=== PATIENT | female | born 1975 ===

== ENCOUNTER 2016-09-27 11:33 | Emergency (ER) | payer OTHER ==
--- NOTE | 2016-09-27 12:58 | ED ---
Seizure HPI - General Chief Complaint: Seizure Stated Complaint: seizure Time Seen by Provider: 09/27/16 12:43 Source: patient, family, RN notes reviewed Mode of arrival: ambulatory Limitations: no limitations - History of Present Illness Initial Comments: 40-year-old female presents emergency Department chief complaint seizure. Patient states she was in the bathroom saying had a seizure falling and striking her head on the toilet. Patient states that she has a headache, swelling to the left frontal aspect of her head. Patient has a blurred vision any focal weakness. She states she feels dizzy now. Patient denies any nausea vomiting diarrhea constipation. Denies any chest pain or shortness breath. - Related Data Home Medications Medication Instructions Recorded Confirmed Lacosamide [Vimpat] 150 mg PO BID 07/28/16 09/27/16 levETIRAcetam [Keppra] 750 mg PO Q12HR 07/30/16 09/27/16 Allergies Allergy/AdvReac Type Severity Reaction Status Date / Time codeine Allergy Unknown Verified 09/27/16 13:39 ibuprofen [From Motrin] Allergy Unknown Verified 09/27/16 13:39 Review of Systems ROS Statement: Those systems with pertinent positive or pertinent negative responses have been documented in the HPI. ROS Other: All systems not noted in ROS Statement are negative. Past Medical History Past Medical History: Asthma, Seizure Disorder Additional Past Medical History / Comment(s): . History of Any Multi-Drug Resistant Organisms: MRSA Date of last positivie culture/infection: 11/03/08 MDRO Source:: Unknown Past Surgical History: Hysterectomy, Orthopedic Surgery Additional Past Surgical History / Comment(s): foot surgery 2006 Past Anesthesia/Blood Transfusion Reactions: No Reported Reaction Past Psychological History: Anxiety, Depression Smoking Status: Current every day smoker Past Alcohol Use History: None Reported Past Drug Use History: None Reported Additional Drug Use History / Comment(s): family states patient seizes with smoking. - Past Family History Father Family Medical History: No Reported History General Exam Limitations: no limitations General appearance: alert, in no apparent distress Head exam: Present: atraumatic, normocephalic. Absent: normal inspection ( Small hematoma noted to the left frontal aspect) Eye exam: Present: normal appearance, PERRL, EOMI. Absent: scleral icterus, conjunctival injection, periorbital swelling ENT exam: Present: normal exam, normal oropharynx, mucous membranes moist, TM's normal bilaterally, normal external ear exam Neck exam: Present: normal inspection, full ROM. Absent: tenderness, meningismus, lymphadenopathy Respiratory exam: Present: normal lung sounds bilaterally. Absent: respiratory distress, wheezes, rales, rhonchi, stridor Cardiovascular Exam: Present: regular rate, normal rhythm, normal heart sounds. Absent: systolic murmur, diastolic murmur, rubs, gallop, clicks Neurological exam: Present: alert, oriented X3, CN II-XII intact, reflexes normal. Absent: motor sensory deficit Skin exam: Present: warm, dry, intact, normal color. Absent: rash Course Vital Signs 09/27/16 12:19 Temperature 99 F Pulse Rate 67 Respiratory 16 Rate Blood Pressure 109/53 O2 Sat by Pulse 98 Oximetry Medical Decision Making - Medical Decision Making 40-year-old female presents emergency from for seizure head injury. Patient's CT does not show any acute abnormality. Patient has known history of seizures currently taking Keppra and Vimpat. We discussed return parameters. Patient follow-up urologist. - Lab Data Result diagrams: 09/27/16 13:24 09/27/16 13:24 Lab Results 09/27/16 09/27/16 Range/Units 13:24 13:24 WBC 5.5 (3.8-10.6) k/uL RBC 4.42 (3.80-5.40) m/uL Hgb 13.2 (11.4-16.0) gm/dL Hct 40.2 (34.0-46.0) % MCV 90.9 (80.0-100.0) fL MCH 29.9 (25.0-35.0) pg MCHC 32.9 (31.0-37.0) g/dL RDW 12.7 (11.5-15.5) % Plt Count 230 (150-450) k/uL Neutrophils % 65 % Lymphocytes % 26 % Monocytes % 3 % Eosinophils % 4 % Basophils % 0 % Neutrophils # 3.6 (1.3-7.7) k/uL Lymphocytes # 1.4 (1.0-4.8) k/uL Monocytes # 0.2 (0-1.0) k/uL Eosinophils # 0.2 (0-0.7) k/uL Basophils # 0.0 (0-0.2) k/uL Sodium 143 (137-145) mmol/L Potassium 4.7 (3.5-5.1) mmol/L Chloride 104 (98-107) mmol/L Carbon Dioxide 30 (22-30) mmol/L Anion Gap 9 mmol/L BUN 11 (7-17) mg/dL Creatinine 0.60 (0.52-1.04) mg/dL Est GFR (MDRD) Af Amer >60 (>60 ml/min/1.73 sqM) Est GFR (MDRD) Non-Af >60 (>60 ml/min/1.73 sqM) Glucose 83 (74-99) mg/dL Calcium 9.5 (8.4-10.2) mg/dL Total Bilirubin 0.6 (0.2-1.3) mg/dL AST 20 (14-36) U/L ALT 34 (9-52) U/L Alkaline Phosphatase 52 (38-126) U/L Total Protein 6.8 (6.3-8.2) g/dL Albumin 4.0 (3.5-5.0) g/dL 09/27/16 13:57 EKG performed at 13:13 sinus bradycardia rate of 57, MS interval 180, QRS duration 98, QT/QTC 410/399 Disposition Clinical Impression: Seizure, Concussion Disposition: HOME SELF-CARE Condition: Stable Instructions: Recurrent Seizures in Adults (ED), Concussion (ED) Additional Instructions: Please return to the Emergency Department if symptoms worsen or any other concerns. Time of Disposition: 13:58
[2016-09-27 13:39] LABS: Basophils % (A) 0 %; CH 30.3; CHCM 33.4; Eosinophils # (A) 0.2 k/uL (0-0.7); Eosinophils % (A) 4 %; HCT 40.2 % (34.0-46.0); HDW 2.24; HGB 13.2 gm/dL (11.4-16.0); Luc # (Auto) 0.09; Luc % (Auto) 2; Lymphocytes # (A) 1.4 k/uL (1.0-4.8); Lymphocytes % (A) 26 %; MCH 29.9 pg (25.0-35.0); MCHC 32.9 g/dL (31.0-37.0); MCV 90.9 fL (80.0-100.0); Mean Platelet Volume 6.8; Monocytes # (A) 0.2 k/uL (0-1.0); Monocytes % (A) 3 %; Neutrophils # (A) 3.6 k/uL (1.3-7.7); Neutrophils % (A) 65 %; RBC 4.42 m/uL (3.80-5.40); RDW 12.7 % (11.5-15.5); WBC 5.5 k/uL (3.8-10.6); WBC (Perox) 5.29
[2016-09-27 13:51] LABS: ALT 34 U/L (9-52); AST 20 U/L (14-36); Alkaline Phosphatase 52 U/L (38-126); Anion Gap 9 mmol/L; Blood Urea Nitrogen 11 mg/dL (7-17); Calcium 9.5 mg/dL (8.4-10.2); Carbon Dioxide 30 mmol/L (22-30); Chloride 104 mmol/L (98-107); Glucose 83 mg/dL (74-99); Non-African American GFR(MDRD) >60 (>60 ml/min/1.73 sqM); Potassium 4.7 mmol/L (3.5-5.1); Sodium 143 mmol/L (137-145); Total Bilirubin 0.6 mg/dL (0.2-1.3); Total Protein 6.8 g/dL (6.3-8.2)
--- NOTE | 2016-09-27 13:51 | CT ---
EXAMINATION TYPE: CT brain wo con DATE OF EXAM: 09/27/2016 1:45 PM COMPARISON: 03/27/2016 HISTORY: 40-year-old female complains of seizure today. Patient has a history of prior seizures. TECHNIQUE: Examination was done in axial plane without intravenous contrast. Coronal and sagittal reconstructio ns performed. CT DLP: 893.6 mGycm Automated exposure control for dose reduction was used. FINDINGS: There is no evidence of acute intracranial hemorrhage, acute ischemic changes, mass, mass-effect, or extra-axial fluid collection. There is no effacement of cerebral sulci or basal subarachnoid cister ns. There is no hydrocephalus. There is no midline shift. José-white matter distinction is preserv ed. Incidentally empty sella redemonstrated. Paranasal sinuses and mastoid air cells are well pneumatized. Orbits and globes are intact. IMPRESSION: No acute intracranial abnormality seen.
[2016-09-27] MEDS ORDERED: HYDROcodone/APAP 5-325MG 1 EACH TAB PO STA (13:56)
[2016-09-27 14:10] VITALS: BP 105/51; PULSE 59; RESP 18; TEMP 97.9
== END 2016-09-27 14:23 | disposition home or self-care (01) ==
LOC: EC 11:33
DX: S06.0X0A Concussion without loss of consciousness, initial encounter (principal); G40.909 Epilepsy, unspecified, not intractable, without status epilepticus; W01.198A Fall on same level from slipping, tripping and stumbling with subsequent striking against other object, initial encounter; F17.200 Nicotine dependence, unspecified, uncomplicated; Z79.899 Other long term (current) drug therapy; Z88.5 Allergy status to narcotic agent; Z88.6 Allergy status to analgesic agent
CPT/HCPCS: 36415; 70450; 80053; 84484; 85025; 93005; 99285

== ENCOUNTER 2016-10-29 15:26 | Emergency (ER) | payer OTHER ==
[2016-10-29 15:32] VITALS: RESP 18
[2016-10-29] MEDS ORDERED: MORPHINE SULFATE 4 MG/ML SYRINGE IV STA (16:32)
[2016-10-29] MEDS ORDERED: SODIUM CHLORIDE 0.9% 1,000 ML IV STA (16:32)
--- NOTE | 2016-10-29 16:39 | ED ---
General Adult HPI - General Chief complaint: Altered Mental Status Stated complaint: alter mental status Time Seen by Provider: 10/29/16 16:26 Source: patient, family, RN notes reviewed, old records reviewed Mode of arrival: EMS Limitations: altered mental status - History of Present Illness Initial comments: E this is a 40-year-old female here for evaluation. Patient presents today for evaluation regarding near syncope after seizure. Patient has history of these events, has history of seizures, taking no medication as prescribed, no headache chest pain shortness of breath or abdominal pain. Not . Patient is currently symptomatically feels back to her baseline. - Related Data Home Medications Medication Instructions Recorded Confirmed Lacosamide [Vimpat] 150 mg PO BID 07/28/16 10/29/16 levETIRAcetam [Keppra] 750 mg PO Q12HR 07/30/16 10/29/16 Albuterol Inhaler [Ventolin Hfa 2 puff INHALATION RT-Q6H PRN 10/29/16 10/29/16 Inhaler] Allergies Allergy/AdvReac Type Severity Reaction Status Date / Time codeine Allergy Unknown Verified 10/29/16 15:32 ibuprofen [From Motrin] Allergy Unknown Verified 10/29/16 15:32 Review of Systems ROS Statement: Those systems with pertinent positive or pertinent negative responses have been documented in the HPI. ROS Other: All systems not noted in ROS Statement are negative. Past Medical History Past Medical History: Asthma, Seizure Disorder Additional Past Medical History / Comment(s): . History of Any Multi-Drug Resistant Organisms: MRSA Date of last positivie culture/infection: 11/03/08 MDRO Source:: Unknown Past Surgical History: Hysterectomy, Orthopedic Surgery Additional Past Surgical History / Comment(s): foot surgery 2006 Past Anesthesia/Blood Transfusion Reactions: No Reported Reaction Past Psychological History: Anxiety, Depression Smoking Status: Current every day smoker Past Alcohol Use History: None Reported Past Drug Use History: None Reported Additional Drug Use History / Comment(s): family states patient seizes with smoking. - Past Family History Father Family Medical History: No Reported History General Exam Limitations: altered mental status General appearance: alert, in no apparent distress Head exam: Present: atraumatic, normocephalic, normal inspection Eye exam: Present: normal appearance, PERRL, EOMI. Absent: scleral icterus, conjunctival injection, periorbital swelling ENT exam: Present: normal exam, mucous membranes moist Neck exam: Present: normal inspection. Absent: tenderness, meningismus, lymphadenopathy Respiratory exam: Present: normal lung sounds bilaterally. Absent: respiratory distress, wheezes, rales, rhonchi, stridor Cardiovascular Exam: Present: regular rate, normal rhythm, normal heart sounds. Absent: systolic murmur, diastolic murmur, rubs, gallop, clicks GI/Abdominal exam: Present: soft, normal bowel sounds. Absent: distended, tenderness, guarding, rebound, rigid Extremities exam: Present: normal inspection, full ROM, normal capillary refill. Absent: tenderness, pedal edema, joint swelling, calf tenderness Back exam: Present: normal inspection Neurological exam: Present: alert, oriented X3, CN II-XII intact Psychiatric exam: Present: normal affect, normal mood Skin exam: Present: warm, dry, intact, normal color. Absent: rash Course Vital Signs 10/29/16 10/29/16 10/29/16 15:28 17:25 17:38 Temperature 98.3 F Pulse Rate 54 L 45 L 57 L Respiratory 18 18 18 Rate Blood Pressure 114/76 88/45 94/52 O2 Sat by Pulse 95 99 100 Oximetry 10/29/16 18:05 Temperature Pulse Rate 58 L Respiratory 18 Rate Blood Pressure 128/60 O2 Sat by Pulse 99 Oximetry - Reevaluation(s) Reevaluation #1: 10/29/16 18:56 Patient did have an episodic bradycardia episode, no syncope Reevaluation #2: 10/29/16 18:57 Patient advised to stay in the hospital, she states she feels fine and would like to be discharged home EKG Findings - EKG Comments: EKG Findings:: EKG shows normal sinus rhythm is 65, [place] 182, QRS 100, QTC 449. Repeat. Failure the on EKG shows rate of 46, MO 178, QRS 104, QTC 407, sinus bradycardia, heart rate down 20 beat since she came into emergency room Medical Decision Making - Medical Decision Making 40 female with evaluation of recurrent seizure and bradycardia with syncope, near syncope. Patient will be discharged home and she is refusing to stay in the year for further evaluation and treatment, will give follow-up for cardiology - Lab Data Result diagrams: 10/29/16 15:55 10/29/16 15:55 Lab Results 10/29/16 10/29/16 10/29/16 Range/Units 15:55 15:55 15:55 WBC 5.7 (3.8-10.6) k/uL RBC 4.37 (3.80-5.40) m/uL Hgb 13.1 (11.4-16.0) gm/dL Hct 39.8 (34.0-46.0) % MCV 91.1 (80.0-100.0) fL MCH 30.0 (25.0-35.0) pg MCHC 33.0 (31.0-37.0) g/dL RDW 13.2 (11.5-15.5) % Plt Count 257 (150-450) k/uL Neutrophils % 70 % Lymphocytes % 23 % Monocytes % 3 % Eosinophils % 2 % Basophils % 0 % Neutrophils # 4.0 (1.3-7.7) k/uL Lymphocytes # 1.3 (1.0-4.8) k/uL Monocytes # 0.2 (0-1.0) k/uL Eosinophils # 0.1 (0-0.7) k/uL Basophils # 0.0 (0-0.2) k/uL PT (9.0-12.0) sec INR (<1.1) APTT (22.0-30.0) sec Sodium 143 (137-145) mmol/L Potassium 4.2 (3.5-5.1) mmol/L Chloride 103 (98-107) mmol/L Carbon Dioxide 31 H (22-30) mmol/L Anion Gap 9 mmol/L BUN 7 (7-17) mg/dL Creatinine 0.60 (0.52-1.04) mg/dL Est GFR (MDRD) Af Amer >60 (>60 ml/min/1.73 sqM) Est GFR (MDRD) Non-Af >60 (>60 ml/min/1.73 sqM) Glucose 86 (74-99) mg/dL POC Glucose (mg/dL) (75-99) mg/dL POC Glu Lumber Sorter ID Calcium 9.5 (8.4-10.2) mg/dL Phosphorus 3.1 (2.5-4.5) mg/dL Magnesium 2.1 (1.6-2.3) mg/dL Total Bilirubin 0.7 (0.2-1.3) mg/dL AST 19 (14-36) U/L ALT 25 (9-52) U/L Alkaline Phosphatase 53 (38-126) U/L Total Creatine Kinase 157 H (30-135) U/L CK-MB (CK-2) 2.1 (0.0-2.4) ng/mL CK-MB (CK-2) Rel Index 1.3 Troponin I <0.012 (0.000-0.034) ng/mL Total Protein 7.3 (6.3-8.2) g/dL Albumin 4.3 (3.5-5.0) g/dL Salicylates <1.0 mg/dL Acetaminophen <10.0 ug/mL Serum Alcohol <10 mg/dL 10/29/16 10/29/16 Range/Units 15:55 17:18 WBC (3.8-10.6) k/uL RBC (3.80-5.40) m/uL Hgb (11.4-16.0) gm/dL Hct (34.0-46.0) % MCV (80.0-100.0) fL MCH (25.0-35.0) pg MCHC (31.0-37.0) g/dL RDW (11.5-15.5) % Plt Count (150-450) k/uL Neutrophils % % Lymphocytes % % Monocytes % % Eosinophils % % Basophils % % Neutrophils # (1.3-7.7) k/uL Lymphocytes # (1.0-4.8) k/uL Monocytes # (0-1.0) k/uL Eosinophils # (0-0.7) k/uL Basophils # (0-0.2) k/uL PT 10.7 (9.0-12.0) sec INR 1.1 (<1.1) APTT 28.7 (22.0-30.0) sec Sodium (137-145) mmol/L Potassium (3.5-5.1) mmol/L Chloride (98-107) mmol/L Carbon Dioxide (22-30) mmol/L Anion Gap mmol/L BUN (7-17) mg/dL Creatinine (0.52-1.04) mg/dL Est GFR (MDRD) Af Amer (>60 ml/min/1.73 sqM) Est GFR (MDRD) Non-Af (>60 ml/min/1.73 sqM) Glucose (74-99) mg/dL POC Glucose (mg/dL) 88 (75-99) mg/dL POC Glu Lumber Sorter Maico Carpio Calcium (8.4-10.2) mg/dL Phosphorus (2.5-4.5) mg/dL Magnesium (1.6-2.3) mg/dL Total Bilirubin (0.2-1.3) mg/dL AST (14-36) U/L ALT (9-52) U/L Alkaline Phosphatase (38-126) U/L Total Creatine Kinase (30-135) U/L CK-MB (CK-2) (0.0-2.4) ng/mL CK-MB (CK-2) Rel Index Troponin I (0.000-0.034) ng/mL Total Protein (6.3-8.2) g/dL Albumin (3.5-5.0) g/dL Salicylates mg/dL Acetaminophen ug/mL Serum Alcohol mg/dL - Radiology Data Radiology results: report reviewed (CT brain negative for acute disease), image reviewed Disposition Clinical Impression: Seizure, Recurrent seizures, Altered mental status, Near syncope Disposition: HOME SELF-CARE Condition: Good Instructions: Syncope (ED), Near Syncope (ED), Epilepsy (ED), Bradycardia (ED) Referrals: Marcial Reyes MD [Primary Care Provider] - 1-2 days
[2016-10-29 16:48] LABS: Basophils % (A) 0 %; CH 30.3; CHCM 33.4; Eosinophils # (A) 0.1 k/uL (0-0.7); Eosinophils % (A) 2 %; HCT 39.8 % (34.0-46.0); HDW 2.26; HGB 13.1 gm/dL (11.4-16.0); Luc # (Auto) 0.08; Luc % (Auto) 1; Lymphocytes # (A) 1.3 k/uL (1.0-4.8); Lymphocytes % (A) 23 %; MCV 91.1 fL (80.0-100.0); Monocytes # (A) 0.2 k/uL (0-1.0); Monocytes % (A) 3 %; Neutrophils % (A) 70 %; RBC 4.37 m/uL (3.80-5.40); RDW 13.2 % (11.5-15.5); WBC 5.7 k/uL (3.8-10.6); WBC (Perox) 5.66
[2016-10-29 16:55] LABS: ALT 25 U/L (9-52); AST 19 U/L (14-36); Acetaminophen <10.0 ug/mL; Alcohol <10 mg/dL; Alkaline Phosphatase 53 U/L (38-126); Anion Gap 9 mmol/L; Blood Urea Nitrogen 7 mg/dL (7-17); Calcium 9.5 mg/dL (8.4-10.2); Carbon Dioxide 31 mmol/L (22-30); Chloride 103 mmol/L (98-107); Glucose 86 mg/dL (74-99); INR 1.1 (<1.1); Magnesium 2.1 mg/dL (1.6-2.3); Non-African American GFR(MDRD) >60 (>60 ml/min/1.73 sqM); Partial Thromboplastin Time 28.7 sec (22.0-30.0); Phosphorous 3.1 mg/dL (2.5-4.5); Potassium 4.2 mmol/L (3.5-5.1); Prothrombin Time 10.7 sec (9.0-12.0); Salicylate <1.0 mg/dL; Sodium 143 mmol/L (137-145); Total Bilirubin 0.7 mg/dL (0.2-1.3); Total Protein 7.3 g/dL (6.3-8.2)
[2016-10-29 17:05] LABS: Creatine Kinase 157 U/L (30-135)
[2016-10-29 17:18] LABS: Creatine Kinase MB 2.1 ng/mL (0.0-2.4); Troponin I <0.012 ng/mL (0.000-0.034)
[2016-10-29 17:20] LABS: Glucose,Whole Blood 88 mg/dL (75-99)
--- NOTE | 2016-10-29 18:14 | CT ---
EXAMINATION TYPE: CT brain wo con DATE OF EXAM: 10/29/2016 6:01 PM COMPARISON: 09/27/2016 HISTORY: Seizure today. Headache. History of seizures. CT DLP: 1109.00 mGycm Automated exposure control for dose reduction was used. FINDINGS: The ventricles and sulci appear normal. There is no mass effect nor midline shift. There is no sign o f intracranial hemorrhage. The calvarium is intact. IMPRESSION: Negative unenhanced head CT scan. No change.
[2016-10-29] MEDS ORDERED: SODIUM CHLORIDE 0.9% 1,000 ML IV ONE (18:27)
[2016-10-29 19:10] VITALS: BP 107/56
[2016-10-29 19:15] VITALS: PULSE 58; TEMP 97.2
== END 2016-10-29 19:14 | disposition home or self-care (01) ==
LOC: EC 15:26
DX: G40.909 Epilepsy, unspecified, not intractable, without status epilepticus (principal); R55 Syncope and collapse; R00.1 Bradycardia, unspecified; Z86.14 Personal history of Methicillin resistant Staphylococcus aureus infection; F17.200 Nicotine dependence, unspecified, uncomplicated; Z88.6 Allergy status to analgesic agent; Z88.5 Allergy status to narcotic agent; Z79.899 Other long term (current) drug therapy
CPT/HCPCS: 99285; 96361; 96374; 36415; 93005; 80053; 82550; 82553; 83735; 84100; 84484; 85025; 85610; 85730; 83520 ×2; 80320; 70450; J2270

== ENCOUNTER 2016-11-11 09:08 | Inpatient (IN) | payer MEDICAID, OTHER ==
[2016-11-11] MEDS ORDERED: SODIUM CHLORIDE 0.9% 1,000 ML IV STA (09:17)
--- NOTE | 2016-11-11 09:21 | ED ---
General Adult HPI - General Chief complaint: Overdose Stated complaint: overdose Time Seen by Provider: 11/11/16 09:13 Source: patient, RN notes reviewed, old records reviewed Mode of arrival: EMS Limitations: no limitations - History of Present Illness Initial comments: This is a 40-year-old female the ER for evaluation of suicide attempt, patient lethargic somnolent and sleeping. Per family patient at about 9:00 last night took around 30 Flexeril. Patient denies being homicidal or suicidal at this time. No drugs or alcohol - Related Data Home Medications Medication Instructions Recorded Confirmed Lacosamide [Vimpat] 150 mg PO BID 07/28/16 10/29/16 levETIRAcetam [Keppra] 750 mg PO Q12HR 07/30/16 10/29/16 Albuterol Inhaler [Ventolin Hfa 2 puff INHALATION RT-Q6H PRN 10/29/16 10/29/16 Inhaler] Allergies Allergy/AdvReac Type Severity Reaction Status Date / Time codeine Allergy Unknown Verified 10/29/16 15:32 ibuprofen [From Motrin] Allergy Unknown Verified 10/29/16 15:32 Review of Systems ROS Statement: Those systems with pertinent positive or pertinent negative responses have been documented in the HPI. ROS Other: All systems not noted in ROS Statement are negative. Past Medical History Past Medical History: Asthma, Seizure Disorder Additional Past Medical History / Comment(s): . History of Any Multi-Drug Resistant Organisms: MRSA Date of last positivie culture/infection: 11/03/08 MDRO Source:: Unknown Past Surgical History: Hysterectomy, Orthopedic Surgery Additional Past Surgical History / Comment(s): foot surgery 2006 Past Anesthesia/Blood Transfusion Reactions: No Reported Reaction Past Psychological History: Anxiety, Depression Smoking Status: Current every day smoker Past Alcohol Use History: None Reported Past Drug Use History: None Reported Additional Drug Use History / Comment(s): family states patient seizes with smoking. - Past Family History Father Family Medical History: No Reported History General Exam - General Exam Comments Initial Comments: Patient somnolent on exam is arousable Limitations: no limitations General appearance: alert, in no apparent distress Head exam: Present: atraumatic, normocephalic, normal inspection Eye exam: Present: normal appearance, PERRL, EOMI. Absent: scleral icterus, conjunctival injection, periorbital swelling ENT exam: Present: normal exam, mucous membranes moist Neck exam: Present: normal inspection. Absent: tenderness, meningismus, lymphadenopathy Respiratory exam: Present: normal lung sounds bilaterally. Absent: respiratory distress, wheezes, rales, rhonchi, stridor Cardiovascular Exam: Present: regular rate, normal rhythm, normal heart sounds. Absent: systolic murmur, diastolic murmur, rubs, gallop, clicks GI/Abdominal exam: Present: soft, normal bowel sounds. Absent: distended, tenderness, guarding, rebound, rigid Extremities exam: Present: normal inspection, full ROM, normal capillary refill. Absent: tenderness, pedal edema, joint swelling, calf tenderness Back exam: Present: normal inspection Neurological exam: Present: alert, oriented X3, CN II-XII intact Psychiatric exam: Present: normal affect, normal mood Skin exam: Present: warm, dry, intact, normal color. Absent: rash Course Vital Signs 11/11/16 11/11/16 11/11/16 09:10 10:28 11:00 Temperature 97.7 F Pulse Rate 82 72 74 Respiratory 14 18 14 Rate Blood Pressure 113/59 102/57 117/56 O2 Sat by Pulse 99 97 100 Oximetry - Reevaluation(s) Reevaluation #1: 11/11/16 09:18 Family states patient is unstable in need of psychiatric care 11/11/16 12:15 Patient medically clear for psychiatric evaluation EKG Findings - EKG Comments: EKG Findings:: EKG shows normal sinus rhythm rate of 85, [place] 182, QRS 04, QTC 437 Medical Decision Making - Medical Decision Making 40 female the year with suicidal thoughts and suicidal attempt, patient will be admitted for psychiatric evaluation and treatment - Lab Data Result diagrams: 11/11/16 09:16 11/11/16 10:16 Lab Results 11/11/16 11/11/16 11/11/16 Range/Units 09:16 09:16 09:33 WBC 4.8 (3.8-10.6) k/uL RBC 4.34 (3.80-5.40) m/uL Hgb 13.2 (11.4-16.0) gm/dL Hct 39.7 (34.0-46.0) % MCV 91.5 (80.0-100.0) fL MCH 30.5 (25.0-35.0) pg MCHC 33.4 (31.0-37.0) g/dL RDW 13.5 (11.5-15.5) % Plt Count 205 (150-450) k/uL Neutrophils % 69 % Lymphocytes % 21 % Monocytes % 4 % Eosinophils % 3 % Basophils % 1 % Neutrophils # 3.3 (1.3-7.7) k/uL Lymphocytes # 1.0 (1.0-4.8) k/uL Monocytes # 0.2 (0-1.0) k/uL Eosinophils # 0.2 (0-0.7) k/uL Basophils # 0.1 (0-0.2) k/uL PT 11.1 (9.0-12.0) sec INR 1.1 (<1.1) Sodium (137-145) mmol/L Potassium (3.5-5.1) mmol/L Chloride (98-107) mmol/L Carbon Dioxide (22-30) mmol/L Anion Gap mmol/L BUN (7-17) mg/dL Creatinine (0.52-1.04) mg/dL Est GFR (MDRD) Af Amer (>60 ml/min/1.73 sqM) Est GFR (MDRD) Non-Af (>60 ml/min/1.73 sqM) Glucose (74-99) mg/dL Calcium (8.4-10.2) mg/dL Phosphorus (2.5-4.5) mg/dL Magnesium (1.6-2.3) mg/dL Total Bilirubin (0.2-1.3) mg/dL AST (14-36) U/L ALT (9-52) U/L Alkaline Phosphatase (38-126) U/L Total Creatine Kinase (30-135) U/L CK-MB (CK-2) (0.0-2.4) ng/mL CK-MB (CK-2) Rel Index Total Protein (6.3-8.2) g/dL Albumin (3.5-5.0) g/dL Urine Color Colorless Urine Appearance Clear (Clear) Urine pH 7.5 (5.0-8.0) Ur Specific [place] 1.001 (1.001-1.035) Urine Protein Negative (Negative) Urine Glucose (UA) Negative (Negative) Urine Ketones Negative (Negative) Urine Blood Negative (Negative) Urine Nitrate Negative (Negative) Urine Bilirubin Negative (Negative) Urine Urobilinogen <2.0 (<2.0) mg/dL Ur Leukocyte Esterase Negative (Negative) Urine HCG, Qual (Not Detectd) Salicylates mg/dL Urine Opiates Screen Not Detected (NotDetected) Ur Oxycodone Screen Not Detected (NotDetected) Urine Methadone Screen Not Detected (NotDetected) Ur Propoxyphene Screen Not Detected (NotDetected) Acetaminophen ug/mL Ur Barbiturates Screen Not Detected (NotDetected) U Tricyclic Antidepress Detected H (NotDetected) Ur Phencyclidine Scrn Not Detected (NotDetected) Ur Amphetamines Screen Not Detected (NotDetected) U Methamphetamines Scrn Not Detected (NotDetected) U Benzodiazepines Scrn Not Detected (NotDetected) Urine Cocaine Screen Not Detected (NotDetected) U Marijuana (THC) Screen Not Detected (NotDetected) Serum Alcohol mg/dL 11/11/16 11/11/16 11/11/16 Range/Units 09:33 10:16 10:16 WBC (3.8-10.6) k/uL RBC (3.80-5.40) m/uL Hgb (11.4-16.0) gm/dL Hct (34.0-46.0) % MCV (80.0-100.0) fL MCH (25.0-35.0) pg MCHC (31.0-37.0) g/dL RDW (11.5-15.5) % Plt Count (150-450) k/uL Neutrophils % % Lymphocytes % % Monocytes % % Eosinophils % % Basophils % % Neutrophils # (1.3-7.7) k/uL Lymphocytes # (1.0-4.8) k/uL Monocytes # (0-1.0) k/uL Eosinophils # (0-0.7) k/uL Basophils # (0-0.2) k/uL PT (9.0-12.0) sec INR (<1.1) Sodium 144 (137-145) mmol/L Potassium 4.3 (3.5-5.1) mmol/L Chloride 108 H (98-107) mmol/L Carbon Dioxide 26 (22-30) mmol/L Anion Gap 10 mmol/L BUN 8 (7-17) mg/dL Creatinine 0.53 (0.52-1.04) mg/dL Est GFR (MDRD) Af Amer >60 (>60 ml/min/1.73 sqM) Est GFR (MDRD) Non-Af >60 (>60 ml/min/1.73 sqM) Glucose 82 (74-99) mg/dL Calcium 9.3 (8.4-10.2) mg/dL Phosphorus 3.5 (2.5-4.5) mg/dL Magnesium 2.1 (1.6-2.3) mg/dL Total Bilirubin 1.1 (0.2-1.3) mg/dL AST 18 (14-36) U/L ALT 26 (9-52) U/L Alkaline Phosphatase 58 (38-126) U/L Total Creatine Kinase 115 (30-135) U/L CK-MB (CK-2) 1.2 (0.0-2.4) ng/mL CK-MB (CK-2) Rel Index 1.0 Total Protein 7.2 (6.3-8.2) g/dL Albumin 4.1 (3.5-5.0) g/dL Urine Color Urine Appearance (Clear) Urine pH (5.0-8.0) Ur Specific [place] (1.001-1.035) Urine Protein (Negative) Urine Glucose (UA) (Negative) Urine Ketones (Negative) Urine Blood (Negative) Urine Nitrate (Negative) Urine Bilirubin (Negative) Urine Urobilinogen (<2.0) mg/dL Ur Leukocyte Esterase (Negative) Urine HCG, Qual Not Detected (Not Detectd) Salicylates <1.0 mg/dL Urine Opiates Screen (NotDetected) Ur Oxycodone Screen (NotDetected) Urine Methadone Screen (NotDetected) Ur Propoxyphene Screen (NotDetected) Acetaminophen <10.0 ug/mL Ur Barbiturates Screen (NotDetected) U Tricyclic Antidepress (NotDetected) Ur Phencyclidine Scrn (NotDetected) Ur Amphetamines Screen (NotDetected) U Methamphetamines Scrn (NotDetected) U Benzodiazepines Scrn (NotDetected) Urine Cocaine Screen (NotDetected) U Marijuana (THC) Screen (NotDetected) Serum Alcohol <10 mg/dL Disposition Clinical Impression: Drug overdose, Suicide attempt Disposition: TRANSFER TO PSYCH HOSP/UNIT Condition: Fair Referrals: Marcial Reyes MD [Primary Care Provider] - 1-2 days
[2016-11-11 09:33] LABS: Basophils # (A) 0.1 k/uL (0-0.2); Basophils % (A) 1 %; CH 30.4; CHCM 33.4; Eosinophils # (A) 0.2 k/uL (0-0.7); Eosinophils % (A) 3 %; HCT 39.7 % (34.0-46.0); HDW 2.73; HGB 13.2 gm/dL (11.4-16.0); Luc # (Auto) 0.12; Luc % (Auto) 2; Lymphocytes % (A) 21 %; MCH 30.5 pg (25.0-35.0); MCHC 33.4 g/dL (31.0-37.0); MCV 91.5 fL (80.0-100.0); Mean Platelet Volume 8.7; Monocytes # (A) 0.2 k/uL (0-1.0); Monocytes % (A) 4 %; Neutrophils # (A) 3.3 k/uL (1.3-7.7); Neutrophils % (A) 69 %; RBC 4.34 m/uL (3.80-5.40); RDW 13.5 % (11.5-15.5); WBC 4.8 k/uL (3.8-10.6); WBC (Perox) 4.89
[2016-11-11 09:43] LABS: Appearance,Urine Clear (Clear); Bilirubin,Urine Negative (Negative); Glucose,Urine (UA) Negative (Negative); Ketones,Urine Negative (Negative); Leukocyte Esterase,Urine Negative (Negative); Nitrite,Urine Negative (Negative); PH, Urine 7.5 (5.0-8.0); Protein,Urine Negative (Negative); Specific Gravity,Urine 1.001 (1.001-1.035); UA Billing (MACRO vs. MICRO) CHEM; Urobilinogen,Urine <2.0 mg/dL (<2.0)
[2016-11-11 09:52] LABS: INR 1.1 (<1.1); Prothrombin Time 11.1 sec (9.0-12.0)
[2016-11-11 10:50] LABS: ALT 26 U/L (9-52); AST 18 U/L (14-36); Acetaminophen <10.0 ug/mL; Alcohol <10 mg/dL; Alkaline Phosphatase 58 U/L (38-126); Anion Gap 10 mmol/L; Blood Urea Nitrogen 8 mg/dL (7-17); Calcium 9.3 mg/dL (8.4-10.2); Carbon Dioxide 26 mmol/L (22-30); Chloride 108 mmol/L (98-107); Glucose 82 mg/dL (74-99); Magnesium 2.1 mg/dL (1.6-2.3); Non-African American GFR(MDRD) >60 (>60 ml/min/1.73 sqM); Phosphorous 3.5 mg/dL (2.5-4.5); Potassium 4.3 mmol/L (3.5-5.1); Salicylate <1.0 mg/dL; Sodium 144 mmol/L (137-145); Total Bilirubin 1.1 mg/dL (0.2-1.3); Total Protein 7.2 g/dL (6.3-8.2)
[2016-11-11 11:02] LABS: Creatine Kinase MB 1.2 ng/mL (0.0-2.4)
[2016-11-11] MEDS ORDERED: ACETAMINOPHEN TAB 325 MG TAB PO PRN (15:49)
[2016-11-11] MEDS ORDERED: MAGNESIUM HYDROXIDE 2,400 MG/10 ML CUP PO PRN (15:49)
[2016-11-11] MEDS ORDERED: ZIPRASIDONE 20 MG VIAL IM PRN (15:56)
[2016-11-11] MEDS: NICOTINE 21MG/24HR PATCH TRANSDERM SCH (16:09)
--- NOTE | 2016-11-11 19:34 | P.HP ---
Psychiatric H&P - . H&P Date: 11/11/16 History & Physical: Allergies Allergy/AdvReac Type Severity Reaction Status Date / Time codeine Allergy Unknown Verified 11/11/16 12:42 ibuprofen [From Motrin] Allergy Unknown Verified 11/11/16 12:42 Vital Signs Temp 97.9 F 11/11/16 13:18 Pulse 90 11/11/16 13:18 Resp 18 11/11/16 13:18 BP 120/56 11/11/16 13:18 Pulse Ox 98 11/11/16 13:18 Laboratory Last Values WBC 4.8 k/uL (3.8-10.6) 11/11/16 09:16 RBC 4.34 m/uL (3.80-5.40) 11/11/16 09:16 Hgb 13.2 gm/dL (11.4-16.0) 11/11/16 09:16 Hct 39.7 % (34.0-46.0) 11/11/16 09:16 MCV 91.5 fL (80.0-100.0) 11/11/16 09:16 MCH 30.5 pg (25.0-35.0) 11/11/16 09:16 MCHC 33.4 g/dL (31.0-37.0) 11/11/16 09:16 RDW 13.5 % (11.5-15.5) 11/11/16 09:16 Plt Count 205 k/uL (150-450) 11/11/16 09:16 Neutrophils % 69 % 11/11/16 09:16 Lymphocytes % 21 % 11/11/16 09:16 Monocytes % 4 % 11/11/16 09:16 Eosinophils % 3 % 11/11/16 09:16 Basophils % 1 % 11/11/16 09:16 Neutrophils # 3.3 k/uL (1.3-7.7) 11/11/16 09:16 Lymphocytes # 1.0 k/uL (1.0-4.8) 11/11/16 09:16 Monocytes # 0.2 k/uL (0-1.0) 11/11/16 09:16 Eosinophils # 0.2 k/uL (0-0.7) 11/11/16 09:16 Basophils # 0.1 k/uL (0-0.2) 11/11/16 09:16 PT 11.1 sec (9.0-12.0) 11/11/16 09:16 INR 1.1 (<1.1) 11/11/16 09:16 Sodium 144 mmol/L (137-145) 11/11/16 10:16 Potassium 4.3 mmol/L (3.5-5.1) 11/11/16 10:16 Chloride 108 mmol/L (98-107) H 11/11/16 10:16 Carbon Dioxide 26 mmol/L (22-30) 11/11/16 10:16 Anion Gap 10 mmol/L 11/11/16 10:16 BUN 8 mg/dL (7-17) 11/11/16 10:16 Creatinine 0.53 mg/dL (0.52-1.04) 11/11/16 10:16 Est GFR (MDRD) Af Amer >60 (>60 ml/min/1.73 sqM) 11/11/16 10:16 Est GFR (MDRD) Non-Af >60 (>60 ml/min/1.73 sqM) 11/11/16 10:16 Glucose 82 mg/dL (74-99) 11/11/16 10:16 Calcium 9.3 mg/dL (8.4-10.2) 11/11/16 10:16 Phosphorus 3.5 mg/dL (2.5-4.5) 11/11/16 10:16 Magnesium 2.1 mg/dL (1.6-2.3) 11/11/16 10:16 Total Bilirubin 1.1 mg/dL (0.2-1.3) 11/11/16 10:16 AST 18 U/L (14-36) 11/11/16 10:16 ALT 26 U/L (9-52) 11/11/16 10:16 Alkaline Phosphatase 58 U/L (38-126) 11/11/16 10:16 Total Creatine Kinase 115 U/L (30-135) 11/11/16 10:16 CK-MB (CK-2) 1.2 ng/mL (0.0-2.4) 11/11/16 10:16 CK-MB (CK-2) Rel Index 1.0 11/11/16 10:16 Total Protein 7.2 g/dL (6.3-8.2) 11/11/16 10:16 Albumin 4.1 g/dL (3.5-5.0) 11/11/16 10:16 Urine Color Colorless 11/11/16 09:33 Urine Appearance Clear (Clear) 11/11/16 09:33 Urine pH 7.5 (5.0-8.0) 11/11/16 09:33 Ur Specific [place] 1.001 (1.001-1.035) 11/11/16 09:33 Urine Protein Negative (Negative) 11/11/16 09:33 Urine Glucose (UA) Negative (Negative) 11/11/16 09:33 Urine Ketones Negative (Negative) 11/11/16 09:33 Urine Blood Negative (Negative) 11/11/16 09:33 Urine Nitrate Negative (Negative) 11/11/16 09:33 Urine Bilirubin Negative (Negative) 11/11/16 09:33 Urine Urobilinogen <2.0 mg/dL (<2.0) 11/11/16 09:33 Ur Leukocyte Esterase Negative (Negative) 11/11/16 09:33 Urine HCG, Qual Not Detected (Not Detectd) 11/11/16 09:33 Salicylates <1.0 mg/dL 11/11/16 10:16 Urine Opiates Screen Not Detected (NotDetected) 11/11/16 09:33 Ur Oxycodone Screen Not Detected (NotDetected) 11/11/16 09:33 Urine Methadone Screen Not Detected (NotDetected) 11/11/16 09:33 Ur Propoxyphene Screen Not Detected (NotDetected) 11/11/16 09:33 Acetaminophen <10.0 ug/mL 11/11/16 10:16 Ur Barbiturates Screen Not Detected (NotDetected) 11/11/16 09:33 U Tricyclic Antidepress Detected (NotDetected) H 11/11/16 09:33 Ur Phencyclidine Scrn Not Detected (NotDetected) 11/11/16 09:33 Ur Amphetamines Screen Not Detected (NotDetected) 11/11/16 09:33 U Methamphetamines Scrn Not Detected (NotDetected) 11/11/16 09:33 U Benzodiazepines Scrn Not Detected (NotDetected) 11/11/16 09:33 Urine Cocaine Screen Not Detected (NotDetected) 11/11/16 09:33 U Marijuana (THC) Screen Not Detected (NotDetected) 11/11/16 09:33 Serum Alcohol <10 mg/dL 11/11/16 10:16 11/11/16 19:14 IDENTIFYING DATA: 40-year-old female patient HPI: Patient is admitted to the inpatient psychiatric unit [facility] on an involuntary basis. Petition was done by nursing staff verbalizing "patient overdosed 11/10/2016 at 9 PM on 30 Flexeril. States she hoped it would make her boyfriend come back and be nice to her." She reports that she did not take an overdose of the muscle relaxer. She says that she threw them in the sink and left the water spoil the medication and denies taking 30 pills. She relates that she was sitting on the couch and her boyfriend came in and seemed like he didn't care and she said "I'll tease you, we'll play a little game like I'm ." She relays that then he came back and she said "I took it. " Then she said 'no I put them in the sink.' When asked again after the session was over regarding clarification of the events the patient relays that she told her boyfriend's brother that she took the pills and then she told her boyfriend that she didn't take the pills. She states that they were going to break up before but she didn't want to. She says they are still together. Regarding her mood lately the past couple weeks she says it's been okay and she does say she has some sadness a little. She denies any confused or paranoid thoughts. She says sometimes she is in a good mood and some time she is grumpy. PAST PSYCHIATRIC HISTORY: She denies any history of psychiatric admissions. Denies any history of suicide attempts. She has been seeing a counselor in [place]. PMH: Seizure disorder ALLERGIES: Codeine, ibuprofen MEDICATIONS: Tylenol when necessary, Ventolin when necessary, Vimpat, Keppra, milk of magnesia when necessary, Haldol patch, Geodon when necessary CHEMICAL DEPENDENCY HISTORY: Denies FAMILY PSYCHIATRIC HISTORY: Denies FAMILY CHEMICAL DEPENDENCY HISTORY: Not known at this time. SOCIAL HISTORY: Currently lives with her boyfriend and his brother. Not currently working. MENTAL STATUS EXAM: She is alert and overall cooperative with the interview. Her speech is fluent not rapid or pressured. Her mood is described as "okay she denies any thoughts of harm to self or others. She denies any auditory or visual hallucinations. She denies any confused or paranoid thoughts. It appears as though there may be some thought disorganization at times. Her insight has some limitations, her judgment shows evidence of recent impairment. STRENGTHS/WEAKNESSES: Strengths-Some support system; weaknesses -coping skills INTELLECTUAL FUNCTIONING: Average IMPRESSIONS: AXIS I : Unspecified depressive disorder; rule out unspecified psychotic disorder AXIS II: Deferred AXIS III: History of seizure disorder AXIS IV: Relationship AXIS V: 30 PLAN: Patient is admitted to the inpatient psychiatric unit on an involuntary basis. She will be placed on SP 15 minute cautious. Baseline laboratory workup were done the patient and medical consultation will be ordered. Discussed with the patient regarding the use of psychotropic medication which she is not interested at this point in time. Would look at a medication that can help with mood/thought. We will look into support systems. Dr. Melchor will initiate care of this patient starting tomorrow. Estimated length of stay is 5-7 days. Prognosis is guarded.
[2016-11-11] MEDS: ALBUTEROL INHALER 60 PUFF/8 GM INHALER INHALATION PRN (20:56)
[2016-11-11] MEDS: LACOSAMIDE 150 MG TABLET PO SCH (21:25)
[2016-11-12 07:09] VITALS: RESP 16; TEMP 98
[2016-11-12] MEDS: NICOTINE 21MG/24HR PATCH TRANSDERM SCH (08:25)
[2016-11-12] MEDS: LACOSAMIDE 150 MG TABLET PO SCH ×2 (08:26→20:46)
[2016-11-12 10:11] LABS: Basophils % (A) 0 %; CH 30.4; CHCM 32.7; Eosinophils # (A) 0.2 k/uL (0-0.7); Eosinophils % (A) 3 %; HCT 43.1 % (34.0-46.0); HDW 2.28; HGB 13.7 gm/dL (11.4-16.0); Luc # (Auto) 0.07; Luc % (Auto) 1; Lymphocytes # (A) 1.6 k/uL (1.0-4.8); Lymphocytes % (A) 27 %; MCH 29.8 pg (25.0-35.0); MCHC 31.9 g/dL (31.0-37.0); MCV 93.5 fL (80.0-100.0); Mean Platelet Volume 7.4; Monocytes # (A) 0.2 k/uL (0-1.0); Monocytes % (A) 3 %; Neutrophils # (A) 3.9 k/uL (1.3-7.7); Neutrophils % (A) 66 %; RBC 4.61 m/uL (3.80-5.40); RDW 13.3 % (11.5-15.5); WBC (Perox) 6.05
[2016-11-12 10:15] LABS: ALT 25 U/L (9-52); AST 16 U/L (14-36); Alkaline Phosphatase 57 U/L (38-126); Anion Gap 12 mmol/L; Blood Urea Nitrogen 12 mg/dL (7-17); Calcium 9.6 mg/dL (8.4-10.2); Carbon Dioxide 29 mmol/L (22-30); Chloride 101 mmol/L (98-107); Glucose 105 mg/dL (74-99); Non-African American GFR(MDRD) >60 (>60 ml/min/1.73 sqM); Potassium 4.5 mmol/L (3.5-5.1); Sodium 142 mmol/L (137-145); Total Bilirubin 1.5 mg/dL (0.2-1.3); Total Protein 7.6 g/dL (6.3-8.2)
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
[2016-11-12] MEDS: ALBUTEROL INHALER 60 PUFF/8 GM INHALER INHALATION PRN ×2 (17:00→21:17)
--- NOTE | 2016-11-12 22:17 | CONS ---
DATE OF CONSULTATION: REASON FOR CONSULTATION: Medical management of overdose and seizure disorder. HISTORY OF PRESENT ILLNESS: Mr. Venegas is a 40-year-old female with known history of seizure disorder and nicotine addiction and came to the hospital after suicide attempt. Apparently, the patient was lethargic and somnolent and sleeping when she came to the hospital. As per the family the patient took about 30 Flexeril tablets but the patient is currently more awake, alert and oriented. Patient denied taking any medications and she threw out all the medications neurology actually. The patient denies suicidal ideation now. The patient was found to have partner relational problems and otherwise denied any drugs or IVDU. Denied any alcohol use. Patient does smoke about 2 packs plus per day and does take her medications regularly. REVIEW OF SYSTEMS: CONSTITUTIONAL: No fever. No chills. RESPIRATORY: No cough or sputum production. CARDIOVASCULAR: No chest pain or short of breath. ABDOMEN: No nausea, vomiting, or abdominal pain. GENITOURINARY: Negative. ENDOCRINE: Negative. PSYCHIATRIC: Negative. SKIN: Negative. All other fourteen-point review of systems negative except as above. Past medical history includes asthma. Seizure disorder. Past history of methicillin-resistant Staphylococcus aureus. PAST SURGICAL HISTORY: Hysterectomy, orthopedic surgery, foot surgery in 2005. PSYCHOSOCIAL HISTORY: Anxiety and depression. SOCIAL HISTORY: Currently an everyday smoker, smokes about 2 packs per day. Occasional alcohol use. Denied any drugs or IVDU. FAMILY HISTORY: Father had ( )history of hypertension or diabetes mellitus. Home medication include: 1. Vimpat. 2. Keppra. 3. Albuterol inhaler. ALLERGIES: CODEINE AND IBUPROFEN. PHYSICAL EXAMINATION: A 40-year-old female, lying in the bed comfortably; awake, alert and oriented times three. Appears to be in no apparent distress. VITALS: Blood pressure is 112/56, pulse is 91, respirations 18, temperature afebrile, pulse ox 100% on room air. HEENT: Atraumatic, normocephalic. Neck is supple. No JVD. CARDIOVASCULAR: S1, S2 heard. No murmurs, no gallop, no rub. LUNGS: Bilateral air entry is present. No wheezing. No crackles. Nonlabored breathing. ABDOMEN: Soft, nontender. Bowel sounds are present. CENTRAL NERVOUS SYSTEM: Awake, alert and oriented x3. No focal deficits. EXTREMITIES: No edema. Pulses palpable bilaterally. No clubbing or cyanosis. PSYCHIATRIC: Cooperative. LABORATORY DATA: WBC 6.0, hemoglobin 13.7, platelets 264. Sodium 142, potassium 4.5, chloride 101, bicarb 29, BUN 12, creatinine 0.65. Bilirubin 1.5. TSH 0.898. UDS positive for tricyclic antidepressants. UA negative. Serum alcohol less than 10. Acetaminophen level less than 10, salicylate level less than 10. EKG on admission showed normal sinus rhythm. IMPRESSION: 1. Acute suicide attempt, patient actually taking overdose medications. 2. Asthma history, we will continue on Ventolin as needed and no active exacerbation. 3. Seizure disorder, continue with the home medications. 4. Nicotine addiction, smoking cessation has been counseled extensively. 5. Partner relational problems. DISCUSSION AND PLAN/RECOMMENDATIONS: The patient will be continued on current home medications for seizure disorder and Ventolin inhaler as needed. Encourage ambulation for DVT prophylaxis. The patient is being followed by psychiatric, otherwise continue the current management. Patient was placed on nicotine patch. We will continue the current management and further recommendations based on clinical course.
[2016-11-13] MEDS: LACOSAMIDE 150 MG TABLET PO SCH (08:16)
[2016-11-13] MEDS: NICOTINE 21MG/24HR PATCH TRANSDERM SCH (09:24)
[2016-11-13] MEDS: ALBUTEROL INHALER 60 PUFF/8 GM INHALER INHALATION PRN (09:27)
[2016-11-13 13:39] VITALS: BP 122/56; PULSE 84
--- NOTE | 2016-11-13 15:37 | P.PN ---
Progress Note - Text SUBJECTIVE: Ms. Venegas remains distressed that she cannot leave the hospital. I explained that application for involuntary hospitalization and supporting documents had been submitted before our interview yesterday. I apologized that I was unaware of the process had progressed to the court submission and explained that I could not discharge her under these circumstances. She repeatedly maintained that she has no thoughts of or suicide. She continues to deny that she had overdosed on her prescription medications prior to admission. She denied the need for inpatient unit for treatment but agreed to continue outpatient services. OBJECTIVE: She presented as a casually groomed 40-year-old female who was intermittently distressed and crying. She maintained eye contact and attended the interview. She had no distinguishing features or prominent physical abnormalities. She had a distressed facial expression. She has slight psychomotor retardation but no abnormal involuntary movements. Her speech was spontaneous with variable rate, rhythm and volume consistent with her mood. Her speech was dysarthric. Her affect was depressed. She denied suicidal ideation or wishes. She denied homicidal ideation. She denied depressive cognitions such as hopelessness, helplessness or worthlessness. She ruminated on this hospitalization her perceived need to be discharged home. She did not expressed some obsessions, ideas reference or paranoid ideation. Her thinking was concrete and her associations were coherent and logical. She denied hallucinations and did not appear to responding to internal stimuli. ASSESSMENT: She appears depressed and restless. She is distressed over the involuntary hospitalization ordered need for continued inpatient stay. She continues to deny suicidal ideation, plan or intent and denied that she had attempted suicide prior to admission. PLAN: Continue inpatient psychiatric hospitalization until she defers or we have the probate hearing. Continue 15 minute checks. Continue current medications including Vimpat 150 mg twice a day, Keppra 750 mg every 12 hours, albuterol 2 puffs every 6 hours when necessary for shortness of breath. Discuss treatment with antidepressant medication. Continued participation in therapeutic groups and activities. Evaluate clinical status and response to treatment daily basis.
== END 2016-11-13 07:25 | disposition home or self-care (01) | DRG 881 ==
LOC: EC 09:08 → 3MHU 12:57
PROVIDERS: ADMIT Psychiatry & Neurology Psychiatry; ATTEND Psychiatry & Neurology Psychiatry
DX: F32.9 Major depressive disorder, single episode, unspecified (principal); G40.909 Epilepsy, unspecified, not intractable, without status epilepticus; R45.851 Suicidal ideations; F41.9 Anxiety disorder, unspecified; J45.909 Unspecified asthma, uncomplicated; F17.200 Nicotine dependence, unspecified, uncomplicated; R53.83 Other fatigue; R47.1 Dysarthria and anarthria; Z88.6 Allergy status to analgesic agent; Z88.5 Allergy status to narcotic agent; Z87.828 Personal history of other (healed) physical injury and trauma; Z86.14 Personal history of Methicillin resistant Staphylococcus aureus infection; Z16.24 Resistance to multiple antibiotics; Z83.3 Family history of diabetes mellitus; Z82.49 Family history of ischemic heart disease and other diseases of the circulatory system; Z79.899 Other long term (current) drug therapy; Z71.6 Tobacco abuse counseling; Z90.710 Acquired absence of both cervix and uterus; Z56.0 Unemployment, unspecified; Z63.0 Problems in relationship with spouse or partner
CPT/HCPCS: 36415; 80053; 80306; 80320; 81003; 81025; 82075; 82550; 82553; 83520; 83735; 84100; 84443; 85025; 85610; 93005; 94640; 96360; 99285

== ENCOUNTER → 2017-01-02 | Outpatient (CLI) | payer OTHER ==
[2017-01-02 13:38] LABS: Appearance,Urine Clear (Clear); Bacteria,Urine Rare /hpf; Bilirubin,Urine Negative (Negative); Glucose,Urine (UA) Negative (Negative); Ketones,Urine Negative (Negative); Leukocyte Esterase,Urine Trace (Negative); Mucus,Urine Few /hpf; Nitrite,Urine Negative (Negative); Particle Count 3212; Protein,Urine Negative (Negative); Specific Gravity,Urine 1.009 (1.001-1.035); Squamous Epithelial Cell,Urine 1 /hpf (0-4); UA Billing (MACRO vs. MICRO) MICRO; Urobilinogen,Urine <2.0 mg/dL (<2.0); WBC,Urine 1 /hpf (0-5)
== END | disposition home or self-care (01) ==
LOC: LABWHC1 13:04
PROVIDERS: ATTEND Physician Assistant Medical
DX: N39.0 Urinary tract infection, site not specified (principal)
CPT/HCPCS: 81001

== ENCOUNTER 2017-03-31 02:05 | Inpatient (IN) | payer OTHER ==
[2017-03-31] MEDS ORDERED: levETIRAcetam IV 1,000 MG in SALINE 1 100ML.BAG IVPB STA (02:10)
[2017-03-31] MEDS ORDERED: SODIUM CHLORIDE 0.9% 1,000 ML IV STA (02:10)
[2017-03-31] MEDS ORDERED: SODIUM CHLORIDE 0.9% 500 ML IV STA (02:10)
--- NOTE | 2017-03-31 02:15 | ED ---
General Adult HPI - General Chief complaint: Seizure Stated complaint: Seizure Time Seen by Provider: 03/31/17 02:10 Source: patient, family, EMS, RN notes reviewed, old records reviewed Mode of arrival: EMS Limitations: no limitations - History of Present Illness Initial comments: This is a 41-year-old female today for evaluation of seizure. Patient's prolonged history of seizures severe seizure disorder or mental handicap and disability. Patient has been taking his medication or her medication per her . He states patient had multiple seizures today more than she usually does and was not returning to her normal mental state. Per EMS patient is brought to emergency room and did have seizure in route. Currently patient is drowsy and unable to answer questions. History of patient from EMS and patient' s chart - Related Data Home Medications Medication Instructions Recorded Confirmed Lacosamide [Vimpat] 150 mg PO BID 07/28/16 03/31/17 levETIRAcetam [Keppra] 750 mg PO Q12HR 07/30/16 03/31/17 Albuterol Inhaler [Ventolin Hfa 2 puff INHALATION RT-Q6H PRN 10/29/16 03/31/17 Inhaler] Cyclobenzaprine [Flexeril] 10 mg PO BID PRN 11/11/16 03/31/17 Ibuprofen [Motrin] 600 mg PO Q8HR PRN 11/11/16 03/31/17 Previous Rx's Medication Instructions Recorded Nicotine 21Mg/24Hr Patch [Habitrol] 1 patch TRANSDERM DAILY 14 Days 11/13/16 Allergies Allergy/AdvReac Type Severity Reaction Status Date / Time codeine Allergy Unknown Verified 03/31/17 02:14 ibuprofen [From Motrin] Allergy Unknown Verified 03/31/17 02:14 Review of Systems ROS Statement: Those systems with pertinent positive or pertinent negative responses have been documented in the HPI. ROS Other: All systems not noted in ROS Statement are negative. Past Medical History Past Medical History: Asthma, Seizure Disorder Additional Past Medical History / Comment(s): . History of Any Multi-Drug Resistant Organisms: MRSA Date of last positivie culture/infection: 11/03/08 MDRO Source:: Unknown Past Surgical History: Hysterectomy, Orthopedic Surgery Additional Past Surgical History / Comment(s): foot surgery 2006 Past Anesthesia/Blood Transfusion Reactions: No Reported Reaction Past Psychological History: Anxiety, Depression Smoking Status: Current every day smoker - Past Family History Father Family Medical History: No Reported History General Exam Limitations: no limitations, altered mental status General appearance: alert, in no apparent distress Head exam: Present: atraumatic, normocephalic, normal inspection Eye exam: Present: normal appearance, PERRL, EOMI. Absent: scleral icterus, conjunctival injection, periorbital swelling ENT exam: Present: normal exam, mucous membranes moist Neck exam: Present: normal inspection. Absent: tenderness, meningismus, lymphadenopathy Respiratory exam: Present: normal lung sounds bilaterally. Absent: respiratory distress, wheezes, rales, rhonchi, stridor Cardiovascular Exam: Present: regular rate, normal rhythm, normal heart sounds. Absent: systolic murmur, diastolic murmur, rubs, gallop, clicks GI/Abdominal exam: Present: soft, normal bowel sounds. Absent: distended, tenderness, guarding, rebound, rigid Extremities exam: Present: normal inspection, full ROM, normal capillary refill. Absent: tenderness, pedal edema, joint swelling, calf tenderness Back exam: Present: normal inspection Neurological exam: Present: alert, oriented X3, CN II-XII intact Psychiatric exam: Present: normal affect, normal mood Skin exam: Present: warm, dry, intact, normal color. Absent: rash Course Vital Signs 03/31/17 03/31/17 02:08 03:03 Temperature 99.3 F Pulse Rate 72 95 Respiratory 16 18 Rate Blood Pressure 91/57 86/46 O2 Sat by Pulse 96 100 Oximetry EKG Findings - EKG Comments: EKG Findings:: EKG shows normal sinus rhythm rate of 73, [place] 184, QRS 96, QTC 431 Medical Decision Making - Medical Decision Making 41 female to ER with status epilepticus, recurrent seizure disorder. Patient be admitted for seizure control and neurological evaluation - Lab Data Result diagrams: 03/31/17 02:20 03/31/17 02:20 Lab Results 03/31/17 03/31/17 Range/Units 02:20 02:20 WBC 7.0 (3.8-10.6) k/uL RBC 4.33 (3.80-5.40) m/uL Hgb 13.3 (11.4-16.0) gm/dL Hct 39.3 (34.0-46.0) % MCV 90.8 (80.0-100.0) fL MCH 30.8 (25.0-35.0) pg MCHC 34.0 (31.0-37.0) g/dL RDW 13.3 (11.5-15.5) % Plt Count 220 (150-450) k/uL Neutrophils % 74 % Lymphocytes % 18 % Monocytes % 3 % Eosinophils % 5 % Basophils % 0 % Neutrophils # 5.2 (1.3-7.7) k/uL Lymphocytes # 1.3 (1.0-4.8) k/uL Monocytes # 0.2 (0-1.0) k/uL Eosinophils # 0.3 (0-0.7) k/uL Basophils # 0.0 (0-0.2) k/uL Sodium 140 (137-145) mmol/L Potassium 4.2 (3.5-5.1) mmol/L Chloride 109 H (98-107) mmol/L Carbon Dioxide 22 (22-30) mmol/L Anion Gap 9 mmol/L BUN 10 (7-17) mg/dL Creatinine 0.60 (0.52-1.04) mg/dL Est GFR (MDRD) Af Amer >60 (>60 ml/min/1.73 sqM) Est GFR (MDRD) Non-Af >60 (>60 ml/min/1.73 sqM) Glucose 78 (74-99) mg/dL Calcium 9.1 (8.4-10.2) mg/dL Total Bilirubin 0.4 (0.2-1.3) mg/dL AST 21 (14-36) U/L ALT 23 (9-52) U/L Alkaline Phosphatase 52 (38-126) U/L Total Protein 7.0 (6.3-8.2) g/dL Albumin 3.9 (3.5-5.0) g/dL Salicylates <1.0 mg/dL Acetaminophen <10.0 ug/mL Disposition Clinical Impression: Seizure disorder, Status epilepticus Disposition: ADMITTED IP TO THIS [facility] Condition: Fair Referrals: None,Stated [REFERRING] - 1-2 days
[2017-03-31] MEDS: LORazepam 2 MG/ML SYRINGE IV STA ×4 (02:20→08:55)
[2017-03-31 02:31] LABS: Basophils % (A) 0 %; CH 30.4; CHCM 33.6; Eosinophils # (A) 0.3 k/uL (0-0.7); Eosinophils % (A) 5 %; HCT 39.3 % (34.0-46.0); HDW 2.18; HGB 13.3 gm/dL (11.4-16.0); Luc # (Auto) 0.05; Luc % (Auto) 1; Lymphocytes # (A) 1.3 k/uL (1.0-4.8); Lymphocytes % (A) 18 %; MCH 30.8 pg (25.0-35.0); MCV 90.8 fL (80.0-100.0); Mean Platelet Volume 7.5; Monocytes # (A) 0.2 k/uL (0-1.0); Monocytes % (A) 3 %; Neutrophils # (A) 5.2 k/uL (1.3-7.7); Neutrophils % (A) 74 %; RBC 4.33 m/uL (3.80-5.40); RDW 13.3 % (11.5-15.5); WBC (Perox) 6.83
[2017-03-31 03:00] LABS: ALT 23 U/L (9-52); AST 21 U/L (14-36); Acetaminophen <10.0 ug/mL; Alkaline Phosphatase 52 U/L (38-126); Anion Gap 9 mmol/L; Blood Urea Nitrogen 10 mg/dL (7-17); Calcium 9.1 mg/dL (8.4-10.2); Carbon Dioxide 22 mmol/L (22-30); Chloride 109 mmol/L (98-107); Glucose 78 mg/dL (74-99); Non-African American GFR(MDRD) >60 (>60 ml/min/1.73 sqM); Potassium 4.2 mmol/L (3.5-5.1); Salicylate <1.0 mg/dL; Sodium 140 mmol/L (137-145); Total Bilirubin 0.4 mg/dL (0.2-1.3)
[2017-03-31] MEDS: SODIUM CHLORIDE 0.9% 1,000 ML IV SCH ×2 (06:58→14:03)
[2017-03-31] MEDS: ENOXAPARIN 40 MG/0.4 ML SYRINGE SQ SCH (08:14)
[2017-03-31 08:45] LABS: Appearance,Urine Clear (Clear); Bilirubin,Urine Negative (Negative); Glucose,Urine (UA) Negative (Negative); Ketones,Urine Negative (Negative); Leukocyte Esterase,Urine Small (Negative); Mucus,Urine Rare /hpf; Nitrite,Urine Negative (Negative); PH, Urine 5.5 (5.0-8.0); Particle Count 1840; Protein,Urine Negative (Negative); RBC,Urine 1 /hpf (0-5); Specific Gravity,Urine 1.007 (1.001-1.035); Squamous Epithelial Cell,Urine 1 /hpf (0-4); UA Billing (MACRO vs. MICRO) MICRO; Urobilinogen,Urine <2.0 mg/dL (<2.0); WBC,Urine 1 /hpf (0-5)
[2017-03-31] MEDS ORDERED: LORazepam 2 MG/ML SYRINGE IV STA (08:53)
[2017-03-31] MEDS: levETIRAcetam IV 750 MG in SODIUM CHLORIDE 0.9% 100 ML IVPB SCH ×2 (10:32→21:01)
[2017-03-31] MEDS ORDERED: LORazepam 2 MG/ML SYRINGE IV PRN (11:39)
[2017-03-31] MEDS: LACOSAMIDE 150 MG TABLET PO SCH ×2 (11:46→21:11)
--- NOTE | 2017-03-31 12:46 | P.CNNES ---
History of Present Illness Consult date: 03/31/17 Requesting physician: Gonzalez Borges History of Present Illness: Patient is a pleasant 41-year-old female who is being evaluated today 03/31/2017 per the request of Dr. Borges for seizure. Patient has a history of seizures for which she takes Keppra 750 mg twice a day and Vimpat 150 mg twice a day in the home setting. Patient reports having seizures every few months. Patient does follow with a neurologist but cannot remember the name of her neurologist. Patient's is at the bedside and reports that he witnessed her having a seizure in her sleep and she slept on the couch. Patient describes tonic-clonic movement with foaming at the mouth. states seizure lasted approximately 45 seconds. He states she had another seizure within 10 minutes and he called 911. Patient was brought to [facility] for further seizure control. Patient had another seizure in the ER and was given 2 mg of Ativan. Patient was transferred to the floor and nurses witnessed her having another seizure while up to the bathroom. Patient was given another 2 mg of Ativan and no further seizures since. Patient had loading dose of Keppra in the emergency room of 1000 mg IV. On admission, temperature was 99.3, pulse rate 72, respiratory rate 16, blood pressure 91/57. Labs on admission were essentially unremarkable. At the time of my evaluation, patient is awake, alert and conversant. Patient appears to be in no acute distress. Review of Systems REVIEW OF SYSTEMS: Otherwise unremarkable and noncontributory. Past Medical History Past Medical History: Asthma, Seizure Disorder Additional Past Medical History / Comment(s): . History of Any Multi-Drug Resistant Organisms: MRSA Date of last positivie culture/infection: 11/03/08 MDRO Source:: Unknown Past Surgical History: Hysterectomy, Orthopedic Surgery Additional Past Surgical History / Comment(s): foot surgery 2006 Past Anesthesia/Blood Transfusion Reactions: No Reported Reaction Past Psychological History: Anxiety, Depression Smoking Status: Current every day smoker - Past Family History Father Family Medical History: No Reported History Medications and Allergies Home Medications Medication Instructions Recorded Confirmed Type Lacosamide [Vimpat] 150 mg PO BID 07/28/16 03/31/17 History levETIRAcetam [Keppra] 750 mg PO Q12HR 07/30/16 03/31/17 History Albuterol Inhaler [Ventolin Hfa 2 puff INHALATION RT-Q6H PRN 10/29/16 03/31/17 History Inhaler] Allergies Allergy/AdvReac Type Severity Reaction Status Date / Time codeine Allergy HEADACHE Verified 03/31/17 08:35 ibuprofen [From Motrin] Allergy HEADACHE Verified 03/31/17 08:35 Physical Examination - Vital Signs Vital Signs: Vital Signs Temp Pulse Pulse Resp BP BP Pulse Ox 03/31/17 07:00 98.1 F 71 18 96/51 98 03/31/17 04:49 16 03/31/17 04:10 99.3 F 71 18 88/51 100 03/31/17 03:03 95 18 86/46 100 03/31/17 02:08 99.3 F 72 16 91/57 96 Intake and Output 03/30/17 03/31/17 03/31/17 22:59 06:59 14:59 Intake Total 200 Balance 200 Intake: Intake, IV Titration 200 Amount Sodium Chloride 0.9% 1, 200 000 ml @ 100 mls/hr IV . Q10H [facility] Rx#:[id number] Other: Voiding Method Toilet Weight 97.976 kg PHYSICAL EXAM: GENERAL APPEARANCE: Patient is a well-developed, female who appears to be in no acute distress. HEENT: Normocephalic, atraumatic, no facial asymmetry is seen. Neck is supple with no masses felt. CARDIOVASCULAR: Regular rate and rhythm. ABDOMEN: Nontender, nondistended. EXTREMITIES: Show no edema or clubbing. NEUROLOGICAL EXAM: Patient is awake, alert, and oriented 3. Patient still appears to be mildly postictal. Speech and language are normal. Strength is full in all 4 extremities. Sensory exam to light touch is normal in all 4 extremities. No facial asymmetry is seen on cranial nerve testing. No seizures or tremors noted. Results - Laboratory Findings CBC and BMP: 03/31/17 02:20 03/31/17 02:20 Abnormal Lab Findings: Abnormal Labs 03/31/17 03/31/17 02:20 08:20 Chloride 109 H Ur Leukocyte Esterase Small H Urine Mucus Rare H U Benzodiazepines Scrn Detected H Assessment and Plan (1) Seizure disorder Status: Chronic Plan: It does appear patient presented with status epilepticus. Patient did have multiple witnessed seizures. Patient denies having missed any of her antiepileptic medication dosing. Patient was loaded with Keppra 1000 milligrams IV in the emergency room. I'll continue patient on Keppra 750 mg IV twice a day. Continue Vimpat 150 mg twice a day. Ativan per seizure protocol. I will order an EEG. I will order Keppra level for the morning. Continue neurological checks. Continue seizure precautions. I recommend PT OT to evaluate and treat. I will continue to follow with you. Further recommendations to follow. Thank you for allowing me to participate in the care of your patient. Feel free to call with any questions or concerns. I performed an examination of the patient and discussed the management with the [employer]. I have reviewed the [employer]ENT notes and agree with the findings and plan of care.
--- NOTE | 2017-03-31 16:12 | P.HPIM ---
History of Present Illness H&P Date: 03/31/17 Chief Complaint: Seizure This is a 41-year-old patient who follows with Dr. Reyes and as a neurologist. She was apparently diagnosed with seizures close to a year ago and has been on Keppra and Vimpat by her neurologist. Patient was sleeping around midnight had a full-blown seizure according to the significant other with just good 3-4 minutes. Patient's other episode was about a month ago. Patient has been taking her medications. Patient does smoke cigarettes. There was no tongue biting or urinary incontinence Review of Systems GEN.: Tired EYES: None HEENT: None NECK: None RESPIRATORY: None CARDIOVASCULAR: None] GASTROINTESTINAL: [None] GENITOURINARY: [None] MUSCULOSKELETAL: [None] LYMPHATICS: [None] HEMATOLOGICAL: [None] PSYCHIATRY: [None] NEUROLOGICAL: [As above] Past Medical History Past Medical History: Asthma, Seizure Disorder Additional Past Medical History / Comment(s): . History of Any Multi-Drug Resistant Organisms: MRSA Date of last positivie culture/infection: 11/03/08 MDRO Source:: Unknown Past Surgical History: Hysterectomy, Orthopedic Surgery Additional Past Surgical History / Comment(s): foot surgery 2006 Past Anesthesia/Blood Transfusion Reactions: No Reported Reaction Past Psychological History: Anxiety, Depression Smoking Status: Current every day smoker Additional History: Patient smokes about 2 packs of cigarettes a day, is on disability, lives with her significant other/roommate Tae - Past Family History Father Family Medical History: No Reported History Medications and Allergies Home Medications Medication Instructions Recorded Confirmed Type Lacosamide [Vimpat] 150 mg PO BID 07/28/16 03/31/17 History levETIRAcetam [Keppra] 750 mg PO Q12HR 07/30/16 03/31/17 History Albuterol Inhaler [Ventolin Hfa 2 puff INHALATION RT-Q6H PRN 10/29/16 03/31/17 History Inhaler] Allergies Allergy/AdvReac Type Severity Reaction Status Date / Time codeine Allergy HEADACHE Verified 03/31/17 08:35 ibuprofen [From Motrin] Allergy HEADACHE Verified 03/31/17 08:35 Physical Exam VITAL SIGNS: Temperature 99.3, pulse 32, respirations 16, her pressure 91/57, and 6% room air GENERAL: Average built, propped up in bed, comfortable. EYES: Pupils equal. Conjunctiva normal. HEENT: External appearance of nose and ears normal, oral cavity grossly normal. NECK: JVD not raised; masses not palpable. HEART: First and second heart sounds are normal; no edema. LUNGS: Respiratory rate normal; clear to auscultation. ABDOMEN: Soft, nontender, liver spleen not palpable, no masses palpable. LYMPHATICS: No lymph nodes palpable in the axilla and neck. PSYCH: Alert and oriented x3; mood and affect normal. NEUROLOGICAL: Cranial nerves grossly intact; no facial asymmetry, power and sensation grossly intact. Results CBC & Chem 7: 03/31/17 02:20 03/31/17 02:20 Labs: Labs: White count 7 hemoglobin 13.3 potassium 4.2 renal function normal UA unremarkable Assessment and Plan Plan: Assessment: -Breakthrough epilepsy in a patient who is orally on Keppra and Vimpat being followed by from neurology -Chronic nicotine dependence patient active cigarette smoker Plan: Patient sees seizure precautions. Care was discussed with the patient and Tae her significant other at the bedside. Neurology was consulted. We'll follow the recommendations. Counseled against smoking. We'll begin a nicotine patch
[2017-03-31 22:34] VITALS: RESP 16
[2017-04-01] MEDS: SODIUM CHLORIDE 0.9% 1,000 ML IV SCH ×2 (04:55→12:13)
[2017-04-01 07:43] VITALS: BP 112/61; PULSE 76; TEMP 97.6
[2017-04-01] MEDS: levETIRAcetam IV 750 MG in SODIUM CHLORIDE 0.9% 100 ML IVPB SCH (08:35)
[2017-04-01] MEDS: ENOXAPARIN 40 MG/0.4 ML SYRINGE SQ SCH (08:36)
[2017-04-01] MEDS: LACOSAMIDE 150 MG TABLET PO SCH (09:07)
[2017-04-01 09:49] LABS: Cholesterol 168 mg/dL (<200); HDL Cholesterol 47 mg/dL (40-60); Triglycerides 86 mg/dL (<150)
--- NOTE | 2017-04-01 22:28 | P.DS ---
<Lynda Randolph - Last Filed: 04/01/17 22:20> Providers Date of admission: 03/31/17 03:35 Expected date of discharge: 04/01/17 Attending physician: Gonzalez Borges Consults: 03/31/17 03:36 Consult Physician Routine Consulting Provider: Jacqueline Breaux Consult Reason/Comments: sz Do you want consulting provider notified?: Yes Primary care physician: [facility] Hospital Course: FINAL DIAGNOSES: -Breakthrough epileptic seizure in a patient who is orally on Keppra and Vimpat followed by Dr. Culp from neurology -Chronic nicotine dependence the patient who actively smoke cigarettes HOSPTIAL COURSE: The 41-year-old patient who was diagnosed with seizures about a year ago has been on Keppra and Vimpat by her neurologist. According to her significant other she was sleeping around midnight and had a full-blown seizure lasting about 3-4 minutes. She had another episode about a month previous. Patient has been taking her medications, no tongue biting or urinary incontinence. Neurology was consulted, medications adjusted, patient responded well to treatment interventions, patient was counseled on the necessity of smoking cessation. Patient was felt stable for discharge and as such will be discharged home to the care of her significant other. PHYSICAL EXAM: CARDIOVASCULAR: First and second sounds noted, no edema RESPIRATORY: Respiratory effort normal, lung sounds diminished bilaterally GI: Abdomen soft nontender liver and spleen not palpable NEUROLOGIC: Speech and language are normal, strength is full in all 4 extremities,, and no seizure or tremors noted Patient was seen and examined by nurse practitioner Lynda Randolph in all elements of the case discussed with attending Dr. Borges DISOPSITION: Patient to be discharged home to the care of her family/significant other. Patient Condition at Discharge: Stable Plan - Discharge Summary New Discharge Prescriptions: New levETIRAcetam [Keppra] 1,000 mg PO Q12HR #60 tab Nicotine 21Mg/24Hr Patch [Habitrol] 1 each TRANSDERM DAILY #14 patch Continue Lacosamide [Vimpat] 150 mg PO BID Albuterol Inhaler [Ventolin Hfa Inhaler] 2 puff INHALATION RT-Q6H PRN PRN Reason: Shortness Of Breath Discontinued levETIRAcetam [Keppra] 750 mg PO Q12HR Discharge Medication List Lacosamide [Vimpat] 150 mg PO BID 07/28/16 [History] Albuterol Inhaler [Ventolin Hfa Inhaler] 2 puff INHALATION RT-Q6H PRN 10/29/16 [ History] Nicotine 21Mg/24Hr Patch [Habitrol] 1 each TRANSDERM DAILY #14 patch 04/01/17 [ Rx] levETIRAcetam [Keppra] 1,000 mg PO Q12HR #60 tab 04/01/17 [Rx] Follow up Appointment(s)/Referral(s): Marcial Reyes MD [Primary Care Provider] - 1 Week (client would prefer to make own appointments) Arvind Culp MD [STAFF PHYSICIAN] - 1 Week (client would prefer to make own appointments) Patient Instructions/Handouts: Epilepsy (DC) Activity/Diet/Wound Care/Special Instructions: seizure precaution no driving till further notice Discharge Disposition: HOME SELF-CARE <Gonzalez Borges - Last Filed: 04/02/17 18:02> Hospital Course: Attending note. Date of service-04/01/2017 This patient was seen and examined by me . I reviewed the note of my nurse practitioner, Ms. Randolph. Discussed with her, additional findings as below. Patient admitted with recurrent seizure. Seen by Dr. Frances. Patient does of Keppra was increased. Patient's counseled against smoking On examination: Neurological exam intact. Lungs fair entry Investigations: Unremarkable Assessment and plan: Recurrent epilepsy. Patient does of Keppra was increased. Care was discussed with the patient and her boyfriend including cessation of smoking. Told not to drive
--- NOTE | 2017-04-03 05:18 | EEG ---
DATE OF SERVICE: 04/01/2017 REASON FOR TESTING: Seizures. CURRENT ANTIEPILEPTIC MEDICATIONS: Keppra and Vimpat. DESCRIPTION OF THE PROCEDURE: This EEG was performed using a 21 channel digital electroencephalograph, following international 10-20 system. DESCRIPTION OF THE RECORDING: From the beginning of the tracing, and with the patient's eyes closed, the background rhythm was mostly consisting of 8 to 9 Hz alpha frequency in the posterior occipital leads. No obvious asymmetry is seen. Photic stimulation was performed with a minimal driving response seen. No pathological waves were elicited. Occasional movement and muscle artifacts are seen. Hyperventilation was not performed. The patient remains awake throughout the tracing. No epileptiform discharges were seen. Her EKG lead showed a regular rate and rhythm. INTERPRETATION: This awake EEG can be considered within normal limits. There was no asymmetry seen. No epileptiform discharges were noticed. The absence of epileptiform discharges does not rule out the diagnosis of epilepsy, therefore, clinical correlation is recommended. MTDD
== END 2017-04-01 16:35 | disposition home or self-care (01) | DRG 101 ==
LOC: EC 02:05 → 4MS4W 03:35
PROVIDERS: ADMIT Hospitalist; ATTEND Hospitalist
DX: G40.901 Epilepsy, unspecified, not intractable, with status epilepticus (principal); F32.9 Major depressive disorder, single episode, unspecified; F17.210 Nicotine dependence, cigarettes, uncomplicated; F41.9 Anxiety disorder, unspecified; J45.909 Unspecified asthma, uncomplicated; Z79.899 Other long term (current) drug therapy; Z86.14 Personal history of Methicillin resistant Staphylococcus aureus infection; Z88.6 Allergy status to analgesic agent; Z88.5 Allergy status to narcotic agent
CPT/HCPCS: 36415; 80053; 80061; 80177; 80306; 81001; 83520; 85025; 95816; 96361; 96365; 96375; 99285

== ENCOUNTER 2017-06-18 23:35 | Emergency (ER) | payer OTHER ==
[2017-06-18 23:41] VITALS: BP 141/100; PULSE 77; RESP 18; TEMP 98.5
[2017-06-18 23:48] LABS: Glucose,Whole Blood 100 mg/dL (75-99)
[2017-06-19] MEDS ORDERED: SODIUM CHLORIDE 0.9% 1,000 ML IV STA ×2
[2017-06-19 00:28] LABS: Basophils % (A) 0 %; CH 31.7; CHCM 34.7; Eosinophils # (A) 0.2 k/uL (0-0.7); Eosinophils % (A) 5 %; HCT 36.1 % (34.0-46.0); HDW 2.25; HGB 11.8 gm/dL (11.4-16.0); Luc # (Auto) 0.06; Luc % (Auto) 1; Lymphocytes # (A) 1.2 k/uL (1.0-4.8); Lymphocytes % (A) 26 %; MCH 30.1 pg (25.0-35.0); MCHC 32.7 g/dL (31.0-37.0); Mean Platelet Volume 7.3; Monocytes # (A) 0.2 k/uL (0-1.0); Monocytes % (A) 5 %; Neutrophils # (A) 2.9 k/uL (1.3-7.7); Neutrophils % (A) 63 %; RBC 3.92 m/uL (3.80-5.40); RDW 14.4 % (11.5-15.5); WBC 4.7 k/uL (3.8-10.6); WBC (Perox) 4.99
--- NOTE | 2017-06-19 00:35 | XR ---
EXAMINATION TYPE: XR chest 2V DATE OF EXAM: 06/19/2017 COMPARISON: 09/10/2015 HISTORY: Chest pain TECHNIQUE: Frontal and lateral views of the chest are obtained. FINDINGS: There is no heart failure nor confluent pneumonic infiltrate. Costophrenic angles are bogdan r. There are chest leads. There is no evidence of pleural effusion. Bony thorax appears intact IMPRESSION: No active cardiopulmonary disease. Normal heart. No change.
--- NOTE | 2017-06-19 00:35 | ED ---
General Adult HPI - General Chief complaint: Seizure Stated complaint: Seizure Time Seen by Provider: 06/18/17 23:47 Source: patient, family, EMS, RN notes reviewed Mode of arrival: EMS Limitations: altered mental status - History of Present Illness Initial comments: 41-year-old female with seizure disorder presents with an episode of loss consciousness. Patient was at home. She began feeling somewhat weak, laid down on the couch, and then became unresponsive according to her family. There was no seizure activity. No generalized shaking. Patient does state she had some chest pain prior to this. This was central dull chest pain, nonradiating. No nausea or vomiting. No diaphoresis. The patient's family this episode lasted less than 5 minutes. The patient was then alert. There was no postictal period. Patient has had multiple ER visits and hospital admissions for seizure activity, and she does not believe this was a seizure. Patient denies any chest pain or shortness of breath at this time. Denies abdominal pain. Denies nausea vomiting or diarrhea. Patient has no family history of premature coronary artery disease. No history hypertension diabetes. She is a nonsmoker. - Related Data Home Medications Medication Instructions Recorded Confirmed Lacosamide [Vimpat] 150 mg PO BID 07/28/16 03/31/17 Albuterol Inhaler [Ventolin Hfa 2 puff INHALATION RT-Q6H PRN 10/29/16 03/31/17 Inhaler] Previous Rx's Medication Instructions Recorded Nicotine 21Mg/24Hr Patch [Habitrol] 1 each TRANSDERM DAILY #14 patch 04/01/17 levETIRAcetam [Keppra] 1,000 mg PO Q12HR #60 tab 04/01/17 Allergies Allergy/AdvReac Type Severity Reaction Status Date / Time codeine Allergy HEADACHE Verified 06/18/17 23:36 ibuprofen [From Motrin] Allergy HEADACHE Verified 06/18/17 23:36 Review of Systems ROS Statement: Those systems with pertinent positive or pertinent negative responses have been documented in the HPI. ROS Other: All systems not noted in ROS Statement are negative. Past Medical History Past Medical History: Asthma, Seizure Disorder Additional Past Medical History / Comment(s): . History of Any Multi-Drug Resistant Organisms: MRSA Date of last positivie culture/infection: 11/03/08 MDRO Source:: Unknown Past Surgical History: Hysterectomy, Orthopedic Surgery Additional Past Surgical History / Comment(s): foot surgery 2006 Past Anesthesia/Blood Transfusion Reactions: No Reported Reaction Past Psychological History: Anxiety, Depression Smoking Status: Current every day smoker Past Alcohol Use History: None Reported Past Drug Use History: None Reported - Past Family History Father Family Medical History: No Reported History General Exam Limitations: altered mental status General appearance: alert, in no apparent distress Head exam: Present: atraumatic, normocephalic Eye exam: Present: normal appearance, PERRL ENT exam: Present: normal exam, mucous membranes dry Neck exam: Present: normal inspection. Absent: tenderness, meningismus, full ROM Respiratory exam: Present: normal lung sounds bilaterally, respiratory distress Cardiovascular Exam: Present: regular rate, normal rhythm GI/Abdominal exam: Present: soft. Absent: distended, tenderness, guarding Extremities exam: Present: normal inspection. Absent: tenderness Neurological exam: Present: alert, oriented X3, CN II-XII intact. Absent: motor sensory deficit Psychiatric exam: Present: normal affect, normal mood Skin exam: Present: warm, dry, intact. Absent: cyanosis, diaphoretic Course Vital Signs 06/18/17 23:36 Temperature 98.5 F Pulse Rate 77 Respiratory 18 Rate Blood Pressure 141/100 O2 Sat by Pulse 99 Oximetry EKG Findings - EKG Comments: EKG Findings:: EKG shows normal sinus rhythm, ventricular rate 72, DC interval 202, QRS duration 100, QTC [address] segment elevation or depression Medical Decision Making - Medical Decision Making 41-year-old female presents with episode of loss consciousness. History more consistent with syncope rather than seizure activity. Vital signs are stable neurologic examination is nonfocal. EKG shows normal sinus rhythm with signs of ischemia or infarction. Chest x-ray is negative for acute cardiopulmonary disease. CBC is unremarkable, CMP shows mild hyponatremia. Patient does receive 1 L IV normal saline bolus. Neurologic lites are within normal limits. Initial troponin is negative. On reevaluation, patient does believe this was related to anxiety. She had a difficult and stressful day today. She will follow-up with her primary care physician. She will return to the emergency department with worsening symptoms. - Lab Data Result diagrams: 06/18/17 23:40 06/18/17 23:40 Lab Results 06/18/17 06/18/17 06/18/17 Range/Units 23:40 23:40 23:40 WBC 4.7 (3.8-10.6) k/uL RBC 3.92 (3.80-5.40) m/uL Hgb 11.8 (11.4-16.0) gm/dL Hct 36.1 (34.0-46.0) % MCV 92.0 (80.0-100.0) fL MCH 30.1 (25.0-35.0) pg MCHC 32.7 (31.0-37.0) g/dL RDW 14.4 (11.5-15.5) % Plt Count 229 (150-450) k/uL Neutrophils % 63 % Lymphocytes % 26 % Monocytes % 5 % Eosinophils % 5 % Basophils % 0 % Neutrophils # 2.9 (1.3-7.7) k/uL Lymphocytes # 1.2 (1.0-4.8) k/uL Monocytes # 0.2 (0-1.0) k/uL Eosinophils # 0.2 (0-0.7) k/uL Basophils # 0.0 (0-0.2) k/uL PT (9.0-12.0) sec INR (<1.2) APTT (22.0-30.0) sec Sodium 131 L (137-145) mmol/L Potassium 4.5 (3.5-5.1) mmol/L Chloride 100 (98-107) mmol/L Carbon Dioxide 23 (22-30) mmol/L Anion Gap 8 mmol/L BUN 6 L (7-17) mg/dL Creatinine 0.50 L (0.52-1.04) mg/dL Est GFR (MDRD) Af Amer >60 (>60 ml/min/1.73 sqM) Est GFR (MDRD) Non-Af >60 (>60 ml/min/1.73 sqM) Glucose 83 (74-99) mg/dL POC Glucose (mg/dL) (75-99) mg/dL POC Glu Forest[employer] Aide ID Calcium 8.8 (8.4-10.2) mg/dL Magnesium 2.0 (1.6-2.3) mg/dL Total Bilirubin 0.3 (0.2-1.3) mg/dL AST 30 (14-36) U/L ALT 38 (9-52) U/L Alkaline Phosphatase 76 (38-126) U/L Total Creatine Kinase 427 H (30-135) U/L Total Protein 6.4 (6.3-8.2) g/dL Albumin 3.7 (3.5-5.0) g/dL 06/18/17 06/18/17 Range/Units 23:40 23:46 WBC (3.8-10.6) k/uL RBC (3.80-5.40) m/uL Hgb (11.4-16.0) gm/dL Hct (34.0-46.0) % MCV (80.0-100.0) fL MCH (25.0-35.0) pg MCHC (31.0-37.0) g/dL RDW (11.5-15.5) % Plt Count (150-450) k/uL Neutrophils % % Lymphocytes % % Monocytes % % Eosinophils % % Basophils % % Neutrophils # (1.3-7.7) k/uL Lymphocytes # (1.0-4.8) k/uL Monocytes # (0-1.0) k/uL Eosinophils # (0-0.7) k/uL Basophils # (0-0.2) k/uL PT 10.0 (9.0-12.0) sec INR 1.0 (<1.2) APTT 29.7 (22.0-30.0) sec Sodium (137-145) mmol/L Potassium (3.5-5.1) mmol/L Chloride (98-107) mmol/L Carbon Dioxide (22-30) mmol/L Anion Gap mmol/L BUN (7-17) mg/dL Creatinine (0.52-1.04) mg/dL Est GFR (MDRD) Af Amer (>60 ml/min/1.73 sqM) Est GFR (MDRD) Non-Af (>60 ml/min/1.73 sqM) Glucose (74-99) mg/dL POC Glucose (mg/dL) 100 H (75-99) mg/dL POC Glu Forestry Aide ID Marcos Rivera Calcium (8.4-10.2) mg/dL Magnesium (1.6-2.3) mg/dL Total Bilirubin (0.2-1.3) mg/dL AST (14-36) U/L ALT (9-52) U/L Alkaline Phosphatase (38-126) U/L Total Creatine Kinase (30-135) U/L Total Protein (6.3-8.2) g/dL Albumin (3.5-5.0) g/dL Disposition Clinical Impression: Syncope Disposition: HOME SELF-CARE Condition: Good Instructions: Syncope (ED) Referrals: Marcial Reyes MD [Primary Care Provider] - 1-2 days Time of Disposition: 00:57
[2017-06-19 00:38] LABS: ALT 38 U/L (9-52); AST 30 U/L (14-36); Alkaline Phosphatase 76 U/L (38-126); Anion Gap 8 mmol/L; Blood Urea Nitrogen 6 mg/dL (7-17); Calcium 8.8 mg/dL (8.4-10.2); Carbon Dioxide 23 mmol/L (22-30); Chloride 100 mmol/L (98-107); Glucose 83 mg/dL (74-99); Non-African American GFR(MDRD) >60 (>60 ml/min/1.73 sqM); Partial Thromboplastin Time 29.7 sec (22.0-30.0); Potassium 4.5 mmol/L (3.5-5.1); Sodium 131 mmol/L (137-145); Total Bilirubin 0.3 mg/dL (0.2-1.3); Total Protein 6.4 g/dL (6.3-8.2)
[2017-06-19 00:40] LABS: Creatine Kinase 427 U/L (30-135)
[2017-06-19 00:53] LABS: Troponin I <0.012 ng/mL (0.000-0.034)
[2017-06-19 00:55] LABS: Creatine Kinase MB 5.1 ng/mL (0.0-2.4)
== END 2017-06-19 01:12 | disposition home or self-care (01) ==
LOC: EC 23:35
DX: R55 Syncope and collapse (principal); R07.9 Chest pain, unspecified; G40.909 Epilepsy, unspecified, not intractable, without status epilepticus; F17.200 Nicotine dependence, unspecified, uncomplicated; Z79.899 Other long term (current) drug therapy; Z88.5 Allergy status to narcotic agent; Z88.6 Allergy status to analgesic agent
CPT/HCPCS: 36415; 71020; 80053; 82550; 82553; 83735; 84484; 85025; 85610; 85730; 93005; 96360; 99284

== ENCOUNTER → 2017-09-27 | Outpatient (CLI) | payer OTHER ==
--- NOTE | 2017-09-27 08:33 | MR ---
EXAMINATION TYPE: MR lumbar spine wo con DATE OF EXAM: 09/27/2017 COMPARISON: NONE HISTORY: Lumbago CONTRAST: 0 mL intravenous Gadavist. TECHNIQUE: Multiplanar, multisequence images of the lumbar spine were acquired. FINDINGS: L5-S1: There is a large right paracentral disc herniation which has contact with the exiting left S1 nerve root within the foramen and some mild posterior thecal sac displacement. This area measures 1.6 cm in maximum craniocaudal dimension and communicates with the disc space compatible with a large di sc herniation. Despite the large size of the disc herniation spinal canal stenosis is not present al though some canal narrowing is evident. The neural foramen are patent. . L4-L5: No significant disc bulge or disc herniation. No spinal canal stenosis. No foraminal stenosi s. Some ligamentum flavum laxity is present. L3-L4: No significant disc bulge or disc herniation. No spinal canal stenosis. No foraminal stenosi s. L2-L3: No significant disc bulge or disc herniation. No spinal canal stenosis. No foraminal stenosi s. L1-L2: No significant disc bulge or disc herniation. No spinal canal stenosis. No foraminal stenosi s. T12-L1: No significant disc bulge or disc herniation. No spinal canal stenosis. No foraminal stenos is. Cord terminates at the T12-L1 level. There is disc desiccation L5-S1. Disc heights are preserved. Rem aining discs have preserved hydration. IMPRESSION: 1. Large right paracentral disc herniation L5-S1 has contact with the right S1 nerve root at the fora sanju orifice. Spinal canal stenosis however is not evident although some canal narrowing is present.
== END | disposition home or self-care (01) ==
LOC: RADMRIMAIN 07:39
PROVIDERS: ATTEND Psychiatry & Neurology Neurology
DX: M48.061 Spinal stenosis, lumbar region without neurogenic claudication (principal); M51.27 Other intervertebral disc displacement, lumbosacral region; Z88.6 Allergy status to analgesic agent
CPT/HCPCS: 72148

== ENCOUNTER 2017-12-11 14:55 | Emergency (ER) | payer OTHER ==
[2017-12-11] MEDS ORDERED: SODIUM CHLORIDE 0.9% 500 ML IV STA (15:26)
[2017-12-11] MEDS ORDERED: CYCLOBENZAPRINE 10 MG TAB PO STA (15:28)
--- NOTE | 2017-12-11 15:43 | ED ---
Seizure HPI - General Chief Complaint: Seizure Stated Complaint: NECK PAIN Time Seen by Provider: 12/11/17 15:08 Source: patient, EMS Mode of arrival: EMS Limitations: no limitations - History of Present Illness Initial Comments: 41-year-old female patient presents to the emergency department today for chief complaint of neck pain. Patient states that she started having some neck pain after she had a seizure today around 12:00. Family member in room states the patient has had 2 seizures today 10 3 in the morning and one at noon today. He states that the first seizure lasted about 30 seconds, was generalized tonic- clonic and patient came out of it rather quickly. He states today at noon the seizure lasted 1-2 minutes. States she was postictal and sleepy afterwards. States that after she started complaining of increased neck pain. States the patient does have history of chronic back and neck pain however today the pain in her neck worsened. Patient denies taking any medications to assist with her symptoms. States that after the second seizure she did fall from the couch to the floor. States she has been behaving normally. States she has been taking her medication as directed. She currently takes Trileptal. Last seizure was 3- 4 months ago. Patient denies any numbness, tingling, or weakness in her arms. Patient states the pain to the neck is located on the right lateral side. States that she is unable to turn her head to the right due to increased pain to this location. She denies any headache, dizziness, or weakness. Patient denies any recent rash, fever, chills, shortness breath, chest pain, abdominal pain, nausea, vomiting, diarrhea, constipation, back pain, hematuria, dysuria, urinary urgency, urinary frequency, visual changes, or any other complaints. - Related Data Home Medications Medication Instructions Recorded Confirmed Albuterol Inhaler [Ventolin Hfa 2 puff INHALATION RT-Q6H PRN 10/29/16 12/11/17 Inhaler] Lacosamide [Vimpat] 200 mg PO BID 09/11/17 12/11/17 OXcarbazepine [Trileptal] 600 mg PO BID 09/11/17 12/11/17 HYDROcodone/APAP 7.5-325MG [[place] 1 tab PO BID PRN 12/11/17 12/11/17 7.5-325] Previous Rx's Medication Instructions Recorded Cyclobenzaprine [Flexeril] 5 mg PO TID #12 tablet 12/11/17 Allergies Allergy/AdvReac Type Severity Reaction Status Date / Time codeine AdvReac HEADACHE Verified 12/11/17 15:42 ibuprofen [From Motrin] AdvReac HEADACHE Verified 12/11/17 15:42 Review of Systems ROS Statement: Those systems with pertinent positive or pertinent negative responses have been documented in the HPI. ROS Other: All systems not noted in ROS Statement are negative. Past Medical History Past Medical History: Asthma, Seizure Disorder Additional Past Medical History / Comment(s): . History of Any Multi-Drug Resistant Organisms: MRSA Date of last positivie culture/infection: 11/03/08 MDRO Source:: Unknown Past Surgical History: Hysterectomy, Orthopedic Surgery Additional Past Surgical History / Comment(s): foot surgery 2006 Past Anesthesia/Blood Transfusion Reactions: No Reported Reaction Past Psychological History: Anxiety, Depression Smoking Status: Current every day smoker Past Alcohol Use History: None Reported Past Drug Use History: None Reported - Past Family History Father Family Medical History: No Reported History General Exam Limitations: no limitations General appearance: alert, in no apparent distress, other (This is a well- developed, well-nourished adult female patient in no acute distress. Vital signs upon presentation are temperature 98.2F, pulse 67, respirations 20, blood pressure 112/52, pulse ox 98% on room air.) Head exam: Present: atraumatic, normocephalic, normal inspection Eye exam: Present: normal appearance, PERRL, EOMI. Absent: scleral icterus, conjunctival injection, periorbital swelling ENT exam: Present: normal exam, normal oropharynx, mucous membranes moist Neck exam: Present: normal inspection, tenderness (Over the right lateral neck) , full ROM (Patient does have full range motion however reports increased pain with turning her head to the right.). Absent: meningismus, lymphadenopathy Respiratory exam: Present: normal lung sounds bilaterally. Absent: respiratory distress, wheezes, rales, rhonchi, stridor Cardiovascular Exam: Present: regular rate, normal rhythm, normal heart sounds. Absent: systolic murmur, diastolic murmur, rubs, gallop, clicks GI/Abdominal exam: Present: soft, normal bowel sounds. Absent: distended, tenderness, guarding, rebound, rigid Extremities exam: Present: normal inspection, full ROM, normal capillary refill , other (Strength in the upper extremities is 5/5.). Absent: tenderness, pedal edema, joint swelling, calf tenderness Neurological exam: Present: alert, oriented X3, CN II-XII intact Psychiatric exam: Present: normal affect, normal mood Skin exam: Present: warm, dry, intact, normal color. Absent: rash Course Vital Signs 12/11/17 12/11/17 14:59 17:08 Temperature 98.2 F 97.6 F Pulse Rate 67 60 Respiratory 20 16 Rate Blood Pressure 112/52 103/54 O2 Sat by Pulse 98 97 Oximetry Medical Decision Making - Medical Decision Making 41-year-old female patient presents to the emergency department today for evaluation of right-sided neck pain after experiencing 2 seizures at home today. Physical examination does reveal tenderness to the right lateral neck. Patient does have full range of motion and good strength in her upper extremities. She is neurovascularly intact. She is neurologically intact. Labs reviewed and did reveal a sodium of 127. Trileptal level has been sent. Did have mild improvement in symptoms with administration of Flexeril. We did do cervical spine x-ray which was normal. I did discuss findings with the patient and the family. She was given 1 L of normal saline. She is instructed to follow-up with her primary care physician for recheck. She is instructed to return here immediately for any new, worsening, or concerning symptoms. She verbalizes understanding and agrees with this plan. - Lab Data Result diagrams: 12/11/17 15:50 12/11/17 15:50 Lab Results 12/11/17 12/11/17 12/11/17 Range/Units 15:50 15:50 15:50 WBC 5.1 (3.8-10.6) k/uL RBC 4.26 (3.80-5.40) m/uL Hgb 12.6 (11.4-16.0) gm/dL Hct 37.0 (34.0-46.0) % MCV 86.9 (80.0-100.0) fL MCH 29.6 (25.0-35.0) pg MCHC 34.1 (31.0-37.0) g/dL RDW 13.1 (11.5-15.5) % Plt Count 281 (150-450) k/uL Neutrophils % 60 % Lymphocytes % 33 % Monocytes % 4 % Eosinophils % 2 % Basophils % 0 % Neutrophils # 3.1 (1.3-7.7) k/uL Lymphocytes # 1.7 (1.0-4.8) k/uL Monocytes # 0.2 (0-1.0) k/uL Eosinophils # 0.1 (0-0.7) k/uL Basophils # 0.0 (0-0.2) k/uL Sodium 127 L (137-145) mmol/L Potassium 4.6 (3.5-5.1) mmol/L Chloride 93 L (98-107) mmol/L Carbon Dioxide 26 (22-30) mmol/L Anion Gap 8 mmol/L BUN 11 (7-17) mg/dL Creatinine 0.51 L (0.52-1.04) mg/dL Est GFR (CKD-EPI)AfAm >90 (>60 ml/min/1.73 sqM) Est GFR (CKD-EPI)NonAf >90 (>60 ml/min/1.73 sqM) Glucose 78 (74-99) mg/dL Calcium 9.5 (8.4-10.2) mg/dL Magnesium 2.0 (1.6-2.3) mg/dL Total Bilirubin 0.5 (0.2-1.3) mg/dL AST 29 (14-36) U/L ALT 33 (9-52) U/L Alkaline Phosphatase 61 (38-126) U/L Total Protein 7.0 (6.3-8.2) g/dL Albumin 4.2 (3.5-5.0) g/dL Urine Color Light Yellow Urine Appearance Turbid H (Clear) Urine pH 8.0 (5.0-8.0) Ur Specific [place] 1.015 (1.001-1.035) Urine Protein Negative (Negative) Urine Glucose (UA) Negative (Negative) Urine Ketones Negative (Negative) Urine Blood Negative (Negative) Urine Nitrite Negative (Negative) Urine Bilirubin Negative (Negative) Urine Urobilinogen <2.0 (<2.0) mg/dL Ur Leukocyte Esterase Negative (Negative) Ur Squamous Epith Cells 3 (0-4) /hpf Amorphous Sediment Occasional H (None) /hpf - EKG Data -: EKG Interpreted by [facility] EKG Comments: EKG shows sinus bradycardia with rightward axis. Ventricular rate is 52, MS interval 208, QRS duration 96, QTc 454, QTC 422. - Radiology Data Radiology results: report reviewed, image reviewed C-spine is visualized in its entirety from C1 to the top of the T1 level, it redemonstrated straightened and alignment without evidence of acute fracture dislocation. Prevertebral soft tissue appears within normal limits. The C1 to C2 articulation is within normal limits on the open-mouth view. Vertebral body height some disc space heights are maintained. No significant spurring is seen. The oblique images are within normal limits. Overlying soft tissues unremarkable. Impression by Dr. Acuna shows no acute fracture dislocation the cervical spine. No significant change from prior x-ray. Disposition Clinical Impression: Recurrent seizures, Cervical strain Disposition: HOME SELF-CARE Condition: Good Instructions: Cervical Strain (ED) Additional Instructions: Take medications as instructed. Apply warm moist heat to the right side of the neck 20 minutes at a time release 4 times daily. Follow-up through primary care physician for recheck as soon as possible. Return here immediately for any new, worsening, or concerning symptoms. Prescriptions: Cyclobenzaprine [Flexeril] 5 mg PO TID #12 tablet Referrals: Marcial Reyes MD [Primary Care Provider] - 1-2 days Time of Disposition: 16:49
[2017-12-11 16:05] LABS: Basophils % (A) 0 %; Eosinophils # (A) 0.1 k/uL (0-0.7); Eosinophils % (A) 2 %; HGB 12.6 gm/dL (11.4-16.0); Lymphocytes # (A) 1.7 k/uL (1.0-4.8); Lymphocytes % (A) 33 %; MCH 29.6 pg (25.0-35.0); MCHC 34.1 g/dL (31.0-37.0); MCV 86.9 fL (80.0-100.0); Mean Platelet Volume 6.6; Monocytes # (A) 0.2 k/uL (0-1.0); Monocytes % (A) 4 %; Neutrophils # (A) 3.1 k/uL (1.3-7.7); Neutrophils % (A) 60 %; Platelet Count 281 k/uL (150-450); RBC 4.26 m/uL (3.80-5.40); RDW 13.1 % (11.5-15.5); WBC 5.1 k/uL (3.8-10.6)
[2017-12-11 16:17] LABS: Amorphous Sediment,Urine Occasional /hpf; Appearance,Urine Turbid (Clear); Bilirubin,Urine Negative (Negative); Blood,Urine Negative (Negative); Color,Urine Light Yellow; Glucose,Urine (UA) Negative (Negative); Ketones,Urine Negative (Negative); Leukocyte Esterase,Urine Negative (Negative); Nitrite,Urine Negative (Negative); Protein,Urine Negative (Negative); Specific Gravity,Urine 1.015 (1.001-1.035); Squamous Epithelial Cell,Urine 3 /hpf (0-4); Urobilinogen,Urine <2.0 mg/dL (<2.0)
--- NOTE | 2017-12-11 16:24 | XR ---
EXAMINATION TYPE: XR cervical spine comp DATE OF EXAM: 12/11/2017 TECHNIQUE: Frontal, lateral, oblique, swimmers, and open mouth view of the cervical spine are obtaine d. HISTORY: Pain right-sided neck pain after seizures. COMPARISON: Cervical spine x-ray December 10, 2014. CT cervical spine September 11, 2017. FINDINGS: The cervical spine is visualized in its entirety from C1 thru the top of T1 level, it rede monstrate straightened in alignment without evidence of acute fracture or dislocation. The pre-verte bral soft tissue appears within normal limits. The C1-C2 articulation is within normal limits on the open mouth view. Vertebral body heights and disc space heights are maintained. No significant spurri ng is seen. The oblique images are within normal limits. Overlying soft tissue is unremarkable. IMPRESSION: No acute fracture or dislocation is seen in the cervical spine. No significant change fr om prior x-ray.
[2017-12-11 16:29] LABS: ALT 33 U/L (9-52); AST 29 U/L (14-36); Albumin 4.2 g/dL (3.5-5.0); Alkaline Phosphatase 61 U/L (38-126); Anion Gap 8 mmol/L; Blood Urea Nitrogen 11 mg/dL (7-17); Calcium 9.5 mg/dL (8.4-10.2); Carbon Dioxide 26 mmol/L (22-30); Chloride 93 mmol/L (98-107); Glucose 78 mg/dL (74-99); Potassium 4.6 mmol/L (3.5-5.1); Sodium 127 mmol/L (137-145); Total Bilirubin 0.5 mg/dL (0.2-1.3)
[2017-12-11] MEDS ORDERED: SODIUM CHLORIDE 0.9% 500 ML IV ONE (16:43)
[2017-12-11 17:09] VITALS: BP 103/54; PULSE 60; RESP 16; TEMP 97.6
== END 2017-12-11 17:09 | disposition home or self-care (01) ==
LOC: EC 14:55
DX: S16.1XXA Strain of muscle, fascia and tendon at neck level, initial encounter (principal); R56.9 Unspecified convulsions; F17.200 Nicotine dependence, unspecified, uncomplicated; Z86.14 Personal history of Methicillin resistant Staphylococcus aureus infection; Z79.899 Other long term (current) drug therapy; Z88.5 Allergy status to narcotic agent; Z88.6 Allergy status to analgesic agent; W08.XXXA Fall from other furniture, initial encounter
CPT/HCPCS: 36415; 72050; 80053; 80183; 81001; 83735; 85025; 93005; 96360; 99284

== ENCOUNTER 2018-04-09 13:31 | Emergency (ER) | payer OTHER ==
[2018-04-09 13:42] VITALS: TEMP 97.6
[2018-04-09] MEDS ORDERED: DIAZEPAM 5 MG/ML 2 ML INJ IVP STA (14:35)
[2018-04-09] MEDS ORDERED: SODIUM CHLORIDE 0.9% 1,000 ML IV STA (14:35)
[2018-04-09] MEDS ORDERED: ONDANSETRON 4 MG/2 ML VIAL IVP STA (14:35)
[2018-04-09] MEDS ORDERED: IPRATROPIUM-ALBUTEROL 3 ML NEB INHALATION STA (14:35)
--- NOTE | 2018-04-09 14:39 | ED ---
General Adult HPI - General Chief complaint: Syncope Stated complaint: Syncope Time Seen by Provider: 04/09/18 13:42 Source: patient, RN notes reviewed, old records reviewed Mode of arrival: ambulatory Limitations: no limitations - History of Present Illness Initial comments: This is a 42-year-old female to the ER for evaluation of syncopal event. Patient had an argument with her partner today. Patient comes in by EMS today. Patient comes in for syncopal event. The argument patient became very stressed hyperventilating she became short of breath secondary to asthma vomited and had some difficulty with further more anxiety because she couldn't breathe. Patient then did pass out. She denies headache chest pain shortness breath or abdominal pain she can't 2 and felt better. Patient felt fine throughout her EMS ride. And again currently has no complaints - Related Data Home Medications Medication Instructions Recorded Confirmed Albuterol Inhaler [Ventolin Hfa 2 puff INHALATION RT-Q6H PRN 10/29/16 04/09/18 Inhaler] Lacosamide [Vimpat] 200 mg PO BID 09/11/17 04/09/18 OXcarbazepine [Trileptal] 600 mg PO BID 09/11/17 04/09/18 HYDROcodone/APAP 7.5-325MG [[place] 1 tab PO DAILY PRN 12/11/17 04/09/18 7.5-325] Methocarbamol [Robaxin] 750 mg PO TID 04/09/18 04/09/18 Previous Rx's Medication Instructions Recorded Cyclobenzaprine [Flexeril] 5 mg PO TID #12 tablet 12/11/17 Allergies Allergy/AdvReac Type Severity Reaction Status Date / Time codeine AdvReac HEADACHE Verified 04/09/18 13:42 ibuprofen [From Motrin] AdvReac HEADACHE Verified 04/09/18 13:42 Review of Systems ROS Statement: Those systems with pertinent positive or pertinent negative responses have been documented in the HPI. ROS Other: All systems not noted in ROS Statement are negative. Past Medical History Past Medical History: Asthma, Seizure Disorder Additional Past Medical History / Comment(s): . History of Any Multi-Drug Resistant Organisms: MRSA Date of last positivie culture/infection: 11/03/08 MDRO Source:: Unknown Past Surgical History: Hysterectomy, Orthopedic Surgery, Tubal Ligation Additional Past Surgical History / Comment(s): foot surgery 2006, lower back sx Past Anesthesia/Blood Transfusion Reactions: No Reported Reaction Past Psychological History: Anxiety, Depression Smoking Status: Current every day smoker Past Alcohol Use History: None Reported Past Drug Use History: None Reported - Past Family History Father Family Medical History: No Reported History General Exam Limitations: no limitations General appearance: alert, in no apparent distress Head exam: Present: atraumatic, normocephalic, normal inspection Eye exam: Present: normal appearance, PERRL, EOMI. Absent: scleral icterus, conjunctival injection, periorbital swelling ENT exam: Present: normal exam, mucous membranes moist Neck exam: Present: normal inspection. Absent: tenderness, meningismus, lymphadenopathy Respiratory exam: Present: normal lung sounds bilaterally. Absent: respiratory distress, wheezes, rales, rhonchi, stridor Cardiovascular Exam: Present: regular rate, normal rhythm, normal heart sounds. Absent: systolic murmur, diastolic murmur, rubs, gallop, clicks GI/Abdominal exam: Present: soft, normal bowel sounds. Absent: distended, tenderness, guarding, rebound, rigid Extremities exam: Present: normal inspection, full ROM, normal capillary refill. Absent: tenderness, pedal edema, joint swelling, calf tenderness Back exam: Present: normal inspection Neurological exam: Present: alert, oriented X3, CN II-XII intact Psychiatric exam: Present: normal affect, normal mood Skin exam: Present: warm, dry, intact, normal color. Absent: rash Course Vital Signs 04/09/18 04/09/18 13:32 13:59 Temperature 97.6 F Pulse Rate 61 Pulse Rate [ 55 L [employer] ] Respiratory 18 Rate Blood Pressure 130/58 O2 Sat by Pulse 99 Oximetry - Reevaluation(s) Reevaluation #1: 04/09/18 14:38 Patient states she does have safe place to go, no longer anxious and angry EKG Findings - EKG Comments: EKG Findings:: EKG shows sinus bradycardia rate of 51, PA 196, QRS 192, QTc 412 Medical Decision Making - Medical Decision Making 42-year-old female the ER status post syncopal event. Patient really relatively asymptomatic denies complaints of shortness of breath chest pain headache or abdominal pain. Patient feels much better here in the emergency room and can be discharged home Disposition Clinical Impression: Vasovagal syncope, Seizure disorder, Partner relational problem, Panic attack Disposition: HOME SELF-CARE Condition: Good Instructions: Syncope (ED) Is patient prescribed a controlled substance at d/c from ED?: No Referrals: Marcial Reyes MD [Primary Care Provider] - 1-2 days
[2018-04-09 15:03] VITALS: RESP 16
[2018-04-09 15:55] VITALS: BP 120/68; PULSE 59
== END 2018-04-09 15:55 | disposition home or self-care (01) ==
LOC: EC 13:31
DX: F41.0 Panic disorder [episodic paroxysmal anxiety] (principal); R55 Syncope and collapse; G40.909 Epilepsy, unspecified, not intractable, without status epilepticus; Z63.0 Problems in relationship with spouse or partner; J45.909 Unspecified asthma, uncomplicated; F17.200 Nicotine dependence, unspecified, uncomplicated; Z86.14 Personal history of Methicillin resistant Staphylococcus aureus infection; Z88.5 Allergy status to narcotic agent; Z88.6 Allergy status to analgesic agent; Z79.899 Other long term (current) drug therapy
CPT/HCPCS: 94640; 93005; 99284; 96374; 96375; 96361; J3360; J2405

== ENCOUNTER → 2018-05-19 | Outpatient (CLI) | payer OTHER ==
--- NOTE | 2018-05-19 14:20 | XR ---
EXAMINATION TYPE: XR lumbar spine with bend/flex DATE OF EXAM: 05/19/2018 COMPARISON: 01/26/2015 HISTORY: 42-year-old female intervertebral disc displacement, back pain, lumbar spine TECHNIQUE: 7 views FINDINGS: Slight dextro convex curvature of the lumbar spine. Cholecystectomy clips. 5 lumbar type vertebral nick dies. No pars interarticularis defect. Mild multilevel degenerative disc disease with endplate spondylosis. Trace grade 1 retrolisthesis at L3-L4 and L4-L5 shows no accentuation or correction with either flexi on or extension. Mild facet arthropathy lower lumbar spine. Vertebral body heights are preserved. IMPRESSION: 1. Slight dextroconvex curvature could be positional, due to muscle spasm, or could be secondary to a slight scoliosis. 2. Trace grade 1 retrolisthesis at L3-L4 and L4-L5 shows no dynamic instability. 3. Mild multilevel degenerative disc disease.
== END | disposition home or self-care (01) ==
LOC: RADXRMAIN 11:33
PROVIDERS: ATTEND Neurological Surgery
DX: M51.36 Other intervertebral disc degeneration, lumbar region (principal); M43.8X6 Other specified deforming dorsopathies, lumbar region
CPT/HCPCS: 72114

== ENCOUNTER → 2018-06-04 | Outpatient (CLI) | payer OTHER ==
--- NOTE | 2018-06-05 02:10 | MR ---
EXAMINATION TYPE: MR lumbar spine wo con DATE OF EXAM: 06/04/2018 COMPARISON: 09/27/2017 HISTORY: Low back pain TECHNIQUE: Multiplanar, multisequence images of the lumbar spine were acquired. Lumbar vertebra have normal alignment. The disc spaces are fairly normal. There is right-sided L5 boles inectomy defect. There is a small posterior disc herniation at L5-S1 centrally and towards the right side. There is intermediate signal at the right-sided laminectomy defect. There is no compression fra cture. There is no lumbar paraspinal mass. Visualized sacroiliac joints appear intact. IMPRESSION: There is a right-sided laminectomy defect that is new compared to old exam. There is been apparent re section of the large posterior right-sided L5-S1 disc herniation compared to old exam. There is small residual right posterior disc herniation without significant impingement on the spinal canal. There is intermediate signal posteriorly consistent with epidural scarring.
== END | disposition home or self-care (01) ==
LOC: RADMRIMAIN 18:46
PROVIDERS: ATTEND Neurological Surgery
DX: M51.27 Other intervertebral disc displacement, lumbosacral region (principal)
CPT/HCPCS: 72148

== ENCOUNTER → 2018-10-02 | Outpatient (CLI) | payer OTHER ==
--- NOTE | 2018-10-05 14:33 | MM ---
Reason for exam: screening (asymptomatic). Last mammogram was performed 9 years and 10 months ago. History: Patient is postmenopausal. Family history of breast cancer in sister at age 40. MG Screening Mammo w CAD Bilateral CC and MLO view(s) were taken. Prior study comparison: November 17, 2008, bilateral digital screening mammogram. The breast tissue is heterogeneously dense. This may lower the sensitivity of mammography. There are benign-appearing bilateral breast calcifications. No significant changes when compared with prior studies. ASSESSMENT: Benign, BI-RAD 2 RECOMMENDATION: Routine screening mammogram of both breasts in 1 year.
== END | disposition home or self-care (01) ==
LOC: RADMAMWWP 14:44
PROVIDERS: ATTEND Pediatrics
DX: Z12.31 Encounter for screening mammogram for malignant neoplasm of breast (principal)
CPT/HCPCS: 77067

== ENCOUNTER 2019-06-02 01:43 | Emergency (ER) | payer OTHER ==
[2019-06-02 01:51] VITALS: RESP 18; TEMP 97.9
[2019-06-02] MEDS ORDERED: SODIUM CHLORIDE 0.9% 1,000 ML IV STA (01:53)
[2019-06-02 02:21] LABS: Basophils % (A) 1 %; Eosinophils # (A) 0.3 k/uL (0-0.7); Eosinophils % (A) 6 %; HCT 38.6 % (34.0-46.0); Lymphocytes # (A) 1.4 k/uL (1.0-4.8); Lymphocytes % (A) 32 %; MCH 29.5 pg (25.0-35.0); MCHC 33.6 g/dL (31.0-37.0); MCV 87.7 fL (80.0-100.0); Mean Platelet Volume 6.1; Monocytes # (A) 0.2 k/uL (0-1.0); Monocytes % (A) 4 %; Neutrophils # (A) 2.4 k/uL (1.3-7.7); Neutrophils % (A) 54 %; Platelet Count 282 k/uL (150-450); RDW 13.3 % (11.5-15.5); WBC 4.4 k/uL (3.8-10.6)
[2019-06-02 02:30] LABS: ALT 25 U/L (9-52); AST 34 U/L (14-36); African American GFR (CKD) >90 (>60 ml/min/1.73 sqM); Albumin 4.3 g/dL (3.5-5.0); Alkaline Phosphatase 90 U/L (38-126); Anion Gap 8 mmol/L; Blood Urea Nitrogen 16 mg/dL (7-17); Calcium 9.1 mg/dL (8.4-10.2); Carbon Dioxide 26 mmol/L (22-30); Chloride 98 mmol/L (98-107); Glucose 96 mg/dL (74-99); Sodium 132 mmol/L (137-145); Total Bilirubin 0.5 mg/dL (0.2-1.3); Total Protein 7.5 g/dL (6.3-8.2)
[2019-06-02 03:00] LABS: Potassium 4.6 mmol/L (3.5-5.1)
[2019-06-02 03:18] VITALS: BP 122/52; PULSE 77
--- NOTE | 2019-06-02 03:44 | ED ---
Seizure HPI - General Chief Complaint: Seizure Stated Complaint: seizure Time Seen by Provider: 06/02/19 01:46 Source: patient, EMS Mode of arrival: EMS Limitations: no limitations - History of Present Illness Initial Comments: Carmelina a pleasant 43-year-old female with extensive history of seizure disorder who presents the ER today for evaluation of seizure home. Patient is currently on Trileptal and Vimpat which has been controlling her seizures quite well for the past 10 months, reports that over the past month she's been having increasing frequency of seizures, having approximately 1 per week. reports she used to have nearly daily seizures when she was on Keppra for the past 10 months is been doing quite well. Tonight the patient seems to have had a seizure in her sleep. reports that she was shaking for about 5 min utes he couldn't wake her up. He states that typically her seizures only last 2-3 minutes of this was a little more prolonged than usual which prompted him to call EMS for transport to the hospital. Upon arrival hospital patient is asymptomatic, she states she must that had a seizure but denies any complaints. Patient is scheduled to see her neurologist for follow-up on Saturday, June 03. - Related Data Home Medications Medication Instructions Recorded Confirmed Lacosamide [Vimpat] 200 mg PO BID 09/11/17 06/02/19 OXcarbazepine [Trileptal] 600 mg PO BID 09/11/17 06/02/19 Allergies Allergy/AdvReac Type Severity Reaction Status Date / Time codeine AdvReac HEADACHE Verified 06/02/19 01:51 ibuprofen [From Motrin] AdvReac HEADACHE Verified 06/02/19 01:51 Review of Systems ROS Statement: Those systems with pertinent positive or pertinent negative responses have been documented in the HPI. ROS Other: All systems not noted in ROS Statement are negative. Past Medical History Past Medical History: Asthma, Seizure Disorder Additional Past Medical History / Comment(s): . History of Any Multi-Drug Resistant Organisms: MRSA Date of last positivie culture/infection: 11/03/08 MDRO Source:: Unknown Past Surgical History: Hysterectomy, Orthopedic Surgery, Tubal Ligation Additional Past Surgical History / Comment(s): foot surgery 2006, lower back sx Past Anesthesia/Blood Transfusion Reactions: No Reported Reaction Past Psychological History: Anxiety, Depression Smoking Status: Current every day smoker Past Alcohol Use History: None Reported Past Drug Use History: None Reported - Past Family History Father Family Medical History: No Reported History General Exam - General Exam Comments Initial Comments: Physical Exam GENERAL: Patient is well-developed and well-nourished. Patient is nontoxic and well- hydrated and is in no distress. HENT: Normocephalic, Atraumatic. EYES: PERRL, EOMI PULMONARY: Unlabored respirations. No audible rales rhonchi or wheezing was noted. CARDIOVASCULAR: There is a regular rate and rhythm without any murmurs gallops or rubs. ABDOMEN: Soft and nontender with normal bowel sounds. SKIN: Skin is clear with no lesions or rashes and otherwise unremarkable. : Deferred NEUROLOGIC: Patient is alert and oriented x3. Moving all extremities spontaneously MUSCULOSKELETAL: Normal extremities with adequate strength and full range of motion. No lower e xtremity swelling or edema. No calf tenderness. PSYCHIATRIC: Normal psychiatric evaluation. Limitations: no limitations Course Vital Signs 06/02/19 06/02/19 01:46 03:17 Temperature 97.9 F Pulse Rate 71 77 Respiratory 18 18 Rate Blood Pressure 127/66 122/52 O2 Sat by Pulse 99 99 Oximetry Medical Decision Making - Medical Decision Making The patient was seen and evaluated history was obtained from the patient and at bedside exam is patient with known seizure disorder whose medications have not been adjusted for 10 months and is now experiencing seizures and increasing frequency. She is scheduled to see her neurologist tomorrow for follow-up. Patient had an approximately five-minute seizure approximately one hour prior to arrival in the emergency department. Upon arrival she is no longer postictal she has no complaints. Labs were obtained, lactic acid is not elevated she's bubbly hyponatremic she did receive some IV fluids. Patient was without seizure activity and was hemodynamically stable throughout her stay in the ER and is comfortable with plan for discharge home and outpatient follow-up. - Lab Data Result diagrams: 06/02/19 02:08 06/02/19 02:08 Lab Results 06/02/19 06/02/19 06/02/19 Range/Units 02:08 02:08 02:08 WBC 4.4 (3.8-10.6) k/uL RBC 4.40 (3.80-5.40) m/uL Hgb 13.0 (11.4-16.0) gm/dL Hct 38.6 (34.0-46.0) % MCV 87.7 (80.0-100.0) fL MCH 29.5 (25.0-35.0) pg MCHC 33.6 (31.0-37.0) g/dL RDW 13.3 (11.5-15.5) % Plt Count 282 (150-450) k/uL Neutrophils % 54 % Lymphocytes % 32 % Monocytes % 4 % Eosinophils % 6 % Basophils % 1 % Neutrophils # 2.4 (1.3-7.7) k/uL Lymphocytes # 1.4 (1.0-4.8) k/uL Monocytes # 0.2 (0-1.0) k/uL Eosinophils # 0.3 (0-0.7) k/uL Basophils # 0.0 (0-0.2) k/uL Sodium 132 L (137-145) mmol/L Potassium 4.6 (3.5-5.1) mmol/L Chloride 98 (98-107) mmol/L Carbon Dioxide 26 (22-30) mmol/L Anion Gap 8 mmol/L BUN 16 (7-17) mg/dL Creatinine 0.52 (0.52-1.04) mg/dL Est GFR (CKD-EPI)AfAm >90 (>60 ml/min/1.73 sqM) Est GFR (CKD-EPI)NonAf >90 (>60 ml/min/1.73 sqM) Glucose 96 (74-99) mg/dL Plasma Lactic Acid [place] 0.6 L (0.7-2.0) mmol/L Calcium 9.1 (8.4-10.2) mg/dL Total Bilirubin 0.5 (0.2-1.3) mg/dL AST 34 (14-36) U/L ALT 25 (9-52) U/L Alkaline Phosphatase 90 (38-126) U/L Total Protein 7.5 (6.3-8.2) g/dL Albumin 4.3 (3.5-5.0) g/dL Disposition Clinical Impression: Seizure Disposition: HOME SELF-CARE Condition: Stable Instructions (If sedation given, give patient instructions): Recurrent Seizures in Adults (ED) Additional Instructions: See your neurologist as scheduled tomorrow Is patient prescribed a controlled substance at d/c from ED?: No Referrals: Marcial Ryees MD [Primary Care Provider] - 1-2 days
== END 2019-06-02 03:58 | disposition home or self-care (01) ==
LOC: EC 01:43
DX: G40.909 Epilepsy, unspecified, not intractable, without status epilepticus (principal); E87.1 Hypo-osmolality and hyponatremia; F17.200 Nicotine dependence, unspecified, uncomplicated; Z88.5 Allergy status to narcotic agent; Z88.6 Allergy status to analgesic agent; Z79.899 Other long term (current) drug therapy; Z86.14 Personal history of Methicillin resistant Staphylococcus aureus infection
CPT/HCPCS: 36415; 80053; 83605; 85025; 93005; 96360; 99284

== ENCOUNTER 2019-09-24 18:27 | Emergency (ER) | payer OTHER ==
--- NOTE | 2019-09-24 22:57 | ED ---
General Adult HPI - General Source: patient, family Mode of arrival: ambulatory Limitations: no limitations <Charity Monet - Last Filed: 09/25/19 00:41> <Tavia Mccormick - Last Filed: 09/27/19 21:35> - General Chief complaint: ENT Stated complaint: FB stuck in throat Time Seen by Provider: 09/24/19 22:22 - History of Present Illness Initial comments: 43-year-old female patient presents to the emergency department today for evaluation of foreign body to her throat. Patient states that she was using her teeth to cut tape when she swallowed a small piece. Patient states he Stuck in her throat and she is unable to get it out. Patient states she has tried inducing vomiting, getting up with her finger, and eating which has not helped. She denies any difficulty breathing. She is able to swallow and hold down food and fluids. She denies any pain. (Charity Monet) - Related Data Home Medications Medication Instructions Recorded Confirmed Lacosamide [Vimpat] 200 mg PO BID 09/11/17 06/02/19 OXcarbazepine [Trileptal] 600 mg PO BID 09/11/17 06/02/19 Allergies Allergy/AdvReac Type Severity Reaction Status Date / Time codeine AdvReac HEADACHE Verified 09/24/19 19:26 ibuprofen [From Motrin] AdvReac HEADACHE Verified 09/24/19 19:26 Review of Systems ROS Other: All systems not noted in ROS Statement are negative. <Charity Monet - Last Filed: 09/25/19 00:41> ROS Other: All systems not noted in ROS Statement are negative. <Tavia Mccormick - Last Filed: 09/27/19 21:35> ROS Statement: Those systems with pertinent positive or pertinent negative responses have been documented in the HPI. Past Medical History Past Medical History: Asthma, Seizure Disorder Additional Past Medical History / Comment(s): . History of Any Multi-Drug Resistant Organisms: MRSA Date of last positivie culture/infection: 11/03/08 MDRO Source:: Unknown Past Surgical History: Hysterectomy, Orthopedic Surgery, Tubal Ligation Additional Past Surgical History / Comment(s): foot surgery 2006, lower back sx Past Anesthesia/Blood Transfusion Reactions: No Reported Reaction Past Psychological History: Anxiety, Depression Smoking Status: Current every day smoker Past Alcohol Use History: None Reported Past Drug Use History: None Reported - Past Family History Father Family Medical History: No Reported History <Charity Monet - Last Filed: 09/25/19 00:41> General Exam Limitations: no limitations General appearance: alert, in no apparent distress, other (This is a well- developed, well-nourished adult female patient in no acute distress. Vital signs upon presentation are temperature 98.0F, pulse 64, respirations 20, blood pressure 144/55, pulse ox 99% on room air.) Eye exam: Present: normal appearance, PERRL, EOMI. Absent: scleral icterus, conjunctival injection, periorbital swelling ENT exam: Present: normal exam, normal oropharynx, mucous membranes moist Respiratory exam: Present: normal lung sounds bilaterally. Absent: respiratory distress, wheezes, rales, rhonchi, stridor Cardiovascular Exam: Present: regular rate, normal rhythm, normal heart sounds. Absent: systolic murmur, diastolic murmur, rubs, gallop, clicks Neurological exam: Present: alert, oriented X3, CN II-XII intact Psychiatric exam: Present: normal affect, normal mood Skin exam: Present: warm, dry, intact, normal color. Absent: rash <Charity Monet - Last Filed: 09/25/19 00:41> Course Vital Signs 09/24/19 09/24/19 19:23 23:53 Temperature 98 F 98.0 F Pulse Rate 64 67 Respiratory 20 18 Rate Blood Pressure 144/55 131/81 O2 Sat by Pulse 99 99 Oximetry Medical Decision Making <Charity Monet - Last Filed: 09/25/19 00:41> <Tavia Mccormick - Last Filed: 09/27/19 21:35> - Medical Decision Making 43-year-old female patient presents to the emergency department today for evaluation of possible pharyngeal foreign body. Physical examination is unremarkable. There is no visual evidence of the piece of tape. She is breathing without difficulty. She is swallowing and tolerating oral secretions without difficulty. She has eaten a hamburger meal and multiple drinks since ingestion and has not had any difficulty. She reports that she can feel irritation deep in her throat. She has been sticking her fingers are throat and causing herself to vomit multiple times throughout the day today. The concern at this time is some esophageal irritation. She'll be given a GI cocktail for symptoms relief. To be discharged home to follow-up with her primary care physician. She has any further concerns or issues she is instructed to return immediately to the emergency department. She verbalizes understanding and agrees with this plan. (Charity Monet) I was available for consultation in the emergency department. The history and physical exam were done by the midlevel provider. I was consulted for this patients care. I reviewed the case with the midlevel provider and based on their presentation of the patient, I agree with the assessment, medical decision making and plan of care as documented. Chart was dictated using [employer] dictation software. Attempts were made to correct any dictation errors however some typographical errors may persist. (Tavia Mccormick) Disposition Is patient prescribed a controlled substance at d/c from ED?: No Time of Disposition: 23:28 <Charity Monet - Last Filed: 09/25/19 00:41> <Tavia Mccormick - Last Filed: 09/27/19 21:35> Clinical Impression: Pharyngeal foreign body, Esophageal abrasion Disposition: HOME SELF-CARE Condition: Good Instructions (If sedation given, give patient instructions): Foreign Body Ingestion (ED) Additional Instructions: Eat and drink cool soothing foods and fluids. Follow-up with your primary care physician for recheck in 1-2 days. Return to the emergency department immediately for any new, worsening, or concerning symptoms. Referrals: Marcial Reyes MD [Primary Care Provider] - 1-2 days
[2019-09-24] MEDS ORDERED: MAG HYDROX/AL HYDROX/SIMETH 30 ML, HYOSCYAMINE ELIXIR 10 ML, LIDOCAINE VISCOUS 2% 10 ML PO STA ×3 (23:24)
[2019-09-24 23:55] VITALS: BP 131/81; PULSE 67; RESP 18; TEMP 98
== END 2019-09-24 23:55 | disposition home or self-care (01) ==
LOC: EC 18:27
DX: S27.818A Other injury of esophagus (thoracic part), initial encounter (principal); T17.298A Other foreign object in pharynx causing other injury, initial encounter; G40.909 Epilepsy, unspecified, not intractable, without status epilepticus; F17.200 Nicotine dependence, unspecified, uncomplicated; Z88.5 Allergy status to narcotic agent; Z88.6 Allergy status to analgesic agent; Z79.899 Other long term (current) drug therapy; Z86.14 Personal history of Methicillin resistant Staphylococcus aureus infection; Y93.89 Activity, other specified
CPT/HCPCS: 99283

== ENCOUNTER 2020-03-19 11:51 | Emergency (ER) | payer OTHER ==
[2020-03-19 12:09] VITALS: RESP 18
--- NOTE | 2020-03-19 12:37 | ED ---
General Adult HPI - General Chief complaint: Seizure Stated complaint: seizure/hit head Time Seen by Provider: 03/19/20 12:16 Source: patient, family, RN notes reviewed Mode of arrival: ambulatory Limitations: no limitations - History of Present Illness Initial comments: Patient is a pleasant 44-year-old female presenting to the emergency department following a witnessed seizure. Episode occurred around 8:30 this morning. Patient had generalized tonic-clonic activity lasting around 40 seconds. Patient was postictal for a couple minutes following this. Patient did strike her head. Patient complains of headache that is moderate. Patient is also temperature sensitive when she drinks water. Patient does have history of long- standing seizures. No change in medications. No missed medications. Patient has seizures every couple of months. Patient is more concerned that she did strike her head and has discomfort. Patient does see a local neurologist, Dr. Samuels. No recent illness otherwise. Other than headache patient feels fine at this time. - Related Data Home Medications Medication Instructions Recorded Confirmed Lacosamide [Vimpat] 200 mg PO BID 09/11/17 06/02/19 OXcarbazepine [Trileptal] 600 mg PO BID 09/11/17 06/02/19 Allergies Allergy/AdvReac Type Severity Reaction Status Date / Time codeine AdvReac HEADACHE Verified 03/19/20 12:09 ibuprofen [From Motrin] AdvReac HEADACHE Verified 03/19/20 12:09 Review of Systems ROS Statement: Those systems with pertinent positive or pertinent negative responses have been documented in the HPI. ROS Other: All systems not noted in ROS Statement are negative. Constitutional: Denies: fever Eyes: Denies: eye pain ENT: Denies: ear pain Respiratory: Denies: cough, dyspnea Cardiovascular: Denies: chest pain Endocrine: Denies: fatigue Gastrointestinal: Denies: abdominal pain Genitourinary: Denies: dysuria Musculoskeletal: Denies: back pain Skin: Denies: rash Neurological: Reports: headache. Denies: weakness, numbness, paresthesias, confusion Past Medical History Past Medical History: Asthma, Seizure Disorder Additional Past Medical History / Comment(s): . History of Any Multi-Drug Resistant Organisms: MRSA Date of last positivie culture/infection: 11/03/08 MDRO Source:: Unknown Past Surgical History: Hysterectomy, Orthopedic Surgery, Tubal Ligation Additional Past Surgical History / Comment(s): foot surgery 2006, lower back sx Past Anesthesia/Blood Transfusion Reactions: No Reported Reaction Past Psychological History: Anxiety, Depression Smoking Status: Current every day smoker Past Alcohol Use History: None Reported Past Drug Use History: None Reported - Past Family History Father Family Medical History: No Reported History General Exam Limitations: no limitations General appearance: alert, in no apparent distress Head exam: Present: other (Minimal soft tissue swelling right parietal region with moderate tenderness) Eye exam: Present: normal appearance, PERRL, EOMI. Absent: nystagmus ENT exam: Present: normal oropharynx Neck exam: Present: normal inspection. Absent: tenderness Respiratory exam: Present: normal lung sounds bilaterally Cardiovascular Exam: Present: regular rate, normal rhythm GI/Abdominal exam: Present: soft. Absent: tenderness Extremities exam: Present: normal inspection, full ROM Neurological exam: Present: alert, oriented X3, CN II-XII intact. Absent: motor sensory deficit Expanded Neurological exam: Present: protecting the airway Speech: Present: fluid speech Cranial nerves: EOM's Intact: Normal Motor strength exam: RUE: 5, LUE: 5, RLE: 5, LLE: 5 Eye Response: (4) open spontaneously Motor Response: (6) obeys commands Verbal Response: (5) oriented Psychiatric exam: Present: normal affect, normal mood Skin exam: Present: normal color Course Vital Signs 03/19/20 03/19/20 12:05 14:44 Temperature 98.7 F Pulse Rate 66 60 Respiratory 18 18 Rate Blood Pressure 105/59 117/59 O2 Sat by Pulse 98 99 Oximetry Medical Decision Making - Medical Decision Making Lab had originally stated that Trileptal level would come back soon however when called again they stated that it was actually a send out. Patient reevaluated and resting comfortably in bed. Patient updated on results and need for follow- up as well as need to follow-up with lab results. Disposition Clinical Impression: Generalized seizure, Head injury Disposition: HOME SELF-CARE Condition: Stable Instructions (If sedation given, give patient instructions): Recurrent Seizures in Adults (ED), Head Injury (ED) Additional Instructions: Please follow-up with primary care physician in the next day or 2 for recheck. Please also follow-up with your neurologist. Please have them check levels of your seizure medication. Return for increased seizures, confusion, weakness, persistent vomiting, worsening or change in symptoms or other concerns. [id number] Tylenol as needed. Is patient prescribed a controlled substance at d/c from ED?: No Referrals: Marcial Reyes MD [Primary Care Provider] - 1-2 days Time of Disposition: 14:52
--- NOTE | 2020-03-19 13:25 | CT ---
EXAMINATION TYPE: CT brain wo con DATE OF EXAM: 03/19/2020 COMPARISON: Previous study dated 09/11/2017 HISTORY: seizure, struck top of head CT DLP: 1040.4 mGycm Automated exposure control for dose reduction was used. FINDINGS: Central structures are midline. There is no evidence of hydrocephalus. No acute focal lesion, mass ef fect or midline shift is seen. I do not see evidence of intracranial blood. There is a small cephaloh ematoma overlying the cerebral convexity in the midline. Visualized portions of the paranasal sinuses and mastoids are clear. The bony calvarium is intact. IMPRESSION: 1. NO ACUTE INTRACRANIAL ABNORMALITY. 2. CEPHALOHEMATOMA, VERTEX OF THE SKULL.
[2020-03-19] MEDS ORDERED: ACETAMINOPHEN TAB 500 MG TAB PO STA (13:57)
[2020-03-19 14:45] VITALS: BP 117/59; PULSE 60
[2020-03-19 15:05] VITALS: TEMP 97.9
== END 2020-03-19 15:05 | disposition home or self-care (01) ==
LOC: EC 11:51
DX: G40.309 Generalized idiopathic epilepsy and epileptic syndromes, not intractable, without status epilepticus (principal); S09.90XA Unspecified injury of head, initial encounter; F17.200 Nicotine dependence, unspecified, uncomplicated; Z79.899 Other long term (current) drug therapy; Z88.5 Allergy status to narcotic agent; Z88.6 Allergy status to analgesic agent; W22.8XXA Striking against or struck by other objects, initial encounter
CPT/HCPCS: 36415; 70450; 80183; 99284

== ENCOUNTER 2020-03-20 00:49 | Observation (INO) | payer OTHER ==
[2020-03-20] MEDS ORDERED: SODIUM CHLORIDE 0.9% 1,000 ML IV STA ×3 (01:15→03:53)
--- NOTE | 2020-03-20 01:26 | ED ---
Seizure HPI - General Chief Complaint: Seizure Stated Complaint: Seizures Time Seen by Provider: 03/20/20 01:04 Source: patient, RN notes reviewed, old records reviewed Mode of arrival: ambulatory - History of Present Illness Initial Comments: This is a 44-year-old female DF for evaluation patient with us today for evaluation of seizure history of seizure but no recent seizures. No trauma from the event. Seizures have increased as of late patient currently feels weak but has no complaints MD Complaint: seizure -: minutes(s) Description of Episode: loss of consciousness, tonic-clonic movement -: second(s) Witnessed: yes - by bystander Trauma: No Seizure History: known seizure disorder Place: home Possible Precipitating Event: none Associated Symptoms: denies other symptoms - Related Data Home Medications Medication Instructions Recorded Confirmed Lacosamide [Vimpat] 200 mg PO BID 09/11/17 03/20/20 Omeprazole [PriLOSEC] 40 mg PO DAILY 03/20/20 03/20/20 Previous Rx's Medication Instructions Recorded Nicotine 14Mg/24Hr Patch [Habitrol] 1 patch TRANSDERM DAILY #14 patch 03/21/20 OXcarbazepine [Trileptal] 300 mg PO BID #60 tab 03/21/20 lamoTRIgine [LaMICtal] 25 mg PO BID tab 03/21/20 Allergies Allergy/AdvReac Type Severity Reaction Status Date / Time codeine AdvReac HEADACHE Verified 03/20/20 09:03 ibuprofen [From Motrin] AdvReac HEADACHE Verified 03/20/20 09:03 Review of Systems ROS Statement: Those systems with pertinent positive or pertinent negative responses have been documented in the HPI. ROS Other: All systems not noted in ROS Statement are negative. Past Medical History Past Medical History: Asthma, Seizure Disorder Additional Past Medical History / Comment(s): . History of Any Multi-Drug Resistant Organisms: MRSA Date of last positivie culture/infection: 11/03/08 MDRO Source:: Unknown Past Surgical History: Hysterectomy, Orthopedic Surgery, Tubal Ligation Additional Past Surgical History / Comment(s): foot surgery 2006, lower back sx Past Anesthesia/Blood Transfusion Reactions: No Reported Reaction Past Psychological History: Anxiety, Depression Smoking Status: Current every day smoker Past Alcohol Use History: None Reported Past Drug Use History: None Reported - Past Family History Father Family Medical History: No Reported History General Exam General appearance: alert, in no apparent distress Head exam: Present: atraumatic, normocephalic, normal inspection Eye exam: Present: normal appearance, PERRL, EOMI. Absent: scleral icterus, conjunctival injection, periorbital swelling ENT exam: Present: normal exam, mucous membranes moist Neck exam: Present: normal inspection. Absent: tenderness, meningismus, lymphadenopathy Respiratory exam: Present: normal lung sounds bilaterally. Absent: respiratory distress, wheezes, rales, rhonchi, stridor Cardiovascular Exam: Present: regular rate, normal rhythm, normal heart sounds. Absent: systolic murmur, diastolic murmur, rubs, gallop, clicks GI/Abdominal exam: Present: soft, normal bowel sounds. Absent: distended, tenderness, guarding, rebound, rigid Extremities exam: Present: normal inspection, full ROM, normal capillary refill. Absent: tenderness, pedal edema, joint swelling, calf tenderness Back exam: Present: normal inspection Neurological exam: Present: alert, oriented X3, CN II-XII intact Psychiatric exam: Present: normal affect, normal mood Skin exam: Present: warm, dry, intact, normal color. Absent: rash Course Vital Signs 03/20/20 03/20/20 03/20/20 00:52 04:05 04:22 Temperature 98.1 F 98.1 F Pulse Rate 73 65 Respiratory 18 16 Rate Blood Pressure 109/56 107/60 O2 Sat by Pulse 94 L 94 L Oximetry 03/20/20 05:30 Temperature Pulse Rate 61 Respiratory 16 Rate Blood Pressure 105/50 O2 Sat by Pulse 98 Oximetry - Reevaluation(s) Reevaluation #1: Medical records reviewed No change in therapy. No recurrent seizure here in the ER Medical Decision Making - Medical Decision Making 44 female DF for seizure recurrent seizure and hyponatremia today. At this time patient will be admitted for evaluation of seizure but mainly treatment and correction of hyponatremia - Lab Data Result diagrams: 03/22/20 07:48 03/22/20 07:48 Lab Results 03/20/20 03/20/20 03/20/20 Range/Units 00:58 01:20 01:20 WBC 8.2 (3.8-10.6) k/uL RBC 4.40 (3.80-5.40) m/uL Hgb 13.0 (11.4-16.0) gm/dL Hct 38.7 (34.0-46.0) % MCV 87.9 (80.0-100.0) fL MCH 29.6 (25.0-35.0) pg MCHC 33.7 (31.0-37.0) g/dL RDW 12.9 (11.5-15.5) % Plt Count 278 (150-450) k/uL Neutrophils % 81 % Lymphocytes % 12 % Monocytes % 3 % Eosinophils % 3 % Basophils % 0 % Neutrophils # 6.7 (1.3-7.7) k/uL Lymphocytes # 1.0 (1.0-4.8) k/uL Monocytes # 0.2 (0-1.0) k/uL Eosinophils # 0.3 (0-0.7) k/uL Basophils # 0.0 (0-0.2) k/uL Sodium 122 L (137-145) mmol/L Potassium 4.6 (3.5-5.1) mmol/L Chloride 91 L (98-107) mmol/L Carbon Dioxide 22 (22-30) mmol/L Anion Gap 9 mmol/L BUN 9 (7-17) mg/dL Creatinine 0.43 L (0.52-1.04) mg/dL Est GFR (CKD-EPI)AfAm >90 (>60 ml/min/1.73 sqM) Est GFR (CKD-EPI)NonAf >90 (>60 ml/min/1.73 sqM) Glucose 107 H (74-99) mg/dL Calcium 8.8 (8.4-10.2) mg/dL Phosphorus 3.9 (2.5-4.5) mg/dL Magnesium 1.9 (1.6-2.3) mg/dL Total Bilirubin 0.8 (0.2-1.3) mg/dL AST 53 H (14-36) U/L ALT 48 H (4-34) U/L Alkaline Phosphatase 74 (38-126) U/L Total Protein 7.3 (6.3-8.2) g/dL Albumin 4.2 (3.5-5.0) g/dL Salicylates <1.0 mg/dL Acetaminophen <10.0 ug/mL Oxcarbazepine 20.6 (10-35) ug/mL Serum Alcohol <10 mg/dL - Radiology Data Radiology results: report reviewed (CT brain negative for acute disease), image reviewed Disposition Clinical Impression: Epileptic seizure, generalized, Generalized seizure, Recurrent seizures, Hyp onatremia Disposition: ADMITTED IP TO THIS HOSP Condition: Stable Is patient prescribed a controlled substance at d/c from ED?: No
[2020-03-20 01:30] LABS: Basophils % (A) 0 %; Eosinophils # (A) 0.3 k/uL (0-0.7); Eosinophils % (A) 3 %; HCT 38.7 % (34.0-46.0); Lymphocytes % (A) 12 %; MCH 29.6 pg (25.0-35.0); MCHC 33.7 g/dL (31.0-37.0); MCV 87.9 fL (80.0-100.0); Mean Platelet Volume 6.5; Monocytes # (A) 0.2 k/uL (0-1.0); Monocytes % (A) 3 %; Neutrophils # (A) 6.7 k/uL (1.3-7.7); Neutrophils % (A) 81 %; Platelet Count 278 k/uL (150-450); RDW 12.9 % (11.5-15.5); WBC 8.2 k/uL (3.8-10.6)
[2020-03-20 01:42] LABS: ALT 48 U/L (4-34); AST 53 U/L (14-36); Acetaminophen <10.0 ug/mL; African American GFR (CKD) >90 (>60 ml/min/1.73 sqM); Albumin 4.2 g/dL (3.5-5.0); Alcohol <10 mg/dL; Alkaline Phosphatase 74 U/L (38-126); Anion Gap 9 mmol/L; Blood Urea Nitrogen 9 mg/dL (7-17); Calcium 8.8 mg/dL (8.4-10.2); Carbon Dioxide 22 mmol/L (22-30); Chloride 91 mmol/L (98-107); Glucose 107 mg/dL (74-99); Magnesium 1.9 mg/dL (1.6-2.3); Non-African American GFR(CKD) >90 (>60 ml/min/1.73 sqM); Phosphorus 3.9 mg/dL (2.5-4.5); Salicylate <1.0 mg/dL; Sodium 122 mmol/L (137-145); Total Bilirubin 0.8 mg/dL (0.2-1.3); Total Protein 7.3 g/dL (6.3-8.2)
[2020-03-20 01:43] LABS: Potassium 4.6 mmol/L (3.5-5.1)
[2020-03-20] MEDS ORDERED: SODIUM CHLORIDE 0.9% 500 ML 500 ML IV STA (03:53)
--- NOTE | 2020-03-20 04:48 | CT ---
EXAMINATION TYPE: CT brain wo con DATE OF EXAM: 03/20/2020 COMPARISON: 03/19/2020 HISTORY: seizures CT DLP: 1099.4 mGycm Automated exposure control for dose reduction was used. Ventricles and sulci appear normal. There is no mass effect nor midline shift. There is no sign of in tracranial hemorrhage. There is right frontal scalp soft tissue swelling. Calvarium is intact. Skull base is intact. IMPRESSION: Right frontal scalp hematoma or soft tissue swelling. No acute intracranial abnormality. Brain unchan ged compared to yesterday.
[2020-03-20] MEDS: LACOSAMIDE 50 MG TABLET PO SCH ×2 (08:52→20:40)
[2020-03-20] MEDS: OXcarbazepine 300 MG TAB PO SCH ×2 (08:52→20:41)
[2020-03-20 09:33] LABS: Basophils % (A) 0 %; Eosinophils # (A) 0.2 k/uL (0-0.7); Eosinophils % (A) 4 %; HGB 12.9 gm/dL (11.4-16.0); Lymphocytes % (A) 25 %; MCH 30.4 pg (25.0-35.0); MCHC 33.9 g/dL (31.0-37.0); MCV 89.9 fL (80.0-100.0); Mean Platelet Volume 6.4; Monocytes # (A) 0.2 k/uL (0-1.0); Monocytes % (A) 4 %; Neutrophils # (A) 2.8 k/uL (1.3-7.7); Neutrophils % (A) 66 %; Platelet Count 316 k/uL (150-450); RBC 4.23 m/uL (3.80-5.40); RDW 13.1 % (11.5-15.5); WBC 4.2 k/uL (3.8-10.6)
[2020-03-20 09:40] LABS: African American GFR (CKD) >90 (>60 ml/min/1.73 sqM); Anion Gap 7 mmol/L; Blood Urea Nitrogen 5 mg/dL (7-17); Calcium 9.1 mg/dL (8.4-10.2); Carbon Dioxide 25 mmol/L (22-30); Chloride 101 mmol/L (98-107); Glucose 100 mg/dL (74-99); Non-African American GFR(CKD) >90 (>60 ml/min/1.73 sqM); Potassium 4.4 mmol/L (3.5-5.1); Sodium 133 mmol/L (137-145)
[2020-03-20] MEDS ORDERED: LORazepam 2 MG/ML INJ IV PRN (10:07)
[2020-03-20] MEDS: SODIUM CHLORIDE 0.9% 1,000 ML IV SCH ×2 (12:28→20:45)
[2020-03-20] MEDS ORDERED: ACETAMINOPHEN TAB 500 MG TAB PO PRN (16:49)
[2020-03-20] MEDS: NICOTINE 14MG/24HR PATCH TRANSDERM SCH (17:33)
[2020-03-20 19:21] LABS: Appearance,Urine Clear (Clear); Bilirubin,Urine Negative (Negative); Blood,Urine Trace (Negative); Color,Urine Light Yellow; Glucose,Urine (UA) Negative (Negative); Ketones,Urine Negative (Negative); Leukocyte Esterase,Urine Negative (Negative); Mucus,Urine Rare /hpf; Nitrite,Urine Negative (Negative); PH, Urine 6.5 (5.0-8.0); Protein,Urine Negative (Negative); RBC,Urine <1 /hpf (0-5); Specific Gravity,Urine 1.009 (1.001-1.035); Squamous Epithelial Cell,Urine 1 /hpf (0-4); Urobilinogen,Urine <2.0 mg/dL (<2.0); WBC,Urine 1 /hpf (0-5)
[2020-03-20 19:44] LABS: Amphetamine Screen,Urine Not Detected (NotDetected); Barbiturate Screen,Urine Not Detected (NotDetected); Benzodiazepines Screen,Urine Not Detected (NotDetected); Cocaine Screen,Urine Not Detected (NotDetected); Methadone Screen, Urine Not Detected (NotDetected); Opiate Screen,Urine Not Detected (NotDetected); Oxycodone Screen, Urine Not Detected (NotDetected); Phencyclidine Screen,Urine Not Detected (NotDetected); Tricyclic Antidepressant,Urine Not Detected (NotDetected); Urn Cannabinoid Scrn Not Detected (NotDetected)
[2020-03-20] MEDS: HEPARIN SODIUM,PORCINE 5,000 UNIT/ML 1 ML VIAL SQ SCH (20:41)
--- NOTE | 2020-03-21 00:31 | HP ---
HISTORY AND PHYSICAL DATE OF SERVICE: 03/20/2020 CHIEF COMPLAINT: Seizure. HISTORY OF PRESENT ILLNESS: This 44-year-old woman with a past medical history of asthma, seizure disorder, MRSA being followed by Dr. Reyes in the outpatient setting noted to have multiple seizures. The patient came to [facility] and admitted for further evaluation and treatment. The patient unable to remember the exact of the episode, but the patient was found to have . The patient was admitted for further evaluation. There is no history of fever or rigors. No history of any chest pain, palpitations, hematochezia or melena. PAST MEDICAL HISTORY: Asthma, seizure disorder, history of MRSA. MEDICATIONS: Medications prior to admission include: 1. Prilosec 40 mg p.o. daily. 2. Trileptal 600 mg p.o. b.i.d. 3. Vimpat 200 mg p.o. b.i.d. ALLERGIES: CODEINE, IBUPROFEN. FAMILY HISTORY: No history of heart disease or strokes in the family. SOCIAL HISTORY: History of smoking on a daily basis. No history of alcohol intake. REVIEW OF SYSTEMS: ENT: No diminished hearing or diminished vision. CARDIOVASCULAR SYSTEM: No angina. RESPIRATORY SYSTEM: As mentioned earlier. GI: No nausea. : No dysuria. NERVOUS SYSTEM: As mentioned earlier. ALLERGY/IMMUNOLOGY: Asthma. MUSCULOSKELETAL: As mentioned earlier. HEMATOLOGY/ONCOLOGY: No history of anemia. ENDOCRINE: As mentioned earlier. CONSTITUTIONAL: As mentioned earlier. DERMATOLOGY: Negative. RHEUMATOLOGY: Negative. PSYCHIATRY: As mentioned earlier. PHYSICAL EXAMINATION: The patient is alert and oriented x3. Pulse 64, blood pressure 105/57, respiration 18, temperature 98.4, pulse ox 99% on room air. HEENT: Conjunctivae normal. Oral mucosa moist. NECK: No jugular venous distention. No carotid bruit. No lymph node enlargement. CARDIOVASCULAR: S1, S2 muffled. RESPIRATORY: Breath sounds diminished at the bases. Scattered rhonchi and crackles. ABDOMEN: Soft, nontender. No mass palpable. LEGS: No edema, no swelling. NERVOUS SYSTEM: Higher functions as mentioned. Moves all 4 limbs. No focal deficits. LYMPHATICS: No lymphadenopathy of the neck, axillae or groin. SKIN: No ulcer, rash or bleeding. JOINTS: No active deforming arthropathy. LABS: CBC within normal limits. Sodium 133, potassium 4.4. AST is 53, ALT is 48. ASSESSMENT: 1. Recurrent seizures with breakthrough seizures. 2. Hyponatremia. 3. Increased AST, ALT. 4. Right scalp hematoma. 5. History of asthma. 6. History of seizure. 7. History of MRSA. 8. History of degenerative joint disease. 9. History of anxiety, depression. 10.Continued ongoing nicotine dependence. 11.History of foot surgery. 12.Obesity body mass of 38.9. RECOMMENDATIONS AND DISCUSSION: This 44-year-old woman presented with multiple complex medical issues, will monitor the patient closely. Continue the current medications. Continue symptomatic treatment. Resume the home medications. Otherwise neurology consultation. Drug levels. Otherwise we will continue to monitor. Seizure precautions. Repeat labs. Exact etiology of hyponatremia is unknown at this time, could be hypovolemic. Further recommendations to follow. JAYJAY / LAM: [id number] / MTDD
[2020-03-21 06:48] LABS: Basophils % (A) 0 %; Eosinophils # (A) 0.2 k/uL (0-0.7); Eosinophils % (A) 5 %; HCT 38.2 % (34.0-46.0); HGB 12.8 gm/dL (11.4-16.0); Lymphocytes # (A) 1.3 k/uL (1.0-4.8); Lymphocytes % (A) 29 %; MCH 30.7 pg (25.0-35.0); MCHC 33.5 g/dL (31.0-37.0); MCV 91.4 fL (80.0-100.0); Mean Platelet Volume 6.4; Monocytes # (A) 0.2 k/uL (0-1.0); Monocytes % (A) 4 %; Neutrophils # (A) 2.8 k/uL (1.3-7.7); Neutrophils % (A) 60 %; Platelet Count 291 k/uL (150-450); RBC 4.18 m/uL (3.80-5.40); RDW 13.1 % (11.5-15.5); WBC 4.6 k/uL (3.8-10.6)
[2020-03-21 07:04] LABS: African American GFR (CKD) >90 (>60 ml/min/1.73 sqM); Anion Gap 7 mmol/L; Blood Urea Nitrogen 6 mg/dL (7-17); Calcium 9.1 mg/dL (8.4-10.2); Carbon Dioxide 24 mmol/L (22-30); Chloride 103 mmol/L (98-107); Glucose 90 mg/dL (74-99); Non-African American GFR(CKD) >90 (>60 ml/min/1.73 sqM); Potassium 4.2 mmol/L (3.5-5.1); Sodium 134 mmol/L (137-145)
[2020-03-21] MEDS: HEPARIN SODIUM,PORCINE 5,000 UNIT/ML 1 ML VIAL SQ SCH ×2 (07:56→20:32)
[2020-03-21] MEDS: PANTOPRAZOLE 40 MG TABLET PO SCH (07:57)
[2020-03-21] MEDS: NICOTINE 14MG/24HR PATCH TRANSDERM SCH (07:57)
[2020-03-21] MEDS: OXcarbazepine 300 MG TAB PO SCH ×2 (07:57→20:32)
[2020-03-21] MEDS: LACOSAMIDE 50 MG TABLET PO SCH ×2 (08:00→20:32)
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
[2020-03-21] MEDS: lamoTRIgine 25 MG TAB PO SCH ×2 (16:19→21:44)
[2020-03-21] MEDS: SODIUM CHLORIDE 0.9% 1,000 ML IV SCH (16:21)
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
[2020-03-22] MEDS: SODIUM CHLORIDE 0.9% 1,000 ML IV SCH (01:30)
[2020-03-22 05:49] VITALS: BP 126/78; PULSE 69; RESP 14; TEMP 98.2
[2020-03-22] MEDS: PANTOPRAZOLE 40 MG TABLET PO SCH (07:33)
[2020-03-22] MEDS: NICOTINE 14MG/24HR PATCH TRANSDERM SCH (07:33)
[2020-03-22] MEDS: HEPARIN SODIUM,PORCINE 5,000 UNIT/ML 1 ML VIAL SQ SCH (07:33)
[2020-03-22] MEDS: OXcarbazepine 300 MG TAB PO SCH (07:34)
[2020-03-22] MEDS: lamoTRIgine 25 MG TAB PO SCH (07:34)
[2020-03-22 08:40] LABS: Basophils % (A) 0 %; Eosinophils # (A) 0.1 k/uL (0-0.7); Eosinophils % (A) 3 %; HCT 39.1 % (34.0-46.0); HGB 12.6 gm/dL (11.4-16.0); Lymphocytes # (A) 1.3 k/uL (1.0-4.8); Lymphocytes % (A) 30 %; MCH 29.1 pg (25.0-35.0); MCHC 32.1 g/dL (31.0-37.0); MCV 90.7 fL (80.0-100.0); Mean Platelet Volume 6.5; Monocytes # (A) 0.2 k/uL (0-1.0); Monocytes % (A) 3 %; Neutrophils # (A) 2.7 k/uL (1.3-7.7); Neutrophils % (A) 62 %; Platelet Count 288 k/uL (150-450); RBC 4.32 m/uL (3.80-5.40); RDW 13.1 % (11.5-15.5); WBC 4.4 k/uL (3.8-10.6)
[2020-03-22 08:49] LABS: African American GFR (CKD) >90 (>60 ml/min/1.73 sqM); Anion Gap 9 mmol/L; Blood Urea Nitrogen 5 mg/dL (7-17); Calcium 9.3 mg/dL (8.4-10.2); Carbon Dioxide 27 mmol/L (22-30); Chloride 98 mmol/L (98-107); Glucose 91 mg/dL (74-99); Non-African American GFR(CKD) >90 (>60 ml/min/1.73 sqM); Potassium 4.1 mmol/L (3.5-5.1); Sodium 134 mmol/L (137-145)
[2020-03-22] MEDS: LACOSAMIDE 50 MG TABLET PO SCH (08:55)
--- NOTE | 2020-03-22 11:04 | P.PN ---
Subjective Progress Note Date: 03/22/20 Patient feeling fine, wants to go home. Apparently yesterday patient had a seizure. Patient does not remember what happened during the seizure. As per report, the seizure lasted for 4 minutes. Patient was unresponsive, thrashing. Due to the seizure, discharge was canceled. Sodium was checked and had dropped down from 134-129. This morning her sodium is back to 134. She wants to go home. Objective - Vital Signs Vital signs: Vital Signs Temp 98.2 F 03/22/20 05:00 Pulse 69 03/22/20 05:00 Resp 14 03/22/20 05:00 BP 126/78 03/22/20 05:00 Pulse Ox 97 03/22/20 05:00 Intake & Output 03/21/20 03/22/20 03/22/20 18:59 06:59 18:59 Intake Total 900 Balance 900 Intake: Intake, IV Titration 900 Amount Sodium Chloride 0.9% 1, 900 000 ml @ 75 mls/hr IV . [id number] [facility] Rx#:[id number] Other: Voiding Method Toilet Toilet # Voids 2 1 # Bowel Movements 1 - Exam Nonfocal. - Labs CBC & Chem 7: 03/22/20 07:48 03/22/20 07:48 Labs: Abnormal Lab Results - Last 24 Hours (Table) 03/21/20 03/22/20 Range/Units 18:28 07:48 Sodium 129 L 134 L (137-145) mmol/L BUN 5 L (7-17) mg/dL Creatinine 0.44 L (0.52-1.04) mg/dL Assessment and Plan Assessment: * Seizure disorder. Patient has history of epileptic and possible nonepileptic seizures. * Anxiety disorder. * Hyponatremia, likely related to side effect of Trileptal. * Tobacco user. Plan: * Patient's sodium level is 134 today. Clear for discharge. * Continue Trileptal 300 mg twice a day for 1 week and then 150 mg twice a day for next 1 week and then stop Trileptal. I would suggest slowly weaning off Trileptal as outpatient. * Continue Lamictal 25 mg twice a day. After one week, the dose can be increased to 50 mg twice a day. Patient will follow up with her neurologist, and has an appointment on 04/14/2020. Patient was recommended to stop Lamictal if she gets any rash. Patient states Lamictal is helping her more, and feels better as compared to how she felt with Trileptal. * Patient was informed of [place] state law of no driving unless seizure free for 6 months, operating dangerous machinery, climbing ladders or unsupervised swimming. * Her most recent sodium is 134. Neurologically clear for discharge when sodium level is considered normal for discharge. * Tobacco cessation.
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
== END 2020-03-22 12:52 | disposition home or self-care (01) ==
LOC: EC 00:49 → 5NMEDONC 03:53
PROVIDERS: ADMIT Hospitalist; ATTEND Hospitalist
DX: G40.409 Other generalized epilepsy and epileptic syndromes, not intractable, without status epilepticus (principal); E87.1 Hypo-osmolality and hyponatremia; S00.03XA Contusion of scalp, initial encounter; E66.9 Obesity, unspecified; F17.210 Nicotine dependence, cigarettes, uncomplicated; F32.9 Major depressive disorder, single episode, unspecified; F41.9 Anxiety disorder, unspecified; R74.0 Nonspecific elevation of levels of transaminase and lactic acid dehydrogenase [LDH]; M19.90 Unspecified osteoarthritis, unspecified site; J45.909 Unspecified asthma, uncomplicated; Z68.38 Body mass index [BMI] 38.0-38.9, adult; Z03.818 Encounter for observation for suspected exposure to other biological agents ruled out; Z87.820 Personal history of traumatic brain injury; Z79.899 Other long term (current) drug therapy; Z88.5 Allergy status to narcotic agent; Z88.6 Allergy status to analgesic agent; Z86.14 Personal history of Methicillin resistant Staphylococcus aureus infection; Z90.710 Acquired absence of both cervix and uterus; Z98.890 Other specified postprocedural states; Z98.51 Tubal ligation status; X58.XXXA Exposure to other specified factors, initial encounter
CPT/HCPCS: 96361 ×4; 96372 ×3; 96374; 99285; 36415; 93005; 80053; 80048 ×2; 80183; 83735; 84100; 84295; 85025 ×3; 81001; 80306; 83520; 70450; G0378 ×3; G0480 ×2; U0003; S4990 ×3; J2060; J1644 ×3; 80235; 80320; 80329

== ENCOUNTER 2020-08-30 20:38 | Emergency (ER) | payer OTHER ==
[2020-08-30 20:58] VITALS: RESP 16
--- NOTE | 2020-08-30 21:39 | CT ---
EXAMINATION TYPE: CT brain shruthiine wo con DATE OF EXAM: 08/30/2020 COMPARISON: 09/01/2017 HISTORY: seizure CT DLP: 1479.7 mGycm Automated exposure control for dose reduction was used. Exam of the brain performed without contrast. Images obtained from the skull base to T1 vertebra with out contrast. Ventricles and sulci appear normal. There is no mass effect nor midline shift. There is no sign of in tracranial hemorrhage. Calvarium is intact. There is no evidence of cerebral edema. Cervical vertebra have fairly normal spacing and alignment. Posterior elements are intact. Facet join ts are intact. Prevertebral soft tissues appear normal. Skull base is intact. There is normal aeratio n of the mastoid sinuses. IMPRESSION: Normal CT scan of the brain. No change. Normal CT scan cervical spine. No change.
[2020-08-30 22:10] LABS: Basophils % (A) 1 %; Eosinophils # (A) 0.2 k/uL (0-0.7); Eosinophils % (A) 2 %; HCT 38.2 % (34.0-46.0); HGB 13.1 gm/dL (11.4-16.0); Lymphocytes # (A) 1.6 k/uL (1.0-4.8); Lymphocytes % (A) 24 %; MCH 30.2 pg (25.0-35.0); MCHC 34.2 g/dL (31.0-37.0); MCV 88.4 fL (80.0-100.0); Mean Platelet Volume 6.7; Monocytes # (A) 0.4 k/uL (0-1.0); Monocytes % (A) 5 %; Neutrophils # (A) 4.5 k/uL (1.3-7.7); Neutrophils % (A) 67 %; Platelet Count 278 k/uL (150-450); RBC 4.33 m/uL (3.80-5.40); RDW 12.8 % (11.5-15.5); WBC 6.7 k/uL (3.8-10.6)
--- NOTE | 2020-08-30 22:15 | ED ---
Seizure HPI - General Source: patient, EMS Mode of arrival: EMS Limitations: altered mental status, physical limitation <Pam Joyce - Last Filed: 08/30/20 22:39> <Kavita Peterson - Last Filed: 08/31/20 01:06> - General Chief Complaint: Seizure Stated Complaint: seizures Time Seen by Provider: 08/30/20 21:05 - History of Present Illness Initial Comments: 44yo female with history of seizure d/o on vimpat 200mg BID and trileptal 600mg BID presenting for seizure, pt states that she was told she had 3 seizures. pt states that she has break through seizures every so often. pt states she did take her nightly meds but shortly after had a seizure. pt boyfriend witnessed seizure-he stated to patient sister that patient entire body was shaking and she looked like she was turning blue. pt sister states this happens with her seizures and she believes that the sisters new boyfriend is "a drama pak", sister bedside as well as patient feel she is at her baseline. pt has no complaints. denies chest pain, SOB, headaches, nausea. pt was told she fell and hit her head during the first seizure. pt unsure of time frame nor sister. EMS On arrival stated that patient had been "run on" before and was at baseline. patient appears well nontoxic on arrival AAOx4. no complaints. (Pam Joyce) - Related Data Home Medications Medication Instructions Recorded Confirmed Lacosamide [Vimpat] 200 mg PO BID@0700,1900 09/11/17 08/30/20 OXcarbazepine 600 mg PO BID@0700,1900 08/30/20 08/30/20 Allergies Allergy/AdvReac Type Severity Reaction Status Date / Time codeine AdvReac HEADACHE Verified 08/30/20 21:31 ibuprofen [From Motrin] AdvReac HEADACHE Verified 08/30/20 21:31 Review of Systems ROS Other: All systems not noted in ROS Statement are negative. <Pam Joyce - Last Filed: 08/30/20 22:39> ROS Other: All systems not noted in ROS Statement are negative. <Kavita Peterson - Last Filed: 08/31/20 01:06> ROS Statement: Those systems with pertinent positive or pertinent negative responses have been documented in the HPI. Past Medical History Past Medical History: Asthma, Seizure Disorder Additional Past Medical History / Comment(s): . History of Any Multi-Drug Resistant Organisms: MRSA Date of last positivie culture/infection: 11/03/08 MDRO Source:: Unknown Past Surgical History: Hysterectomy, Orthopedic Surgery, Tubal Ligation Additional Past Surgical History / Comment(s): foot surgery 2006, lower back sx Past Anesthesia/Blood Transfusion Reactions: No Reported Reaction Past Psychological History: Anxiety, Depression Smoking Status: Current every day smoker Past Alcohol Use History: None Reported Past Drug Use History: None Reported - Past Family History Father Family Medical History: No Reported History <Pam Joyce - Last Filed: 08/30/20 22:39> General Exam Limitations: altered mental status, physical limitation <Pam Joyce - Last Filed: 08/30/20 22:39> - General Exam Comments Initial Comments: General: The patient is awake and alert, in no distress Eye: +3 mm pupils are equal, round and reactive to light, extra-ocular movements are intact. No nystagmus. There is normal conjunctiva bilaterally. No signs of icterus. Ears, nose, mouth and throat: There are moist mucous membranes and no oral lesions. Neck: The neck is supple, there is no tenderness or JVD. No nuchal rigidity. Cardiovascular: There is a regular rate and rhythm. No murmur, rub or gallop is appreciated. Respiratory: Lungs are clear to auscultation, respirations are non-labored, breath sounds are equal. No wheezes, stridor, rales, or rhonchi. Gastrointestinal: Soft, non-distended, non-tender abdomen without masses or organomegaly noted. There is no rebound or guarding present. Musculoskeletal: Normal ROM, no tenderness. Strength 5/5 of the UE and LE equal b/l. Sensation intact of UE and LE equal b/l. Radial pulses equal bilaterally 2+. Neurological: A&O x 3. CN II-XII intact, There are no obvious motor or sensory deficits. Coordination appears grossly intact. Speech is normal. Finger to nose smooth and coordinated, no pronator drift. Skin: Skin is warm and dry and no rashes or lesions are noted. Psychiatric: Cooperative, appropriate mood & affect, normal judgment. (Pam Joyce) Course <Pam Joyce - Last Filed: 08/30/20 22:39> <Kavita Peterson - Last Filed: 08/31/20 01:06> Vital Signs 08/30/20 08/30/20 08/30/20 20:51 21:00 22:00 Pulse Rate 78 77 79 Respiratory 16 16 16 Rate Blood Pressure 131/65 105/65 O2 Sat by Pulse 99 99 99 Oximetry 08/30/20 08/31/20 23:00 00:00 Pulse Rate 77 76 Respiratory 16 16 Rate Blood Pressure 113/60 97/72 O2 Sat by Pulse 99 99 Oximetry - Reevaluation(s) Reevaluation #1: initial levels drawn was wrong medications, redrew of trileptal ordered, and medication order cancelled. sodium 127 patient struggles with chronic hyponatremia. Patient will be given fluid bolus and have level repeated at [address] Cosby, he states is pt levels increase to 130 or above pt can go home f/u outpatient pt signed out to JACINTO Peterson at 10:40PM, fluids initiated. 08/30/20 22:39 (Pam Joyce) 08/31/20 01:03 Patient was given a liter and half of fluids, sodium re-draw was at 128. We discussed this with the patient, patient states she has struggled with hypernatremia in the past and does not want to stay in hospital. She states she has an appointment with her physician in 2 days. Her vital signs remained stab le. Patient will be discharged. (Kavita Peterson) Medical Decision Making - Lab Data Result diagrams: 08/30/20 21:40 08/30/20 21:40 <Pam Joyce - Last Filed: 08/30/20 22:39> - Lab Data Result diagrams: 08/30/20 21:40 08/31/20 00:42 <Kavita Peterson - Last Filed: 08/31/20 01:06> - Medical Decision Making Labs stable. Pt at baseline per self/family/EMS. Patient has no focal deficits. on antiepileptics. CT brain c-spine (-). no raccoon nor valentin sign. no tongue injury. patient denies chest pain, SOB. EKG no acute changes. patient is agreeable to discharge with close PCP and outpatient neurology f/u. patient agreeable to care plan and discharge. Dr. Cosby agreeable to care plan and discharge. (Pam Joyce) Patient was signed out to me by Pam Joyce awaiting fluids and redraw of sodium. Second sodium is 128. Patient has remained stable in ER. She states she has had chronic low sodium for a couple years now and she does not want to stay for this. She states she has an appointment with her PCP in a few days. She is stable for discharge. Patient will follow up with her neurologist as discussed earlier. (Kavita Peterson) - Lab Data Lab Results 08/30/20 08/30/20 08/31/20 Range/Units 21:40 21:40 00:42 WBC 6.7 (3.8-10.6) k/uL RBC 4.33 (3.80-5.40) m/uL Hgb 13.1 (11.4-16.0) gm/dL Hct 38.2 (34.0-46.0) % MCV 88.4 (80.0-100.0) fL MCH 30.2 (25.0-35.0) pg MCHC 34.2 (31.0-37.0) g/dL RDW 12.8 (11.5-15.5) % Plt Count 278 (150-450) k/uL MPV 6.7 Neutrophils % 67 % Lymphocytes % 24 % Monocytes % 5 % Eosinophils % 2 % Basophils % 1 % Neutrophils # 4.5 (1.3-7.7) k/uL Lymphocytes # 1.6 (1.0-4.8) k/uL Monocytes # 0.4 (0-1.0) k/uL Eosinophils # 0.2 (0-0.7) k/uL Basophils # 0.0 (0-0.2) k/uL Sodium 127 L 128 L (137-145) mmol/L Potassium 4.7 (3.5-5.1) mmol/L Chloride 93 L (98-107) mmol/L Carbon Dioxide 28 (22-30) mmol/L Anion Gap 6 mmol/L BUN 14 (7-17) mg/dL Creatinine 0.52 (0.52-1.04) mg/dL Est GFR (CKD-EPI)AfAm >90 (>60 ml/min/1.73 sqM) Est GFR (CKD-EPI)NonAf >90 (>60 ml/min/1.73 sqM) Glucose 89 (74-99) mg/dL Calcium 9.2 (8.4-10.2) mg/dL Total Bilirubin 0.4 (0.2-1.3) mg/dL AST 28 (14-36) U/L ALT 18 (4-34) U/L Alkaline Phosphatase 69 (38-126) U/L Total Protein 7.6 (6.3-8.2) g/dL Albumin 4.4 (3.5-5.0) g/dL Carbamazepine <3.0 ug/mL Disposition <Pam Joyce L - Last Filed: 08/30/20 22:39> Is patient prescribed a controlled substance at d/c from ED?: No <Kavita Peterson - Last Filed: 08/31/20 01:06> Clinical Impression: Recurrent seizures, Hyponatremia Disposition: HOME SELF-CARE Condition: Stable Instructions (If sedation given, give patient instructions): Recurrent Seizures in Adults (ED) Additional Instructions: Please return to the Emergency Department if symptoms worsen or any other concerns. Follow-up with neurology and your PCP for re-check of sodium. Referrals: Marcial Reyes MD [Primary Care Provider] - 1-2 days
[2020-08-30 22:24] LABS: ALT 18 U/L (4-34); AST 28 U/L (14-36); African American GFR (CKD) >90 (>60 ml/min/1.73 sqM); Albumin 4.4 g/dL (3.5-5.0); Alkaline Phosphatase 69 U/L (38-126); Anion Gap 6 mmol/L; Blood Urea Nitrogen 14 mg/dL (7-17); Calcium 9.2 mg/dL (8.4-10.2); Carbamazepine (Tegretol) <3.0 ug/mL; Carbon Dioxide 28 mmol/L (22-30); Chloride 93 mmol/L (98-107); Glucose 89 mg/dL (74-99); Non-African American GFR(CKD) >90 (>60 ml/min/1.73 sqM); Potassium 4.7 mmol/L (3.5-5.1); Sodium 127 mmol/L (137-145); Total Bilirubin 0.4 mg/dL (0.2-1.3); Total Protein 7.6 g/dL (6.3-8.2)
[2020-08-30] MEDS ORDERED: carBAMazepine 400 MG TAB.ER.12H PO STA (22:25)
[2020-08-30] MEDS ORDERED: SODIUM CHLORIDE 0.9% 1,000 ML IV ONE (22:27)
[2020-08-30] MEDS ORDERED: SODIUM CHLORIDE 0.9% 500 ML 500 ML IV ONE (22:27)
[2020-08-31 01:20] VITALS: BP 122/72; PULSE 73; TEMP 97.8
== END 2020-08-31 01:21 | disposition home or self-care (01) ==
LOC: EC 20:38
DX: G40.909 Epilepsy, unspecified, not intractable, without status epilepticus (principal); E87.1 Hypo-osmolality and hyponatremia; F41.9 Anxiety disorder, unspecified; F17.200 Nicotine dependence, unspecified, uncomplicated; Z79.899 Other long term (current) drug therapy; Z88.6 Allergy status to analgesic agent; Z88.5 Allergy status to narcotic agent
CPT/HCPCS: 36415; 70450; 72125; 80053; 80156; 80183; 84295; 85025; 93005; 96360; 99284

== ENCOUNTER → 2020-09-20 | Outpatient (CLI) | payer OTHER ==
--- NOTE | 2020-09-20 10:30 | US ---
EXAMINATION TYPE: US abdomen limited DATE OF EXAM: 09/20/2020 COMPARISON: NONE CLINICAL HISTORY: R10.11 RUQ pain. EXAM MEASUREMENTS: Liver Length: 14.3 cm Gallbladder Wall: Surgically absent CBD: 0.9 cm Right Kidney: 10.5 x 4.6 x 5.4 cm Morbidly obese patient with severe overlying bowel gas, study technically difficult and very limited Pancreas: Obscured by bowel gas Liver: Increased attenuation, very limited visualization Gallbladder: Surgically absent Evidence for sonographic Jaimes's sign: no CBD: wnl Right Kidney: very limited visualization, appears wnl as seen IMPRESSION: 1. Abdomen ultrasound as visualized is unremarkable. There is limitation due to patient body habitus.
== END | disposition home or self-care (01) ==
LOC: RADUSWWP 09:39
PROVIDERS: ATTEND Pediatrics
DX: R10.11 Right upper quadrant pain (principal)
CPT/HCPCS: 76705

== ENCOUNTER → 2021-01-30 | Outpatient (CLI) | payer OTHER ==
--- NOTE | 2021-01-31 10:15 | MM ---
Reason for exam: screening (asymptomatic). Last mammogram was performed 2 years and 4 months ago. History: Patient is postmenopausal. Family history of breast cancer in sister at age 40. Physical Findings: A clinical breast exam by your physician is recommended on an annual basis and results should be correlated with mammographic findings. MG Screening Mammo w CAD Bilateral CC and MLO view(s) were taken. Prior study comparison: October 02, 2018, bilateral MG screening mammo w CAD. November 17, 2008, bilateral digital screening mammogram. The breast tissue is heterogeneously dense. This may lower the sensitivity of mammography. Benign appearing bilateral calcifications. No significant changes when compared with prior studies. ASSESSMENT: Benign, BI-RAD 2 RECOMMENDATION: Routine screening mammogram of both breasts in 1 year.
== END | disposition home or self-care (01) ==
LOC: RADMAMWWP 11:25
PROVIDERS: ATTEND Pediatrics
DX: Z12.31 Encounter for screening mammogram for malignant neoplasm of breast (principal); Z80.3 Family history of malignant neoplasm of breast; Z78.0 Asymptomatic menopausal state
CPT/HCPCS: 77067

== ENCOUNTER 2021-02-21 13:47 | Emergency (ER) | payer OTHER ==
[2021-02-21 13:55] VITALS: TEMP 98
--- NOTE | 2021-02-21 14:15 | ED ---
Seizure HPI - General Chief Complaint: Seizure Stated Complaint: seizure Time Seen by Provider: 02/21/21 14:01 Source: patient, EMS Mode of arrival: EMS Limitations: no limitations - History of Present Illness Initial Comments: Is a 45-year-old female with a history of seizures on Vimpat and Trileptal presents emergency department for breakthrough seizure. Apparently the seizure was unwitnessed and the history is somewhat vague area and there is report that the patient had 3 seizures. Patient is currently back to baseline and states that she feels back to normal. She does state that she has been having intermittent episodes of right-sided frontal headaches. She states that she's had these headaches in the past and her neurologist is aware of them. She states the headache is nonradiating. She's had no visual changes. No photophobia or phonophobia. She states that she is not been feeling ill recently. No fevers or chills. No cough chest pain, shortness of breath. No nausea, vomiting, diarrhea or abdominal pain. No dysuria. The patient states that she feels back to normal. She's been compliant with her medications. The patient was here back in August for a similar episode and went home. she denies any other complaints currently. - Related Data Home Medications Medication Instructions Recorded Confirmed Lacosamide [Vimpat] 200 mg PO BID@0700,1900 09/11/17 08/30/20 OXcarbazepine 600 mg PO BID@0700,1900 08/30/20 08/30/20 Previous Rx's Medication Instructions Recorded Methocarbamol [Robaxin-750] 750 mg PO QID PRN #20 tablet 02/21/21 Allergies Allergy/AdvReac Type Severity Reaction Status Date / Time codeine AdvReac HEADACHE Verified 08/30/20 21:31 ibuprofen [From Motrin] AdvReac HEADACHE Verified 08/30/20 21:31 Review of Systems ROS Statement: Those systems with pertinent positive or pertinent negative responses have been documented in the HPI. ROS Other: All systems not noted in ROS Statement are negative. Past Medical History Past Medical History: Asthma, Seizure Disorder Additional Past Medical History / Comment(s): . History of Any Multi-Drug Resistant Organisms: MRSA Date of last positivie culture/infection: 11/03/08 MDRO Source:: Unknown Past Surgical History: Hysterectomy, Orthopedic Surgery, Tubal Ligation Additional Past Surgical History / Comment(s): foot surgery 2006, lower back sx Past Anesthesia/Blood Transfusion Reactions: No Reported Reaction Past Psychological History: Anxiety, Depression Smoking Status: Current every day smoker Past Alcohol Use History: None Reported Past Drug Use History: None Reported - Past Family History Father Family Medical History: No Reported History General Exam - General Exam Comments Initial Comments: Constitutional: Awake alert Appears comfortable Head: Normocephalic atraumatic Eyes: no conjunctival injection No scleral icterus EOMI, pupils are 4 mm and reactive bilaterally Neck: No JVD Supple, no neck tenderness Heart: Regular rate rhythm normal S1-S2 no murmurs Lungs: Clear to auscultation bilaterally No wheezing No rales Abdomen: Soft nondistended nontender Extremities: Non edematous DP pulses intact Radial pulses intact Neuro: A&Ox3, crowner 2 through 12 are grossly intact, 5 out of 5 strength with command and control officer strength and able to hold arms up bilaterally, able to hold legs bilaterally, sensation intact to light touch in all extremities. No focal neurologic deficits Psych: Appropriate mood and affect Limitations: no limitations Course Vital Signs 02/21/21 02/21/21 13:51 15:57 Temperature 98.0 F Pulse Rate 63 74 Respiratory 18 16 Rate Blood Pressure 126/76 144/68 O2 Sat by Pulse 97 98 Oximetry Medical Decision Making - Medical Decision Making This is a 45-year-old female presents emergency department for seizures. The patient has a known history of seizures. She had no focal neurologic findings on examination here. She was not postictal here and was awake and alert and at baseline. She had no headache. No focal neurologic findings on examination. Blood work was performed and unremarkable. No evidence for infection. The patient's going to continue on her medications. She was inquiring about a different medication for low back pain. Apparently she's been on [place] and they're suspecting that [place] may have caused some issues with a seizure this morning. She states that she's been on Robaxin before to her primary doctor and wanted to try this again. I did warn her that there was there at medical risk of increased seizure with the medication however she states that she had not before months take it again. She was advised to follow closely with her primary doctor and neurologist. Return emergency report for any worsening or changing symptoms. Questions were answered. - Lab Data Result diagrams: 02/21/21 14:26 02/21/21 14:26 Lab Results 02/21/21 02/21/21 02/21/21 Range/Units 14:26 14:26 14:26 WBC 4.9 (3.8-10.6) k/uL RBC 4.25 (3.80-5.40) m/uL Hgb 13.1 (11.4-16.0) gm/dL Hct 38.3 (34.0-46.0) % MCV 90.1 (80.0-100.0) fL MCH 30.9 (25.0-35.0) pg MCHC 34.3 (31.0-37.0) g/dL RDW 13.1 (11.5-15.5) % Plt Count 262 (150-450) k/uL MPV 6.4 Neutrophils % 69 % Lymphocytes % 22 % Monocytes % 3 % Eosinophils % 5 % Basophils % 0 % Neutrophils # 3.4 (1.3-7.7) k/uL Lymphocytes # 1.1 (1.0-4.8) k/uL Monocytes # 0.1 (0-1.0) k/uL Eosinophils # 0.3 (0-0.7) k/uL Basophils # 0.0 (0-0.2) k/uL Sodium (137-145) mmol/L Potassium (3.5-5.1) mmol/L Chloride (98-107) mmol/L Carbon Dioxide (22-30) mmol/L Anion Gap mmol/L BUN (7-17) mg/dL Creatinine (0.52-1.04) mg/dL Est GFR (CKD-EPI)AfAm (>60 ml/min/1.73 sqM) Est GFR (CKD-EPI)NonAf (>60 ml/min/1.73 sqM) Glucose (74-99) mg/dL Calcium (8.4-10.2) mg/dL Total Bilirubin (0.2-1.3) mg/dL AST (14-36) U/L ALT (4-34) U/L Alkaline Phosphatase (38-126) U/L Total Protein (6.3-8.2) g/dL Albumin (3.5-5.0) g/dL Urine Color Yellow Urine Appearance Clear (Clear) Urine pH 6.5 (5.0-8.0) Ur Specific [place] 1.029 (1.001-1.035) Urine Protein Trace H (Negative) Urine Glucose (UA) Negative (Negative) Urine Ketones Negative (Negative) Urine Blood Negative (Negative) Urine Nitrite Negative (Negative) Urine Bilirubin Negative (Negative) Urine Urobilinogen <2.0 (<2.0) mg/dL Ur Leukocyte Esterase Negative (Negative) Urine HCG, Qual Not Detected (Not Detectd) Urine Opiates Screen Detected H (NotDetected) Ur Oxycodone Screen Not Detected (NotDetected) Urine Methadone Screen Not Detected (NotDetected) Ur Propoxyphene Screen Not Detected (NotDetected) Ur Barbiturates Screen Not Detected (NotDetected) U Tricyclic Antidepress Not Detected (NotDetected) Ur Phencyclidine Scrn Not Detected (NotDetected) Ur Amphetamines Screen Not Detected (NotDetected) U Methamphetamines Scrn Not Detected (NotDetected) U Benzodiazepines Scrn Not Detected (NotDetected) Urine Cocaine Screen Not Detected (NotDetected) U Marijuana (THC) Screen Not Detected (NotDetected) 02/21/21 Range/Units 14:26 WBC (3.8-10.6) k/uL RBC (3.80-5.40) m/uL Hgb (11.4-16.0) gm/dL Hct (34.0-46.0) % MCV (80.0-100.0) fL MCH (25.0-35.0) pg MCHC (31.0-37.0) g/dL RDW (11.5-15.5) % Plt Count (150-450) k/uL MPV Neutrophils % % Lymphocytes % % Monocytes % % Eosinophils % % Basophils % % Neutrophils # (1.3-7.7) k/uL Lymphocytes # (1.0-4.8) k/uL Monocytes # (0-1.0) k/uL Eosinophils # (0-0.7) k/uL Basophils # (0-0.2) k/uL Sodium 131 L (137-145) mmol/L Potassium 4.5 (3.5-5.1) mmol/L Chloride 101 (98-107) mmol/L Carbon Dioxide 23 (22-30) mmol/L Anion Gap 7 mmol/L BUN 13 (7-17) mg/dL Creatinine 0.41 L (0.52-1.04) mg/dL Est GFR (CKD-EPI)AfAm >90 (>60 ml/min/1.73 sqM) Est GFR (CKD-EPI)NonAf >90 (>60 ml/min/1.73 sqM) Glucose 93 (74-99) mg/dL Calcium 9.2 (8.4-10.2) mg/dL Total Bilirubin 0.3 (0.2-1.3) mg/dL AST 30 (14-36) U/L ALT 23 (4-34) U/L Alkaline Phosphatase 69 (38-126) U/L Total Protein 6.8 (6.3-8.2) g/dL Albumin 4.2 (3.5-5.0) g/dL Urine Color Urine Appearance (Clear) Urine pH (5.0-8.0) Ur Specific [place] (1.001-1.035) Urine Protein (Negative) Urine Glucose (UA) (Negative) Urine Ketones (Negative) Urine Blood (Negative) Urine Nitrite (Negative) Urine Bilirubin (Negative) Urine Urobilinogen (<2.0) mg/dL Ur Leukocyte Esterase (Negative) Urine HCG, Qual (Not Detectd) Urine Opiates Screen (NotDetected) Ur Oxycodone Screen (NotDetected) Urine Methadone Screen (NotDetected) Ur Propoxyphene Screen (NotDetected) Ur Barbiturates Screen (NotDetected) U Tricyclic Antidepress (NotDetected) Ur Phencyclidine Scrn (NotDetected) Ur Amphetamines Screen (NotDetected) U Methamphetamines Scrn (NotDetected) U Benzodiazepines Scrn (NotDetected) Urine Cocaine Screen (NotDetected) U Marijuana (THC) Screen (NotDetected) Disposition Clinical Impression: Breakthrough seizure, Chronic low back pain Disposition: HOME SELF-CARE Condition: Stable Instructions (If sedation given, give patient instructions): Seizure/Epilepsy Discharge Instructions & Follow-Up, Recurrent Seizures in Adults (ED) Prescriptions: Methocarbamol [Robaxin-750] 750 mg PO QID PRN #20 tablet PRN Reason: Spasms Is patient prescribed a controlled substance at d/c from ED?: No Referrals: Marcial Reyes MD [Primary Care Provider] - 1-2 days
[2021-02-21 14:47] LABS: Basophils % (A) 0 %; Eosinophils # (A) 0.3 k/uL (0-0.7); Eosinophils % (A) 5 %; HCT 38.3 % (34.0-46.0); HGB 13.1 gm/dL (11.4-16.0); Lymphocytes # (A) 1.1 k/uL (1.0-4.8); Lymphocytes % (A) 22 %; MCH 30.9 pg (25.0-35.0); MCHC 34.3 g/dL (31.0-37.0); MCV 90.1 fL (80.0-100.0); Mean Platelet Volume 6.4; Monocytes # (A) 0.1 k/uL (0-1.0); Monocytes % (A) 3 %; Neutrophils # (A) 3.4 k/uL (1.3-7.7); Neutrophils % (A) 69 %; Platelet Count 262 k/uL (150-450); RBC 4.25 m/uL (3.80-5.40); RDW 13.1 % (11.5-15.5); WBC 4.9 k/uL (3.8-10.6)
[2021-02-21 14:57] LABS: Potassium 4.5 mmol/L (3.5-5.1)
[2021-02-21 14:58] LABS: ALT 23 U/L (4-34); AST 30 U/L (14-36); African American GFR (CKD) >90 (>60 ml/min/1.73 sqM); Albumin 4.2 g/dL (3.5-5.0); Alkaline Phosphatase 69 U/L (38-126); Anion Gap 7 mmol/L; Blood Urea Nitrogen 13 mg/dL (7-17); Calcium 9.2 mg/dL (8.4-10.2); Carbon Dioxide 23 mmol/L (22-30); Chloride 101 mmol/L (98-107); Glucose 93 mg/dL (74-99); Non-African American GFR(CKD) >90 (>60 ml/min/1.73 sqM); Sodium 131 mmol/L (137-145); Total Bilirubin 0.3 mg/dL (0.2-1.3); Total Protein 6.8 g/dL (6.3-8.2)
[2021-02-21 15:14] LABS: Appearance,Urine Clear (Clear); Bilirubin,Urine Negative (Negative); Blood,Urine Negative (Negative); Color,Urine Yellow; Glucose,Urine (UA) Negative (Negative); Ketones,Urine Negative (Negative); Leukocyte Esterase,Urine Negative (Negative); Nitrite,Urine Negative (Negative); PH, Urine 6.5 (5.0-8.0); Protein,Urine Trace (Negative); Specific Gravity,Urine 1.029 (1.001-1.035); Urobilinogen,Urine <2.0 mg/dL (<2.0)
[2021-02-21 15:22] LABS: Amphetamine Screen,Urine Not Detected (NotDetected); Barbiturate Screen,Urine Not Detected (NotDetected); Benzodiazepines Screen,Urine Not Detected (NotDetected); Cocaine Screen,Urine Not Detected (NotDetected); Methadone Screen, Urine Not Detected (NotDetected); Opiate Screen,Urine Detected (NotDetected); Oxycodone Screen, Urine Not Detected (NotDetected); Phencyclidine Screen,Urine Not Detected (NotDetected); Tricyclic Antidepressant,Urine Not Detected (NotDetected); Urn Cannabinoid Scrn Not Detected (NotDetected)
--- NOTE | 2021-02-21 15:28 | XR ---
EXAMINATION TYPE: XR chest 2V DATE OF EXAM: 02/21/2021 COMPARISON: 09/11/2017 TECHNIQUE: PA and lateral views submitted. HISTORY: Seizure FINDINGS: The lungs are clear and there is no pneumothorax, pleural effusion, or focal pneumonia. Seizure hea rt is enlarged and somewhat coarsened interstitium. Mild hypertrophic change of the spine. IMPRESSION: 1. Cardiomegaly.
[2021-02-21 15:57] VITALS: BP 144/68; PULSE 74; RESP 16
== END 2021-02-21 15:57 | disposition home or self-care (01) ==
LOC: EC 13:47
DX: G40.909 Epilepsy, unspecified, not intractable, without status epilepticus (principal); G89.29 Other chronic pain; M54.5 Low back pain; J45.909 Unspecified asthma, uncomplicated; F32.9 Major depressive disorder, single episode, unspecified; F41.9 Anxiety disorder, unspecified; F17.200 Nicotine dependence, unspecified, uncomplicated
CPT/HCPCS: 36415; 71046; 80053; 80306; 81003; 81025; 85025; 99284

== ENCOUNTER 2021-05-03 15:47 | Emergency (ER) | payer OTHER ==
[2021-05-03 15:59] VITALS: BP 92/49; PULSE 76; RESP 18; TEMP 98.7
--- NOTE | 2021-05-03 16:30 | ED ---
Lower Extremity Injury HPI - General Chief Complaint: Extremity Injury, Lower Stated Complaint: Fall Time Seen by Provider: 05/03/21 16:01 Source: patient, RN notes reviewed Mode of arrival: ambulatory Limitations: no limitations - History of Present Illness Initial Comments: 45 -year-old female presents emergency Department chief complaint of a fall. Patient states she is seizure states that she fell backwards onto her buttock. Patient states that she has a history of seizures denies any head injury no neck pain. Patient complains of left buttocks pain. Patient also complains of elbow pain. Patient offers no other complaints at this time - Related Data Home Medications Medication Instructions Recorded Confirmed Lacosamide [Vimpat] 200 mg PO BID@0700,1900 09/11/17 08/30/20 OXcarbazepine 600 mg PO BID@0700,1900 08/30/20 08/30/20 Previous Rx's Medication Instructions Recorded Methocarbamol [Robaxin-750] 750 mg PO QID PRN #20 tablet 02/21/21 Allergies Allergy/AdvReac Type Severity Reaction Status Date / Time codeine AdvReac HEADACHE Verified 05/03/21 15:57 ibuprofen [From Motrin] AdvReac HEADACHE Verified 05/03/21 15:57 Review of Systems ROS Statement: Those systems with pertinent positive or pertinent negative responses have been documented in the HPI. ROS Other: All systems not noted in ROS Statement are negative. Past Medical History Past Medical History: Asthma, Seizure Disorder Additional Past Medical History / Comment(s): . History of Any Multi-Drug Resistant Organisms: MRSA Date of last positivie culture/infection: 11/03/08 MDRO Source:: Unknown Past Surgical History: Hysterectomy, Orthopedic Surgery, Tubal Ligation Additional Past Surgical History / Comment(s): foot surgery 2006, lower back sx Past Anesthesia/Blood Transfusion Reactions: No Reported Reaction Past Psychological History: Anxiety, Depression Smoking Status: Current every day smoker Past Alcohol Use History: None Reported Past Drug Use History: None Reported - Past Family History Father Family Medical History: No Reported History General Exam Limitations: no limitations General appearance: alert, in no apparent distress Head exam: Present: atraumatic, normocephalic, normal inspection Neck exam: Present: normal inspection, full ROM. Absent: tenderness, meningismus, lymphadenopathy Respiratory exam: Present: normal lung sounds bilaterally. Absent: respiratory distress, wheezes, rales, rhonchi, stridor Cardiovascular Exam: Present: regular rate, normal rhythm, normal heart sounds. Absent: systolic murmur, diastolic murmur, rubs, gallop, clicks Extremities exam: Present: other (Mild tenderness left elbow otherwise unremarkable extremity exam, tenderness over the left buttocks region with ecchymosis) Back exam: Present: full ROM. Absent: tenderness, paraspinal tenderness, vertebral tenderness Neurological exam: Present: alert, oriented X3, CN II-XII intact, reflexes normal. Absent: motor sensory deficit Course Vital Signs 05/03/21 15:54 Temperature 98.7 F Pulse Rate 76 Respiratory 18 Rate Blood Pressure 92/49 O2 Sat by Pulse 98 Oximetry Medical Decision Making - Medical Decision Making X-ray of the elbow and pelvis is negative. Patient has noted contusion. Patient discharged stable condition return parameters were discussed. Disposition Clinical Impression: Contusion of buttock, Elbow contusion Disposition: HOME SELF-CARE Condition: Stable Instructions (If sedation given, give patient instructions): Contusion in Adults (ED) Additional Instructions: Please return to the Emergency Department if symptoms worsen or any other concerns. Is patient prescribed a controlled substance at d/c from ED?: No Referrals: Marcial Reyes MD [Primary Care Provider] - 1-2 days Time of Disposition: 16:39
--- NOTE | 2021-05-03 16:35 | XR ---
Result: History: Pain status post fall. Comparison: None available. Technique: A single frontal radiograph of the pelvis was reviewed. Findings: No acute fracture or dislocation is seen. The visualized osseous structures are in anatomic alignmen t. The hip joints are grossly preserved. Impression: No displaced fracture.
--- NOTE | 2021-05-03 16:36 | XR ---
Result: History: Pain status post fall. Comparison: None available. Technique: Frontal, lateral and oblique views of the left elbow. Findings: Bone mineralization is appropriate for age. No acute fracture or dislocation is seen. The visualized osseous structures are in anatomic alignmen t. The joint spaces are preserved. There is no significant elbow joint effusion. Impression: No acute fracture or dislocation.
[2021-05-03] MEDS ORDERED: HYDROcodone/APAP 5-325MG 1 EACH TAB PO STA (16:39)
== END 2021-05-03 16:54 | disposition home or self-care (01) ==
LOC: EC 15:47
DX: S50.02XA Contusion of left elbow, initial encounter (principal); S30.0XXA Contusion of lower back and pelvis, initial encounter; G40.909 Epilepsy, unspecified, not intractable, without status epilepticus; J45.909 Unspecified asthma, uncomplicated; F41.9 Anxiety disorder, unspecified; F32.9 Major depressive disorder, single episode, unspecified; F17.200 Nicotine dependence, unspecified, uncomplicated; Z88.6 Allergy status to analgesic agent; Z90.710 Acquired absence of both cervix and uterus; Z98.51 Tubal ligation status; W18.30XA Fall on same level, unspecified, initial encounter
CPT/HCPCS: 72170; 99283

== ENCOUNTER 2021-05-07 18:10 | Emergency (ER) | payer OTHER ==
[2021-05-07 18:24] VITALS: RESP 18; TEMP 98
[2021-05-07] MEDS ORDERED: SODIUM CHLORIDE 0.9% 500 ML 500 ML IV STA (18:34)
--- NOTE | 2021-05-07 19:05 | ED ---
General Adult HPI - General Chief complaint: Weakness Stated complaint: Weakness Time Seen by Provider: 05/07/21 18:31 Source: patient, EMS, RN notes reviewed, old records reviewed Mode of arrival: EMS Limitations: no limitations - History of Present Illness Initial comments: 45-year-old female presenting with generalized weakness, and episode of epigas tric pain with nausea. Patient denies current pain complaints, no chest pain. She denies fever. Denies abdominal pain. She had epigastric pain but this has resolved. No diarrhea. No dysuria or hematuria. No focal weakness. She just felt fatigued with generalized weakness. She did have a momentary episode where she lost consciousness. She was on the floor at the time there was no traumatic injury. She has history of seizure disorder there is no reported seizure activity. - Related Data Home Medications Medication Instructions Recorded Confirmed Lacosamide [Vimpat] 200 mg PO BID 09/11/17 05/07/21 OXcarbazepine 600 mg PO BID 08/30/20 05/07/21 HYDROcodone/APAP 5-325MG [[place] 1 tab PO DAILY PRN 05/07/21 05/07/21 5-325] Allergies Allergy/AdvReac Type Severity Reaction Status Date / Time codeine AdvReac HEADACHE Verified 05/07/21 20:05 ibuprofen [From Motrin] AdvReac HEADACHE Verified 05/07/21 20:05 Review of Systems ROS Statement: Those systems with pertinent positive or pertinent negative responses have been documented in the HPI. ROS Other: All systems not noted in ROS Statement are negative. Past Medical History Past Medical History: Asthma, Seizure Disorder Additional Past Medical History / Comment(s): . History of Any Multi-Drug Resistant Organisms: MRSA Date of last positivie culture/infection: 11/03/08 MDRO Source:: Unknown Past Surgical History: Hysterectomy, Orthopedic Surgery, Tubal Ligation Additional Past Surgical History / Comment(s): foot surgery 2006, lower back sx Past Anesthesia/Blood Transfusion Reactions: No Reported Reaction Past Psychological History: Anxiety, Depression Smoking Status: Current every day smoker Past Alcohol Use History: None Reported Past Drug Use History: None Reported - Past Family History Father Family Medical History: No Reported History General Exam Limitations: no limitations General appearance: alert, in no apparent distress Head exam: Present: atraumatic, normocephalic Eye exam: Present: normal appearance, PERRL ENT exam: Present: mucous membranes dry Neck exam: Present: normal inspection. Absent: tenderness, meningismus Respiratory exam: Present: normal lung sounds bilaterally. Absent: respiratory distress, wheezes Cardiovascular Exam: Present: regular rate, normal rhythm GI/Abdominal exam: Present: soft. Absent: distended, tenderness, guarding, rebound Extremities exam: Present: normal inspection, normal capillary refill. Absent: pedal edema Neurological exam: Present: alert, oriented X3, CN II-XII intact. Absent: motor sensory deficit Psychiatric exam: Present: normal affect, normal mood Skin exam: Present: warm, dry, intact. Absent: cyanosis, diaphoretic Course Vital Signs 05/07/21 18:18 Temperature 98 F Pulse Rate 63 Respiratory 18 Rate Blood Pressure 107/55 O2 Sat by Pulse 98 Oximetry EKG Findings - EKG Comments: EKG Findings:: EKG: Normal sinus rhythm, rate 62, ND interval 194, QRS duration 100, QTC 450, no ST segment elevation. Medical Decision Making - Medical Decision Making 45 yo female with generalized weakness, fatigue, and episode of epigastric pain. EKG is sinus rhythm without ST segment elevation. Patient has a normal CBC, normal CMP, negative troponin, negative urinalysis. Chest x-rays clear without acute findings. Patient is able to eat and drink in the emergency department without any further epigastric pain. I did offer observation for this patient but she declines. Prefers outpatient follow-up. She will return with any worsening or changing symptoms. - Lab Data Result diagrams: 05/07/21 19:07 05/07/21 19:07 Lab Results 05/07/21 05/07/21 05/07/21 Range/Units 19:07 19:07 19:07 WBC 5.7 (3.8-10.6) k/uL RBC 3.80 (3.80-5.40) m/uL Hgb 12.4 (11.4-16.0) gm/dL Hct 34.4 (34.0-46.0) % MCV 90.6 (80.0-100.0) fL MCH 32.7 (25.0-35.0) pg MCHC 36.1 (31.0-37.0) g/dL RDW 14.6 (11.5-15.5) % Plt Count 354 (150-450) k/uL MPV 6.2 Neutrophils % 76 % Lymphocytes % 17 % Monocytes % 3 % Eosinophils % 2 % Basophils % 0 % Neutrophils # 4.3 (1.3-7.7) k/uL Lymphocytes # 1.0 (1.0-4.8) k/uL Monocytes # 0.2 (0-1.0) k/uL Eosinophils # 0.1 (0-0.7) k/uL Basophils # 0.0 (0-0.2) k/uL PT 10.1 (9.0-12.0) sec INR 0.9 (<1.2) APTT 24.5 (22.0-30.0) sec Sodium 130 L (137-145) mmol/L Potassium 4.3 (3.5-5.1) mmol/L Chloride 98 (98-107) mmol/L Carbon Dioxide 23 (22-30) mmol/L Anion Gap 9 mmol/L BUN 14 (7-17) mg/dL Creatinine 0.46 L (0.52-1.04) mg/dL Est GFR (CKD-EPI)AfAm >90 (>60 ml/min/1.73 sqM) Est GFR (CKD-EPI)NonAf >90 (>60 ml/min/1.73 sqM) Glucose 98 (74-99) mg/dL Plasma Lactic Acid [place] (0.7-2.0) mmol/L Calcium 9.3 (8.4-10.2) mg/dL Magnesium 2.0 (1.6-2.3) mg/dL Total Bilirubin 0.3 (0.2-1.3) mg/dL AST 28 (14-36) U/L ALT 18 (4-34) U/L Alkaline Phosphatase 74 (38-126) U/L Troponin I (0.000-0.034) ng/mL Total Protein 7.0 (6.3-8.2) g/dL Albumin 4.4 (3.5-5.0) g/dL Lipase 65 (23-300) U/L Urine Color Urine Appearance (Clear) Urine pH (5.0-8.0) Ur Specific [place] (1.001-1.035) Urine Protein (Negative) Urine Glucose (UA) (Negative) Urine Ketones (Negative) Urine Blood (Negative) Urine Nitrite (Negative) Urine Bilirubin (Negative) Urine Urobilinogen (<2.0) mg/dL Ur Leukocyte Esterase (Negative) 05/07/21 05/07/21 05/07/21 Range/Units 19:07 19:07 19:53 WBC (3.8-10.6) k/uL RBC (3.80-5.40) m/uL Hgb (11.4-16.0) gm/dL Hct (34.0-46.0) % MCV (80.0-100.0) fL MCH (25.0-35.0) pg MCHC (31.0-37.0) g/dL RDW (11.5-15.5) % Plt Count (150-450) k/uL MPV Neutrophils % % Lymphocytes % % Monocytes % % Eosinophils % % Basophils % % Neutrophils # (1.3-7.7) k/uL Lymphocytes # (1.0-4.8) k/uL Monocytes # (0-1.0) k/uL Eosinophils # (0-0.7) k/uL Basophils # (0-0.2) k/uL PT (9.0-12.0) sec INR (<1.2) APTT (22.0-30.0) sec Sodium (137-145) mmol/L Potassium (3.5-5.1) mmol/L Chloride (98-107) mmol/L Carbon Dioxide (22-30) mmol/L Anion Gap mmol/L BUN (7-17) mg/dL Creatinine (0.52-1.04) mg/dL Est GFR (CKD-EPI)AfAm (>60 ml/min/1.73 sqM) Est GFR (CKD-EPI)NonAf (>60 ml/min/1.73 sqM) Glucose (74-99) mg/dL Plasma Lactic Acid [place] 0.8 (0.7-2.0) mmol/L Calcium (8.4-10.2) mg/dL Magnesium (1.6-2.3) mg/dL Total Bilirubin (0.2-1.3) mg/dL AST (14-36) U/L ALT (4-34) U/L Alkaline Phosphatase (38-126) U/L Troponin I <0.012 (0.000-0.034) ng/mL Total Protein (6.3-8.2) g/dL Albumin (3.5-5.0) g/dL Lipase (23-300) U/L Urine Color Light Yellow Urine Appearance Clear (Clear) Urine pH 7.0 (5.0-8.0) Ur Specific [place] 1.010 (1.001-1.035) Urine Protein Trace H (Negative) Urine Glucose (UA) Negative (Negative) Urine Ketones Negative (Negative) Urine Blood Negative (Negative) Urine Nitrite Negative (Negative) Urine Bilirubin Negative (Negative) Urine Urobilinogen <2.0 (<2.0) mg/dL Ur Leukocyte Esterase Negative (Negative) Disposition Clinical Impression: Dehydration, Abdominal pain Disposition: HOME SELF-CARE Condition: Fair Instructions (If sedation given, give patient instructions): Abdominal Pain (ED), Syncope (ED) Is patient prescribed a controlled substance at d/c from ED?: No Referrals: Marcial Reyes MD [Primary Care Provider] - 1-2 days Time of Disposition: 20:26
[2021-05-07 19:25] LABS: Basophils % (A) 0 %; Eosinophils # (A) 0.1 k/uL (0-0.7); Eosinophils % (A) 2 %; HCT 34.4 % (34.0-46.0); HGB 12.4 gm/dL (11.4-16.0); Lymphocytes % (A) 17 %; MCH 32.7 pg (25.0-35.0); MCHC 36.1 g/dL (31.0-37.0); MCV 90.6 fL (80.0-100.0); Mean Platelet Volume 6.2; Monocytes # (A) 0.2 k/uL (0-1.0); Monocytes % (A) 3 %; Neutrophils # (A) 4.3 k/uL (1.3-7.7); Neutrophils % (A) 76 %; Platelet Count 354 k/uL (150-450); RDW 14.6 % (11.5-15.5); WBC 5.7 k/uL (3.8-10.6)
--- NOTE | 2021-05-07 19:32 | XR ---
EXAMINATION TYPE: XR chest 2V DATE OF EXAM: 05/07/2021 COMPARISON: 02/21/2021 HISTORY: Weakness TECHNIQUE: FINDINGS: Heart and mediastinum are normal. Lungs are clear. Diaphragm is normal. Bony thorax appears normal. IMPRESSION: Normal chest. No change.
[2021-05-07 19:40] LABS: INR 0.9 (<1.2); Partial Thromboplastin Time 24.5 sec (22.0-30.0); Prothrombin Time 10.1 sec (9.0-12.0)
[2021-05-07 19:46] LABS: ALT 18 U/L (4-34); AST 28 U/L (14-36); African American GFR (CKD) >90 (>60 ml/min/1.73 sqM); Albumin 4.4 g/dL (3.5-5.0); Alkaline Phosphatase 74 U/L (38-126); Anion Gap 9 mmol/L; Blood Urea Nitrogen 14 mg/dL (7-17); Calcium 9.3 mg/dL (8.4-10.2); Carbon Dioxide 23 mmol/L (22-30); Chloride 98 mmol/L (98-107); Glucose 98 mg/dL (74-99); Lipase 65 U/L (23-300); Non-African American GFR(CKD) >90 (>60 ml/min/1.73 sqM); Potassium 4.3 mmol/L (3.5-5.1); Sodium 130 mmol/L (137-145); Total Bilirubin 0.3 mg/dL (0.2-1.3)
[2021-05-07 20:18] LABS: Appearance,Urine Clear (Clear); Bilirubin,Urine Negative (Negative); Blood,Urine Negative (Negative); Color,Urine Light Yellow; Glucose,Urine (UA) Negative (Negative); Ketones,Urine Negative (Negative); Leukocyte Esterase,Urine Negative (Negative); Nitrite,Urine Negative (Negative); Protein,Urine Trace (Negative); Urobilinogen,Urine <2.0 mg/dL (<2.0)
[2021-05-07 20:44] VITALS: BP 104/63; PULSE 86
== END 2021-05-07 20:44 | disposition home or self-care (01) ==
LOC: EC 18:10
DX: E86.0 Dehydration (principal); R10.13 Epigastric pain; G40.909 Epilepsy, unspecified, not intractable, without status epilepticus; J45.909 Unspecified asthma, uncomplicated; F17.200 Nicotine dependence, unspecified, uncomplicated; Z88.5 Allergy status to narcotic agent; Z88.6 Allergy status to analgesic agent
CPT/HCPCS: 36415; 71046; 80053; 81003; 83605; 83690; 83735; 84484; 85025; 85610; 85730; 93005; 99285

== ENCOUNTER → 2021-05-30 | Outpatient (CLI) | payer OTHER ==
--- NOTE | 2021-06-09 11:25 | EM ---
EVENT MONITOR SEVEN-DAY EVENT MONITOR: DATE OF SERVICE: 05/30/2021 The patient was monitored for 7 days. Baseline rhythm appeared to be sinus mechanism. The patient did not have any evidence of significant tachy- or bradyarrhythmia noted. No advanced AV block seen. No significant sinus pause or sinus arrest. CONCLUSION: 1. This is a 7-day event monitor. 2. Sinus rhythm as a baseline mechanism. 3. No significant tachy- or bradyarrhythmia noted. 4. No evidence of AV block seen. 5. No evidence of sinus pause or sinus arrest. MMODL / IJN: [id number] /
== END | disposition home or self-care (01) ==
LOC: RADECHMAIN 12:18
PROVIDERS: ATTEND Pediatrics
DX: R07.9 Chest pain, unspecified (principal); R55 Syncope and collapse
CPT/HCPCS: 93270

== ENCOUNTER 2021-06-18 21:02 | Observation (INO) | payer OTHER ==
--- NOTE | 2021-06-18 21:48 | ED ---
Seizure HPI - General Chief Complaint: Seizure Stated Complaint: Seizure Time Seen by Provider: 06/18/21 21:13 Source: patient, EMS, RN notes reviewed, old records reviewed Mode of arrival: ambulatory Limitations: no limitations - History of Present Illness Initial Comments: This is a 45-year-old female to the emergency department for evaluation. Dirk armstrong states she was feeling weak not her self lately. Muscle aches and body pains. Patient states that she has have a seizure with history of seizures and has been taking seizure medications as directed and prescribed. Patient presents with family member did witness a seizure. Patient currently denying any headache any complaints from the seizure itself. States this was from what she understands like her most normal seizures MD Complaint: seizure, possible seizure, feel seizure coming on, loss of consciousness, shaking -: minutes(s) Description of Episode: loss of consciousness, tonic-clonic movement, post-event confusion -: second(s) Witnessed: yes - by bystander Trauma: No Seizure History: known seizure disorder Place: home Possible Precipitating Event: none Associated Symptoms: denies other symptoms Treatments Prior to Arrival: none - Related Data Home Medications Medication Instructions Recorded Confirmed Lacosamide [Vimpat] 200 mg PO BID 09/11/17 05/07/21 OXcarbazepine 600 mg PO BID 08/30/20 05/07/21 HYDROcodone/APAP 5-325MG [[place] 1 tab PO DAILY PRN 05/07/21 05/07/21 5-325] Allergies Allergy/AdvReac Type Severity Reaction Status Date / Time codeine AdvReac HEADACHE Verified 06/18/21 21:34 ibuprofen [From Motrin] AdvReac HEADACHE Verified 06/18/21 21:34 Review of Systems ROS Statement: Those systems with pertinent positive or pertinent negative responses have been documented in the HPI. ROS Other: All systems not noted in ROS Statement are negative. Past Medical History Past Medical History: Asthma, Seizure Disorder Additional Past Medical History / Comment(s): . History of Any Multi-Drug Resistant Organisms: MRSA Date of last positivie culture/infection: 11/03/08 MDRO Source:: Unknown Past Surgical History: Hysterectomy, Orthopedic Surgery, Tubal Ligation Additional Past Surgical History / Comment(s): foot surgery 2006, lower back sx Past Anesthesia/Blood Transfusion Reactions: No Reported Reaction Past Psychological History: Anxiety, Depression Smoking Status: Current every day smoker Past Alcohol Use History: None Reported Past Drug Use History: None Reported - Past Family History Father Family Medical History: No Reported History General Exam Limitations: no limitations General appearance: alert, in no apparent distress Head exam: Present: atraumatic, normocephalic, normal inspection Eye exam: Present: normal appearance, PERRL, EOMI. Absent: scleral icterus, conjunctival injection, periorbital swelling ENT exam: Present: normal exam, mucous membranes moist Neck exam: Present: normal inspection. Absent: tenderness, meningismus, lymphadenopathy Respiratory exam: Present: normal lung sounds bilaterally. Absent: respiratory distress, wheezes, rales, rhonchi, stridor Cardiovascular Exam: Present: regular rate, normal rhythm, normal heart sounds. Absent: systolic murmur, diastolic murmur, rubs, gallop, clicks GI/Abdominal exam: Present: soft, normal bowel sounds. Absent: distended, tenderness, guarding, rebound, rigid Extremities exam: Present: normal inspection, full ROM, normal capillary refill. Absent: tenderness, pedal edema, joint swelling, calf tenderness Back exam: Present: normal inspection Neurological exam: Present: alert, oriented X3, CN II-XII intact Psychiatric exam: Present: normal affect, normal mood Skin exam: Present: warm, dry, intact, normal color. Absent: rash Course Vital Signs 06/18/21 06/18/21 21:25 22:58 Temperature 98.4 F Pulse Rate 71 67 Respiratory 20 18 Rate Blood Pressure 112/73 106/58 O2 Sat by Pulse 98 97 Oximetry - Reevaluation(s) Reevaluation #1: 06/19/21 00:41 Medical record is reviewed Reevaluation #2: 06/19/21 00:41 No recurrent seizure activity here in the ER 06/19/21 00:42 Patient is persistent chest pain Reevaluation #3: 06/19/21 00:41 Patient still feels weak, informed results and questions answered Medical Decision Making - Medical Decision Making 45 female D to the ER F for evaluation of chest pain episodes prior to arrival chest pain with syncope versus seizure-like activity history of seizures but states that she was breathing but not responsive during this event patient self presents here for evaluation remaining weak he and also admitting to persistent chest pain. - Lab Data Result diagrams: 06/18/21 22:13 06/18/21 22:13 Lab Results 06/18/21 06/18/21 06/18/21 Range/Units 22:13 22:13 22:13 WBC 6.1 (3.8-10.6) k/uL RBC 4.24 (3.80-5.40) m/uL Hgb 13.1 (11.4-16.0) gm/dL Hct 39.2 (34.0-46.0) % MCV 92.5 (80.0-100.0) fL MCH 31.0 (25.0-35.0) pg MCHC 33.5 (31.0-37.0) g/dL RDW 13.0 (11.5-15.5) % Plt Count 310 (150-450) k/uL MPV 6.6 Neutrophils % 56 % Lymphocytes % 33 % Monocytes % 5 % Eosinophils % 5 % Basophils % 0 % Neutrophils # 3.4 (1.3-7.7) k/uL Lymphocytes # 2.0 (1.0-4.8) k/uL Monocytes # 0.3 (0-1.0) k/uL Eosinophils # 0.3 (0-0.7) k/uL Basophils # 0.0 (0-0.2) k/uL PT 9.8 (9.0-12.0) sec INR 0.9 (<1.2) APTT 28.7 (22.0-30.0) sec Sodium (137-145) mmol/L Potassium (3.5-5.1) mmol/L Chloride (98-107) mmol/L Carbon Dioxide (22-30) mmol/L Anion Gap mmol/L BUN (7-17) mg/dL Creatinine (0.52-1.04) mg/dL Est GFR (CKD-EPI)AfAm (>60 ml/min/1.73 sqM) Est GFR (CKD-EPI)NonAf (>60 ml/min/1.73 sqM) Glucose (74-99) mg/dL Plasma Lactic Acid Dwight (0.7-2.0) mmol/L Calcium (8.4-10.2) mg/dL Phosphorus (2.5-4.5) mg/dL Magnesium (1.6-2.3) mg/dL Total Bilirubin (0.2-1.3) mg/dL AST (14-36) U/L ALT (4-34) U/L Alkaline Phosphatase (38-126) U/L Creatine Kinase (30-135) U/L Troponin I (0.000-0.034) ng/mL Total Protein (6.3-8.2) g/dL Albumin (3.5-5.0) g/dL TSH (0.465-4.680) mIU/L Urine Color Yellow Urine Appearance Clear (Clear) Urine pH 6.5 (5.0-8.0) Ur Specific [place] 1.026 (1.001-1.035) Urine Protein Negative (Negative) Urine Glucose (UA) Negative (Negative) Urine Ketones Negative (Negative) Urine Blood Negative (Negative) Urine Nitrite Negative (Negative) Urine Bilirubin Negative (Negative) Urine Urobilinogen <2.0 (<2.0) mg/dL Ur Leukocyte Esterase Trace H (Negative) Urine RBC 1 (0-5) /hpf Urine WBC 2 (0-5) /hpf Ur Squamous Epith Cells 1 (0-4) /hpf Amorphous Sediment Rare H (None) /hpf Urine Mucus Occasional H (None) /hpf 06/18/21 06/18/21 06/18/21 Range/Units 22:13 22:13 22:13 WBC (3.8-10.6) k/uL RBC (3.80-5.40) m/uL Hgb (11.4-16.0) gm/dL Hct (34.0-46.0) % MCV (80.0-100.0) fL MCH (25.0-35.0) pg MCHC (31.0-37.0) g/dL RDW (11.5-15.5) % Plt Count (150-450) k/uL MPV Neutrophils % % Lymphocytes % % Monocytes % % Eosinophils % % Basophils % % Neutrophils # (1.3-7.7) k/uL Lymphocytes # (1.0-4.8) k/uL Monocytes # (0-1.0) k/uL Eosinophils # (0-0.7) k/uL Basophils # (0-0.2) k/uL PT (9.0-12.0) sec INR (<1.2) APTT (22.0-30.0) sec Sodium 134 L (137-145) mmol/L Potassium 4.4 (3.5-5.1) mmol/L Chloride 100 (98-107) mmol/L Carbon Dioxide 27 (22-30) mmol/L Anion Gap 7 mmol/L BUN 15 (7-17) mg/dL Creatinine 0.45 L (0.52-1.04) mg/dL Est GFR (CKD-EPI)AfAm >90 (>60 ml/min/1.73 sqM) Est GFR (CKD-EPI)NonAf >90 (>60 ml/min/1.73 sqM) Glucose 89 (74-99) mg/dL Plasma Lactic Acid Dwight 0.9 (0.7-2.0) mmol/L Calcium 9.5 (8.4-10.2) mg/dL Phosphorus 4.3 (2.5-4.5) mg/dL Magnesium 2.0 (1.6-2.3) mg/dL Total Bilirubin 0.3 (0.2-1.3) mg/dL AST 28 (14-36) U/L ALT 21 (4-34) U/L Alkaline Phosphatase 89 (38-126) U/L Creatine Kinase 284 H (30-135) U/L Troponin I <0.012 (0.000-0.034) ng/mL Total Protein 7.3 (6.3-8.2) g/dL Albumin 4.2 (3.5-5.0) g/dL TSH 0.898 (0.465-4.680) mIU/L Urine Color Urine Appearance (Clear) Urine pH (5.0-8.0) Ur Specific [place] (1.001-1.035) Urine Protein (Negative) Urine Glucose (UA) (Negative) Urine Ketones (Negative) Urine Blood (Negative) Urine Nitrite (Negative) Urine Bilirubin (Negative) Urine Urobilinogen (<2.0) mg/dL Ur Leukocyte Esterase (Negative) Urine RBC (0-5) /hpf Urine WBC (0-5) /hpf Ur Squamous Epith Cells (0-4) /hpf Amorphous Sediment (None) /hpf Urine Mucus (None) /hpf - EKG Data -: EKG Interpreted by Me (EKG is sinus rhythm 65 [place] 216 QRS 106 QTc 468) - Radiology Data Radiology results: report reviewed (Chest x-rays negative for acute disease), image reviewed Disposition Clinical Impression: Generalized seizure, Altered mental status, Syncope, Weakness, Chest pain Disposition: ADMITTED IP TO THIS HOSP Instructions (If sedation given, give patient instructions): Seizure/Epilepsy Discharge Instructions & Follow-Up Is patient prescribed a controlled substance at d/c from ED?: No Referrals: Marcial Reyes MD [Primary Care Provider] - 1-2 days
--- NOTE | 2021-06-18 22:12 | XR ---
EXAMINATION TYPE: XR chest 2V DATE OF EXAM: 06/18/2021 COMPARISON: 05/07/2021 HISTORY: Weakness TECHNIQUE: FINDINGS: Heart and mediastinum are normal. Lungs are clear. Diaphragm is normal. There are chest ross ds. Bony thorax is intact. IMPRESSION: Normal chest.
[2021-06-18 22:37] LABS: Basophils % (A) 0 %; Eosinophils # (A) 0.3 k/uL (0-0.7); Eosinophils % (A) 5 %; HCT 39.2 % (34.0-46.0); HGB 13.1 gm/dL (11.4-16.0); Lymphocytes % (A) 33 %; MCHC 33.5 g/dL (31.0-37.0); MCV 92.5 fL (80.0-100.0); Mean Platelet Volume 6.6; Monocytes # (A) 0.3 k/uL (0-1.0); Monocytes % (A) 5 %; Neutrophils # (A) 3.4 k/uL (1.3-7.7); Neutrophils % (A) 56 %; Platelet Count 310 k/uL (150-450); RBC 4.24 m/uL (3.80-5.40); WBC 6.1 k/uL (3.8-10.6)
[2021-06-18 22:50] LABS: Amorphous Sediment,Urine Rare /hpf; Appearance,Urine Clear (Clear); Bilirubin,Urine Negative (Negative); Blood,Urine Negative (Negative); Color,Urine Yellow; Glucose,Urine (UA) Negative (Negative); Ketones,Urine Negative (Negative); Leukocyte Esterase,Urine Trace (Negative); Mucus,Urine Occasional /hpf; Nitrite,Urine Negative (Negative); PH, Urine 6.5 (5.0-8.0); Protein,Urine Negative (Negative); RBC,Urine 1 /hpf (0-5); Specific Gravity,Urine 1.026 (1.001-1.035); Squamous Epithelial Cell,Urine 1 /hpf (0-4); Urobilinogen,Urine <2.0 mg/dL (<2.0); WBC,Urine 2 /hpf (0-5)
[2021-06-18 22:57] LABS: INR 0.9 (<1.2); Partial Thromboplastin Time 28.7 sec (22.0-30.0); Prothrombin Time 9.8 sec (9.0-12.0)
[2021-06-18 23:06] LABS: ALT 21 U/L (4-34); AST 28 U/L (14-36); African American GFR (CKD) >90 (>60 ml/min/1.73 sqM); Albumin 4.2 g/dL (3.5-5.0); Alkaline Phosphatase 89 U/L (38-126); Anion Gap 7 mmol/L; Blood Urea Nitrogen 15 mg/dL (7-17); Calcium 9.5 mg/dL (8.4-10.2); Carbon Dioxide 27 mmol/L (22-30); Chloride 100 mmol/L (98-107); Creatine Kinase 284 U/L (30-135); Glucose 89 mg/dL (74-99); Non-African American GFR(CKD) >90 (>60 ml/min/1.73 sqM); Phosphorus 4.3 mg/dL (2.5-4.5); Potassium 4.4 mmol/L (3.5-5.1); Sodium 134 mmol/L (137-145); Total Bilirubin 0.3 mg/dL (0.2-1.3); Total Protein 7.3 g/dL (6.3-8.2)
[2021-06-19] MEDS ORDERED: MORPHINE SULFATE 4 MG/ML SYRINGE IV PRN (00:30)
[2021-06-19] MEDS ORDERED: ONDANSETRON 4 MG/2 ML VIAL IVP PRN (00:30)
[2021-06-19] MEDS ORDERED: NALOXONE 0.4 MG/ML 1 ML VIAL IV PRN (00:30)
[2021-06-19] MEDS: SODIUM CHLORIDE 0.9% 1,000 ML IV SCH ×2 (01:00→08:03)
--- NOTE | 2021-06-19 08:18 | P.CRDCN ---
History of Present Illness History of present illness: HISTORY OF PRESENTING ILLNESS Patient is a pleasant 45-year-old female with history of tobacco abuse, asthma, seizure disorder, prior back surgery who presents secondary to episode of loss o f consciousness. Patient cannot recall the episode and states normally she has similar episodes approximately once a month and has been attributed to seizures since a young age. She states normally they can occur at random times however her friend witnessed this episode and believes she was feeling somewhat lightheaded before the episode. She states her friend told her to sit down as she appeared somewhat unsteady. The next thing she recalled was being picked up by the EMS. She denies any preceding chest pain or pressure. She has been describing a burning sensation in her chest which is worse after eating foods and usually occurring at night. She denies any association with exertion. She denies any associated shortness of breath. She does occasionally get some diaphoresis however not always correlating. She does smoke, no alcohol, no illicit drugs, no family history of coronary artery disease or sudden cardiac . She admits her primary care physician just recently performed a 2 week event monitor which she just finished approximately a week and a half ago, she did not have any episodes of syncope or seizures during that timeframe, unsure of results. She states normally she has not get lightheaded. She has not seen a ophthalmic pathologist previously. DIAGNOSTICS EKG shows normal sinus rhythm, normal axis, no significant ST or T-wave abnormalities. Blood work White blood cells 6.1, hemoglobin 13.1, platelets 310, creatinine 0.45, creatinine kinase 284, troponins negative 3, TSH 0.89. No significant events on telemetry. REVIEW OF SYSTEMS At the time of my exam: CONSTITUTIONAL: Denies fever or chills. CARDIOVASCULAR: +chest pain, no shortness of breath, orthopnea, PND or palpitations. RESPIRATORY: Denies cough. GASTROINTESTINAL: Denies abdominal pain, diarrhea, constipation, nausea or vomiting. MUSCULOSKELETAL: Denies myalgias. NEUROLOGIC: Denies numbness, tingling or weakness. ENDOCRINE: Denies fatigue, weight change, polydipsia or polyurina. GENITOURINARY: Denies burning, hematuria or urgency with micturation. HEMATOLOGIC: Denies history of anemia or bleeding. PHYSICAL EXAMINATION Vital signs reviewed. CONSTITUTIONAL: No apparent distress. HEENT: Head is normocephalic. Pupils are equal, round. Sclerae anicteric. Mucous membranes of the mouth are moist. No JVD. No carotid bruit. CHEST EXAMINATION: Lungs are clear to auscultation. No chest wall tenderness is noted on palpation or with deep breathing. HEART EXAMINATION: Regular rate and rhythm. S1, S2 heard. No murmurs, gallops or rub. ABDOMEN: Soft, nontender. Positive bowel sounds. EXTREMITIES: 2+ peripheral pulses, no lower extremity edema and no calf tenderness. NEUROLOGIC EXAMINATION: Patient is awake, alert and oriented x3. ASSESSMENT 1. Loss of consciousness appears most likely related to seizure 2. History of seizure disorder 3. Atypical chest pain, appears morose likely related to GERD 4. Tobacco abuse PLAN Patient's chest pain feels more like a burning sensation worse after eating and appears most likely consistent with GERD, may consider PPI going home. Patient 's main presentation appears most consistent with seizure with long-standing history of seizures. She did have recent event monitor from PCP however did not have any episodes, may consider repeating as an outpatient. We will check echocardiogram as well as stress echo and if both are unrevealing patient may be discharged home with outpatient follow-up. Advised tobacco cessation. Past Medical History Past Medical History: Asthma, Seizure Disorder Additional Past Medical History / Comment(s): . History of Any Multi-Drug Resistant Organisms: MRSA Date of last positivie culture/infection: 11/03/08 MDRO Source:: Unknown Past Surgical History: Hysterectomy, Orthopedic Surgery, Tubal Ligation Additional Past Surgical History / Comment(s): foot surgery 2005, lower back sx Past Anesthesia/Blood Transfusion Reactions: No Reported Reaction Past Psychological History: Anxiety, Depression Smoking Status: Current every day smoker Past Alcohol Use History: None Reported Past Drug Use History: None Reported Additional Drug Use History / Comment(s): family states patient seizes with smoking. - Past Family History Father Family Medical History: No Reported History Medications and Allergies Home Medications Medication Instructions Recorded Confirmed Type Lacosamide [Vimpat] 200 mg PO BID@0700,1900 09/11/17 06/19/21 History OXcarbazepine 600 mg PO BID@0700,1900 08/30/20 06/19/21 History HYDROcodone/APAP 5-325MG [[place] 1 tab PO BID PRN 05/07/21 06/19/21 History 5-325] Midazolam [Nayzilam] 1 dose NASAL DIRECTED 06/19/21 06/19/21 History cloBAZam [Clobazam] 10 mg PO BID@08,199906/19/21 06/19/21 History Allergies Allergy/AdvReac Type Severity Reaction Status Date / Time codeine AdvReac HEADACHE Verified 06/19/21 06:49 ibuprofen [From Motrin] AdvReac HEADACHE Verified 06/19/21 06:49 Physical Exam Vitals: Vital Signs Temp Pulse Resp BP Pulse Ox 06/19/21 06:30 63 18 114/73 99 06/19/21 03:00 98.0 F 56 L 18 98/56 96 06/19/21 00:00 87 20 101/57 97 06/18/21 22:58 67 18 106/58 97 06/18/21 21:25 98.4 F 71 20 112/73 98 Intake and Output 06/18/21 06/19/21 06/19/21 22:59 06:59 14:59 Other: Weight 90.718 kg 90.718 kg Results 06/18/21 22:13 06/18/21 22:13 Cardiac Enzymes 06/18/21 06/18/21 06/19/21 Range/Units 22:13 22:13 00:51 AST 28 (14-36) U/L Troponin I <0.012 <0.012 (0.000-0.034) ng/mL 06/19/21 Range/Units 04:20 AST (14-36) U/L Troponin I <0.012 (0.000-0.034) ng/mL Coagulation 06/18/21 Range/Units 22:13 PT 9.8 (9.0-12.0) sec APTT 28.7 (22.0-30.0) sec CBC 06/18/21 Range/Units 22:13 WBC 6.1 (3.8-10.6) k/uL RBC 4.24 (3.80-5.40) m/uL Hgb 13.1 (11.4-16.0) gm/dL Hct 39.2 (34.0-46.0) % Plt Count 310 (150-450) k/uL Comprehensive Metabolic Panel 06/18/21 Range/Units 22:13 Sodium 134 L (137-145) mmol/L Potassium 4.4 (3.5-5.1) mmol/L Chloride 100 (98-107) mmol/L Carbon Dioxide 27 (22-30) mmol/L BUN 15 (7-17) mg/dL Creatinine 0.45 L (0.52-1.04) mg/dL Glucose 89 (74-99) mg/dL Calcium 9.5 (8.4-10.2) mg/dL AST 28 (14-36) U/L ALT 21 (4-34) U/L Alkaline Phosphatase 89 (38-126) U/L Total Protein 7.3 (6.3-8.2) g/dL Albumin 4.2 (3.5-5.0) g/dL Current Medications Generic Name Dose Route Start Last Admin Trade Name Freq PRN Reason Stop Dose Admin Sodium Chloride 1,000 mls @ 130 mls/hr 06/19/21 00:30 06/19/21 08:03 Saline 0.9% IV Not Given .[id number] [facility] Morphine Sulfate 4 mg 06/19/21 00:30 Morphine Sulfate 4 Mg/Ml Syringe IV Q4HR PRN Severe Pain Naloxone HCl 0.2 mg 06/19/21 00:30 Naloxone 0.4 Mg/Ml 1 Ml Vial IV Q2M PRN Opioid Reversal Ondansetron HCl 4 mg 06/19/21 00:30 Ondansetron 4 Mg/2 Ml Vial IVP Q8HR PRN Nausea And Vomiting Intake and Output 06/18/21 06/19/21 06/19/21 22:59 06:59 14:59 Other: Weight 90.718 kg 90.718 kg 06/18/21 22:13 06/18/21 22:13
[2021-06-19] MEDS ORDERED: NON FORMULARY DRUG (Midazolam [Nayzilam] 5 MG/0.1 ML Each) EA NOSTRIL PRN (10:10)
[2021-06-19] MEDS ORDERED: HYDROcodone/APAP 5-325MG 1 EACH TAB PO PRN (10:10)
[2021-06-19] MEDS: LACOSAMIDE 50 MG TABLET PO SCH ×2 (10:38→19:14)
[2021-06-19] MEDS: NON FORMULARY DRUG (Clobazam [Clobazam] 10 MG Tablet) PO SCH ×2 (10:39→20:16)
[2021-06-19] MEDS: OXcarbazepine 300 MG TAB PO SCH ×2 (10:39→19:13)
[2021-06-19] MEDS: ENOXAPARIN 40 MG/0.4 ML SYRINGE SQ SCH (10:41)
[2021-06-19] MEDS: NICOTINE 21MG/24HR PATCH TRANSDERM SCH (10:41)
[2021-06-19] MEDS: CALCIUM CARBONATE LIQUID 500 MG/5 ML CUP PO SCH ×3 (11:38→20:16)
[2021-06-19] MEDS: PANTOPRAZOLE 40 MG TABLET PO SCH ×2 (11:38→17:35)
--- NOTE | 2021-06-19 12:05 | P.CNNES ---
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 Patient had a hard time providing information but stated that she has frequent seizures for the past 20 years. Some of the history is obtained from medical records since patient could not recall the episode and exact details. She said that that and as stated earlier she has frequent seizures it could be once a month or couple times in a month and the last episode she thinks was about 4-5 days ago. Neurology is consulted for p ossible seizure. Currently she stated that the she is having some mild chest pain right in the center and that she is presenting with. Per the cardiology note it seems that she notified them the that her friend witness the the episode and she was feeling lightheaded and dizziness before the episode and her friend told her sit down and the and she appeared unsteady. The next thing the she recalled was being picked up by EMS. She does describe that she's having burning sensation in her chest which is worse with eating foods and at night. He denied any recent urinary, bowel incontinence, any tongue bite or shortness of the tongue. Per the patient's she stated that she had her antiepileptic medication modified recently on 06/12/[address] Gasper Bright (over at [facility]). She said that her medication that was modified was that she was started on Clonazepam 10mg 1 tab bid and Versed 5mg PRN. Her other medication is Vimpat 200 mg 1 tablet twice a day, oxcarbazepine 600 mg 1 tablet twice a day. Patient is to follow up with Dr. Arvind Culp for neurological management. Patient stated that she had EEGs and the imaging regarding her seizures. Regarding her seizure semiology she said she passes out and sometimes she'll have the tongue bite but she had loss of consciousness and that as well as she was told she has generalized tonic-clonic seizures. She denies of any auras prior to the loss of consciousness. She cannot tell me for how long these episodes last for. Of note she denies any family history of seizures. Patient was last seen by Dr. Oreilly in our facility on 03/22/2020 and he said the seizures order. 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 He recommended the for the Trileptal to be we weaned off and that for the patient to be on Lamictal and to be titrated up she has a rash. Please refer to his note for further details. She had an EEG that was routine on 04/01/2017 and it's reported as within normal limits Some of the workup in the hospital consisted of: Initial vital signs was blood pressure of 112/73, heart rate of 71, respiratory of 20, temperature of 98.4 Fahrenheit oral and pulse ox of 98% room air. Since the patient has been in our facility she's been afebrile. CBC with differential is unremarkable. Chemistry panel, is the sodium is 134, creatinine is 0.45, calcium is 9.5, magnesium 2.0, phosphorus 4.3, AST is 28 ALTs of 21, TSH is 0.898. Plasma lactic acid vein is 0.9 which is within normal limits. Vann virus patient was not detected. Review of Systems Review of system: The 12 point system was reviewed and apparent positive and negative per HPI. Past Medical History Past Medical History: Asthma, Seizure Disorder Additional Past Medical History / Comment(s): . History of Any Multi-Drug Resistant Organisms: MRSA Date of last positivie culture/infection: 11/03/08 MDRO Source:: Unknown Past Surgical History: Hysterectomy, Orthopedic Surgery, Tubal Ligation Additional Past Surgical History / Comment(s): foot surgery 2005, lower back sx Past Anesthesia/Blood Transfusion Reactions: No Reported Reaction Past Psychological History: Anxiety, Depression Smoking Status: Current every day smoker Past Alcohol Use History: None Reported Past Drug Use History: None Reported Additional Drug Use History / Comment(s): family states patient seizes with smoking. - Past Family History Father Family Medical History: No Reported History Medications and Allergies Home Medications Medication Instructions Recorded Confirmed Type Lacosamide [Vimpat] 200 mg PO BID@0700,1900 09/11/17 06/19/21 History OXcarbazepine 600 mg PO BID@0700,1900 08/30/20 06/19/21 History HYDROcodone/APAP 5-325MG [[place] 1 tab PO BID PRN 05/07/21 06/19/21 History 5-325] Midazolam [Nayzilam] 1 spray NASAL DAILY PRN 06/19/21 06/19/21 History cloBAZam [Clobazam] 10 mg PO BID@0800,199906/19/21 06/19/21 History Allergies Allergy/AdvReac Type Severity Reaction Status Date / Time codeine AdvReac HEADACHE Verified 06/19/21 06:49 ibuprofen [From Motrin] AdvReac HEADACHE Verified 06/19/21 06:49 Physical Examination - Vital Signs Vital Signs: Vital Signs Temp Pulse Pulse Resp BP BP Pulse Ox 06/19/21 08:20 97.7 F 61 16 122/75 98 06/19/21 06:30 63 18 114/73 99 06/19/21 03:00 98.0 F 56 L 18 98/56 96 06/19/21 00:00 87 20 101/57 97 06/18/21 22:58 67 18 106/58 97 06/18/21 21:25 98.4 F 71 20 112/73 98 Intake and Output 06/18/21 06/19/21 06/19/21 22:59 06:59 14:59 Other: Weight 90.718 kg 90.718 kg GENERAL: The patient is lying in bed and is not in acute distress. CHEST: The heart rate is regular rate rhythm. No murmurs to auscultation. No carotid bruit bilaterally. LUNG: Clear to auscultation bilaterally no wheezing noted throughout. Not labored breathing. ABDOMEN/GI: Bowel sounds present in all 4 quadrants. No tenderness to palpation throughout. NEUROLOGICAL: Higher mental function: The patient is awake, alert, oriented to self, place and time. Patient is following commands. No aphasia and no neglect. Cranial nerves: The pupils are round, equal and reactive to light and accommodation. Visual winn are full to confrontation throughout. Extraocular movement is intact no nystagmus is noted. Facial sensation is normal to touch throughout. The facial strength is normal throughout. Hearing is normal bilaterally to hand rub. Tongue is midline and moved [id number] without any difficulty. No dysarthria is noted. Shoulder shrug is normal bilaterally. Motor: The strength is 5 over 5 throughout. Normal tone and bulk. Cerebellum: Normal finger to nose heel to marcus bilaterally. Sensation: Sensation is normal to touch throughout. Reflexes (right/left):2+ throughout. Plantars are downgoing bilaterally. Results - Laboratory Findings CBC and BMP: 06/18/21 22:13 06/18/21 22:13 Abnormal Lab Findings: Abnormal Labs 06/18/21 06/18/21 22:13 22:13 Sodium 134 L Creatinine 0.45 L Creatine Kinase 284 H Ur Leukocyte Esterase Trace H Amorphous Sediment Rare H Urine Mucus Occasional H Assessment and Plan Assessment: Episode of loss of consciousness. Has history of seizure and has epileptic and non-epileptic types. Lab markers are normal and not convincing for epileptic in nature. She had her antiepileptic drugs modified (with addition of medication on 06/12/2021) History of seizure of epileptic and nonepileptic in nature Atypical chest pain and appears more related to GERD Nicotine use (smokes 3PPD). Plan: Continue home medication Clonazepam 10mg 1 tab bid and Versed 5mg PRN, Vimpat 200 mg 1 tablet twice a day, oxcarbazepine 600 mg 1 tablet twice a day. Will not modify her anti-epileptic drug especially it was recently modified on 06/12/2021. I recommend patient to follow-up with her neurologist as outpatient and recommend ambulatory EEG or epilepsy monitoring unit to capture these episodes. Cardiology is on board. Patient was counseled on tobacco cessation. She was notified that per [place] DMV, because of her seizures, she is to avoid driving for 6 months until seizure free. She is to avoid heights, using heavy machinary and to swim unassisted. Will defer the rest of work-up to the primary team. Upon discharge she need to follow-up with her neurologist (Dr. Gasper Bright) within 1-2 weeks as outpatient. No further neurological work-up. Arvind Cottrell MD Neuro-Hospitalist Time with Patient: Greater than 30
[2021-06-19] MEDS ORDERED: DOBUTamine DRIP for NUC MED 500 MG in DEXTROSE/WATER 1 250ML.BAG IV PRN (14:00)
--- NOTE | 2021-06-19 16:19 | P.HPIM ---
History of Present Illness H&P Date: 06/19/21 Chief Complaint: Chest burning History of presenting complaint: This is a less than 45-year-old patient follows with Dr. Reyes. Her neurologist is . Patient yesterday was sitting and she felt weak all over. Side down. Chase a burning sensation in the chest. Some lightheadedness. Did have some perspiration. It did not radiate anywhere. Patient not sure about the duration of the event. Patient has been worsening reflux symptoms. Special after eating or laying down. Patient is a smoker and smokes anywhere from previous 3 packs a day. Otherwise she is active around the house. No prior cardiac history. Because of seizures she often doesn't remember things well. She is has known generalized tonic-clonic seizure. Review of systems: GEN.: Tired EYES: None HEENT: None NECK: None RESPIRATORY: As above CARDIOVASCULAR: As above GASTROINTESTINAL: [As above GENITOURINARY: None MUSCULOSKELETAL: None LYMPHATICS: None HEMATOLOGICAL: None PSYCHIATRY: None NEUROLOGICAL: None Past medical history to include Asthma, tonic-clonic seizure, anxiety depression Social history: Patient lives with a friend called Ronny. Smokes anywhere from Coumadin 3 packs a day. No alcohol. No recreational drugs. Family history: Reviewed, noncontributory to presentation Physical examination: VITAL SIGNS: 98.4, 71, 20, 112 x 73, 98% room air upon presentation GENERAL: BMI 30.4, laying in bed, awake, comfortable. EYES: Pupils equal. Conjunctiva normal. HEENT: External appearance of nose and ears normal, oral cavity grossly normal. NECK: JVD not raised; masses not palpable. HEART: First and second heart sounds are normal; no edema. LUNGS: Respiratory rate normal; slightly decreased breath sounds. ABDOMEN: Soft, nontender, liver spleen not palpable, no masses palpable. PSYCH: Alert and oriented x3; mood and affect normal. NEUROLOGICAL: Cranial nerves grossly intact; no facial asymmetry, power and sensation grossly intact. LYMPHATICS: No lymph nodes palpable in the axilla and neck INVESTIGATIONS, reviewed in the clinical context: WBC 6.1 hemoglobin 13.1 platelets 310 potassium 4.4 BUN 15 creatinine 0.45 Troponin I less than 0.0123 TSH 0.898 UA: Unremarkable Coronavirus [PCR]: Not detected EKG tracing personally reviewed by me-normal sinus rhythm with first-degree AV block Assessment and plan: -Anterior chest wall pain. Described as a burning. Patient's has has had reflux symptoms for a while. Progressively getting worse. Troponin is negative. Rule out a cardiac cause. 2-D echocardiogram. Coronary consultation -Progressively worsening GERD symptoms. Also patient smoker. Protonix 40 mg twice a day. Outpatient follow-up with GI -Obesity BMI 30.4 Weight loss measures. See dietitian. -Tonic-clonic seizures. Doubt this episode to be seizure. But we'll get a neurology opinion. Continue with current medications. Seizure precautions. -Chronic nicotine dependence, cigarette smoker Nicotine patch. Counseled -Intermittent asthma Albuterol when necessary. Controlled to discontinue smoking Home medications resumed. Cardiac and neurology consulted. 2-D echo and a stress echocardiogram has been ordered. Care was discussed with the patient. Nicotine patch. Smoke cessation counseling: This was done with the patient. Nicotine patch is being given. More than 3 minutes was spent for this Past Medical History Past Medical History: Asthma, Seizure Disorder Additional Past Medical History / Comment(s): . History of Any Multi-Drug Resistant Organisms: MRSA Date of last positivie culture/infection: 11/03/08 MDRO Source:: Unknown Past Surgical History: Hysterectomy, Orthopedic Surgery, Tubal Ligation Additional Past Surgical History / Comment(s): foot surgery 2005, lower back sx Past Anesthesia/Blood Transfusion Reactions: No Reported Reaction Past Psychological History: Anxiety, Depression Smoking Status: Current every day smoker Past Alcohol Use History: None Reported Past Drug Use History: None Reported Additional Drug Use History / Comment(s): family states patient seizes with smoking. - Past Family History Father Family Medical History: No Reported History Medications and Allergies Home Medications Medication Instructions Recorded Confirmed Type Lacosamide [Vimpat] 200 mg PO BID@0700,1900 09/11/17 06/19/21 History OXcarbazepine 600 mg PO BID@0700,1900 08/30/20 06/19/21 History HYDROcodone/APAP 5-325MG [[place] 1 tab PO BID PRN 05/07/21 06/19/21 History 5-325] Midazolam [Nayzilam] 1 spray NASAL DAILY PRN 06/19/21 06/19/21 History cloBAZam [Clobazam] 10 mg PO BID@0800,199906/19/21 06/19/21 History Allergies Allergy/AdvReac Type Severity Reaction Status Date / Time codeine AdvReac HEADACHE Verified 06/19/21 06:49 ibuprofen [From Motrin] AdvReac HEADACHE Verified 06/19/21 06:49 Physical Exam Vitals: Vital Signs Temp Pulse Pulse Resp BP BP Pulse Ox 06/19/21 08:20 97.7 F 61 16 122/75 98 06/19/21 06:30 63 18 114/73 99 06/19/21 03:00 98.0 F 56 L 18 98/56 96 06/19/21 00:00 87 20 101/57 97 06/18/21 22:58 67 18 106/58 97 06/18/21 21:25 98.4 F 71 20 112/73 98 Intake and Output 06/18/21 06/19/21 06/19/21 22:59 06:59 14:59 Other: Weight 90.718 kg 90.718 kg Results CBC & Chem 7: 06/18/21 22:13 06/18/21 22:13 Labs: Abnormal Lab Results - Last 24 Hours (Table) 06/18/21 06/18/21 Range/Units 22:13 22:13 Sodium 134 L (137-145) mmol/L Creatinine 0.45 L (0.52-1.04) mg/dL Creatine Kinase 284 H (30-135) U/L Ur Leukocyte Esterase Trace H (Negative) Amorphous Sediment Rare H (None) /hpf Urine Mucus Occasional H (None) /hpf Thrombosis Risk Factor Assmnt - Choose All That Apply Each Factor Represents 1 point: Age 41-60 years Thrombosis Risk Factor Assessment Total Risk Factor Score: 1 Thrombosis Risk Factor Assessment Level: Low Risk
[2021-06-20 07:05] LABS: ALT 22 U/L (4-34); African American GFR (CKD) >90 (>60 ml/min/1.73 sqM); Albumin/Globulin Ratio 1.3; Anion Gap 9 mmol/L; Blood Urea Nitrogen 9 mg/dL (7-17); Calcium 9.4 mg/dL (8.4-10.2); Carbon Dioxide 21 mmol/L (22-30); Chloride 98 mmol/L (98-107); Glucose 90 mg/dL (74-99); Non-African American GFR(CKD) >90 (>60 ml/min/1.73 sqM); Sodium 128 mmol/L (137-145); Total Bilirubin 0.7 mg/dL (0.2-1.3)
[2021-06-20 07:07] VITALS: BP 124/62; PULSE 62; RESP 18; TEMP 97.8
[2021-06-20 07:07] LABS: AST 37 U/L (14-36); Alkaline Phosphatase 65 U/L (38-126); Magnesium 1.8 mg/dL (1.6-2.3); Phosphorus 4.5 mg/dL (2.5-4.5); Potassium 4.9 mmol/L (3.5-5.1)
[2021-06-20] MEDS: ENOXAPARIN 40 MG/0.4 ML SYRINGE SQ SCH (08:31)
[2021-06-20] MEDS: NICOTINE 21MG/24HR PATCH TRANSDERM SCH (08:32)
[2021-06-20] MEDS: LACOSAMIDE 50 MG TABLET PO SCH (08:33)
[2021-06-20] MEDS: PANTOPRAZOLE 40 MG TABLET PO SCH (08:34)
[2021-06-20] MEDS: CALCIUM CARBONATE LIQUID 500 MG/5 ML CUP PO SCH (08:34)
[2021-06-20] MEDS: OXcarbazepine 300 MG TAB PO SCH (08:34)
[2021-06-20] MEDS: NON FORMULARY DRUG (Clobazam [Clobazam] 10 MG Tablet) PO SCH (08:51)
[2021-06-20 09:15] LABS: Basophils # (A) 0.01 X 10*3/uL (0.00-0.10); Basophils % (A) 0.2 %; Eosinophils # (A) 0.22 X 10*3/uL (0.04-0.35); Eosinophils % (A) 4.3 %; HCT 39.5 % (37.2-46.3); HGB 13.2 g/dL (12.0-15.0); Lymphocytes # (A) 1.75 X 10*3/uL (0.90-5.00); Lymphocytes % (A) 33.8 %; MCH 29.7 pg (27.0-32.0); MCHC 33.4 g/dL (32.0-37.0); MCV 88.8 fL (80.0-97.0); Mean Platelet Volume 8.7 fL (9.5-12.2); Monocytes # (A) 0.24 X 10*3/uL (0.20-1.00); Monocytes % (A) 4.6 %; Neutrophils # (A) 2.93 X 10*3/uL (1.80-7.70); Neutrophils % (A) 56.7 %; Platelet Count 215 X 10*3/uL (140-440); RBC 4.45 X 10*6/uL (4.10-5.20); RDW 13.1 % (11.5-14.5); WBC 5.17 X 10*3/uL (4.50-10.00)
--- NOTE | 2021-06-20 10:31 | P.PN ---
Subjective Patient is a pleasant 45-year-old female with history of tobacco abuse, asthma, seizure disorder, prior back surgery. 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 She presented secondary to episode of loss of consciousness. Cardiology consulted for syncope. Patient cannot recall the episode and states normally she has similar episodes approximately once a month and has been attributed to seizures since a young age. She states normally they can occur at random times however her friend witnessed this episode and believes she was feeling somewhat lightheaded before the episode. She states her friend told her to sit down as she appeared somewhat unsteady. The next thing she recalled was being picked up by the EMS. She has been describing a burning sensation in her chest which is worse after eating foods and usually occurring at night. EKG shows normal sinus rhythm, normal axis, no significant ST or T-wave abnormalities. Troponins negative 3, 06/20/2021 Patient seen in [facility], no acute distress. She states she feels well, and denies any chest pain, shortness of breath, lightheadedness, dizziness, palpitations. Echocardiogram reviewed patient with normal EF and no significant wall motion abnormalities. Patient was unable to tolerate treadmill stress echo test due to decreased activity tolerance. Her stress test was changed to a d obutamine, however, she had symptoms of nausea, emesis, headache, and some dyspnea and the test was ended early. No significant events on telemetry. Laboratory data reviewed sodium 128 potassium 4.9, BUN 9, serum creatinine 0.4, magnesium 1.8 PHYSICAL EXAMINATION Vital signs reviewed. CONSTITUTIONAL: No apparent distress. HEENT: Neckle Supple. No JVD. CHEST EXAMINATION: Lungs are clear to auscultation. No chest wall tenderness is noted on palpation or with deep breathing. HEART EXAMINATION: Regular rate and rhythm. S1, S2 heard. No murmurs, gallops or rub. ABDOMEN: Soft, nontender. Positive bowel sounds. EXTREMITIES: 2+ peripheral pulses, no lower extremity edema and no calf tenderness. NEUROLOGIC EXAMINATION: Patient is awake, alert and oriented x3. ASSESSMENT Loss of consciousness appears most likely related to seizure History of seizure disorder Atypical chest pain, appears morose likely related to GERD Tobacco abuse PLAN -Patient's main presentation appears most consistent with seizure with long- standing history of seizures. Echocardiogram with normal EF, no significant wall motion abnormalities. Patient unable to tolerate stress test, however, this can be re-advised as an outpatient. From a cardiology perspective, patient is stable to be discharged home and follow up outpatient. -Advised tobacco cessation. Objective - Vital Signs Vital signs: Vital Signs Temp 97.8 F 06/20/21 07:00 Pulse 62 06/20/21 07:00 Resp 18 06/20/21 07:00 BP 124/62 06/20/21 07:00 Pulse Ox 100 06/20/21 08:40 Intake & Output 06/19/21 06/20/21 06/20/21 18:59 06:59 18:59 Other: # Voids 3 1 - Labs CBC & Chem 7: 06/20/21 06:08 06/20/21 06:08 Labs: Abnormal Lab Results - Last 24 Hours (Table) 06/20/21 06/20/21 Range/Units 06:08 06:08 MPV 8.7 L (9.5-12.2) fL Sodium 128 L (137-145) mmol/L Carbon Dioxide 21 L (22-30) mmol/L Creatinine 0.42 L (0.52-1.04) mg/dL AST 37 H (14-36) U/L
--- NOTE | 2021-06-20 15:43 | ECHOF ---
Height: 172.7 cm Weight: 90.7 kg BSA: 2.04 m2 BP: RVIDd: 2.6 cm IVSd: 1.2 cm LVIDd: 4.3 cm LVPWd: 1.3 cm IVSs: 1.9 cm LVIDs: 2.5 cm LVPWs: 1.8 cm LAESV Index (A-L): 32.86 ml/m2 Ao Diam: 3.1 cm AV Cusp: 2.0 cm LA Diam: 4.3 cm MV EXCURSION: 19.027 mm MV EF SLOPE: 124 mm/s EPSS: 1.4 cm MV E Chandler: 0.88 m/s MV DecT: 156 ms MV A Chandler: 0.70 m/s MV E/A Ratio: 1.27 E/E': 12.02 E': 0.07 m/s RAP: 5.00 mmHg RVSP: 16.80 mmHg FINDINGS This was a technically good study. Left Ventricle: The left ventricular size is normal. There is mild concentric left ventricular hypertrophy. Overall left ventricular systolic function is normal with, an EF between 55 - 60 %. Normal LAP Grade 1 Diastolic Dysfunction. Right Ventricle: The right ventricle is normal in size. Left Atrium: LA is mildly dilated 29-33ml/m2. Right Atrium: The right atrial size is normal. Aortic Valve: The aortic valve is trileaflet and appears structurally normal. Mitral Valve: The mitral valve is normal. Mild mitral regurgitation is present. Tricuspid Valve: The tricuspid valve appears structurally normal. Mild tricuspid regurgitation present. Right ventricular systolic pressure is normal at < 35 mmHg. PV: There is no pulmonic regurgitation present. Aorta: The aortic root size is normal. IVC/Hepatic Veins: Normal inferior vena cava with normal inspiratory collapse consistent with estimated right atrial pressure of 5 mmHg. Pericardium: There is no pericardial effusion. CONCLUSIONS 1. The left ventricular size is normal. 2. There is mild concentric left ventricular hypertrophy. 3. Overall left ventricular systolic function is normal with, an EF between 55 - 60 %. 4. Normal LAP Grade 1 Diastolic Dysfunction 5. LA is mildly dilated 29-33ml/m2. 6. Mild mitral regurgitation is present. 7. Mild tricuspid regurgitation present. 8. There is no pericardial effusion. MTDD
--- NOTE | 2021-06-20 21:54 | P.DS ---
Providers Date of admission: 06/19/21 00:30 Expected date of discharge: 06/20/21 Attending physician: Gonzalez Borges Consults: 06/19/21 00:32 Consult Physician Routine Consulting Provider: Valentin Barfield Consult Reason/Comments: syncope Do you want consulting provider notified?: Yes 06/19/21 10:08 Consult Physician Routine Consulting Provider: Arvind Cottrell Consult Reason/Comments: poss seizure Do you want consulting provider notified?: Yes Primary care physician: Marcial Reyes [facility] Course: Chief Complaint: Chest burning History of presenting complaint: This is a less than 45-year-old patient follows with Dr. Reyes. Her neurologist is . Patient yesterday was sitting and she felt weak all over. Side down. [place] a burning sensation in the chest. Some lightheadedness. Did have some perspiration. It did not radiate anywhere. Patient not sure about the duration of the event. Patient has been worsening reflux symptoms. Special after eating or laying down. Patient is a smoker and smokes anywhere from previous 3 packs a day. Otherwise she is active around the house. No prior cardiac history. Because of seizures she often doesn't remember things well. She is has known generalized tonic-clonic seizure. June 20: Patient is unable to tolerate a treadmill stress echocardiogram. Due to poor exercise tolerance. She was tried to have a dobutamine stress echocardiogram but because of nausea and emesis headache the test had to be abandoned. Patient is cleared by cardiology for discharge. Patient will follo w-up in GI as outpatient. Started on PPI. Cleared by neurology. No change in medications. Patient again counseled about smoking. Discussion and discharge planning more than 35 minutes Consultation: Dr. Cottrell from neurology Dr. Stout from cardiology Past medical history to include Asthma, tonic-clonic seizure, anxiety depression Social history: Patient lives with a friend called Ronny. Smokes anywhere from Coumadin 3 packs a day. No alcohol. No recreational drugs. Family history: Reviewed, noncontributory to presentation Physical examination: VITAL SIGNS: 97.8, 62, 18, 124/62, 99% room air GENERAL: laying in bed, awake, comfortable. EYES: Pupils equal. Conjunctiva normal. NECK: JVD not raised; masses not palpable. HEART: First and second heart sounds are normal; no edema. LUNGS: Respiratory rate normal; slightly decreased breath sounds. ABDOMEN: Soft, nontender, liver spleen not palpable, no masses palpable. PSYCH: Alert and oriented x3; mood and affect normal. INVESTIGATIONS, reviewed in the clinical context: 2-D echocardiogram: EF 55-60% Exercise stress echocardiogram and dobutamine stress echocardiogram could not be completed WBC 6.1 hemoglobin 13.1 platelets 310 potassium 4.4 BUN 15 creatinine 0.45 Troponin I less than 0.0123 TSH 0.898 UA: Unremarkable Coronavirus [PCR]: Not detected EKG tracing personally reviewed by me-normal sinus rhythm with first-degree AV block Assessment and plan: -Anterior chest wall pain. Described as a burning. Patient's has has had reflux symptoms for a while. Progressively getting worse. Possibly from esop hageal spasm from reflux -Progressively worsening GERD symptoms. Also patient smoker. Protonix 40 mg twice a day. Outpatient follow-up with GI -Obesity BMI 30.4 Weight loss measures. See dietitian. -Tonic-clonic seizures. Doubt this episode to be seizure. Seen by neurology. No change in medications. Follow up with her own neurologist, Dr. Culp -Chronic nicotine dependence, cigarette smoker Nicotine patch. Counseled -Intermittent asthma Albuterol when necessary. Controlled to discontinue smoking Disposition: Home Plan - Discharge Summary New Discharge Prescriptions: New Pantoprazole [Protonix] 40 mg PO AC-BID #60 tab Nicotine 21Mg/24Hr Patch [Habitrol] 1 patch TRANSDERM DAILY #14 patch Continue Lacosamide [Vimpat] 200 mg PO BID@0700,1900 OXcarbazepine 600 mg PO BID@0700,1900 HYDROcodone/APAP 5-325MG [[place] 5-325] 1 tab PO BID PRN PRN Reason: Pain cloBAZam [Clobazam] 10 mg PO BID@0800,1999 Midazolam [Nayzilam] 1 spray NASAL DAILY PRN PRN Reason: Seizures Discharge Medication List Lacosamide [Vimpat] 200 mg PO BID@0700,1900 09/11/17 [History] OXcarbazepine 600 mg PO BID@0700,1900 08/30/20 [History] HYDROcodone/APAP 5-325MG [[place] 5-325] 1 tab PO BID PRN 05/07/21 [History] Midazolam [Nayzilam] 1 spray NASAL DAILY PRN 06/19/21 [History] cloBAZam [Clobazam] 10 mg PO BID@0800,2000 06/19/21 [History] Nicotine 21Mg/24Hr Patch [Habitrol] 1 patch TRANSDERM DAILY #14 patch 06/20/21 [Rx] Pantoprazole [Protonix] 40 mg PO AC-BID #60 tab 06/20/21 [Rx] Follow up Appointment(s)/Referral(s): Musa Stout DO [STAFF PHYSICIAN] - 2 Weeks Ludivina Bell MD [STAFF PHYSICIAN] - 2 Weeks Marcial Reyes MD [Primary Care Provider] - 1-2 days Arvind Culp MD [STAFF PHYSICIAN] - 1 Week Patient Instructions/Handouts: Seizure/Epilepsy Discharge Instructions & Follow-Up Activity/Diet/Wound Care/Special Instructions: activity as tolerated heart healthy diet Discharge Disposition: HOME SELF-CARE
== END 2021-06-20 12:40 | disposition home or self-care (01) ==
LOC: EC 21:02 → 6NMEDSUR 06-19 00:30
PROVIDERS: ADMIT Hospitalist; ATTEND Hospitalist
DX: R07.89 Other chest pain (principal); K21.9 Gastro-esophageal reflux disease without esophagitis; G40.909 Epilepsy, unspecified, not intractable, without status epilepticus; Z20.822 Contact with and (suspected) exposure to COVID-19; F17.210 Nicotine dependence, cigarettes, uncomplicated; E66.9 Obesity, unspecified; Z68.30 Body mass index [BMI] 30.0-30.9, adult; R11.2 Nausea with vomiting, unspecified; J45.20 Mild intermittent asthma, uncomplicated; R42 Dizziness and giddiness; R53.1 Weakness; R51.9 Headache, unspecified; I44.0 Atrioventricular block, first degree; R21 Rash and other nonspecific skin eruption; F32.9 Major depressive disorder, single episode, unspecified; F41.9 Anxiety disorder, unspecified; Z79.899 Other long term (current) drug therapy; Z88.5 Allergy status to narcotic agent; Z88.6 Allergy status to analgesic agent; Z71.6 Tobacco abuse counseling; Z71.3 Dietary counseling and surveillance; Z90.710 Acquired absence of both cervix and uterus; Z86.14 Personal history of Methicillin resistant Staphylococcus aureus infection
CPT/HCPCS: 99285; 96361 ×2; 96372; 96360; 36415; 94760; 93005; 93306; 80053 ×2; 82550; 83605; 83735 ×2; 84100 ×2; 84443; 84484 ×2; 85025 ×2; 85610; 85730; 81001; 87635; 71046; G0378 ×2; S4990; J1650

== ENCOUNTER 2021-10-27 08:42 | Day surgery (SDC) | payer OTHER ==
[2021-10-24 15:22] VITALS: BMI 37.5
[~2021-10-27 08:42] MED LIST: LACTATED RINGERS 1,000 ML IV SCH
[2021-10-27] MEDS ORDERED: LIDOCAINE 1% INJ 10MG/ML (20 ML MDV) ONE (09:42)
[2021-10-27] MEDS ORDERED: PROPOFOL 10 MG/ML 20 ML VIAL IV ONE (09:42)
--- NOTE | 2021-10-27 10:02 | P.PCN ---
Date of Procedure: 10/27/21 Procedure(s) Performed: Brief history: Patient is a pleasant 45-year-old white female scheduled for an elective upper endoscopy as well as colonoscopy as a part of evaluation of GERD/abdominal pain/nausea vomiting and alternating diarrhea and constipation of several years duration. His symptoms are progressively getting worse lately. She has been on omeprazole 20 mg daily with no help. Procedure performed: Esophagogastroduodenoscopy with biopsy Colonoscopy with random biopsies Preoperative diagnosis: Abdominal pain/vomiting Alternating diarrhea and constipation of several months duration Anesthesia: MAC Procedure: After informed consent was obtained from the patient was brought into the endos copy unit and IV sedation was administered by anesthesia under continuous monitoring. Initially upper endoscopy was done. The Olympus GF 160 video endoscope was inserted inserted into the mouth and esophagus intubated without any difficulty and was gradually advanced into the stomach and duodenum and carefully examined. The bulb and second part of the duodenum appeared normal. Biopsies were done from the duodenum to rule out celiac disease. The scope was then withdrawn into the stomach adequately insufflated with air and upon careful examination the antrum had mild gastritis and biopsies were done from this area. the body, cardia and fundus appeared normal. The scope was then withdrawn into the esophagus. The GE junction was located at 41 cm to the incisors. It appeared regular with no erythema erosions or ulcerations. Rest of the esophagus appeared normal. Patient tolerated the procedure well. At this time the patient continued to remain sedation. Initial digital rectal examination was normal. Olympus CF 160 video colonoscope was then inserted into the rectum and gradually advanced to the cecum without any difficulty. Careful examination was performed as the scope was gradually being withdrawn. The prep was excellent. The cecum, ascending colon, transverse colon, descending colon, sigmoid colon and rectum appeared normal. and random biopsies were done from ascending and descending colon to rule out microscopic/collagenous colitis Retroflexion was performed in the rectum and no lesions were noted. Patient tolerated the procedure well. Impression: 1. Upper endoscopy revealed mild antral gastritis and LA grade a reflux esophagitis. 2. Colonoscopy was within normal limits with no evidence of colitis or colorectal neoplasia Recommendations: Findings of this examination were discussed with the patient as well as a family. She was advised to follow with the biopsy results. She will continue with omeprazole 20 mg daily and follow antireflux measures
[2021-10-27 10:05] VITALS: TEMP 97.4
[2021-10-27 10:25] VITALS: BP 106/62; PULSE 57; RESP 18
== END 2021-10-27 10:48 | disposition home or self-care (01) ==
LOC: ORWHC2ENDO 08:42
PROVIDERS: ATTEND Internal Medicine Gastroenterology
DX: K29.50 Unspecified chronic gastritis without bleeding (principal); K21.00 Gastro-esophageal reflux disease with esophagitis, without bleeding; J45.909 Unspecified asthma, uncomplicated; F17.210 Nicotine dependence, cigarettes, uncomplicated; R56.9 Unspecified convulsions; Z98.890 Other specified postprocedural states; Z79.891 Long term (current) use of opiate analgesic; Z79.899 Other long term (current) drug therapy; Z86.14 Personal history of Methicillin resistant Staphylococcus aureus infection; Z88.6 Allergy status to analgesic agent; Z88.5 Allergy status to narcotic agent
CPT/HCPCS: 88305; 45380; 43239; J2001; J2704

== ENCOUNTER → 2021-11-13 | Outpatient (CLI) | payer OTHER ==
--- NOTE | 2021-11-13 09:38 | US ---
EXAMINATION TYPE: US abdomen complete DATE OF EXAM: 11/13/2021 COMPARISON: US CLINICAL HISTORY: R10.11 RUQ Abd pain. EXAM MEASUREMENTS: Liver Length: 20.4 cm Gallbladder Wall: Surgically absent CBD: 0.8 cm Spleen: 9.2 cm Right Kidney: 11.4 x 5.4 x 5.4 cm Left Kidney: 10.6 x 5.8 x 5.4 cm Morbidly obese patient with severe overlying bowel gas, technically difficult limited study. Pancreas: Obscured by bowel gas Liver: severely attenuating, limited views, measures large Gallbladder: Surgically absent Evidence for sonographic Jaimes's sign: no CBD: wnl Spleen: wnl Right Kidney: No hydronephrosis or masses seen, limited visualization Left Kidney: No hydronephrosis or masses seen, limited visualization Upper IVC: wnl Abd Aorta: Mostly obscured by overlying bowel gas, portions visualized wnl IMPRESSION: 1. Hepatomegaly with moderate fatty infiltration the liver
== END | disposition home or self-care (01) ==
LOC: RADUSWWP 07:52
PROVIDERS: ATTEND Internal Medicine Gastroenterology
DX: K76.0 Fatty (change of) liver, not elsewhere classified (principal); R16.0 Hepatomegaly, not elsewhere classified
CPT/HCPCS: 76700

== ENCOUNTER 2021-11-21 12:26 | Emergency (ER) | payer OTHER ==
[2021-11-21 12:36] VITALS: RESP 16; TEMP 98.3
[2021-11-21] MEDS ORDERED: LIDOCAINE/EPINEPHR/TETRACAINE 5 ML BOTTLE TOPICAL ONE (14:38)
--- NOTE | 2021-11-21 15:01 | ED ---
Skin/Abscess/FB HPI - General Chief complaint: Skin/Abscess/Foreign Body Stated complaint: Recheck Time Seen by Provider: 11/21/21 14:12 Source: patient, RN notes reviewed Mode of arrival: ambulatory Limitations: no limitations - History of Present Illness Initial comments: This is a 45 year old female who presents to the ED with an abscess of the right labia. States that his has been there for 2 days. She is in extreme pain when walking and sitting. She notes that yesterday when she was wiping, she did find blood coming out of it. She had the same area drained in this emergency department on 11/05/2021 and was given an rx for Keflex upon discharge. Denies any fevers or chills. MD complaint: abscess/boil Onset/Timin -: days(s) Worsens with: palpation, movement Associated symptoms: denies other symptoms - Related Data Home Medications Medication Instructions Recorded Confirmed Lacosamide [Vimpat] 200 mg PO BID 09/11/17 11/05/21 HYDROcodone/APAP 5-325MG [[place] 1 tab PO BID PRN 05/07/21 11/05/21 5-325] cloBAZam [Clobazam] 10 mg PO BID 06/19/21 11/05/21 OXcarbazepine [Trileptal] 600 mg PO BID 11/05/21 11/05/21 Previous Rx's Medication Instructions Recorded Cephalexin [Keflex] 500 mg PO Q6HR 5 Days #20 cap 11/05/21 Sulfamethox-Tmp 800-160Mg [Bactrim 1 tab PO Q12HR 7 Days #14 tab 11/21/21 DS 800-160 mg] Allergies Allergy/AdvReac Type Severity Reaction Status Date / Time codeine AdvReac HEADACHE Verified 11/21/21 12:36 ibuprofen [From Motrin] AdvReac HEADACHE Verified 11/21/21 12:36 Review of Systems ROS Statement: Those systems with pertinent positive or pertinent negative responses have been documented in the HPI. ROS Other: All systems not noted in ROS Statement are negative. Constitutional: Denies: fever, chills Respiratory: Denies: cough, dyspnea Cardiovascular: Denies: chest pain, palpitations Gastrointestinal: Denies: abdominal pain, nausea, vomiting Genitourinary: Denies: urgency, dysuria Skin: Reports: other (labial abscess) Neurological: Denies: headache, weakness Past Medical History Past Medical History: Asthma, Seizure Disorder Additional Past Medical History / Comment(s): LAST SEIZURE 4 MONTHS AGO., STATES HAVING CONSTIPATION AND ABD PAIN. History of Any Multi-Drug Resistant Organisms: MRSA Date of last positivie culture/infection: 11/03/08 MDRO Source:: POST Past Surgical History: Back Surgery, Hysterectomy, Orthopedic Surgery, Tubal Ligation Additional Past Surgical History / Comment(s): foot surgery Past Anesthesia/Blood Transfusion Reactions: No Reported Reaction Past Psychological History: No Psychological Hx Reported Smoking Status: Current every day smoker Past Alcohol Use History: None Reported Past Drug Use History: None Reported - Past Family History Mother Family Medical History: Cancer Sister(s) Family Medical History: Cancer Father Family Medical History: Cancer General Exam Limitations: no limitations General appearance: alert, in no apparent distress Head exam: Present: atraumatic, normocephalic, normal inspection Respiratory exam: Present: normal lung sounds bilaterally. Absent: respiratory distress, wheezes, rales, rhonchi, stridor Cardiovascular Exam: Present: regular rate, normal rhythm, normal heart sounds. Absent: systolic murmur, diastolic murmur, rubs, gallop, clicks External exam: Present: other (2-3cm abscess on the lateral right labia with fluctuance and 2 small areas of minor bleeding and drainage, tender to palpation. Scattered white papules on the bilateral labias. ) Neurological exam: Present: alert, oriented X3, CN II-XII intact Psychiatric exam: Present: normal affect, normal mood Course Vital Signs 11/21/21 11/21/21 12:33 14:58 Temperature 98.3 F Pulse Rate 67 61 Respiratory 16 16 Rate Blood Pressure 125/77 104/60 O2 Sat by Pulse 95 97 Oximetry Procedures - Incision & Drainage Consent Obtained: verbal consent, written consent Site: vulva/vagina Size (cm): 3 Anesthetic Used: lidocaine 1% (local infiltration and LET) I&D Cleaning Method: Betadine Sterile Field Used?: Yes Scalpel Used: #11 Needle Aspiration Performed?: No Irrigation Performed?: Yes I&D Drainage Obtained: Pus, Blood Patient Tolerated Procedure: well Medical Decision Making - Medical Decision Making This is a 45 year old female who presents to the emergency department with a labial abscess. Patient did consent to an I&D in the emergency department. LET was used to numb the area initially, in hopes of making the local lidocaine injection more tolerable. 2 mL lidocaine injection used following the LET to numb the area. Purulent drainage was expressed followed by sanguineous fluid. The abscess was explored and irrigated. No additional areas of purulent material were visualized. Incision left open to continue draining. Advised using pads for the next few days until the bleeding stops. Discussed that if the cyst reforms, she may need a surgical excision to prevent recurrence. Advised she follow up with her body painter or primary care physician in 1-2 days to evaluate healing. Rx for Bactrim DS provided to take as 1 tablet BID x7 days. As noted during the visit on 11/05, she had scattered papules around the cyst, which were present on today's exam as well. Patient is advised to follow up with her body painter regarding the persistent papules as well as the cyst that was drained today. Return precautions reviewed in depth, the patient is instructed to return to the emergency department if symptoms worsen or do not improve, or if she develops symptoms including but not limited to increased swelling, pain, or fevers/chills. Patient verbalized understanding. This case was discussed in detail with the attending ED physician. Presentation, findings, and treatment plan discussed in detail as well. - Lab Data Lab Results 11/21/21 Range/Units 14:56 Urine Color Yellow Urine Appearance Clear (Clear) Urine pH 7.0 (5.0-8.0) Ur Specific [place] 1.020 (1.001-1.035) Urine Protein Negative (Negative) Urine Glucose (UA) Negative (Negative) Urine Ketones Negative (Negative) Urine Blood Negative (Negative) Urine Nitrite Negative (Negative) Urine Bilirubin Negative (Negative) Urine Urobilinogen <2.0 (<2.0) mg/dL Ur Leukocyte Esterase Negative (Negative) Disposition Clinical Impression: Vaginal cyst Disposition: HOME SELF-CARE Instructions (If sedation given, give patient instructions): Abscess Incision and Drainage (DC) Additional Instructions: Return to the emergency department if you develop increased pain, swelling, or fevers/chills. Follow up with your primary care physician in 1-2 days to evaluate wound healing. Take Bactrim as prescribed, 1 tablet, twice daily, for 7 days. Prescriptions: Sulfamethox-Tmp 800-160Mg [Bactrim DS 800-160 mg] 1 tab PO Q12HR 7 Days #14 tab Is patient prescribed a controlled substance at d/c from ED?: No Referrals: Marcial Reyes MD [Primary Care Provider] - 1-2 days
[2021-11-21] MEDS ORDERED: LIDOCAINE 1% INJ 10MG/ML (20 ML MDV) SQ ONE (15:03)
[2021-11-21 15:14] LABS: Appearance,Urine Clear (Clear); Bilirubin,Urine Negative (Negative); Blood,Urine Negative (Negative); Color,Urine Yellow; Glucose,Urine (UA) Negative (Negative); Ketones,Urine Negative (Negative); Leukocyte Esterase,Urine Negative (Negative); Nitrite,Urine Negative (Negative); Protein,Urine Negative (Negative); Urobilinogen,Urine <2.0 mg/dL (<2.0)
[2021-11-21 16:42] VITALS: BP 118/66; PULSE 64
[2021-11-24 08:39] LABS: C. trachomatis,PCR Negative (Neg,Equiv); Chlamydia trachomatis Source Urine; N. gonorrhoeae,PCR Negative (Neg,Equiv); Neisseria Source Urine
== END 2021-11-21 16:42 | disposition home or self-care (01) ==
LOC: EC 12:26
DX: N89.8 Other specified noninflammatory disorders of vagina (principal); J45.909 Unspecified asthma, uncomplicated; G40.909 Epilepsy, unspecified, not intractable, without status epilepticus; F17.200 Nicotine dependence, unspecified, uncomplicated; Z79.899 Other long term (current) drug therapy
CPT/HCPCS: 81003; 87491; 87591; 56405; 99283; J2001

== ENCOUNTER 2022-02-19 22:08 | Emergency (ER) | payer OTHER ==
[2022-02-19] MEDS ORDERED: SODIUM CHLORIDE 0.9% 1,000 ML IV STA (22:09)
--- NOTE | 2022-02-19 22:35 | ED ---
Syncope HPI - General Stated Complaint: Syncope Time Seen by Provider: 02/19/22 22:09 Source: RN notes reviewed, old records reviewed Limitations: no limitations - History of Present Illness Initial Comments: This is a 46-year-old female presenting with what per EMS as well as a syncopal event although patient here does not complain of syncopal event she complains of sore throat. Patient states he has had a sore throat for a few days now and I'll cough no congestion of travel show sick contacts no fevers. She does have seizures but has not had a seizure about 8 months and EMS states patient did not have seizure-like activity today as well. Patient taken all medications as prescribed has no other complaints MD Complaint: loss of consciousness (Bystander patient did pass out) -: minutes(s) Prodromal Symptoms: other (Patient does have a sore throat) Description of Event: tonic-clonic movements (No seizure-like activity) -: second(s) Witnessed: yes - by bystander Injuries Sustained Associated with Event: None Current Symptoms: back to baseline History: seizure disorder, previous syncopal episode, seizure disorder Context: at rest Treatments Prior to Arrival: none - Related Data Home Medications Medication Instructions Recorded Confirmed Lacosamide [Vimpat] 200 mg PO BID 09/11/17 11/05/21 HYDROcodone/APAP 5-325MG [[place] 1 tab PO BID PRN 05/07/21 11/05/21 5-325] cloBAZam [Clobazam] 10 mg PO BID 06/19/21 11/05/21 OXcarbazepine [Trileptal] 600 mg PO BID 11/05/21 11/05/21 Previous Rx's Medication Instructions Recorded Cephalexin [Keflex] 500 mg PO Q6HR 5 Days #20 cap 11/05/21 Sulfamethox-Tmp 800-160Mg [Bactrim 1 tab PO Q12HR 7 Days #14 tab 11/21/21 DS 800-160 mg] Allergies Allergy/AdvReac Type Severity Reaction Status Date / Time codeine AdvReac HEADACHE Verified 11/21/21 12:36 ibuprofen [From Motrin] AdvReac HEADACHE Verified 11/21/21 12:36 Review of Systems ROS Statement: Those systems with pertinent positive or pertinent negative responses have been documented in the HPI. ROS Other: All systems not noted in ROS Statement are negative. Past Medical History Past Medical History: Asthma, Seizure Disorder Additional Past Medical History / Comment(s): LAST SEIZURE 4 MONTHS AGO., STATES HAVING CONSTIPATION AND ABD PAIN. History of Any Multi-Drug Resistant Organisms: MRSA Date of last positivie culture/infection: 11/03/08 MDRO Source:: POST Past Surgical History: Back Surgery, Hysterectomy, Orthopedic Surgery, Tubal Ligation Additional Past Surgical History / Comment(s): foot surgery Past Anesthesia/Blood Transfusion Reactions: No Reported Reaction Past Psychological History: No Psychological Hx Reported Smoking Status: Current every day smoker Past Alcohol Use History: None Reported Past Drug Use History: None Reported - Past Family History Mother Family Medical History: Cancer Sister(s) Family Medical History: Cancer Father Family Medical History: Cancer General Exam General appearance: alert, in no apparent distress Head exam: Present: atraumatic, normocephalic, normal inspection Eye exam: Present: normal appearance, PERRL, EOMI. Absent: scleral icterus, conjunctival injection, periorbital swelling ENT exam: Present: normal exam, mucous membranes moist Neck exam: Present: normal inspection. Absent: tenderness, meningismus, lymphadenopathy Respiratory exam: Present: normal lung sounds bilaterally. Absent: respiratory distress, wheezes, rales, rhonchi, stridor Cardiovascular Exam: Present: regular rate, normal rhythm, normal heart sounds. Absent: systolic murmur, diastolic murmur, rubs, gallop, clicks GI/Abdominal exam: Present: soft, normal bowel sounds. Absent: distended, tenderness, guarding, rebound, rigid Extremities exam: Present: normal inspection, full ROM, normal capillary refill. Absent: tenderness, pedal edema, joint swelling, calf tenderness Back exam: Present: normal inspection Neurological exam: Present: alert, oriented X3, CN II-XII intact Psychiatric exam: Present: normal affect, normal mood Skin exam: Present: warm, dry, intact, normal color. Absent: rash Course Vital Signs 02/19/22 22:30 Temperature 98.1 F Pulse Rate 65 Respiratory 14 Rate Blood Pressure 105/64 O2 Sat by Pulse 95 Oximetry - Reevaluation(s) Reevaluation #1: 02/20/22 00:08 Record is reviewed Reevaluation #2: 02/20/22 00:08 Patient has no seizure-like activity here in the ER or no recurrent syncope Reevaluation #3: 02/20/22 00:08 Patient is informed of results and can be discharged home EKG Findings - EKG Comments: EKG Findings:: EKG is sinus bradycardia 59 NH 223 QRS 114 QTc 453 Medical Decision Making - Medical Decision Making 46 female presents today for evaluation of what EMS describes a syncopal event patient denies syncope here in the ER denies headache chest pain shortness with abdominal pain her low complaint is sore throat. Patient has negative coronavirus test, negative rapid strep test, throat looks fine, patient otherwise can be discharged home - Lab Data Result diagrams: 02/19/22 22:46 02/19/22 22:46 Lab Results 02/19/22 02/19/22 02/19/22 Range/Units 22:46 22:46 22:46 WBC 5.3 (3.8-10.6) k/uL RBC 4.13 (3.80-5.40) m/uL Hgb 12.1 (11.4-16.0) gm/dL Hct 37.8 (34.0-46.0) % MCV 91.7 (80.0-100.0) fL MCH 29.4 (25.0-35.0) pg MCHC 32.1 (31.0-37.0) g/dL RDW 13.2 (11.5-15.5) % Plt Count 275 (150-450) k/uL MPV 6.8 Neutrophils % 55 % Lymphocytes % 36 % Monocytes % 4 % Eosinophils % 4 % Basophils % 1 % Neutrophils # 2.9 (1.3-7.7) k/uL Lymphocytes # 1.9 (1.0-4.8) k/uL Monocytes # 0.2 (0-1.0) k/uL Eosinophils # 0.2 (0-0.7) k/uL Basophils # 0.0 (0-0.2) k/uL PT 10.6 (9.0-12.0) sec INR 1.0 (<1.2) APTT 30.3 H (22.0-30.0) sec D-Dimer 0.28 (<0.60) mg/L FEU Sodium 127 L (137-145) mmol/L Potassium 3.9 (3.5-5.1) mmol/L Chloride 97 L (98-107) mmol/L Carbon Dioxide 22 (22-30) mmol/L Anion Gap 8 mmol/L BUN 13 (7-17) mg/dL Creatinine 0.47 L (0.52-1.04) mg/dL Est GFR (CKD-EPI)AfAm >90 (>60 ml/min/1.73 sqM) Est GFR (CKD-EPI)NonAf >90 (>60 ml/min/1.73 sqM) Glucose 117 H (74-99) mg/dL Calcium 8.5 (8.4-10.2) mg/dL Magnesium 1.8 (1.6-2.3) mg/dL Total Bilirubin 0.1 L (0.2-1.3) mg/dL AST 27 (14-36) U/L ALT 25 (4-34) U/L Alkaline Phosphatase 73 (38-126) U/L Troponin I (0.000-0.034) ng/mL Total Protein 6.8 (6.3-8.2) g/dL Albumin 4.0 (3.5-5.0) g/dL Coronavirus (PCR) (Not Detectd) Group A Strep Rapid (Negative) 02/19/22 02/19/22 02/19/22 Range/Units 22:46 22:46 22:46 WBC (3.8-10.6) k/uL RBC (3.80-5.40) m/uL Hgb (11.4-16.0) gm/dL Hct (34.0-46.0) % MCV (80.0-100.0) fL MCH (25.0-35.0) pg MCHC (31.0-37.0) g/dL RDW (11.5-15.5) % Plt Count (150-450) k/uL MPV Neutrophils % % Lymphocytes % % Monocytes % % Eosinophils % % Basophils % % Neutrophils # (1.3-7.7) k/uL Lymphocytes # (1.0-4.8) k/uL Monocytes # (0-1.0) k/uL Eosinophils # (0-0.7) k/uL Basophils # (0-0.2) k/uL PT (9.0-12.0) sec INR (<1.2) APTT (22.0-30.0) sec D-Dimer (<0.60) mg/L FEU Sodium (137-145) mmol/L Potassium (3.5-5.1) mmol/L Chloride (98-107) mmol/L Carbon Dioxide (22-30) mmol/L Anion Gap mmol/L BUN (7-17) mg/dL Creatinine (0.52-1.04) mg/dL Est GFR (CKD-EPI)AfAm (>60 ml/min/1.73 sqM) Est GFR (CKD-EPI)NonAf (>60 ml/min/1.73 sqM) Glucose (74-99) mg/dL Calcium (8.4-10.2) mg/dL Magnesium (1.6-2.3) mg/dL Total Bilirubin (0.2-1.3) mg/dL AST (14-36) U/L ALT (4-34) U/L Alkaline Phosphatase (38-126) U/L Troponin I <0.012 (0.000-0.034) ng/mL Total Protein (6.3-8.2) g/dL Albumin (3.5-5.0) g/dL Coronavirus (PCR) Not Detected (Not Detectd) Group A Strep Rapid Negative (Negative) Disposition Clinical Impression: Vasovagal syncope, Dehydration, Sore throat Narrative: Syncope v Seizure Disposition: HOME SELF-CARE Condition: Good Instructions (If sedation given, give patient instructions): Pharyngitis (ED), Syncope (ED) Is patient prescribed a controlled substance at d/c from ED?: No Referrals: Marcial Reyes MD [Primary Care Provider] - 1-2 days
[2022-02-19 22:36] VITALS: BP 105/64
[2022-02-19 23:09] LABS: Basophils % (A) 1 %; Eosinophils # (A) 0.2 k/uL (0-0.7); Eosinophils % (A) 4 %; HCT 37.8 % (34.0-46.0); HGB 12.1 gm/dL (11.4-16.0); Lymphocytes # (A) 1.9 k/uL (1.0-4.8); Lymphocytes % (A) 36 %; MCH 29.4 pg (25.0-35.0); MCHC 32.1 g/dL (31.0-37.0); MCV 91.7 fL (80.0-100.0); Mean Platelet Volume 6.8; Monocytes # (A) 0.2 k/uL (0-1.0); Monocytes % (A) 4 %; Neutrophils # (A) 2.9 k/uL (1.3-7.7); Neutrophils % (A) 55 %; Platelet Count 275 k/uL (150-450); RBC 4.13 m/uL (3.80-5.40); RDW 13.2 % (11.5-15.5); WBC 5.3 k/uL (3.8-10.6)
[2022-02-19 23:20] LABS: ALT 25 U/L (4-34); AST 27 U/L (14-36); African American GFR (CKD) >90 (>60 ml/min/1.73 sqM); Alkaline Phosphatase 73 U/L (38-126); Anion Gap 8 mmol/L; Blood Urea Nitrogen 13 mg/dL (7-17); Calcium 8.5 mg/dL (8.4-10.2); Carbon Dioxide 22 mmol/L (22-30); Chloride 97 mmol/L (98-107); Glucose 117 mg/dL (74-99); Magnesium 1.8 mg/dL (1.6-2.3); Non-African American GFR(CKD) >90 (>60 ml/min/1.73 sqM); Potassium 3.9 mmol/L (3.5-5.1); Sodium 127 mmol/L (137-145); Total Bilirubin 0.1 mg/dL (0.2-1.3); Total Protein 6.8 g/dL (6.3-8.2)
[2022-02-19 23:29] LABS: Partial Thromboplastin Time 30.3 sec (22.0-30.0); Prothrombin Time 10.6 sec (9.0-12.0)
[2022-02-20 00:46] VITALS: PULSE 61; RESP 20; TEMP 98
== END 2022-02-20 00:45 | disposition home or self-care (01) ==
LOC: EC 22:08
DX: E86.0 Dehydration (principal); J02.9 Acute pharyngitis, unspecified; R55 Syncope and collapse; Z20.822 Contact with and (suspected) exposure to COVID-19; J45.909 Unspecified asthma, uncomplicated; G40.909 Epilepsy, unspecified, not intractable, without status epilepticus; F17.200 Nicotine dependence, unspecified, uncomplicated; Z88.5 Allergy status to narcotic agent; Z88.6 Allergy status to analgesic agent; Z79.899 Other long term (current) drug therapy
CPT/HCPCS: 36415; 80053; 83735; 84484; 85025; 85379; 85610; 85730; 87081; 87430; 87635; 93005; 96360; 99284

== ENCOUNTER 2022-03-06 22:42 | Emergency (ER) | payer OTHER ==
--- NOTE | 2022-03-07 00:01 | CT ---
EXAMINATION TYPE: CT brain cspine wo con DATE OF EXAM: 03/06/2022 COMPARISON: None HISTORY: Seizure CT DLP: 1673.2 mGycm Automated exposure control for dose reduction was used. Images of the brain and cervical spine obtained with no contrast. Ventricles and sulci appear normal. No mass effect or midline shift. No sign of intracranial hemorrha ge. The calvarium appears intact. No evidence of cerebral edema. Skull base is intact. There is jody l aeration of the mastoid sinuses. The cervical vertebra show normal alignment. Posterior elements are intact. No compression fracture. Facet joints are intact. Prevertebral soft tissues are intact. IMPRESSION: Negative CT scan of the brain. Negative CT scan of the cervical spine.
--- NOTE | 2022-03-07 00:22 | ED ---
Seizure HPI - General Chief Complaint: Seizure Stated Complaint: Seizure Time Seen by Provider: 03/06/22 22:46 Source: patient, RN notes reviewed, old records reviewed Mode of arrival: ambulatory Limitations: no limitations - History of Present Illness Initial Comments: This is a 46-year-old female well-known to our ER for evaluation. Patient comes in for evaluation of a seizure with head trauma. Seizure fell backwards hitting her head complaining of pain in the back of her head. Patient's been treating seizures is appropriate currently at baseline feels well. Patient's been feeling well lately with no nausea vomiting diarrhea, no recent fevers cough or congestion. No travel history or sick contacts no drug or alcohol no change in medications MD Complaint: seizure -: minutes(s) Description of Episode: loss of consciousness, tonic-clonic movement -: second(s) Witnessed: yes - by bystander Seizure History: known seizure disorder Place: home Possible Precipitating Event: head injury Associated Symptoms: denies other symptoms Treatments Prior to Arrival: none - Related Data Home Medications Medication Instructions Recorded Confirmed Lacosamide [Vimpat] 200 mg PO BID 09/11/17 11/05/21 HYDROcodone/APAP 5-325MG [[place] 1 tab PO BID PRN 05/07/21 11/05/21 5-325] cloBAZam [Clobazam] 10 mg PO BID 06/19/21 11/05/21 OXcarbazepine [Trileptal] 600 mg PO BID 11/05/21 11/05/21 Previous Rx's Medication Instructions Recorded Cephalexin [Keflex] 500 mg PO Q6HR 5 Days #20 cap 11/05/21 Sulfamethox-Tmp 800-160Mg [Bactrim 1 tab PO Q12HR 7 Days #14 tab 11/21/21 DS 800-160 mg] Allergies Allergy/AdvReac Type Severity Reaction Status Date / Time codeine AdvReac HEADACHE Verified 11/21/21 12:36 ibuprofen [From Motrin] AdvReac HEADACHE Verified 11/21/21 12:36 Review of Systems ROS Statement: Those systems with pertinent positive or pertinent negative responses have been documented in the HPI. ROS Other: All systems not noted in ROS Statement are negative. Past Medical History Past Medical History: Asthma, Seizure Disorder Additional Past Medical History / Comment(s): LAST SEIZURE 4 MONTHS AGO., STATES HAVING CONSTIPATION AND ABD PAIN. History of Any Multi-Drug Resistant Organisms: MRSA Date of last positivie culture/infection: 11/03/08 MDRO Source:: POST Past Surgical History: Back Surgery, Hysterectomy, Orthopedic Surgery, Tubal Ligation Additional Past Surgical History / Comment(s): foot surgery Past Anesthesia/Blood Transfusion Reactions: No Reported Reaction Past Psychological History: No Psychological Hx Reported Smoking Status: Current every day smoker Past Alcohol Use History: None Reported Past Drug Use History: None Reported - Past Family History Mother Family Medical History: Cancer Sister(s) Family Medical History: Cancer Father Family Medical History: Cancer General Exam Limitations: no limitations General appearance: alert, in no apparent distress Head exam: Present: atraumatic, normocephalic, normal inspection Eye exam: Present: normal appearance, PERRL, EOMI. Absent: scleral icterus, conjunctival injection, periorbital swelling ENT exam: Present: normal exam, mucous membranes moist Neck exam: Present: normal inspection. Absent: tenderness, meningismus, lymphadenopathy Respiratory exam: Present: normal lung sounds bilaterally. Absent: respiratory distress, wheezes, rales, rhonchi, stridor Cardiovascular Exam: Present: regular rate, normal rhythm, normal heart sounds. Absent: systolic murmur, diastolic murmur, rubs, gallop, clicks GI/Abdominal exam: Present: soft, normal bowel sounds. Absent: distended, tenderness, guarding, rebound, rigid Extremities exam: Present: normal inspection, full ROM, normal capillary refill. Absent: tenderness, pedal edema, joint swelling, calf tenderness Back exam: Present: normal inspection Neurological exam: Present: alert, oriented X3, CN II-XII intact Psychiatric exam: Present: normal affect, normal mood Skin exam: Present: warm, dry, intact, normal color. Absent: rash Course Vital Signs 03/06/22 03/07/22 23:00 01:12 Temperature 97.8 F 98.2 F Pulse Rate 69 67 Respiratory 18 20 Rate Blood Pressure 117/50 118/58 O2 Sat by Pulse 98 99 Oximetry - Reevaluation(s) Reevaluation #1: 03/07/22 Medical record is reviewed Reevaluation #2: 03/07/22 Patient informed of results and questions answered Reevaluation #3: 03/07/22 Patient has no recurrent seizure here in the ER Medical Decision Making - Medical Decision Making 46 female DEL with seizure resulting in head injury, recurrent seizure no injury noted. CT brain C-spine is negative and patient can be discharged home - Radiology Data Radiology results: report reviewed (CT brain C-spine negative for acute disease), image reviewed Disposition Clinical Impression: Recurrent seizures, Seizure disorder, Minor head injury Disposition: HOME SELF-CARE Condition: Fair Instructions (If sedation given, give patient instructions): Recurrent Seizures in Adults (ED) Is patient prescribed a controlled substance at d/c from ED?: No Referrals: Marcial Reyes MD [Primary Care Provider] - 1-2 days
[2022-03-07 01:13] VITALS: BP 118/58; PULSE 67; RESP 20; TEMP 98.2
== END 2022-03-07 01:12 | disposition home or self-care (01) ==
LOC: EC 22:42
DX: S09.90XA Unspecified injury of head, initial encounter (principal); G40.909 Epilepsy, unspecified, not intractable, without status epilepticus; J45.909 Unspecified asthma, uncomplicated; F17.200 Nicotine dependence, unspecified, uncomplicated; Z88.6 Allergy status to analgesic agent; Z88.5 Allergy status to narcotic agent; W01.198A Fall on same level from slipping, tripping and stumbling with subsequent striking against other object, initial encounter
CPT/HCPCS: 70450; 72125

== ENCOUNTER 2022-05-22 22:12 | Emergency (ER) | payer OTHER ==
[2022-05-22 22:21] VITALS: BP 111/47; PULSE 54; RESP 16; TEMP 97.9
[2022-05-22 22:37] LABS: Basophils % (A) 1 %; Eosinophils # (A) 0.2 k/uL (0-0.7); Eosinophils % (A) 4 %; HCT 41.4 % (34.0-46.0); HGB 13.4 gm/dL (11.4-16.0); Lymphocytes # (A) 1.7 k/uL (1.0-4.8); Lymphocytes % (A) 32 %; MCH 29.8 pg (25.0-35.0); MCHC 32.4 g/dL (31.0-37.0); MCV 91.9 fL (80.0-100.0); Mean Platelet Volume 6.9; Monocytes # (A) 0.2 k/uL (0-1.0); Monocytes % (A) 3 %; Neutrophils # (A) 3.2 k/uL (1.3-7.7); Neutrophils % (A) 59 %; Platelet Count 254 k/uL (150-450); RBC 4.51 m/uL (3.80-5.40); RDW 13.6 % (11.5-15.5); WBC 5.3 k/uL (3.8-10.6)
[2022-05-22 22:55] LABS: ALT 32 U/L (4-34); AST 34 U/L (14-36); African American GFR (CKD) >90 (>60 ml/min/1.73 sqM); Albumin 4.2 g/dL (3.5-5.0); Alkaline Phosphatase 66 U/L (38-126); Amylase 32 U/L (30-110); Anion Gap 10 mmol/L; Blood Urea Nitrogen 17 mg/dL (7-17); Carbon Dioxide 25 mmol/L (22-30); Chloride 101 mmol/L (98-107); Glucose 118 mg/dL (74-99); Lipase 39 U/L (23-300); Non-African American GFR(CKD) >90 (>60 ml/min/1.73 sqM); Potassium 3.7 mmol/L (3.5-5.1); Sodium 136 mmol/L (137-145); Total Bilirubin 0.3 mg/dL (0.2-1.3)
== END 2022-05-23 00:30 ==
LOC: EC 22:12
DX: Z53.21 Procedure and treatment not carried out due to patient leaving prior to being seen by health care provider (principal); R10.9 Unspecified abdominal pain
CPT/HCPCS: 36415; 80053; 82150; 83690; 85025; 93005; 99499

== ENCOUNTER 2022-08-10 16:48 | Emergency (ER) | payer OTHER ==
[2022-08-10 17:34] VITALS: BP 121/60; PULSE 66; RESP 20; TEMP 97.2
--- NOTE | 2022-08-10 18:51 | US ---
EXAMINATION TYPE: US venous doppler duplex LE LT DATE OF EXAM: 08/10/2022 6:14 PM COMPARISON: NONE CLINICAL HISTORY: pain- rule out DVT. Pain in left foot SIDE PERFORMED: Left TECHNIQUE: The lower extremity deep venous system is examined utilizing real time linear array sonog gomez with graded compression, doppler sonography and color-flow sonography. VESSELS IMAGED: Common Femoral Vein Deep Femoral Vein Greater Saphenous Vein * Femoral Vein Popliteal Vein Small Saphenous Vein * Proximal Calf Veins (* superficial vessels) Left Leg: Negative for DVT. Could not see calf veins Grayscale, color doppler, spectral doppler imaging performed of the deep veins of the lower extremiti es. There is normal flow, compressibility, vascular waveforms. IMPRESSION: 1. No evidence of deep PET of the left lower extremity. Nonvisualization of the calf veins.
== END 2022-08-10 20:08 | disposition left against medical advice (07) ==
LOC: EC 16:48
DX: Z53.21 Procedure and treatment not carried out due to patient leaving prior to being seen by health care provider (principal)
CPT/HCPCS: 99499

== ENCOUNTER → 2023-06-28 | Outpatient (CLI) | payer OTHER ==
--- NOTE | 2023-06-28 21:13 | MM ---
Reason for Exam: Screening (asymptomatic). Last mammogram was performed 2 year(s) and 5 month(s) ago. Patient History: Menarche at age 11. First Full-Term at age 18. Left ovary removed at age 21. Right ovary removed at age 21. Hysterectomy at age 21. Postmenopausal. Sister had breast cancer, age 40. Risk Values: Briana 5 year model risk: 1.2%. NCI Lifetime model risk: 11.8%. Prior Study Comparison: 11/17/2008 Bilateral Screening Mammogram, [facility]. 10/02/2018 Bilateral Screening Mammogram, [facility]. 01/30/2021 Bilateral Screening Mammogram, [facility]. Tissue Density: There are scattered fibroglandular densities. Findings: Analyzed By CAD. Unchanged dermal calcifications. There is no suspicious group of microcalcifications or new suspicious mass in either breast. Overall Assessment: Negative, BI-RAD 1 Management: Screening Mammogram of both breasts in 1 year. . Patient should continue monthly self-breast exams. A clinical breast exam by your physician is recommended on an annual basis. This exam should not preclude additional follow-up of suspicious palpable abnormalities. Note on Briana scores and lifetime risk: 1. A Briana score greater than 3% is considered moderate risk. If this is the case, consider specialist referral to assess eligibility for a risk reducing agent. 2. If overall lifetime risk for the development of breast cancer is 20% or higher, the patient may qualify for future screening with alternating mammogram and breast MRI. Electronically signed and approved by: Andre Feldman M.D. Radiologist
== END | disposition home or self-care (01) ==
LOC: RADMAMWWP 06:54
PROVIDERS: ATTEND Pediatrics
DX: Z12.31 Encounter for screening mammogram for malignant neoplasm of breast (principal); Z78.0 Asymptomatic menopausal state; Z80.3 Family history of malignant neoplasm of breast
CPT/HCPCS: 77067

== ENCOUNTER 2023-07-01 11:06 | Emergency (ER) | payer OTHER ==
[2023-07-01 11:48] VITALS: TEMP 99.1
[2023-07-01] MEDS ORDERED: SODIUM CHLORIDE 0.9% 1,000 ML IV STA (11:53)
[2023-07-01] MEDS ORDERED: KETOROLAC 15 MG/ML 1 ML VIAL IVP STA (11:55)
--- NOTE | 2023-07-01 13:00 | XR ---
EXAMINATION TYPE: XR forearm LT, XR humerus LT DATE OF EXAM: 07/01/2023 12:56 PM INDICATION: Patient age:Female; 47 years old; Reason for study: Pain after fall; [facility]. COMPARISON: None TECHNIQUE: The left forearm humerus was examined in AP and lateral projections. FINDINGS: No acute osseous pathology, soft tissue swelling or joint dislocations are seen. No radiop aque foreign body. IMPRESSION: No evidence of acute fracture.
--- NOTE | 2023-07-01 13:11 | ED ---
Seizure HPI - General Chief Complaint: Seizure Stated Complaint: Seizure Time Seen by Provider: 07/01/23 11:42 Source: patient, family, RN notes reviewed Mode of arrival: ambulatory Limitations: no limitations - History of Present Illness Initial Comments: This is a 47 year old female who presents to the emergency department for a seizure. Patient's states that she seemed to have a grand mal seizure this morning and fell into the railing, injuring her left arm and hitting her head. Her states that this lasted 1-2 minutes. She sustained several abrasions and pain to the left arm and also has a headache. She recovered fully and then seemed to have a partial seizure with tremors. Over the last year, seizures have increased in frequency. Most recent seizure was 3 days ago. She has not had any medication adjustments in about a year. She was supposed to see her neurologist today, but came to the emergency department instead due to the seizure. MD Complaint: seizure - Related Data Home Medications Medication Instructions Recorded Confirmed Lacosamide [Vimpat] 200 mg PO BID 09/11/17 07/01/23 cloBAZam [Clobazam] 15 mg PO BID 06/19/21 07/01/23 OXcarbazepine [Trileptal] 600 mg PO BID 11/05/21 07/01/23 Amitriptyline HCl [Elavil] 10 mg PO HS 07/01/23 07/01/23 Escitalopram [Lexapro] 5 mg PO DAILY 07/01/23 07/01/23 HYDROcodone/APAP 7.5-325MG [[place] 1 tab PO BID PRN 07/01/23 07/01/23 7.5-325] Omeprazole [PriLOSEC] 20 mg PO DAILY 07/01/23 07/01/23 Allergies Allergy/AdvReac Type Severity Reaction Status Date / Time No Known Allergies Allergy Verified 07/01/23 11:40 Review of Systems ROS Statement: Those systems with pertinent positive or pertinent negative responses have been documented in the HPI. ROS Other: All systems not noted in ROS Statement are negative. Past Medical History Past Medical History: Asthma, Seizure Disorder Additional Past Medical History / Comment(s): LAST SEIZURE 4 MONTHS AGO., STATES HAVING CONSTIPATION AND ABD PAIN. History of Any Multi-Drug Resistant Organisms: MRSA Date of last positivie culture/infection: 11/03/08 MDRO Source:: POST Past Surgical History: Back Surgery, Hysterectomy, Orthopedic Surgery, Tubal Ligation Additional Past Surgical History / Comment(s): foot surgery Past Anesthesia/Blood Transfusion Reactions: No Reported Reaction Past Psychological History: No Psychological Hx Reported Smoking Status: Current every day smoker Past Alcohol Use History: None Reported Past Drug Use History: None Reported - Past Family History Mother Family Medical History: Cancer Sister(s) Family Medical History: Cancer Father Family Medical History: Cancer General Exam Limitations: no limitations General appearance: alert, in no apparent distress Head exam: Present: atraumatic, normocephalic, other (Tenderness to palpation over the right side of the head.) Eye exam: Present: normal appearance, PERRL, EOMI. Absent: scleral icterus, conjunctival injection, periorbital swelling Respiratory exam: Present: normal lung sounds bilaterally. Absent: respiratory distress, wheezes, rales, rhonchi, stridor Cardiovascular Exam: Present: regular rate, normal rhythm, normal heart sounds. Absent: systolic murmur, diastolic murmur, rubs, gallop, clicks Neurological exam: Present: alert, oriented X3, CN II-XII intact Psychiatric exam: Present: normal affect, normal mood Skin exam: Present: other (Several superificial abrasions over the left forearm.) Course Vital Signs 07/01/23 07/01/23 07/01/23 11:35 12:40 13:00 Temperature 99.1 F Pulse Rate 80 74 70 Respiratory 18 17 18 Rate Blood Pressure 134/71 133/71 133/71 O2 Sat by Pulse 96 98 98 Oximetry 07/01/23 07/01/23 14:00 16:06 Temperature Pulse Rate 71 71 Respiratory 18 17 Rate Blood Pressure 131/64 123/63 O2 Sat by Pulse 96 97 Oximetry Medical Decision Making - Medical Decision Making This is a 47 year old female who presents to the emergency department for a seizure. Was pt. sent in by a medical professional or institution? @ -No Did you speak to anyone other than the patient for history? @ -Her provided most of the information, as he was the one who witnessed the event. Did you review nursing and triage notes? @ -Yes, and I agree, it is accurate with regards to the patient's symptoms. Were old charts reviewed? @ -No Differential Diagnosis? @ -Differential Seizure: Recurrent seizure disorder, febrile seizure, alcohol withdrawal, stimulants, meningitis, encephalitis, intercranial hemorrhage, intracranial tumor, stroke, eclampsia, thyrotoxicosis, hypocalcemia, hyponatremia, hypernatremia, hypomagn esemia, psychogenic, this is not meant to be an all-inclusive list. EKG interpreted by me (3pts min.)? @ -EKG interpreted by me demonstrating the following: Sinus rhythm. Ventricular rate 78 bpm, RI interval 208 ms, QRS duration 109 ms, QTC 405 ms. X-rays interpreted by me (1pt min.)? @ -X-ray of the left humerus and forearm obtained. My interpretation identifies no acute fractures. CT interpreted by me (1pt min.)? @ -Computed tomography scan of the brain and c-spine obtained. My interpretation identifies no evidence of an acute intracranial hemorrhage, skull fracture, or cervical spine fracture. U/S interpreted by me (1pt. min.)? @ -Not obtained What testing was considered but not performed? (CT, X-rays, U/S, labs)? Why? @ -None What meds were considered but not given? Why? @ -None Did you discuss the management of the patient with other professionals? @ -No Did you reconcile home meds? @ -No Was smoking cessation discussed for >3mins.? @ -No Was critical care preformed (if so, how long)? @ -No Were there social determinants of health that impacted care today? How? (Homelessness, low income, unemployed, alcoholism, drug addiction, transportation, low edu. Level, literacy, decrease access to med. care, intermediate, rehab)? @ -No Was there de-escalation of care discussed even if they declined? (Discuss DNR or withdrawal of care, Hospice)? @ -No What co-morbidities impacted this encounter? (DM, HTN, Smoking, COPD, CAD, Cancer, CVA, Hep., AIDS, mental health diagnosis, sleep apnea, morbid obesity)? @ -Seizure disorder Was patient admitted / discharged? @ -Discharged. Lab work obtained and found to be fairly nonactionable aside from signs of dehydration. Computed tomography scan of the brain and C-spine as well as x-ray of the left forearm and humerus obtained revealing no acute process. Patient was given IV fluids and Toradol with improvement in symptoms. She had superficial abrasions on the left arm and no repair is indicated. Tetanus vaccine is up-to-date. She'll continue to take her medications as prescribed. Advised she contact her neurologist to reschedule her appointment. She is also reminded that she cannot drive or operate machinery for 6 months following seizure activity. Advised ibuprofen and Tylenol as needed for any additional pain. Undiagnosed new problem with uncertain prognosis? @ -None Drug Therapy requiring intensive monitoring for toxicity (Heparin, Nitro, Insulin, Cardizem)? @ -None Were any procedures done? @ -None Diagnosis/symptom? @ -Seizure Acute, or Chronic, or Acute on Chronic? @ -Acute Uncomplicated (without systemic symptoms) or Complicated (systemic symptoms)? @ -Uncomplicated Side effects of treatment? @ -None Exacerbation, Progression, or Severe Exacerbation] @ -Not applicable Poses a threat to life or bodily function? @ -Unlikely Return precautions reviewed in depth, the patient is instructed to return to the emergency department with any new, worsening, or concerning symptoms. Patient verbalized understanding. This case was discussed in detail with the attending ED physician, Dr. Mcdaniel. Presentation, findings, and treatment plan discussed in detail as well. - Lab Data Result diagrams: 07/01/23 12:42 07/01/23 14:53 Lab Results 07/01/23 07/01/23 07/01/23 Range/Units 12:42 12:42 12:42 WBC 5.7 (3.8-10.6) k/uL RBC 4.58 (3.80-5.40) m/uL Hgb 14.8 (11.4-16.0) gm/dL Hct 42.4 (34.0-46.0) % MCV 92.6 (80.0-100.0) fL MCH 32.2 (25.0-35.0) pg MCHC 34.8 (31.0-37.0) g/dL RDW 13.9 (11.5-15.5) % Plt Count 263 (150-450) k/uL MPV 7.7 Neutrophils % 82 % Lymphocytes % 13 % Monocytes % 4 % Eosinophils % 1 % Basophils % 0 % Neutrophils # 4.7 (1.3-7.7) k/uL Lymphocytes # 0.7 L (1.0-4.8) k/uL Monocytes # 0.2 (0-1.0) k/uL Eosinophils # 0.1 (0-0.7) k/uL Basophils # 0.0 (0-0.2) k/uL Sodium Cancelled Potassium Cancelled Chloride Cancelled Carbon Dioxide Cancelled Anion Gap Cancelled BUN Cancelled Creatinine Cancelled Est GFR (CKD-EPI) Cancelled Est GFR (CKD-EPI)AfAm Cancelled Est GFR (CKD-EPI)NonAf Cancelled Glucose Cancelled Plasma Lactic Acid Dwight (0.7-2.0) mmol/L Calcium Cancelled Magnesium Cancelled Total Bilirubin Cancelled AST Cancelled ALT Cancelled Alkaline Phosphatase Cancelled Total Protein Cancelled Albumin Cancelled HCG, Qual Not Detected Urine Opiates Screen Not Detected (NotDetected) Ur Oxycodone Screen Not Detected (NotDetected) Urine Methadone Screen Not Detected (NotDetected) Ur Propoxyphene Screen Not Detected (NotDetected) Ur Barbiturates Screen Not Detected (NotDetected) U Tricyclic Antidepress Not Detected (NotDetected) Ur Phencyclidine Scrn Not Detected (NotDetected) Ur Amphetamines Screen Not Detected (NotDetected) U Methamphetamines Scrn Not Detected (NotDetected) U Benzodiazepines Scrn Detected H (NotDetected) Urine Cocaine Screen Not Detected (NotDetected) U Marijuana (THC) Screen Not Detected (NotDetected) Serum Alcohol Cancelled 07/01/23 07/01/23 Range/Units 12:42 14:53 WBC (3.8-10.6) k/uL RBC (3.80-5.40) m/uL Hgb (11.4-16.0) gm/dL Hct (34.0-46.0) % MCV (80.0-100.0) fL MCH (25.0-35.0) pg MCHC (31.0-37.0) g/dL RDW (11.5-15.5) % Plt Count (150-450) k/uL MPV Neutrophils % % Lymphocytes % % Monocytes % % Eosinophils % % Basophils % % Neutrophils # (1.3-7.7) k/uL Lymphocytes # (1.0-4.8) k/uL Monocytes # (0-1.0) k/uL Eosinophils # (0-0.7) k/uL Basophils # (0-0.2) k/uL Sodium 128 L Potassium 4.6 Chloride 98 Carbon Dioxide 20 L Anion Gap 10 BUN 6 L Creatinine 0.43 L Est GFR (CKD-EPI) Est GFR (CKD-EPI)AfAm >90 Est GFR (CKD-EPI)NonAf >90 Glucose 96 Plasma Lactic Acid Dwight 1.4 (0.7-2.0) mmol/L Calcium 8.9 Magnesium 2.0 Total Bilirubin 0.4 AST 54 H ALT 66 H Alkaline Phosphatase 78 Total Protein 7.4 Albumin 4.2 HCG, Qual Urine Opiates Screen (NotDetected) Ur Oxycodone Screen (NotDetected) Urine Methadone Screen (NotDetected) Ur Propoxyphene Screen (NotDetected) Ur Barbiturates Screen (NotDetected) U Tricyclic Antidepress (NotDetected) Ur Phencyclidine Scrn (NotDetected) Ur Amphetamines Screen (NotDetected) U Methamphetamines Scrn (NotDetected) U Benzodiazepines Scrn (NotDetected) Urine Cocaine Screen (NotDetected) U Marijuana (THC) Screen (NotDetected) Serum Alcohol <10 - Radiology Data Radiology results: report reviewed, image reviewed Disposition Clinical Impression: Generalized seizure Disposition: HOME SELF-CARE Instructions (If sedation given, give patient instructions): Seizure/Epilepsy D ischarge Instructions & Follow-Up, Recurrent Seizures in Adults (ED) Additional Instructions: Return to the emergency department with any new, worsening, or concerning symptoms. Alternate with ibuprofen and Tylenol as needed for pain relief. Continue taking your seizure medication as prescribed and follow up with your neurologist. Is patient prescribed a controlled substance at d/c from ED?: No Referrals: Marcial Reeys MD [Primary Care Provider] - 1-2 days
[2023-07-01 13:12] LABS: Basophils % (A) 0 %; Eosinophils # (A) 0.1 k/uL (0-0.7); Eosinophils % (A) 1 %; HCT 42.4 % (34.0-46.0); HGB 14.8 gm/dL (11.4-16.0); Lymphocytes # (A) 0.7 k/uL (1.0-4.8); Lymphocytes % (A) 13 %; MCH 32.2 pg (25.0-35.0); MCHC 34.8 g/dL (31.0-37.0); MCV 92.6 fL (80.0-100.0); Mean Platelet Volume 7.7; Monocytes # (A) 0.2 k/uL (0-1.0); Monocytes % (A) 4 %; Neutrophils # (A) 4.7 k/uL (1.3-7.7); Neutrophils % (A) 82 %; Platelet Count 263 k/uL (150-450); RBC 4.58 m/uL (3.80-5.40); RDW 13.9 % (11.5-15.5); WBC 5.7 k/uL (3.8-10.6)
[2023-07-01 13:20] LABS: Amphetamine Screen,Urine Not Detected (NotDetected); Barbiturate Screen,Urine Not Detected (NotDetected); Benzodiazepines Screen,Urine Detected (NotDetected); Cocaine Screen,Urine Not Detected (NotDetected); Methadone Screen, Urine Not Detected (NotDetected); Opiate Screen,Urine Not Detected (NotDetected); Oxycodone Screen, Urine Not Detected (NotDetected); Phencyclidine Screen,Urine Not Detected (NotDetected); Tricyclic Antidepressant,Urine Not Detected (NotDetected); Urn Cannabinoid Scrn Not Detected (NotDetected)
--- NOTE | 2023-07-01 14:03 | CT ---
EXAMINATION TYPE: CT brain cspine wo con CT DLP: 1478.1 mGycm, Automated exposure control for dose reduction was used. DATE OF EXAM: 07/01/2023 1:50 PM COMPARISON: CT brain C-spine 03/06/2022. CLINICAL INDICATION:Female, 47 years old with history of Seizure, head injury; Seizure, head injury TECHNIQUE: Brain: Multiple axial CT images of the brain were obtained without IV contrast. Cspine: Axial CT images from the skull base to the inferior aspect of T2 we obtained without intraven ous contrast. Coronal and sagittal reformatted images were also reviewed. FINDINGS: Brain: Extra-axial spaces: No abnormal extra-axial fluid collections. Ventricular system: Within normal limits Cerebral parenchyma: No acute intraparenchymal hemorrhage or mass effect. The manuel-white junction is well differentiated. Cerebellum: Unremarkable. Mass effect: No evidence of midline shift. Intracranial vasculature: unremarkable Soft tissues: Normal. Calvarium/osseous structures: No depressed skull fracture. Paranasal sinuses and mastoid air cells: Clear. Visualized orbits: Orbital contents are intact. Cervical spine: Fracture: None. Osseous structures: Unremarkable Vertebral alignment: No spondylolisthesis. Straightening of the cervical spine which may be due to pa tient position versus muscle spasm. Spinal canal/Neural Foramina: No evidence of significant spinal canal narrowing. No evidence for sign ificant neural foraminal stenosis. Neck soft tissues: Prevertebral soft tissues are within normal limits. Other: The airway is patent. The lung apices are clear. IMPRESSION: 1. No acute intracranial process. 2. No evidence of cervical spine fracture.
[2023-07-01 14:12] VITALS: PULSE 71
[2023-07-01 15:39] LABS: ALT 66 U/L (4-34); AST 54 U/L (14-36); African American GFR (CKD) >90 (>60 ml/min/1.73 sqM); Albumin 4.2 g/dL (3.5-5.0); Alcohol <10 mg/dL; Alkaline Phosphatase 78 U/L (38-126); Anion Gap 10 mmol/L; Blood Urea Nitrogen 6 mg/dL (7-17); Calcium 8.9 mg/dL (8.4-10.2); Carbon Dioxide 20 mmol/L (22-30); Chloride 98 mmol/L (98-107); Glucose 96 mg/dL (74-99); Non-African American GFR(CKD) >90 (>60 ml/min/1.73 sqM); Potassium 4.6 mmol/L (3.5-5.1); Sodium 128 mmol/L (137-145); Total Bilirubin 0.4 mg/dL (0.2-1.3); Total Protein 7.4 g/dL (6.3-8.2)
[2023-07-01 16:19] VITALS: BP 123/63; RESP 17
== END 2023-07-01 16:15 | disposition home or self-care (01) ==
LOC: EC 11:06
DX: G40.409 Other generalized epilepsy and epileptic syndromes, not intractable, without status epilepticus (principal); F17.200 Nicotine dependence, unspecified, uncomplicated; J45.909 Unspecified asthma, uncomplicated; I25.10 Atherosclerotic heart disease of native coronary artery without angina pectoris
CPT/HCPCS: 96374 ×2; 99285 ×2; 96361 ×2; 36415; 93005; 80053; 83605; 83735; 85025; 84703; 80306; 73060; 73090; 72125; 70450; G0480; J1885; 80320

== ENCOUNTER 2023-07-05 11:18 | Emergency (ER) | payer OTHER ==
[2023-07-05 11:37] VITALS: RESP 18
[2023-07-05] MEDS ORDERED: HYDROcodone/APAP 7.5-325MG 1 EACH TAB PO ONE (11:37)
--- NOTE | 2023-07-05 12:13 | XR ---
EXAMINATION TYPE: XR lumbar spine 2 or 3V DATE OF EXAM: 07/05/2023 Comparison: None Clinical History: 47-year-old female lower back pain Findings: 5 lumbar type vertebral bodies. Facet arthropathy mid to lower lumbar spine. Mild/moderate degenerati ve disc disease L3-S1 levels. Vertebral body heights are preserved and alignment is maintained. Suspe ct oil cysts or phlebolith calcification in the soft tissues posteriorly at the lower back. Impression: 1. No vertebral compression collapse or malalignment. 2. Facet arthropathy mid to lower lumbar spine with mild to moderate degenerative disc disease.
--- NOTE | 2023-07-05 12:34 | ED ---
General Adult HPI - General Stated complaint: Back pain Time Seen by Provider: 07/05/23 11:22 Source: patient, RN notes reviewed Mode of arrival: ambulatory Limitations: no limitations - History of Present Illness Initial comments: 39-year-old female presents emergency Department with chief complaint of low back pain. Patient states she had a seizure earlier today states that she's been having pain or sense. Patient denies any bowel, bladder incontinence or retention or saddle anesthesias states the pain is on her right lower back TOWARDS the hip. Denies any difficulty walking no other associated complaints. - Related Data Home Medications Medication Instructions Recorded Confirmed Lacosamide [Vimpat] 200 mg PO BID 09/11/17 07/01/23 cloBAZam [Clobazam] 15 mg PO BID 06/19/21 07/01/23 OXcarbazepine [Trileptal] 600 mg PO BID 11/05/21 07/01/23 Amitriptyline HCl [Elavil] 10 mg PO HS 07/01/23 07/01/23 Escitalopram [Lexapro] 5 mg PO DAILY 07/01/23 07/01/23 HYDROcodone/APAP 7.5-325MG [[place] 1 tab PO BID PRN 07/01/23 07/01/23 7.5-325] Omeprazole [PriLOSEC] 20 mg PO DAILY 07/01/23 07/01/23 Previous Rx's Medication Instructions Recorded Cyclobenzaprine [Flexeril] 10 mg PO TID PRN #15 tab 07/05/23 predniSONE 50 mg PO DAILY #5 tab 07/05/23 Allergies Allergy/AdvReac Type Severity Reaction Status Date / Time ibuprofen Allergy Unknown Verified 07/05/23 11:27 Review of Systems ROS Statement: Those systems with pertinent positive or pertinent negative responses have been documented in the HPI. ROS Other: All systems not noted in ROS Statement are negative. Past Medical History Past Medical History: Asthma, Seizure Disorder Additional Past Medical History / Comment(s): LAST SEIZURE 4 MONTHS AGO., STATES HAVING CONSTIPATION AND ABD PAIN. History of Any Multi-Drug Resistant Organisms: MRSA Date of last positivie culture/infection: 11/03/08 MDRO Source:: POST Past Surgical History: Back Surgery, Hysterectomy, Orthopedic Surgery, Tubal Ligation Additional Past Surgical History / Comment(s): foot surgery Past Anesthesia/Blood Transfusion Reactions: No Reported Reaction Past Psychological History: No Psychological Hx Reported Smoking Status: Current every day smoker Past Alcohol Use History: None Reported Past Drug Use History: None Reported - Past Family History Mother Family Medical History: Cancer Sister(s) Family Medical History: Cancer Father Family Medical History: Cancer General Exam Limitations: no limitations General appearance: alert, in no apparent distress Head exam: Present: atraumatic, normocephalic, normal inspection Eye exam: Present: normal appearance, PERRL, EOMI. Absent: scleral icterus, conjunctival injection, periorbital swelling ENT exam: Present: normal exam, mucous membranes moist Cardiovascular Exam: Present: regular rate, normal rhythm, normal heart sounds. Absent: systolic murmur, diastolic murmur, rubs, gallop, clicks GI/Abdominal exam: Present: soft, normal bowel sounds. Absent: distended, tenderness, guarding, rebound, rigid Extremities exam: Present: normal inspection, full ROM, normal capillary refill. Absent: tenderness, pedal edema, joint swelling, calf tenderness Neurological exam: Present: alert, oriented X3 Skin exam: Present: warm, dry, intact, normal color. Absent: rash Course Vital Signs 07/05/23 07/05/23 11:23 12:56 Temperature 97.3 F L 98 F Pulse Rate 61 65 Respiratory 18 18 Rate Blood Pressure 127/88 127/84 O2 Sat by Pulse 98 99 Oximetry Medical Decision Making - Medical Decision Making Was pt. sent in by a medical professional or institution ([facility], BEVEL [employer]ISHER, urgent care, hospital, or long term...) When possible be specific @ -No Did you speak to anyone other than the patient for history (EMS, parent, family, police, friend...)? What history was obtained from this source @ -No Did you review nursing and triage notes (agree or disagree)? Why? @ -I reviewed and agree with nursing and triage notes Were old charts reviewed (outside hosp., previous admission, EMS record, old EKG, old radiological studies, urgent care reports/EKG's, long term records)? Report findings @ -No old charts were reviewed Differential Diagnosis (chest pain, altered mental status, abdominal pain women, abdominal pain men, vaginal bleeding, weakness, fever, dyspnea, syncope, headache, dizziness, GI bleed, back pain, seizure, CVA, palpatations, mental health, musculoskeletal)? @ -Differential Back Pain: Strain, zoster, cauda equina syndrome, epidural abscess, vertebral osteomyelitis, discitis, fracture, subluxation, disc herniation, DJD, spinal stenosis, dissection, AAA, pancreatitis, peptic ulcer disease, pyelonephritis, kidney stone, this is not meant to be an all-inclusive list. EKG interpreted by me (3pts min.). @ -none X-rays interpreted by me (1pt min.). @ -X-ray lumbar spine show no acute process CT interpreted by me (1pt min.). @ -None done U/S interpreted by me (1pt. min.). @ -None done What testing was considered but not performed or refused? (CT, X-rays, U/S, labs)? Why? @ -None What meds were considered but not given or refused? Why? @ -None Did you discuss the management of the patient with other professionals (professionals i.e. , PA, BEVEL POLISHER, lab, RT, psych nurse, social media content manager, harpsichord maker, teacher, transport corps officer, bottle caser)? Give summary @ -No Was smoking cessation discussed for >3mins.? @ -No Was critical care preformed (if so, how long)? @ -No Were there social determinants of health that impacted care today? How? (Homelessness, low income, unemployed, alcoholism, drug addiction, transportation, low edu. Level, literacy, decrease access to med. care, [facility], rehab)? @ -No Was there de-escalation of care discussed even if they declined (Discuss DNR or withdrawal of care, Hospice)? DNR status @ -No What co-morbidities impacted this encounter? (DM, HTN, Smoking, COPD, CAD, Cancer, CVA, ARF, Chemo, Hep., AIDS, mental health diagnosis, sleep apnea, morbid obesity)? @ -None Was patient admitted / discharged? Hospital course, mention meds given and route, prescriptions, significant lab abnormalities, going to OR and other pertinent info. @ -Discharge patient has lumbar strain with no red flag symptoms. Patient is discharged in stable condition. Return parameters discussed. Undiagnosed new problem with uncertain prognosis? @ -No Drug Therapy requiring intensive monitoring for toxicity (Heparin, Nitro, Insulin, Cardizem)? @ -No Were any procedures done? @ -No Diagnosis/symptom? @ -Lumbar strain Acute, or Chronic, or Acute on Chronic? @ -Acute Uncomplicated (without systemic symptoms) or Complicated (systemic symptoms)? @ -Uncomplicated Side effects of treatment? @ -No Exacerbation, Progression, or Severe Exacerbation? @ -No Poses a threat to life or bodily function? How? (Chest pain, [place], [place], pneumonia, PE, COPD, DKA, ARF, appy, cholecystitis, CVA, Diverticulitis, Homicidal, Suicidal, threat to staff... and all critical care pts) @ -No Disposition Clinical Impression: Strain of lumbar region Disposition: HOME SELF-CARE Condition: Stable Instructions (If sedation given, give patient instructions): Acute Low Back Pain (ED) Additional Instructions: Please return to the Emergency Department if symptoms worsen or any other concerns. Prescriptions: Cyclobenzaprine [Flexeril] 10 mg PO TID PRN #15 tab PRN Reason: Muscle Spasm predniSONE 50 mg PO DAILY #5 tab Is patient prescribed a controlled substance at d/c from ED?: No Referrals: Marcial Reyes MD [Primary Care Provider] - 1-2 days Time of Disposition: 12:36
[2023-07-05 13:08] VITALS: BP 127/84; PULSE 65; TEMP 98
== END 2023-07-05 12:58 | disposition home or self-care (01) ==
LOC: EC 11:18
DX: S39.012A Strain of muscle, fascia and tendon of lower back, initial encounter (principal); J45.909 Unspecified asthma, uncomplicated; G40.909 Epilepsy, unspecified, not intractable, without status epilepticus; F17.200 Nicotine dependence, unspecified, uncomplicated; Z79.899 Other long term (current) drug therapy; Z88.6 Allergy status to analgesic agent; X58.XXXA Exposure to other specified factors, initial encounter
CPT/HCPCS: 72100; 99283

== ENCOUNTER → 2023-07-29 | Outpatient (CLI) | payer OTHER ==
--- NOTE | 2023-07-29 14:31 | XR ---
EXAMINATION TYPE: XR cervical spine w flex/ext DATE OF EXAM: 07/29/2023 1:49 PM CLINICAL INDICATION:Female, 47 years old with history of M54.12 Radiculopathy M54.2 Cervicalgia; [facility] COMPARISON: 12/11/2017 TECHNIQUE: The cervical spine was imaged in frontal, lateral, odontoid and bilateral oblique. Additio nal bending and flexion views were obtained. FINDINGS: The osseous structures show normal alignment without evidence of an acute fracture. Minimal vertebral body osteophytes or facet joint arthropathy. The intervertebral disk spaces are preserved. Pedicles are intact. Soft tissues are within normal limits. The odontoid appears intact. No abnormal enhancem ent infection views. IMPRESSION: 1. No fracture or dislocation. 2. Minimal degenerative disc disease changes of the cervical spine.
== END | disposition home or self-care (01) ==
LOC: RADXRMAIN 13:17
PROVIDERS: ATTEND Psychiatry & Neurology Pain Medicine
DX: M50.10 Cervical disc disorder with radiculopathy, unspecified cervical region (principal)
CPT/HCPCS: 72052

== ENCOUNTER → 2023-08-02 | Outpatient (CLI) | payer OTHER ==
--- NOTE | 2023-08-02 15:55 | MR ---
EXAMINATION TYPE: MR brain wo con DATE OF EXAM: 08/02/2023 3:37 PM CLINICAL INDICATION:Female, 47 years old with history of R56.9; PHH, Hx of seizures especially when l aying down, traumas to head during seizure, COMPARISON: 09/12/2015. , 11/03/2014. TECHNIQUE: Multi planar, multi sequence imaging was performed through the brain including: T1, T2, In version recovery, Diffusion weighted imaging, and gradient echo imaging. No gadolinium was given. FINDINGS: The manuel-white junctions, ventricular system, and cisterns appear unremarkable. Scattered foci of hi gh T2 signal intensity are seen within the periventricular and deep white matter. Findings a signific antly changed from 2014. Midline structures show no abnormality. Diffusion-weighted imaging shows no evidence of restricted diffusion. The susceptibility weighted images do not reveal any evidence for m icro-hemorrhage. The bone marrow signal is within normal limits. Paranasal sinuses and mastoid air cells: No significant paranasal sinus disease. Visualized orbits: Orbital contents are intact. IMPRESSION: 1. No evidence of intracranial mass or acute/subacute infarct. 2. No evidence for active demyelination, white matter changes that are stable from 2014 and are nonsp ecific,. These are not orthogonal to the ventricles to suggest multiple sclerosis and appear more ran domly distributed throughout the deep white matter. Findings may represent chronic migraine changes v ersus other etiologies.
== END | disposition home or self-care (01) ==
LOC: RADMRIMAIN 14:08
PROVIDERS: ATTEND Psychiatry & Neurology Pain Medicine
DX: M54.12 Radiculopathy, cervical region (principal); R56.9 Unspecified convulsions
CPT/HCPCS: 70551

== ENCOUNTER → 2023-10-17 | Outpatient (CLI) | payer OTHER ==
--- NOTE | 2023-10-17 16:31 | XR ---
EXAMINATION TYPE: XR lumbar spine with bend/flex DATE OF EXAM: 10/17/2023 4:23 PM CLINICAL INDICATION:Female, 47 years old with history of RADICULOPATHY, LUMBAR REGION; MERGED WITH [facility] COMPARISON: 07/05/2023 TECHNIQUE: XR lumbar spine with bend/flex - Frontal, lateral and coned in L5-S1 lateral views of the spine. FINDINGS: No evidence of any acute osseous pathology. No evidence of loss of vertebral body height i s seen. There is normal alignment of the lumbar vertebral bodies. Mild scattered disc space narrowing . Multilevel marginal osteophyte formation throughout the visualized spine. There is facet joint arth ropathy throughout the spine. Scattered at least [id number] L5-S1 neural foraminal stenosis. IMPRESSION: 1. No acute fracture. 2. Mild multilevel disc degeneration.
== END | disposition home or self-care (01) ==
LOC: RADXRMAIN 15:57
PROVIDERS: ATTEND Psychiatry & Neurology Pain Medicine
DX: M54.16 Radiculopathy, lumbar region (principal); M47.896 Other spondylosis, lumbar region; M48.061 Spinal stenosis, lumbar region without neurogenic claudication
CPT/HCPCS: 72114

== ENCOUNTER → 2024-02-05 | Outpatient (CLI) | payer OTHER ==
[2024-02-05 16:13] VITALS: BP 119/71; PULSE 75; RESP 14; TEMP 98.1; BMI 47.1
--- NOTE | 2024-02-05 16:15 | P.HPBAR ---
Bariatric H&P - History & Physicial H&P Date: 01/29/24 History & Physicial: Visit/CC: new pt Patient initial contact: Initial weight: Initial weight in pounds: Height: 5 ft 7 in Initial BMI: Last weight: Current weight: 136.531 kg Current weight in pounds: 301.00 Current BMI: 47.1 [place] body weight (based on NIH guidelines): 61.235 kg Excess body weight loss: The patient is a 48 year-old F who presents for Bariatric Assessment. Drink pop, lao food she eats daily. Wants coverage of skin removal and weight loss. She is 300 pounds. Wants to lose skin. She does not cook due to seizures. She eats salads, and sandwich. She eats chips. She eats M&M peanuts candy. Salads have lópez, onions, black olives and salt. She uses ranch. She puts alot of ranch! Asked her to swap out M&M for fruit. Past Medical History Past Medical History: Asthma, Seizure Disorder Additional Past Medical History / Comment(s): LAST SEIZURE 4 MONTHS AGO., STATES HAVING CONSTIPATION AND ABD PAIN. History of Any Multi-Drug Resistant Organisms: MRSA Year Discovered:: 11/03/08 MDRO Source:: POST Past Surgical History: Back Surgery, Hysterectomy, Orthopedic Surgery, Tubal Ligation Additional Past Surgical History / Comment(s): foot surgery Past Anesthesia/Blood Transfusion Reactions: No Reported Reaction Past Psychological History: No Psychological Hx Reported Smoking Status: Current every day smoker Past Alcohol Use History: None Reported Additional Past Alcohol Use History / Comment(s): SMOKES 1 PPD, STARTED SMOKING AGE 14. Past Drug Use History: None Reported Additional Drug Use History / Comment(s): . - Past Family History Mother Family Medical History: Cancer Sister(s) Family Medical History: Cancer Father Family Medical History: Cancer Surgical - Exam Vital Signs Temp Pulse Resp BP 98.1 F 75 14 119/71 02/05/24 15:20 02/05/24 15:20 02/05/24 15:20 02/05/24 15:20 Bariatric Checklist Checklist: Plan: Checklist: EGD: 1. Hiatal hernia: 2. H. Pylori: HgbA1c: Vitamin D: Smoking: Current every day smoker Primary care physician referral: Marcial Reyes Psychiatry clearance: Cardiology clearance: Sleep study: Diet journal: VTE risk score: VTE risk level: Rehab needs at discharge:
== END ==
LOC: BARWHC3 14:29
PROVIDERS: ATTEND Surgery Plastic and Reconstructive Surgery
DX: E66.01 Morbid (severe) obesity due to excess calories (principal); F17.210 Nicotine dependence, cigarettes, uncomplicated; Z88.6 Allergy status to analgesic agent; Z68.42 Body mass index [BMI] 45.0-49.9, adult
CPT/HCPCS: 99212

== ENCOUNTER 2024-02-26 14:40 | Observation (INO) | payer OTHER ==
--- NOTE | 2024-02-26 14:49 | ED ---
Back Pain HPI - General Source: patient, RN notes reviewed Mode of arrival: EMS Limitations: no limitations - History of Present Illness MD Complaint: back pain, back injury <Henrietta Garrison - Last Filed: 02/26/24 14:47> <Hannah Brooke - Last Filed: 02/27/24 00:29> - General Chief Complaint: Back Pain/Injury Stated Complaint: back pain Time Seen by Provider: 02/26/24 14:47 - History of Present Illness Initial Comments: Quick Note: This is a 48-year-old female who presents to the emergency department for back pain. Patient has a longstanding history of seizures and had a seizure last night, causing her to injure her lower back. She has since had a lot of pain of the lower back and is having difficulty walking. Denies any loss of bowel/bladder control or saddle anesthesia. (Henrietta Garrison) 48-year-old female with past medical history of seizure disorder follows with Dr. Breaux presents to the emergency department for evaluation of seizure causing her to fall onto her back. She reports that this occurred last night lasting a few minutes. Her witnessed the event and states that she did not hit her head. Prior to this, her last seizure was 2 days ago. Patient complains that she has significant pain in her low back. She states that this is causing her to have difficulty ambulating. She denies loss of bowel or bladder function, saddle anesthesia, urinary retention. (Hannah Brooke) - Related Data Home Medications Medication Instructions Recorded Confirmed Lacosamide [Vimpat] 200 mg PO BID 09/11/17 02/26/24 cloBAZam [Clobazam] 10 mg PO BID 06/19/21 02/26/24 OXcarbazepine [Trileptal] 600 mg PO BID 11/05/21 02/26/24 HYDROcodone/APAP 7.5-325MG [[place] 1 tab PO BID PRN 02/26/24 02/26/24 7.5-325] Allergies Allergy/AdvReac Type Severity Reaction Status Date / Time ibuprofen Allergy Unknown Verified 02/26/24 19:59 Review of Systems ROS Other: All systems not noted in ROS Statement are negative. <Henrietta Garrison - Last Filed: 02/26/24 14:47> ROS Other: All systems not noted in ROS Statement are negative. <DylanayannaHannah schmitt - Last Filed: 02/27/24 00:29> ROS Statement: Those systems with pertinent positive or pertinent negative responses have been documented in the HPI. Past Medical History Past Medical History: Asthma, Seizure Disorder Additional Past Medical History / Comment(s): LAST SEIZURE 4 MONTHS AGO., STATES HAVING CONSTIPATION AND ABD PAIN. History of Any Multi-Drug Resistant Organisms: MRSA Date of last positivie culture/infection: 11/03/08 MDRO Source:: POST Past Surgical History: Back Surgery, Hysterectomy, Orthopedic Surgery, Tubal Ligation Additional Past Surgical History / Comment(s): foot surgery Past Anesthesia/Blood Transfusion Reactions: No Reported Reaction Past Psychological History: No Psychological Hx Reported Smoking Status: Current every day smoker Past Alcohol Use History: None Reported Past Drug Use History: None Reported - Past Family History Mother Family Medical History: Cancer Sister(s) Family Medical History: Cancer Father Family Medical History: Cancer <Henrietta Garrison - Last Filed: 02/26/24 14:47> General Exam Limitations: no limitations <Henrietta Garrison - Last Filed: 02/26/24 14:47> Limitations: no limitations General appearance: alert, in no apparent distress Head exam: Present: atraumatic, normocephalic, normal inspection Eye exam: Present: normal appearance, PERRL, EOMI. Absent: scleral icterus, conjunctival injection, periorbital swelling ENT exam: Present: normal exam, mucous membranes moist Neck exam: Present: normal inspection, full ROM. Absent: tenderness, meningismus, lymphadenopathy Respiratory exam: Present: normal lung sounds bilaterally. Absent: respiratory distress, wheezes, rales, rhonchi, stridor Cardiovascular Exam: Present: regular rate, normal rhythm, normal heart sounds. Absent: systolic murmur, diastolic murmur, rubs, gallop, clicks GI/Abdominal exam: Present: soft, normal bowel sounds. Absent: distended, tenderness, guarding, rebound, rigid Extremities exam: Present: normal inspection, full ROM, normal capillary refill. Absent: tenderness, pedal edema, joint swelling, calf tenderness Back exam: Present: normal inspection, tenderness. Absent: full ROM Neurological exam: Present: alert, oriented X3, CN II-XII intact. Absent: motor sensory deficit Psychiatric exam: Present: normal affect, normal mood Skin exam: Present: warm, dry, normal color, abrasion. Absent: rash <Hannah Brooke - Last Filed: 02/27/24 00:29> - General Exam Comments Initial Comments: Visual Physical Exam Vital signs reviewed General: Well-appearing, nontoxic, no acute distress. Head: Normocephalic, atraumatic Eyes: PERRLA, EOMI ENT: Airway patent Chest: Nonlabored breathing Skin: No visual rash, normal skin tone Neuro: Alert and oriented 3 Musculoskeletal: No gross abnormalities (Henrietta Garrison) Course Vital Signs 02/26/24 02/26/24 14:43 20:38 Temperature 98.2 F 98.2 F Pulse Rate 65 61 Respiratory 16 Rate Blood Pressure 111/69 123/83 O2 Sat by Pulse 95 95 Oximetry Medical Decision Making <Henrietta Garrison - Last Filed: 02/26/24 14:47> - Lab Data Result diagrams: 02/26/24 14:47 02/26/24 15:29 <Hannah Brooke - Last Filed: 02/27/24 00:29> - Medical Decision Making I performed the QuickNote portion of this chart. Signed Henrietta Garrison PA-C. (Henrietta Garrison) Was pt. sent in by a medical professional or institution ([facility], [employer]ERCING M[employer] OPERATOR, urgent care, hospital, or fpc...) When possible be specific @ -No Did you speak to anyone other than the patient for history (EMS, parent, family, police, friend...)? What history was obtained from this source @ -No Did you review nursing and triage notes (agree or disagree)? Why? @ -I reviewed and agree with nursing and triage notes Were old charts reviewed (outside hosp., previous admission, EMS record, old EKG, old radiological studies, urgent care reports/EKG's, fpc records)? Report findings @ -No old charts were reviewed Differential Diagnosis (chest pain, altered mental status, abdominal pain women, abdominal pain men, vaginal bleeding, weakness, fever, dyspnea, syncope, headache, dizziness, GI bleed, back pain, seizure, CVA, palpatations, mental h ealth, musculoskeletal)? @ -Differential Back Pain: Strain, zoster, cauda equina syndrome, epidural abscess, vertebral osteomyelitis, discitis, fracture, subluxation, disc herniation, DJD, spinal st enosis, dissection, AAA, pancreatitis, peptic ulcer disease, pyelonephritis, kidney stone, this is not meant to be an all-inclusive list. EKG interpreted by me (3pts min.). @ -None X-rays interpreted by me (1pt min.). @ -XR lumbar spine shows no acute process CT interpreted by me (1pt min.). @ -CT lumbar spine shows acute/subacute fractures of transverse process of L1- L4 U/S interpreted by me (1pt. min.). @ -None done What testing was considered but not performed or refused? (CT, X-rays, U/S, labs)? Why? @ -None What meds were considered but not given or refused? Why? @ -None Did you discuss the management of the patient with other professionals (professionals i.e. , PA, PIERCING MILL OPERATOR, lab, RT, psych nurse, social contact worker, diabetes territory manager, teacher, chief scientific officer, immigration case manager)? Give summary @ -Management discussed with Dr. Osorio defers admission to hospital medicine Management discussed with Dr. Borges who is accepting of the admission Was smoking cessation discussed for >3mins.? @ -No Was critical care preformed (if so, how long)? @ -No Were there social determinants of health that impacted care today? How? (Homelessness, low income, unemployed, alcoholism, drug addiction, transportation, low edu. Level, literacy, decrease access to med. care, penitentiary, rehab)? @ -No Was there de-escalation of care discussed even if they declined (Discuss DNR or withdrawal of care, Hospice)? DNR status @ -No What co-morbidities impacted this encounter? (DM, HTN, Smoking, COPD, CAD, Cancer, CVA, ARF, Chemo, Hep., AIDS, mental health diagnosis, sleep apnea, morbid obesity)? @ -None Was patient admitted / discharged? Hospital course, mention meds given and route, prescriptions, significant lab abnormalities, going to OR and other pertinent info. @ -Admitted. Patient presented to the emergency department for evaluation of back injury from a seizure causing her to fall onto her back. Labs obtained significant for hyponatremia at 123. Patient underwent imaging of back. CT shows acute/subacute fracture of transverse processes of L1-L4. Case was discussed with orthopedics who defers admission to hospital medicine due to the patient's hyponatremia. Case was discussed with Dr. Borges who was accepting of the admission. Patient stable at time of admission. Case discussed with Dr. Kingsley Undiagnosed new problem with uncertain prognosis? @ -No Drug Therapy requiring intensive monitoring for toxicity (Heparin, Nitro, Insulin, Cardizem)? @ -No Were any procedures done? @ -No Diagnosis/symptom? @ -Transverse process fracture, hyponatremia Acute, or Chronic, or Acute on Chronic? @ -Acute Uncomplicated (without systemic symptoms) or Complicated (systemic symptoms)? @ -uncomplicated Side effects of treatment? @ -No Exacerbation, Progression, or Severe Exacerbation? @ -No Poses a threat to life or bodily function? How? (Chest pain, USA, MS, pneumonia, PE, COPD, DKA, ARF, appy, cholecystitis, CVA, Diverticulitis, Homicidal, Suicidal, threat to staff... and all critical care pts) @ -No (Hannah Brooke) - Lab Data Lab Results 02/26/24 02/26/24 02/26/24 Range/Units 14:47 15:29 17:05 WBC 5.1 (3.8-10.6) k/uL RBC 4.10 (3.80-5.40) m/uL Hgb 12.9 (11.4-16.0) gm/dL Hct 37.4 (34.0-46.0) % MCV 91.2 (80.0-100.0) fL MCH 31.5 (25.0-35.0) pg MCHC 34.5 (31.0-37.0) g/dL RDW 13.1 (11.5-15.5) % Plt Count 271 (150-450) k/uL MPV 7.7 Neutrophils % 68 % Lymphocytes % 24 % Monocytes % 5 % Eosinophils % 1 % Basophils % 0 % Neutrophils # 3.4 (1.3-7.7) k/uL Lymphocytes # 1.2 (1.0-4.8) k/uL Monocytes # 0.3 (0-1.0) k/uL Eosinophils # 0.1 (0-0.7) k/uL Basophils # 0.0 (0-0.2) k/uL Sodium 123 L (137-145) mmol/L Potassium 4.6 (3.5-5.1) mmol/L Chloride 92 L (98-107) mmol/L Carbon Dioxide 25 (22-30) mmol/L Anion Gap 6 mmol/L BUN 8 (7-17) mg/dL Creatinine 0.40 L (0.52-1.04) mg/dL Est GFR (CKD-EPI)AfAm >90 (>60 ml/min/1.73 sqM) Est GFR (CKD-EPI)NonAf >90 (>60 ml/min/1.73 sqM) Glucose 101 H (74-99) mg/dL Calcium 8.7 (8.4-10.2) mg/dL Total Bilirubin 0.7 (0.2-1.3) mg/dL AST 32 (14-36) U/L ALT 34 (4-34) U/L Alkaline Phosphatase 71 (38-126) U/L Total Protein 6.8 (6.3-8.2) g/dL Albumin 4.2 (3.5-5.0) g/dL Urine Color Light Yellow Urine Appearance Clear (Clear) Urine pH 7.0 (5.0-8.0) Ur Specific Radnor 1.015 (1.001-1.035) Urine Protein Negative (Negative) Urine Glucose (UA) Negative (Negative) Urine Ketones Negative (Negative) Urine Blood Negative (Negative) Urine Nitrite Negative (Negative) Urine Bilirubin Negative (Negative) Urine Urobilinogen <2.0 (<2.0) mg/dL Ur Leukocyte Esterase Negative (Negative) Disposition <Henrietta Garrison - Last Filed: 02/26/24 14:47> Is patient prescribed a controlled substance at d/c from ED?: No <Hannah Brooke - Last Filed: 02/27/24 00:29> Clinical Impression: Hyponatremia, Recurrent seizures, Lumbar transverse process fracture Disposition: ADMITTED IP TO THIS [facility] Condition: Stable
[2024-02-26 14:57] LABS: Basophils % (A) 0 %; Eosinophils # (A) 0.1 k/uL (0-0.7); Eosinophils % (A) 1 %; HCT 37.4 % (34.0-46.0); HGB 12.9 gm/dL (11.4-16.0); Lymphocytes # (A) 1.2 k/uL (1.0-4.8); Lymphocytes % (A) 24 %; MCH 31.5 pg (25.0-35.0); MCHC 34.5 g/dL (31.0-37.0); MCV 91.2 fL (80.0-100.0); Mean Platelet Volume 7.7; Monocytes # (A) 0.3 k/uL (0-1.0); Monocytes % (A) 5 %; Neutrophils # (A) 3.4 k/uL (1.3-7.7); Neutrophils % (A) 68 %; Platelet Count 271 k/uL (150-450); RDW 13.1 % (11.5-15.5); WBC 5.1 k/uL (3.8-10.6)
--- NOTE | 2024-02-26 16:22 | XR ---
EXAMINATION TYPE: XR lumbar spine 2 or 3V DATE OF EXAM: 02/26/2024 3:51 PM CLINICAL INDICATION:Female, 48 years old with history of Fall; COMPARISON: 10/17/2023 TECHNIQUE: XR lumbar spine 2 or 3V - Frontal, lateral and coned in L5-S1 lateral views of the spine. FINDINGS: No evidence of any acute osseous pathology. No evidence of loss of vertebral body height i s seen. There is normal alignment of the lumbar vertebral bodies. Scattered disc space narrowing. Mul tilevel marginal osteophyte formation throughout the visualized spine. There is facet joint arthropat hy throughout the spine. Scattered at least mild neural foraminal stenosis. IMPRESSION: 1. No acute fracture. 2. Moderate multilevel disc degeneration.
[2024-02-26] MEDS: HYDROmorphone 0.5 MG/0.5 ML SYRINGE IVP STA (16:55)
[2024-02-26] MEDS: ORPHENADRINE 30 MG/ML 2 ML VIAL IVP STA (17:01)
[2024-02-26 17:03] LABS: ALT 34 U/L (4-34); AST 32 U/L (14-36); African American GFR (CKD) >90 (>60 ml/min/1.73 sqM); Albumin 4.2 g/dL (3.5-5.0); Alkaline Phosphatase 71 U/L (38-126); Anion Gap 6 mmol/L; Blood Urea Nitrogen 8 mg/dL (7-17); Calcium 8.7 mg/dL (8.4-10.2); Carbon Dioxide 25 mmol/L (22-30); Chloride 92 mmol/L (98-107); Glucose 101 mg/dL (74-99); Non-African American GFR(CKD) >90 (>60 ml/min/1.73 sqM); Potassium 4.6 mmol/L (3.5-5.1); Sodium 123 mmol/L (137-145); Total Bilirubin 0.7 mg/dL (0.2-1.3); Total Protein 6.8 g/dL (6.3-8.2)
[2024-02-26 17:23] LABS: Appearance,Urine Clear (Clear); Bilirubin,Urine Negative (Negative); Blood,Urine Negative (Negative); Color,Urine Light Yellow; Glucose,Urine (UA) Negative (Negative); Ketones,Urine Negative (Negative); Leukocyte Esterase,Urine Negative (Negative); Nitrite,Urine Negative (Negative); Protein,Urine Negative (Negative); Specific Gravity,Urine 1.015 (1.001-1.035); Urobilinogen,Urine <2.0 mg/dL (<2.0)
--- NOTE | 2024-02-26 17:35 | CT ---
EXAMINATION TYPE: CT lumbar spine wo con CT DLP: 2002.4 mGycm, Automated exposure control for dose reduction was used. DATE OF EXAM: 02/26/2024 5:25 PM COMPARISON: None. CLINICAL INDICATION:Female, 48 years old with history of fall, pain, Chronic lower back pain with rec ent fall TECHNIQUE: Multiple axial images were obtained from the midportion of T11 through the sacroiliac agnes nts. Soft tissue and bone windows in coronal and sagittal planes were obtained and reviewed. Contrast used: mL of , (None, if empty). Oral contrast used: (None, if empty). FINDINGS: Alignment: There are 5 lumbar type vertebral bodies within normal alignment. Bone: Acute fractures of the right transverse process of T1-L4 suggested. Mild degeneration changes w ith osteophyte formation and facet joint arthropathy. Discs: T12-L1: No spinal canal or neural foraminal stenosis is identified. L1-L2: No spinal canal or neural foraminal stenosis is identified. L2-L3: No spinal canal or neural foraminal stenosis is identified. L3-L4: Facet joint arthropathy and disc bulging result with mild spinal canal stenosis and mild bilat eral neural foraminal stenosis. L4-L5: Facet joint arthropathy and disc bulging result with mild spinal canal stenosis and mild bilat eral neural foraminal stenosis. L5-S1: Facet joint arthropathy and disc bulging result with mild spinal canal stenosis and moderate r ight and mild left neural foraminal stenosis. Other: Scattered colonic diverticula. IMPRESSION: 1. Acute/subacute fractures through the transverse processes of L1-L4. Correlate with history of mando n. No additional fractures visualized. 2. No evidence for significant spinal canal stenosis.
[2024-02-26] MEDS: HYDROmorphone 1 MG/ML 1 ML SYRINGE IVP STA (19:17)
[2024-02-26] MEDS: SODIUM CHLORIDE 0.9% 1,000 ML IV ONE (19:17)
[2024-02-26] MEDS ORDERED: NALOXONE 0.4 MG/ML 1 ML VIAL IV PRN (19:37)
[2024-02-26] MEDS ORDERED: HYDROmorphone 0.5 MG/0.5 ML SYRINGE IVP PRN (19:37)
[2024-02-26] MEDS: SODIUM CHLORIDE 0.9% 1,000 ML IV SCH (20:59)
[2024-02-26] MEDS: ACETAMINOPHEN TAB 325 MG TAB PO PRN (21:05)
[2024-02-26] MEDS: CLOBAZAM 10 MG PO SCH (21:06)
[2024-02-26] MEDS: LACOSAMIDE 150 MG TABLET PO SCH (21:07)
[2024-02-26] MEDS: OXcarbazepine 300 MG TAB PO SCH (21:07)
[2024-02-26] MEDS: LACOSAMIDE 50 MG TABLET PO SCH (21:07)
--- NOTE | 2024-02-27 09:10 | P.CNOR ---
History of Present Illness - [facility] Consult date: 02/27/24 Consult reason: low back pain History of present illness: This is a 48-year-old female with history of epilepsy. She apparently had a seizure on 02/25/2024 and has been having low back pain since her admission to the hospital for hyponatremia. We are consulted for repeat evaluation of her low back pain. Past Medical History Past Medical History: Asthma, Seizure Disorder Additional Past Medical History / Comment(s): LAST SEIZURE 4 MONTHS AGO., STATES HAVING CONSTIPATION AND ABD PAIN. History of Any Multi-Drug Resistant Organisms: MRSA Year Discovered:: 11/03/08 MDRO Source:: POST Past Surgical History: Back Surgery, Hysterectomy, Orthopedic Surgery, Tubal Ligation Additional Past Surgical History / Comment(s): foot surgery Past Anesthesia/Blood Transfusion Reactions: No Reported Reaction Past Psychological History: No Psychological Hx Reported Smoking Status: Current every day smoker Past Alcohol Use History: None Reported Additional Past Alcohol Use History / Comment(s): SMOKES 1 PPD, STARTED SMOKING AGE 14. Past Drug Use History: None Reported Additional Drug Use History / Comment(s): . - Past Family History Mother Family Medical History: Cancer Sister(s) Family Medical History: Cancer Father Family Medical History: Cancer Medications and Allergies Home Medications Medication Instructions Recorded Confirmed Type Lacosamide [Vimpat] 200 mg PO BID 09/11/17 02/26/24 History cloBAZam [Clobazam] 10 mg PO BID 06/19/21 02/26/24 History OXcarbazepine [Trileptal] 600 mg PO BID 11/05/21 02/26/24 History HYDROcodone/APAP 7.5-325MG [[place] 1 tab PO BID PRN 02/26/24 02/26/24 History 7.5-325] Allergies Allergy/AdvReac Type Severity Reaction Status Date / Time ibuprofen Allergy Unknown Verified 02/26/24 19:59 Physical Examination Osteopathic Statement: *. No significant issues noted on an osteopathic structural exam other than those noted in the History and Physical/Consult. This is a pleasant 48-year-old female in no acute distress. She is alert and oriented x 3. Exam of her head neck revealed no obvious deformity. She has full cervical spine motion without difficulty or pain. Exam of the upper extremities is unremarkable. She has full motion to bilateral shoulders without difficulty or pain. Neurovascular status to the upper extremities is intact. Exam of the thoracic and lumbar spine reveal no obvious deformity. There is no tenderness to palpation about the thoracic spine. There is tenderness about the lower lumbar spine and right-sided paraspinal musculature. Exam of the lower extremities reveals no deformity. She is able to lift each leg off the bed independently with some pain on the right. She has full foot and ankle motion without difficulty or pain. Neurovascular status to the lower extremities is intact. Results CT scan and x-rays of the lumbar spine reveal nondisplaced transverse process fractures to L1, 2, 3, 4 and 5. No other bony abnormalities are noted. - Labs Labs: Abnormal Lab Results - Last 24 Hours (Table) 02/26/24 02/26/24 02/26/24 Range/Units 15:29 19:11 19:11 Sodium 123 L (137-145) mmol/L Chloride 92 L (98-107) mmol/L Creatinine 0.40 L (0.52-1.04) mg/dL Glucose 101 H (74-99) mg/dL Osmolality 260 L (275-295) mOsm/kg Urine Osmolality 156 L (400-1100) mOsm/kg Ur Random Sodium (40-220) mmol/L 02/26/24 Range/Units 19:11 Sodium (137-145) mmol/L Chloride (98-107) mmol/L Creatinine (0.52-1.04) mg/dL Glucose (74-99) mg/dL Osmolality (275-295) mOsm/kg Urine Osmolality (400-1100) mOsm/kg Ur Random Sodium 28 L (40-220) mmol/L H & H 02/26/24 Range/Units 14:47 Hgb 12.9 (11.4-16.0) gm/dL Hct 37.4 (34.0-46.0) % Result Diagrams: 02/27/24 05:04 02/27/24 05:04 Assessment and Plan (1) Hyponatremia Current Visit: Yes Status: Acute Code(s): E87.1 - HYPO-OSMOLALITY AND HYPONATREMIA SNOMED Code(s): 34569389 (2) Lumbar transverse process fracture Current Visit: Yes Status: Acute Code(s): S32.009A - UNSP FRACTURE OF UNSP LUMBAR VERTEBRA, INIT FOR CLOS FX SNOMED Code(s): 136153406 (3) Recurrent seizures Current Visit: Yes Status: Acute Code(s): G40.909 - EPILEPSY, UNSP, NOT INTRACTABLE, WITHOUT STATUS EPILEPTICUS SNOMED Code(s): 43456510 (4) Epileptic seizure, generalized Current Visit: No Status: Acute Code(s): G40.309 - GEN IDIOPATHIC EPILEPSY, NOT INTRACTABLE, W/O STAT EPI SNOMED Code(s): 59891027 Plan: The clinical and radiographic findings are discussed with the patient. I will order an LSO brace for her for comfort. She does not need to be in the brace all the time and may have it off in bed. The brace is for comfort only. She is to follow-up with Dr. Eduardo in 3 weeks for follow-up evaluation. The patient is seen and examined at bedside. LSO brace has been ordered for her multiple transverse process fractures. She has new transverse process fractures acutely due to her seizure. Her pain is moderate and I think that she can do well with conservative treatment. I think that she can do well with LSO brace whenever she is doing activities or ambulating. She does not need to use a brace when she is in bed or bathing. She is not having any neurologic change and I do not think that she has acute ne ed for further imaging for her lumbar spine at this point. From a spine standpoint she is okay for discharge home with her LSO brace. We can see her back in approximately 2 to 3 weeks for recheck evaluation and repeat imaging. She should continue her medical management.
[2024-02-27 09:42] LABS: Blood Urea Nitrogen 4.7 mg/dL (9.0-27.0); Calcium 8.4 mg/dL (8.7-10.3); Carbon Dioxide 25.3 mmol/L (21.6-31.8); Chloride 92 mmol/L (96-109); Glucose 111 mg/dL (70-110); Potassium 4.4 mmol/L (3.5-5.5); Sodium 126 mmol/L (135-145)
[2024-02-27 09:47] LABS: Basophils # (A) 0.01 X 10*3/uL (0.00-0.10); Basophils % (A) 0.2 %; Eosinophils # (A) 0.13 X 10*3/uL (0.04-0.35); Eosinophils % (A) 2.7 %; HCT 37.9 % (37.2-46.3); HGB 12.7 g/dL (12.0-15.0); Lymphocytes # (A) 1.14 X 10*3/uL (0.90-5.00); Lymphocytes % (A) 24.1 %; MCH 30.6 pg (27.0-32.0); MCHC 33.5 g/dL (32.0-37.0); MCV 91.3 FL (80.0-97.0); Mean Platelet Volume 8.9 FL (9.5-12.2); Monocytes # (A) 0.31 X 10*3/uL (0.20-1.00); Monocytes % (A) 6.5 %; NRBC Per 100 WBC 0 X 10*3/uL (0.00-0.01); Neutrophils # (A) 3.13 X 10*3/uL (1.80-7.70); Neutrophils % (A) 66.1 %; Platelet Count 252 X 10*3/uL (140-440); RBC 4.15 X 10*6/uL (4.10-5.20); RDW 13.2 % (11.5-14.5); WBC 4.74 X 10*3/uL (4.50-10.00)
[2024-02-27] MEDS: HYDROcodone/APAP 7.5-325MG 1 EACH TAB PO PRN (09:54)
[2024-02-27] MEDS: ENOXAPARIN 40 MG/0.4 ML SYRINGE SQ SCH (09:54)
[2024-02-27] MEDS: NICOTINE 21MG/24HR PATCH TRANSDERM SCH (12:05)
--- NOTE | 2024-02-27 17:41 | P.HPIM ---
History of Present Illness H&P Date: 02/27/24 Chief Complaint: Seizure History of presenting complaint: 48 Y-year-old patient follows with Dr. Reyes. Her neurologist is Dr. Breaux who she has not seen as yet. She was recently following up with MET[employer] Agustin Lentz.. has known generalized tonic-clonic seizure. Patient does not remember the events of what led to the hospital. Looking at the EMS notes EMS was called out by patient's friend with whom she lives because of fall and pain in the back. Around 10:00 she fell. She has an abrasion to the right back. The previous night patient had a seizure while exiting the bathroom and fell to the carpeted floor. Patient then went into a seizure that lasted about 1 minute. She did not hit her head. Patient cannot tell me the frequency of the seizures. Cannot even describe what the seizure-like. Patient does not complain of any change in bowels or urine pattern. No radiation of the pain. Review of systems: GEN.: Tired EYES: None HEENT: None NECK: None RESPIRATORY: As above CARDIOVASCULAR: As above GASTROINTESTINAL: [As above GENITOURINARY: None MUSCULOSKELETAL: Back pain LYMPHATICS: None HEMATOLOGICAL: None PSYCHIATRY: None NEUROLOGICAL: None Past medical history to include COPD a, tonic-clonic seizure, anxiety depression Social history: Patient lives with a friend called Ronny. Smokes anywhere from 2- 3 packs a day. No alcohol. No recreational drugs. Physical examination: VITAL SIGNS: 98.3, 71, 18, 1 one 2 x 71, 93% room air GENERAL: BMI 54.8, reclining bed awake not in distress. EYES: Pupils equal. Conjunctiva normal. HEENT: External appearance of nose and ears normal, oral cavity grossly normal. NECK: JVD not raised; masses not palpable. HEART: First and second heart sounds are normal; no edema. LUNGS: Respiratory rate normal; slightly decreased breath sounds. ABDOMEN: Soft, nontender, liver spleen not palpable, no masses palpable. PSYCH: Alert and oriented x3; mood and affect normal. MUSCULOSKELETAL: Tenderness along the lumbar vertebra. Some adjoining bruising. NEUROLOGICAL: Cranial nerves grossly intact; no facial asymmetry, power and sensation grossly intact. LYMPHATICS: No lymph nodes palpable in the axilla and neck INVESTIGATIONS, reviewed in the clinical context: February 27, 2024: White count 4.7 hemoglobin 12.7 platelets 252 sodium to 126 potassium 4.4 BUN 4.7 creatinine 0.5 glucose 111 serum osmolality 260 February 25: Sodium 123 urine osmolality 156 urine sodium 28 X-ray lumbar spine: No acute fracture moderate multilevel disc DJD. CT scan lumbar spine: Colonic diverticula. Acute/subacute fractures through the transverse process of L1-L4. Assessment and plan: -Acute/subacute fracture through the transverse process of L1-L4. Secondary to fall secondary to seizure. Orthopedics consulted.-Activity per orthopedics -Severe hypoosmolar hyponatremia. Patient does drink excessive water. Fluid restriction. 1500 cc a day. -Progressively worsening GERD symptoms. Also patient smoker. Protonix 40 mg twice a day. Outpatient follow-up with GI -Morbid obesity BMI 54.8 Weight loss measures. Follow PCP -Tonic-clonic seizures., With an episode last night. Patient cannot tell the frequency of the same. Consult neurology. Seizure precautions Trileptal. Vimpat. Clobazam -Chronic nicotine dependence, cigarette smoker Nicotine patch. Counseled -COPD and a current smoker DuoNeb as needed -Full code Past Medical History Past Medical History: Asthma, Seizure Disorder Additional Past Medical History / Comment(s): LAST SEIZURE 4 MONTHS AGO., STATES HAVING CONSTIPATION AND ABD PAIN. History of Any Multi-Drug Resistant Organisms: MRSA Date of last positivie culture/infection: 11/03/08 MDRO Source:: POST Past Surgical History: Back Surgery, Hysterectomy, Orthopedic Surgery, Tubal Ligation Additional Past Surgical History / Comment(s): foot surgery Past Anesthesia/Blood Transfusion Reactions: No Reported Reaction Past Psychological History: No Psychological Hx Reported Smoking Status: Current every day smoker Past Alcohol Use History: None Reported Additional Past Alcohol Use History / Comment(s): SMOKES 1 PPD, STARTED SMOKING AGE 14. Past Drug Use History: None Reported Additional Drug Use History / Comment(s): . - Past Family History Mother Family Medical History: Cancer Sister(s) Family Medical History: Cancer Father Family Medical History: Cancer Medications and Allergies Home Medications Medication Instructions Recorded Confirmed Type Lacosamide [Vimpat] 200 mg PO BID 09/11/17 02/26/24 History cloBAZam [Clobazam] 10 mg PO BID 06/19/21 02/26/24 History OXcarbazepine [Trileptal] 600 mg PO BID 11/05/21 02/26/24 History HYDROcodone/APAP 7.5-325MG [[place] 1 tab PO BID PRN 02/26/24 02/26/24 History 7.5-325] Allergies Allergy/AdvReac Type Severity Reaction Status Date / Time ibuprofen Allergy Unknown Verified 02/26/24 19:59 Physical Exam Vitals: Vital Signs Temp Pulse Pulse Pulse Resp BP BP 02/27/24 07:02 98.6 F 71 18 112/71 02/27/24 01:45 98.3 F 84 17 121/78 02/26/24 22:01 97.7 F 55 L 18 137/77 02/26/24 20:38 98.2 F 61 123/83 02/26/24 14:43 98.2 F 65 16 111/69 Pulse Ox 02/27/24 07:02 93 L 02/27/24 01:45 96 02/26/24 22:01 94 L 02/26/24 20:38 95 02/26/24 14:43 95 Intake and Output 02/26/24 02/27/24 02/27/24 22:59 06:59 14:59 Other: # Voids 2 Weight 158.757 kg Results CBC & Chem 7: 02/27/24 05:04 02/27/24 05:04 Labs: Abnormal Lab Results - Last 24 Hours (Table) 02/26/24 02/26/24 02/26/24 Range/Units 15:29 19:11 19:11 MPV (9.5-12.2) FL Sodium 123 L (137-145) mmol/L Chloride 92 L (98-107) mmol/L BUN (9.0-27.0) mg/dL Creatinine 0.40 L (0.52-1.04) mg/dL BUN/Creatinine Ratio (12.00-20.00) Ratio Glucose 101 H (74-99) mg/dL Osmolality 260 L (275-295) mOsm/kg Calcium (8.7-10.3) mg/dL Urine Osmolality 156 L (400-1100) mOsm/kg Ur Random Sodium (40-220) mmol/L 02/26/24 02/27/24 02/27/24 Range/Units 19:11 05:04 05:04 MPV 8.9 L (9.5-12.2) FL Sodium 126 L (137-145) mmol/L Chloride 92 L (98-107) mmol/L BUN 4.7 L (9.0-27.0) mg/dL Creatinine 0.5 L (0.52-1.04) mg/dL BUN/Creatinine Ratio 9.40 L (12.00-20.00) Ratio Glucose 111 H (74-99) mg/dL Osmolality (275-295) mOsm/kg Calcium 8.4 L (8.7-10.3) mg/dL Urine Osmolality (400-1100) mOsm/kg Ur Random Sodium 28 L (40-220) mmol/L Thrombosis Risk Factor Assmnt - Choose All That Apply Each Factor Represents 1 point: Age 41-60 years, Obesity (BMI >25), Varicose veins Other congenital or acquired thrombophilia - If yes, enter type in comment: No Thrombosis Risk Factor Assessment Total Risk Factor Score: 3 Thrombosis Risk Factor Assessment Level: Moderate Risk
[2024-02-28] MEDS: HYDROmorphone 1 MG/ML 1 ML SYRINGE IVP PRN (05:33)
--- NOTE | 2024-02-28 07:38 | P.PN ---
Progress Note - Text Progress Note Date: 02/28/24 The patient is seen and examined at bedside. She has some complaints of pain in her low back when she moves around but she is not having any neurologic deficit. She says the pain is manageable with her medications. She does not have any new complaints. She denies any numbness tingling in her l ower extremities On exam she has some tenderness at her back. She is able to mobilize in bed. There is no open wounds lacerations or abrasions. Her lower extremities have 5 out of 5 strength throughout with dorsiflexion plantarflexion EHL hip flexion and knee extension. No pain with internal ex rotation of her hips Her pelvis is stable Neck and upper extremities have full active and passive range of motion Assessment and plan Multiple transverse process fractures on the right L1-L4 secondary to seizure, acute Low back pain due to lumbar strain and transverse process fractures No structural instability for the lumbar spine No neurologic decline from a spine standpoint The patient has multiple transverse process fractures which are overall stable. She does not need any surgical intervention or further imaging at this point. It is okay for her to try to mobilize without a brace on, but is likely that she can be more comfortable for her rehabilitation with a brace during activity. She would not need a brace while in bed or during bathing. The brace would primarily be used for her comfort and support when she is mobile and doing activities. It is okay for her to ambulate and mobilize to her tolerance. She does not have decline of her structural integrity or her neural integrity of her lumbar spine at this point. From a spine standpoint she can be treated as an outpatient whenever she is cleared from medicine. I can follow her up in the next couple of weeks for recheck evaluation repeat x-rays.
[2024-02-28 08:07] LABS: African American GFR (CKD) >90 (>60 ml/min/1.73 sqM); Anion Gap 3 mmol/L; Blood Urea Nitrogen 6 mg/dL (7-17); Calcium 8.4 mg/dL (8.4-10.2); Carbon Dioxide 27 mmol/L (22-30); Chloride 99 mmol/L (98-107); Glucose 82 mg/dL (74-99); Non-African American GFR(CKD) >90 (>60 ml/min/1.73 sqM); Potassium 4.4 mmol/L (3.5-5.1); Sodium 129 mmol/L (137-145)
--- NOTE | 2024-02-28 13:27 | P.CNNES ---
History of Present Illness Consult date: 02/28/24 Requesting physician: Gonzalez Borges Reason for Consult: seizure History of Present Illness: This is a 48-year-old woman with a history of seizure) epileptic and nonepileptic), asthma, tobacco use who present emergency department back pain. Neurology is consulted for seizure. It seems she had a seizure on 02/25/2024 an d patient does not recall the episode and all she remembers is that she fell and unknown how she fell. Then she is complaining of severe pain in her lower back. She denied any urinary or bowel incontinence or tongue bite. She follows up with Dr. Breaux for her seizure. She is on 3 seizure medication Vimpat 200 mg twice daily, Trileptal 600 mg twice daily and Clobazam 10mg bid. Patient states she is compliant taking the medication. Patient denies any focal deficit. Denies any alcohol use or any illicit drug use. She states she continues to smoke but unable to tell us how much. She is following up with Dr. Breaux for her seizures. Patient stated that she was follow-up with a neurologist over at [facility] and he notified her that she did not need Vimpat therefore she ended up seeing Dr. Breaux recently. The patient is known to our neurology team in which we saw her couple years ago in 2020 last seen by me in May 2021 in which she had loss of consciousness. Some of the workup during this hospital visit consisted of: CBC with differential is unremarkable Initial sodium is 123, serum glucose on presentation is 101, calcium is 8.7 BUN/creatinine is within normal limits. CT lumbar is reported as acute/subacute fracture throughout the transverse process of L1-L4. Correlate with a history of pain. No additional fractures visualized. No evidence for significant spinal canal stenosis. Review of Systems Positive and negative as per HPI. Past Medical History Past Medical History: Asthma, Seizure Disorder Additional Past Medical History / Comment(s): LAST SEIZURE 4 MONTHS AGO., STATES HAVING CONSTIPATION AND ABD PAIN. History of Any Multi-Drug Resistant Organisms: MRSA Date of last positivie culture/infection: 11/03/08 MDRO Source:: POST Past Surgical History: Back Surgery, Hysterectomy, Orthopedic Surgery, Tubal Ligation Additional Past Surgical History / Comment(s): foot surgery Past Anesthesia/Blood Transfusion Reactions: No Reported Reaction Past Psychological History: No Psychological Hx Reported Smoking Status: Current every day smoker Past Alcohol Use History: None Reported Additional Past Alcohol Use History / Comment(s): SMOKES 1 PPD, STARTED SMOKING AGE 14. Past Drug Use History: None Reported Additional Drug Use History / Comment(s): . - Past Family History Mother Family Medical History: Cancer Sister(s) Family Medical History: Cancer Father Family Medical History: Cancer Medications and Allergies Home Medications Medication Instructions Recorded Confirmed Type Lacosamide [Vimpat] 200 mg PO BID 09/11/17 02/26/24 History cloBAZam [Clobazam] 10 mg PO BID 06/19/21 02/26/24 History OXcarbazepine [Trileptal] 600 mg PO BID 11/05/21 02/26/24 History HYDROcodone/APAP 7.5-325MG [[place] 1 tab PO BID PRN 02/26/24 02/26/24 History 7.5-325] Allergies Allergy/AdvReac Type Severity Reaction Status Date / Time ibuprofen Allergy Unknown Verified 02/26/24 19:59 Physical Examination - Vital Signs Vital Signs: Vital Signs Temp Pulse Pulse Resp BP BP Pulse Ox 02/28/24 07:03 97.2 F L 66 16 124/75 94 L 02/28/24 02:00 98.2 F 56 L 16 94/62 95 02/27/24 19:45 98.7 F 71 71 16 105/68 95 02/27/24 13:53 98.1 F 70 18 106/64 97 Intake and Output 02/27/24 02/28/24 02/28/24 22:59 06:59 14:59 Other: # Voids 5 General: Patient is lying in bed and when I entered the room to see the patient she stated she was in severe pain and within a few minutes without any pain medication she was talking normally but not in pain. Neuro: Patient is awake alert oriented to self place and time. Is following simple commands. No aphasia no neglect Pupils are round equal reactive to light. Visual winn are full to confrontation. Extraocular is intact no nystagmus. No facial weakness. No dysarthria. Motor: Strength in the upper extremities are 5/5 in the right lower extremity is 5 out of 5. The left lower extremity is limited because of the pain Reflexes is 2 positive throughout except left lower was deferred because of the pain Sensation is normal to touch. Plantars mute. Results - Laboratory Findings CBC and BMP: 02/27/24 05:04 02/28/24 05:59 Abnormal Lab Findings: Abnormal Labs 02/26/24 02/26/24 02/26/24 15:29 19:11 19:11 MPV Sodium 123 L Chloride 92 L BUN Creatinine 0.40 L BUN/Creatinine Ratio Glucose 101 H Osmolality 260 L Calcium Urine Osmolality 156 L Ur Random Sodium 02/26/24 02/27/24 02/27/24 19:11 05:04 05:04 MPV 8.9 L Sodium 126 L Chloride 92 L BUN 4.7 L Creatinine 0.5 L BUN/Creatinine Ratio 9.40 L Glucose 111 H Osmolality Calcium 8.4 L Urine Osmolality Ur Random Sodium 28 L 02/28/24 05:59 MPV Sodium 129 L Chloride BUN 6 L Creatinine 0.51 L BUN/Creatinine Ratio Glucose Osmolality Calcium Urine Osmolality Ur Random Sodium Assessment and Plan Assessment: This is a 48-year-old woman with history of seizure epileptic nonepileptic, asthma, tobacco use who had a fall on 02/25/2024 and possible a seizure. Patient states she is compliant taking her 3 seizure medication. She followed up with a neurologist over the. Any question the use of Vimpat so she ended up seeing Dr. Breaux according to the patient. Recent fall possible due to breakthrough seizure. Unsure if it is provoked because of hyponatremia. 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 Can consider going up on Clobazam from 10mg to 15mg bid for breakthrough seizure and can consider going on Trileptal for patient's hyponatremia and will defer that to her outpatient neurologist (Dr. Pitt). seizure precaution and pads. Per [place] DMV because of seizure, to avoid driving for 6 months until seizure free, avoid heights, avoid swimming unassisted or using heavy mahcinery. Orthopedic surgery team is consulted. Patient was counseled on tobacco cessation. Will defer the rest of medical management to primary team and other specialist. The plan is discussed with patient and her nurse. Thank you for the consultation. Dr. Strauss will resume neurology service tomorrow A.M. Time with Patient: Greater than 30
[2024-02-28 15:02] VITALS: BP 132/79; PULSE 59; RESP 17; TEMP 97.3
--- NOTE | 2024-02-28 15:18 | CT ---
EXAMINATION TYPE: CT brain wo con CT DLP: 1144.4 mGycm, Automated exposure control for dose reduction was used. DATE OF EXAM: 02/28/2024 2:50 PM COMPARISON: CT brain 07/01/2023. CLINICAL INDICATION:Female, 48 years old with history of recent fall, recent fall. History of seizure s. TECHNIQUE: Brain: Axial CT images of the brain were obtained with coronal and sagittal reformats created and rev iewed. Contrast used: None. Oral contrast used: None. FINDINGS: Brain: Extra-axial spaces: No abnormal extra-axial fluid collections. Ventricular system: Within normal limits Cerebral parenchyma: No acute intraparenchymal hemorrhage or mass effect. The manuel-white junction is well differentiated. Cerebellum: Unremarkable. Mass effect: No evidence of midline shift. Intracranial vasculature: unremarkable Soft tissues: Normal. Calvarium/osseous structures: No depressed skull fracture. Paranasal sinuses and mastoid air cells: Mild scattered paranasal sinus disease. Visualized orbits: Orbital contents are intact. IMPRESSION: No acute intracranial process.
--- NOTE | 2024-02-28 22:07 | P.DS ---
Providers Date of admission: 02/26/24 20:12 Expected date of discharge: 02/28/24 Attending physician: Gonzalez Borges Consults: 02/26/24 19:37 Consult Physician Routine Consulting Provider: Alberto Osorio Consult Reason/Comments: transverse process fx Do you want consulting provider notified?: Yes, Notify in am 02/27/24 11:49 Consult Physician Routine Consulting Provider: Arvind Cottrell Consult Reason/Comments: seizures Do you want consulting provider notified?: Yes Primary care physician: Marcial Reyes [facility] Course: Chief Complaint: Seizure History of presenting complaint: 48 Y-year-old patient follows with Dr. Reyes. Her neurologist is Dr. Breaux who she has not seen as yet. 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 has known generalized tonic-clonic seizure. Patient does not remember the events of what led to the hospital. Looking at the EMS notes EMS was called out by patient's friend with whom she lives because of fall and pain in the back. Around 10:00 she fell. She has an abrasion to the right back. The previous night patient had a seizure while exiting the bathroom and fell to the carpeted floor. Patient then went into a seizure that lasted about 1 minute. She did not hit her head. Patient cannot tell me the frequency of the seizures. Cannot even describe what the seizure-like. Patient does not complain of any change in bowels or urine pattern. No radiation of the pain. February 27: Patient doing much better. Able to ambulate. Seen by Dr. Eduardo from orthopedics. Patient to ambulate with the brace. Follow-up outpatient. Patient was cleared by neurology and patient to follow-up with her own neurologist. Seizure precautions. Patient told about fluid restriction. And placed on the same. Discussion and discharge planning more than 35 minutes Past medical history to include COPD a, tonic-clonic seizure, anxiety depression Social history: Patient lives with a friend called Ronny. Smokes anywhere from 2- 3 packs a day. No alcohol. No recreational drugs. Physical examination: VITAL SIGNS: 97.3, 59, 17, 132 x 79, 94% room air GENERAL: BMI 54.8, reclining bed awake not in distress. EYES: Pupils equal. Conjunctiva normal. HEENT: External appearance of nose and ears normal, oral cavity grossly normal. NECK: JVD not raised; masses not palpable. HEART: First and second heart sounds are normal; no edema. LUNGS: Respiratory rate normal; slightly decreased breath sounds. ABDOMEN: Soft, nontender, liver spleen not palpable, no masses palpable. PSYCH: Alert and oriented x3; mood and affect normal. MUSCULOSKELETAL: Tenderness along the lumbar vertebra. Some adjoining bruising. NEUROLOGICAL: Cranial nerves grossly intact; no facial asymmetry, power and sensation grossly intact. Patient is able to walk on her own At INVESTIGATIONS, reviewed in the clinical context: February 27: Sodium 129 February 27, 2024: White count 4.7 hemoglobin 12.7 platelets 252 sodium to 126 potassium 4.4 BUN 4.7 creatinine 0.5 glucose 111 serum osmolality 260 February 25: Sodium 123 urine osmolality 156 urine sodium 28 X-ray lumbar spine: No acute fracture moderate multilevel disc DJD. CT scan lumbar spine: Colonic diverticula. Acute/subacute fractures through the transverse process of L1-L4. Assessment and plan: -Acute/subacute fracture through the transverse process of L1-L4. Secondary to fall secondary to seizure. Seen by Dr. Eduardo from orthopedic. Ambulate to the brace. Follow-up in his office. -Severe hypoosmolar hyponatremia. Patient does drink excessive water.: Better Fluid restriction. Fluid restriction 1800 cc to continue -Progressively worsening GERD symptoms. Also patient smoker. Protonix 40 mg twice a day. Outpatient follow-up with GI -Morbid obesity BMI 54.8 Weight loss measures. Follow PCP -Tonic-clonic seizures., With an episode last night. Patient cannot tell the frequency of the same. Consult neurology. Seizure precautions Trileptal. Vimpat. Clobazam -Chronic nicotine dependence, cigarette smoker Nicotine patch. Counseled -COPD and a current smoker DuoNeb as needed -Full code Disposition: Home Past Medical History Past Medical History: Asthma, Seizure Disorder Additional Past Medical History / Comment(s): LAST SEIZURE 4 MONTHS AGO., STATES HAVING CONSTIPATION AND ABD PAIN. History of Any Multi-Drug Resistant Organisms: MRSA Date of last positivie culture/infection: 11/03/08 MDRO Source:: POST Past Surgical History: Back Surgery, Hysterectomy, Orthopedic Surgery, Tubal Ligation Additional Past Surgical History / Comment(s): foot surgery Past Anesthesia/Blood Transfusion Reactions: No Reported Reaction Past Psychological History: No Psychological Hx Reported Smoking Status: Current every day smoker Past Alcohol Use History: None Reported Additional Past Alcohol Use History / Comment(s): SMOKES 1 PPD, STARTED SMOKING AGE 14. Past Drug Use History: None Reported Additional Drug Use History / Comment(s): . Plan - Discharge Summary Discharge Rx Participant: Yes New Discharge Prescriptions: New Nicotine 21Mg/24Hr Patch [Habitrol] 1 patch TRANSDERM DAILY #30 patch Acetaminophen Tab [Tylenol] 650 mg PO Q6HR PRN tab PRN Reason: Mild Pain Or Fever > 100.5 Continue Lacosamide [Vimpat] 200 mg PO BID OXcarbazepine [Trileptal] 600 mg PO BID HYDROcodone/APAP 7.5-325MG [[place] 7.5-325] 1 tab PO BID PRN PRN Reason: Pain cloBAZam [Clobazam] 10 mg PO BID Discharge Medication List Lacosamide [Vimpat] 200 mg PO BID 09/11/17 [History] cloBAZam [Clobazam] 10 mg PO BID 06/19/21 [History] OXcarbazepine [Trileptal] 600 mg PO BID 11/05/21 [History] HYDROcodone/APAP 7.5-325MG [[place] 7.5-325] 1 tab PO BID PRN 02/26/24 [History] Acetaminophen Tab [Tylenol] 650 mg PO Q6HR PRN tab 02/28/24 [Rx] Nicotine 21Mg/24Hr Patch [Habitrol] 1 patch TRANSDERM DAILY #30 patch 02/28/24 [Rx] Follow up Appointment(s)/Referral(s): Jessica Eduardo DO [Doctor of Osteopathic Medicine] - 2 Weeks (please call office is closed) Marcial Reyes MD [Primary Care Provider] - 1-2 days (please call office is closed) Jacqueline Breaux MD [Medical Doctor] - 1 Week (please call office is closed) Patient Instructions/Handouts: Seizure/Epilepsy Discharge Instructions & Follow-Up Activity/Diet/Wound Care/Special Instructions: From a spine perspective, patient may ambulate to tolerance. Should use LSO brace for her fractures whenever doing significant activity. Does not need brace when she is sleeping, bathing, or relaxing. Strict fluid restriction 1800 cc a day-provide cup with measurements showing how how many cc in the cup. DC if cleared by neurology Discharge Disposition: HOME SELF-CARE
== END 2024-02-28 17:51 | disposition home or self-care (01) ==
LOC: EC 14:40 → 4SSUR 20:12 → INTOOBSV 20:12 → 4SSUR 21:07 → UNDODISIN 02-28 17:51
PROVIDERS: ADMIT Hospitalist; ATTEND Hospitalist
DX: S32.049A Unspecified fracture of fourth lumbar vertebra, initial encounter for closed fracture (principal); E87.1 Hypo-osmolality and hyponatremia; Z68.43 Body mass index [BMI] 50.0-59.9, adult; S32.039A Unspecified fracture of third lumbar vertebra, initial encounter for closed fracture; S32.029A Unspecified fracture of second lumbar vertebra, initial encounter for closed fracture; S32.019A Unspecified fracture of first lumbar vertebra, initial encounter for closed fracture; W19.XXXA Unspecified fall, initial encounter; G40.409 Other generalized epilepsy and epileptic syndromes, not intractable, without status epilepticus; J44.9 Chronic obstructive pulmonary disease, unspecified; F41.9 Anxiety disorder, unspecified; F32.A Depression, unspecified; E66.01 Morbid (severe) obesity due to excess calories; F17.210 Nicotine dependence, cigarettes, uncomplicated; Z79.899 Other long term (current) drug therapy; Z88.6 Allergy status to analgesic agent
CPT/HCPCS: 96376 ×2; 96361 ×3; 96372 ×2; 96374; 96375; 99285; 36415; 84300; 83930; 80053; 80048 ×2; 80183; 85025 ×2; 81003; 83935; 72100; 72131; 70450; G0378 ×3; S4990 ×2; J2360; J1650 ×2; J1170 ×3

== ENCOUNTER 2024-03-17 20:16 | Emergency (ER) | payer OTHER ==
[2024-03-17 20:38] VITALS: RESP 18; TEMP 98
--- NOTE | 2024-03-17 21:50 | ED ---
Skin/Abscess/FB HPI - General Chief complaint: Skin/Abscess/Foreign Body Stated complaint: Rash on chest Time Seen by Provider: 03/17/24 21:28 Source: patient, RN notes reviewed, old records reviewed Mode of arrival: ambulatory Limitations: no limitations - History of Present Illness Initial comments: This is a 48-year-old female to the ER today. This [facility] for evaluation regards to significant rash chest wall breast arms. Severely itchy. Been increasing for 2 days MD complaint: rash -: days(s) Location: generalized, chest, LUE, RUE Severity: moderate Severity scale (1-10): 6 Quality: other (Itching) Consistency: constant, other Improves with: none Worsens with: none Context: none - Related Data Home Medications Medication Instructions Recorded Confirmed Lacosamide [Vimpat] 200 mg PO BID 09/11/17 02/26/24 cloBAZam [Clobazam] 10 mg PO BID 06/19/21 02/26/24 OXcarbazepine [Trileptal] 600 mg PO BID 11/05/21 02/26/24 HYDROcodone/APAP 7.5-325MG [[place] 1 tab PO BID PRN 02/26/24 02/26/24 7.5-325] Previous Rx's Medication Instructions Recorded Acetaminophen Tab [Tylenol] 650 mg PO Q6HR PRN tab 02/28/24 Nicotine 21Mg/24Hr Patch [Habitrol] 1 patch TRANSDERM DAILY #30 patch 02/28/24 Famotidine [Pepcid] 40 mg PO BID #28 tablet 03/17/24 hydrOXYzine HCL [Atarax] 25 mg PO TID PRN #15 tab 03/17/24 predniSONE 50 mg PO DAILY #5 tab 03/17/24 Allergies Allergy/AdvReac Type Severity Reaction Status Date / Time ibuprofen Allergy Unknown Verified 03/17/24 20:38 Review of Systems ROS Statement: Those systems with pertinent positive or pertinent negative responses have been documented in the HPI. ROS Other: All systems not noted in ROS Statement are negative. Past Medical History Past Medical History: Asthma, Seizure Disorder Additional Past Medical History / Comment(s): LAST SEIZURE 4 MONTHS AGO., STATES HAVING CONSTIPATION AND ABD PAIN. History of Any Multi-Drug Resistant Organisms: MRSA Date of last positivie culture/infection: 11/03/08 MDRO Source:: POST Past Surgical History: Back Surgery, Hysterectomy, Orthopedic Surgery, Tubal Ligation Additional Past Surgical History / Comment(s): foot surgery Past Anesthesia/Blood Transfusion Reactions: No Reported Reaction Past Psychological History: No Psychological Hx Reported Smoking Status: Current every day smoker Past Alcohol Use History: None Reported Past Drug Use History: None Reported - Past Family History Mother Family Medical History: Cancer Sister(s) Family Medical History: Cancer Father Family Medical History: Cancer General Exam Limitations: no limitations General appearance: alert, in no apparent distress Head exam: Present: atraumatic, normocephalic, normal inspection Eye exam: Present: normal appearance, PERRL, EOMI. Absent: scleral icterus, conjunctival injection, periorbital swelling ENT exam: Present: normal exam, mucous membranes moist Neck exam: Present: normal inspection. Absent: tenderness, meningismus, lymphadenopathy Respiratory exam: Present: normal lung sounds bilaterally. Absent: respiratory distress, wheezes, rales, rhonchi, stridor Cardiovascular Exam: Present: regular rate, normal rhythm, normal heart sounds. Absent: systolic murmur, diastolic murmur, rubs, gallop, clicks GI/Abdominal exam: Present: soft, normal bowel sounds. Absent: distended, tenderness, guarding, rebound, rigid Extremities exam: Present: normal inspection, full ROM, normal capillary refill. Absent: tenderness, pedal edema, joint swelling, calf tenderness Back exam: Present: normal inspection Neurological exam: Present: alert, oriented X3, CN II-XII intact Psychiatric exam: Present: normal affect, normal mood Skin exam: Present: warm, dry, intact, normal color. Absent: rash Course Vital Signs 03/17/24 03/17/24 20:36 22:41 Temperature 98 F Pulse Rate 76 70 Respiratory 18 18 Rate Blood Pressure 116/73 117/73 O2 Sat by Pulse 97 96 Oximetry - Reevaluation(s) Reevaluation #1: 03/17/24 22:11 Medical records reviewed Reevaluation #2: 03/17/24 22:11 Patient symptoms improving Reevaluation #3: 03/17/24 22:11 Informed of results and questions answered Reevaluation #4: Was pt. sent in by a medical professional or institution (, PA, MAINTENANCE PIPEFITTER, urgent care, hospital, or alf...) When possible be specific @ -no Did you speak to anyone other than the patient for history (EMS, parent, family, police, friend...)? What history was obtained from this source @ -no Did you review nursing and triage notes (agree or disagree)? Why? @ -agree Are old charts reviewed (outside hosp., previous admission, EMS record, old EKG, old radiological studies, urgent care reports/EKG's, alf records)? Report findings @ -yes Differential Diagnosis (chest pain, altered mental status, abdominal pain women, abdominal pain men, vaginal bleeding, weakness, fever, dyspnea, syncope, headache, dizziness, GI bleed, back pain, seizure, CVA, palpatations, mental health, musculoskeletal)? @ -prior EKG interpreted by me (3pts min.). @ -no X-rays interpreted by me (1pt min.). @ -no CT interpreted by me (1pt min.). @ -no U/S interpreted by me (1pt. min.). @ -no What testing was considered but not performed or refused? (CT, X-rays, U/S, labs)? Why? @ -none What meds were considered but not given or refused? Why? @ -none Did you discuss the management of the patient with other professionals (nicole lira i.e. , PA, MAINTENANCE PIPEFITTER, lab, RT, psych nurse, social services specialist, diagrammer, teacher, [employer] revenue officer, rn case manager hospice)? Give summary @ -no Was smoking cessation discussed for >3mins.? @ -no Was critical care preformed (if so, how long)? @ -no Were there social determinants of health that impacted care today? How? (Homelessness, low income, unemployed, alcoholism, drug addiction, transportation, low edu. Level, literacy, decrease access to med. care, correction, rehab)? @ -none Was there de-escalation of care discussed even if they declined (Discuss DNR or withdrawal of care, Hospice)? DNR status @ -no What co-morbidities impacted this encounter? (DM, HTN, Smoking, COPD, CAD, Cancer, CVA, ARF, Chemo, Hep., AIDS, mental health diagnosis, sleep apnea, morbid obesity)? @ -none Was patient admitted / discharged? Hospital course, mention meds given and route, prescriptions, significant lab abnormalities, going to OR and other pertinent info. @ - 48 female to ER for evaluation of allergic urticaria. Concern for scabies, patient will be treated and can be discharged home Discharge Undiagnosed new problem with uncertain prognosis? @ -no Drug Therapy requiring intensive monitoring for toxicity (Heparin, Nitro, Insulin, Cardizem)? @ -no Were any procedures done? @ -no Diagnosis/symptom? @ -Contact dermatitis urticaria Acute, or Chronic, or Acute on Chronic? @ -Acute Uncomplicated (without systemic symptoms) or Complicated (systemic symptoms)? @ -Complicated Side effects of treatment? @ -no Exacerbation, Progression, or Severe Exacerbation? @ -exacerbation Poses a threat to life or bodily function? How? (Chest pain, [place], [place], pneumonia, PE, COPD, DKA, ARF, appy, cholecystitis, CVA, Diverticulitis, Homicidal, Suicidal, threat to staff... and all critical care pts) @ -no Medical Decision Making - Medical Decision Making 48 female to ER for evaluation of allergic urticaria. Concern for scabies, patient will be treated and can be discharged home Disposition Clinical Impression: Contact dermatitis, Urticaria Disposition: HOME SELF-CARE Condition: Good Instructions (If sedation given, give patient instructions): Urticaria (ED) Prescriptions: hydrOXYzine HCL [Atarax] 25 mg PO TID PRN #15 tab PRN Reason: Itching Famotidine [Pepcid] 40 mg PO BID #28 tablet predniSONE 50 mg PO DAILY #5 tab Is patient prescribed a controlled substance at d/c from ED?: No Referrals: Marcial Reyes MD [Primary Care Provider] - 1-2 days Time of Disposition: 22:10
[2024-03-17] MEDS: PERMETHRIN 5% CREAM 60 GM TUBE TOPICAL STA (22:33)
[2024-03-17] MEDS: hydrOXYzine HCL 25 MG TAB PO STA (22:34)
[2024-03-17] MEDS: FAMOTIDINE 20 MG TAB PO STA (22:35)
[2024-03-17] MEDS: DEXAMETHASONE SOD PHOSPHATE 10 MG/ML 1 ML VIAL IM STA (22:36)
[2024-03-17 22:45] VITALS: BP 117/73; PULSE 70
== END 2024-03-17 22:45 | disposition home or self-care (01) ==
LOC: EC 20:16
DX: L25.9 Unspecified contact dermatitis, unspecified cause (principal); L50.9 Urticaria, unspecified; F17.200 Nicotine dependence, unspecified, uncomplicated; Z88.6 Allergy status to analgesic agent
CPT/HCPCS: 99282; 96372; J1100

== ENCOUNTER 2024-04-25 23:36 | Emergency (ER) | payer OTHER ==
[2024-04-25 23:44] VITALS: RESP 18; TEMP 97.9
[2024-04-26 00:33] LABS: Basophils % (A) 0 %; Eosinophils # (A) 0.2 k/uL (0-0.7); Eosinophils % (A) 4 %; HCT 38.8 % (34.0-46.0); HGB 13.1 gm/dL (11.4-16.0); Lymphocytes # (A) 1.1 k/uL (1.0-4.8); Lymphocytes % (A) 30 %; MCH 31.5 pg (25.0-35.0); MCHC 33.9 g/dL (31.0-37.0); MCV 92.8 fL (80.0-100.0); Mean Platelet Volume 6.7; Monocytes # (A) 0.2 k/uL (0-1.0); Monocytes % (A) 5 %; Neutrophils # (A) 2.3 k/uL (1.3-7.7); Neutrophils % (A) 60 %; Platelet Count 274 k/uL (150-450); RBC 4.18 m/uL (3.80-5.40); WBC 3.8 k/uL (3.8-10.6)
[2024-04-26] MEDS: LORazepam 2 MG/ML INJ IV STA (00:33)
[2024-04-26] MEDS: SODIUM CHLORIDE 0.9% 500 ML 500 ML IV STA (00:33)
[2024-04-26 00:36] LABS: ALT 24 U/L (4-34); AST 28 U/L (14-36); African American GFR (CKD) >90 (>60 ml/min/1.73 sqM); Albumin 3.9 g/dL (3.5-5.0); Alcohol <10 mg/dL; Alkaline Phosphatase 84 U/L (38-126); Anion Gap 4 mmol/L; Blood Urea Nitrogen 9 mg/dL (7-17); Calcium 8.7 mg/dL (8.4-10.2); Carbon Dioxide 20 mmol/L (22-30); Chloride 100 mmol/L (98-107); Glucose 96 mg/dL (74-99); Magnesium 1.9 mg/dL (1.6-2.3); Non-African American GFR(CKD) >90 (>60 ml/min/1.73 sqM); Potassium 4.1 mmol/L (3.5-5.1); Sodium 124 mmol/L (137-145); Total Bilirubin 0.6 mg/dL (0.2-1.3); Total Protein 6.3 g/dL (6.3-8.2)
[2024-04-26 00:39] VITALS: BP 110/58; PULSE 62
[2024-04-26 01:29] LABS: Appearance,Urine Clear (Clear); Bilirubin,Urine Negative (Negative); Blood,Urine Negative (Negative); Color,Urine Colorless; Glucose,Urine (UA) Negative (Negative); Ketones,Urine Negative (Negative); Leukocyte Esterase,Urine Negative (Negative); Nitrite,Urine Negative (Negative); Protein,Urine Negative (Negative); Urobilinogen,Urine <2.0 mg/dL (<2.0)
--- NOTE | 2024-04-26 01:38 | ED ---
General Adult HPI - General Chief complaint: Seizure Stated complaint: Weakness Time Seen by Provider: 04/25/24 23:45 Source: patient, EMS, RN notes reviewed, old records reviewed Mode of arrival: EMS - History of Present Illness Initial comments: Patient is a 48-year-old female who presents emergency department for seizure. States she has been feeling weak generally throughout the day today. Denies any fevers, chills, cough, abdominal pain, chest pain, shortness of breath. Called her friend who is at bedside. When he arrived, patient was seizing for an unknown period of time. Patient believes it was a short period of time. She has been compliant with her medications. Seizure resolved on its own. EMS was called and patient was postictal when they arrived. They provided IV fluids and transferred here for further evaluation at our facility. She currently is resting comfortably. Is alert and oriented x 4. No focal deficits. Presents for further evaluation. - Related Data Home Medications Medication Instructions Recorded Confirmed Lacosamide [Vimpat] 200 mg PO BID 09/11/17 02/26/24 cloBAZam [Clobazam] 10 mg PO BID 06/19/21 02/26/24 OXcarbazepine [Trileptal] 600 mg PO BID 11/05/21 02/26/24 HYDROcodone/APAP 7.5-325MG [[place] 1 tab PO BID PRN 02/26/24 02/26/24 7.5-325] Previous Rx's Medication Instructions Recorded Acetaminophen Tab [Tylenol] 650 mg PO Q6HR PRN tab 02/28/24 Nicotine 21Mg/24Hr Patch [Habitrol] 1 patch TRANSDERM DAILY #30 patch 02/28/24 Famotidine [Pepcid] 40 mg PO BID #28 tablet 03/17/24 hydrOXYzine HCL [Atarax] 25 mg PO TID PRN #15 tab 03/17/24 predniSONE 50 mg PO DAILY #5 tab 03/17/24 Allergies Allergy/AdvReac Type Severity Reaction Status Date / Time ibuprofen Allergy Unknown Verified 03/17/24 20:38 Review of Systems ROS Statement: Those systems with pertinent positive or pertinent negative responses have been documented in the HPI. Review of Systems: CONST: Denies fever EYES: Denies blurry vision ENT: Denies nasal congestion C/V: Denies Chest pain RESP: Denies shortness of breath GI: Denies abdominal pain : Denies dysuria SKIN: Denies rash. MSK: Denies joint pain. NEURO: Denies headache ROS Other: All systems not noted in ROS Statement are negative. Past Medical History Past Medical History: Asthma, Seizure Disorder Additional Past Medical History / Comment(s): LAST SEIZURE 4 MONTHS AGO., STATES HAVING CONSTIPATION AND ABD PAIN. History of Any Multi-Drug Resistant Organisms: MRSA Date of last positivie culture/infection: 11/03/08 MDRO Source:: POST Past Surgical History: Back Surgery, Hysterectomy, Orthopedic Surgery, Tubal Ligation Additional Past Surgical History / Comment(s): foot surgery Past Anesthesia/Blood Transfusion Reactions: No Reported Reaction Past Psychological History: No Psychological Hx Reported Smoking Status: Current every day smoker Past Alcohol Use History: None Reported Past Drug Use History: None Reported - Past Family History Mother Family Medical History: Cancer Sister(s) Family Medical History: Cancer Father Family Medical History: Cancer General Exam - General Exam Comments Initial Comments: General: Appears in no acute distress. HEAD: Normal with no signs of head trauma. EYES: PERRLA, EOMI, conjunctiva normal, no discharge. Pupils are 3 mm and equal bilaterally. ENT: Hearing grossly intact, normal oropharynx. RESPIRATORY: Clear breath sounds bilaterally. No wheezes, rales, or rhonchi. C/V: Regular rate and rhythm. S1 and S2 auscultated, no edema, peripheral pulses 2+ and intact throughout ABD: Abd is soft, nontender, nondistended EXT: Normal range of motion, no obvious deformity SKIN: No rashes or lesions observed on exposed skin. NEURO: Alert and oriented x 4. Cranial nerves II-XII intact. No focal sensory or strength deficits. No focal deficits. Course Vital Signs 04/25/24 04/26/24 23:41 00:36 Temperature 97.9 F Pulse Rate 66 62 Respiratory 18 18 Rate Blood Pressure 115/58 110/58 O2 Sat by Pulse 95 96 Oximetry Medical Decision Making - Medical Decision Making Was pt. sent in by a medical professional or institution (, PA, PATIENT RELATIONS COORDINATOR, urgent care, hospital, or long term...) When possible be specific @ -No Did you speak to anyone other than the patient for history (EMS, parent, family, police, friend...)? What history was obtained from this source @ -No Did you review nursing and triage notes (agree or disagree)? Why? @ -I reviewed and agree with nursing and triage notes Were old charts reviewed (outside hosp., previous admission, EMS record, old EKG, old radiological studies, urgent care reports/EKG's, long term records)? Report findings @ -Old charts reviewed to confirm patient is on Trileptal as well as Vimpat Differential Diagnosis (chest pain, altered mental status, abdominal pain women, abdominal pain men, vaginal bleeding, weakness, fever, dyspnea, syncope, headache, dizziness, GI bleed, back pain, seizure, CVA, palpatations, mental health, musculoskeletal)? @ -Differential Seizure: Recurrent seizure disorder, febrile seizure, alcohol withdrawal, stimulants, meningitis, encephalitis, intercranial hemorrhage, intracranial tumor, stroke, eclampsia, thyrotoxicosis, hypocalcemia, hyponatremia, hypernatremia, hypomagnesemia, psychogenic, this is not meant to be an all-inclusive list. EKG interpreted by me (3pts min.). @ -As above X-rays interpreted by me (1pt min.). @ -Chest x-ray reveals no obvious acute cardiopulmonary process. Poor inspiratory film. CT interpreted by me (1pt min.). @ -None done U/S interpreted by me (1pt. min.). @ -None done What testing was considered but not performed or refused? (CT, X-rays, U/S, labs)? Why? @ -Considered CT imaging however seizures are chronic and patient is back to baseline mental status. What meds were considered but not given or refused? Why? @ -None Did you discuss the management of the patient with other professionals (professionals i.e. , PA, PATIENT RELATIONS COORDINATOR, lab, RT, psych nurse, social work lecturer, manual arts teacher, teacher, command center officer, casework manager)? Give summary @ -No Was smoking cessation discussed for >3mins.? @ -No Was critical care preformed (if so, how long)? @ -No Were there social determinants of health that impacted care today? How? (Home lessness, low income, unemployed, alcoholism, drug addiction, transportation, low edu. Level, literacy, decrease access to med. care, [facility], rehab)? @ -No Was there de-escalation of care discussed even if they declined (Discuss DNR or withdrawal of care, Hospice)? DNR status @ -No What co-morbidities impacted this encounter? (DM, HTN, Smoking, COPD, CAD, Cancer, CVA, ARF, Chemo, Hep., AIDS, mental health diagnosis, sleep apnea, morbid obesity)? @ -Epilepsy Was patient admitted / discharged? Hospital course, mention meds given and route, prescriptions, significant lab abnormalities, going to OR and other pertinent info. @ -Based on the patient's presentation and physical exam, presents with breakthrough seizure at home. Unknown etiology for the breakthrough. Has been compliant with medications. We will will obtain seizure workup. Considered CT imaging however patient declines at this time and I believe this is reasonable as she is at her normal mental status baseline. We will screen the patient for infection as well. She was in agreement this plan. We will send out lab values for Trileptal and lacosamide however these are send out test and we do not receive the results of here in the department. EKG shows no signs of acute ischemia. Chest x-ray unremarkable. Poor insp iratory film low. Labs remarkable for hyponatremia of 124. Patient does have a chronic history of this however this is somewhat lower than normal for her. Remainder the labs unremarkable. On reevaluation, patient has been observed for over 2 hours here in the department with no breakthrough seizures. She is resting comfortably at this time and would like to go home. I discussed results with her. I do recommend admission for the hyponatremia as it could be contributory to her seizures. She would like to go home. She received a total of 1500 mL of IV fluids here in the department. I still recommended admission at this time however she would like to go home. She is alert and oriented x 4. I did inform her this would be AGAINST MEDICAL ADVICE and she expressed understanding was still in agreement this plan. The patient was apprised of the potential risks of leaving the hospital AGAINST MEDICAL ADVICE, including serious complications, permanent disability, and . At the time of my interview the patient, the patient was alert, oriented, and capable. Patient signed AMA form, which was witnessed and signed by nursing staff, and placed in patient's chart. I urged the patient to return to the hospital as soon as possible to complete evaluation and treatment. I did offer to write the patient a prescription to have a laboratory study drawn to check the patient's sodium and chloride levels on Saturday. She did accept this and she will follow-up with her PCP on Saturday as well. I did discuss with her she cannot operate heavy machinery or drive for at least 6 months unless cleared by neurology due to the seizure. Patient left AGAINST MEDICAL ADVICE. Undiagnosed new problem with uncertain prognosis? @ -No Drug Therapy requiring intensive monitoring for toxicity (Heparin, Nitro, Insulin, Cardizem)? @ -No Were any procedures done? @ -No Diagnosis/symptom? @ -Breakthrough seizure, hyponatremia Acute, or Chronic, or Acute on Chronic? @ -Acute Uncomplicated (without systemic symptoms) or Complicated (systemic symptoms)? @ -Complicated Side effects of treatment? @ -No Exacerbation, Progression, or Severe Exacerbation? @ -No Poses a threat to life or bodily function? How? (Chest pain, [place], [place], pneumonia, PE, COPD, DKA, ARF, appy, cholecystitis, CVA, Diverticulitis, Homicidal, Suicidal, threat to staff... and all critical care pts) @ -Potentially, yes - Lab Data Result diagrams: 04/25/24 23:45 04/25/24 23:45 Lab Results 04/25/24 04/25/24 04/26/24 Range/Units 23:45 23:45 00:39 WBC 3.8 (3.8-10.6) k/uL RBC 4.18 (3.80-5.40) m/uL Hgb 13.1 (11.4-16.0) gm/dL Hct 38.8 (34.0-46.0) % MCV 92.8 (80.0-100.0) fL MCH 31.5 (25.0-35.0) pg MCHC 33.9 (31.0-37.0) g/dL RDW 13.0 (11.5-15.5) % Plt Count 274 (150-450) k/uL MPV 6.7 Neutrophils % 60 % Lymphocytes % 30 % Monocytes % 5 % Eosinophils % 4 % Basophils % 0 % Neutrophils # 2.3 (1.3-7.7) k/uL Lymphocytes # 1.1 (1.0-4.8) k/uL Monocytes # 0.2 (0-1.0) k/uL Eosinophils # 0.2 (0-0.7) k/uL Basophils # 0.0 (0-0.2) k/uL Sodium 124 L (137-145) mmol/L Potassium 4.1 (3.5-5.1) mmol/L Chloride 100 (98-107) mmol/L Carbon Dioxide 20 L (22-30) mmol/L Anion Gap 4 mmol/L BUN 9 (7-17) mg/dL Creatinine 0.38 L (0.52-1.04) mg/dL Est GFR (CKD-EPI)AfAm >90 (>60 ml/min/1.73 sqM) Est GFR (CKD-EPI)NonAf >90 (>60 ml/min/1.73 sqM) Glucose 96 (74-99) mg/dL Calcium 8.7 (8.4-10.2) mg/dL Magnesium 1.9 (1.6-2.3) mg/dL Total Bilirubin 0.6 (0.2-1.3) mg/dL AST 28 (14-36) U/L ALT 24 (4-34) U/L Alkaline Phosphatase 84 (38-126) U/L Total Protein 6.3 (6.3-8.2) g/dL Albumin 3.9 (3.5-5.0) g/dL Urine Color Urine Appearance (Clear) Urine pH (5.0-8.0) Ur Specific [place] (1.001-1.035) Urine Protein (Negative) Urine Glucose (UA) (Negative) Urine Ketones (Negative) Urine Blood (Negative) Urine Nitrite (Negative) Urine Bilirubin (Negative) Urine Urobilinogen (<2.0) mg/dL Ur Leukocyte Esterase (Negative) Urine HCG, Qual (Not Detectd) Urine Opiates Screen (NotDetected) Ur Oxycodone Screen (NotDetected) Urine Methadone Screen (NotDetected) Ur Barbiturates Screen (NotDetected) U Tricyclic Antidepress (NotDetected) Ur Phencyclidine Scrn (NotDetected) Ur Amphetamines Screen (NotDetected) U Methamphetamines Scrn (NotDetected) U Benzodiazepines Scrn (NotDetected) Urine Cocaine Screen (NotDetected) U Marijuana (THC) Screen (NotDetected) Serum Alcohol <10 mg/dL Influenza Type A (PCR) Not Detected (Not Detectd) Influenza Type B (PCR) Not Detected (Not Detectd) RSV (PCR) Not Detected (Not Detectd) SARS-CoV-2 (PCR) Not Detected (Not Detectd) 04/26/24 04/26/24 Range/Units 00:54 00:54 WBC (3.8-10.6) k/uL RBC (3.80-5.40) m/uL Hgb (11.4-16.0) gm/dL Hct (34.0-46.0) % MCV (80.0-100.0) fL MCH (25.0-35.0) pg MCHC (31.0-37.0) g/dL RDW (11.5-15.5) % Plt Count (150-450) k/uL MPV Neutrophils % % Lymphocytes % % Monocytes % % Eosinophils % % Basophils % % Neutrophils # (1.3-7.7) k/uL Lymphocytes # (1.0-4.8) k/uL Monocytes # (0-1.0) k/uL Eosinophils # (0-0.7) k/uL Basophils # (0-0.2) k/uL Sodium (137-145) mmol/L Potassium (3.5-5.1) mmol/L Chloride (98-107) mmol/L Carbon Dioxide (22-30) mmol/L Anion Gap mmol/L BUN (7-17) mg/dL Creatinine (0.52-1.04) mg/dL Est GFR (CKD-EPI)AfAm (>60 ml/min/1.73 sqM) Est GFR (CKD-EPI)NonAf (>60 ml/min/1.73 sqM) Glucose (74-99) mg/dL Calcium (8.4-10.2) mg/dL Magnesium (1.6-2.3) mg/dL Total Bilirubin (0.2-1.3) mg/dL AST (14-36) U/L ALT (4-34) U/L Alkaline Phosphatase (38-126) U/L Total Protein (6.3-8.2) g/dL Albumin (3.5-5.0) g/dL Urine Color Colorless Urine Appearance Clear (Clear) Urine pH 6.0 (5.0-8.0) Ur Specific [place] 1.010 (1.001-1.035) Urine Protein Negative (Negative) Urine Glucose (UA) Negative (Negative) Urine Ketones Negative (Negative) Urine Blood Negative (Negative) Urine Nitrite Negative (Negative) Urine Bilirubin Negative (Negative) Urine Urobilinogen <2.0 (<2.0) mg/dL Ur Leukocyte Esterase Negative (Negative) Urine HCG, Qual Not Detected (Not Detectd) Urine Opiates Screen Not Detected (NotDetected) Ur Oxycodone Screen Not Detected (NotDetected) Urine Methadone Screen Not Detected (NotDetected) Ur Barbiturates Screen Not Detected (NotDetected) U Tricyclic Antidepress Not Detected (NotDetected) Ur Phencyclidine Scrn Not Detected (NotDetected) Ur Amphetamines Screen Not Detected (NotDetected) U Methamphetamines Scrn Not Detected (NotDetected) U Benzodiazepines Scrn Detected H (NotDetected) Urine Cocaine Screen Not Detected (NotDetected) U Marijuana (THC) Screen Not Detected (NotDetected) Serum Alcohol mg/dL Influenza Type A (PCR) (Not Detectd) Influenza Type B (PCR) (Not Detectd) RSV (PCR) (Not Detectd) SARS-CoV-2 (PCR) (Not Detectd) - EKG Data -: EKG Interpreted by Me EKG Comments: 12-lead Electrocardiogram Interpretation Note EKG was reviewed and interpreted by myself. 12-lead ECG performed at 2345 is interpreted by me as revealing normal sinus rhythm at a rate of 66 beats per minute. [place] is normal. MO interval is 212 ms time prolonged, first-degree AV block. QRS duration is 118 ms, QTc is 456 ms.. There were no ST or T wave abnormalities to suggest myocardial ischemia or injury. R wave progression across the precordium was satisfactory. By my interpretation this EKG is non- diagnostic for acute ischemia. Disposition Clinical Impression: Breakthrough seizure, Hyponatremia Disposition: LEFT AGAINST MEDICAL ADVICE Instructions (If sedation given, give patient instructions): Seizure/Epilepsy Discharge Instructions & Follow-Up Referrals: Marcial Reyes MD [Primary Care Provider] - 1-2 days Time of Disposition: 01:55
[2024-04-26] MEDS: SODIUM CHLORIDE 0.9% 1,000 ML IV STA (01:42)
[2024-04-26 01:44] LABS: Amphetamine Screen,Urine Not Detected (NotDetected); Barbiturate Screen,Urine Not Detected (NotDetected); Benzodiazepines Screen,Urine Detected (NotDetected); Cocaine Screen,Urine Not Detected (NotDetected); Methadone Screen, Urine Not Detected (NotDetected); Opiate Screen,Urine Not Detected (NotDetected); Oxycodone Screen, Urine Not Detected (NotDetected); Phencyclidine Screen,Urine Not Detected (NotDetected); Tricyclic Antidepressant,Urine Not Detected (NotDetected); Urn Cannabinoid Scrn Not Detected (NotDetected)
--- NOTE | 2024-04-26 01:45 | XR ---
EXAM: XR Chest, 2 Views CLINICAL HISTORY: ITS.REASON XR Reason: cough TECHNIQUE: Frontal and lateral views of the chest. COMPARISON: No relevant prior studies available. FINDINGS: Lungs: Unremarkable. No consolidation. Pleural space: Unremarkable. No pneumothorax. Heart: Cardiomegaly. Mediastinum: Unremarkable. Normal mediastinal contour. Bones/joints: Unremarkable. No acute fracture. IMPRESSION: No acute findings in the chest.
== END 2024-04-26 02:19 | disposition left against medical advice (07) ==
LOC: EC 23:36
DX: G40.909 Epilepsy, unspecified, not intractable, without status epilepticus (principal); E87.1 Hypo-osmolality and hyponatremia; Z53.29 Procedure and treatment not carried out because of patient's decision for other reasons; F17.200 Nicotine dependence, unspecified, uncomplicated; Z88.6 Allergy status to analgesic agent
CPT/HCPCS: 36415; 93005; 80053; 80183; 83735; 85025; 81003; 81025; 80306; 80235; 87636; 71046; 99285; 96374; 96361; G0480; J2060; 80320

== ENCOUNTER 2024-07-20 15:57 | Inpatient (IN) | payer OTHER ==
[2024-07-20] MEDS: LORazepam 2 MG/ML INJ IV STA (16:41)
[2024-07-20 17:07] LABS: Basophils % (A) 0 %; Eosinophils # (A) 0.1 k/uL (0-0.7); Eosinophils % (A) 1 %; HCT 40.3 % (34.0-46.0); HGB 13.4 gm/dL (11.4-16.0); Lymphocytes # (A) 1.2 k/uL (1.0-4.8); Lymphocytes % (A) 22 %; MCH 30.7 pg (25.0-35.0); MCHC 33.2 g/dL (31.0-37.0); MCV 92.3 fL (80.0-100.0); Mean Platelet Volume 6.7; Monocytes # (A) 0.2 k/uL (0-1.0); Monocytes % (A) 4 %; Neutrophils # (A) 3.8 k/uL (1.3-7.7); Neutrophils % (A) 71 %; Platelet Count 304 k/uL (150-450); RBC 4.36 m/uL (3.80-5.40); RDW 12.7 % (11.5-15.5); WBC 5.4 k/uL (3.8-10.6)
[2024-07-20 17:11] LABS: Appearance,Urine Clear (Clear); Bilirubin,Urine Negative (Negative); Blood,Urine Negative (Negative); Color,Urine Colorless; Glucose,Urine (UA) Negative (Negative); Ketones,Urine Negative (Negative); Leukocyte Esterase,Urine Negative (Negative); Nitrite,Urine Negative (Negative); PH, Urine 6.5 (5.0-8.0); Protein,Urine Negative (Negative); Specific Gravity,Urine 1.006 (1.001-1.035); Urobilinogen,Urine <2.0 mg/dL (<2.0)
[2024-07-20 17:22] LABS: Amphetamine Screen,Urine Not Detected (NotDetected); Benzodiazepines Screen,Urine Detected (NotDetected); Cocaine Screen,Urine Not Detected (NotDetected); Opiate Screen,Urine Not Detected (NotDetected); Phencyclidine Screen,Urine Not Detected (NotDetected)
[2024-07-20 17:23] LABS: Barbiturate Screen,Urine Not Detected (NotDetected); Methadone Screen, Urine Not Detected (NotDetected); Oxycodone Screen, Urine Not Detected (NotDetected); Tricyclic Antidepressant,Urine Not Detected (NotDetected); Urn Cannabinoid Scrn Not Detected (NotDetected)
[2024-07-20 17:28] LABS: ALT 20 U/L (4-34); AST 23 U/L (14-36); African American GFR (CKD) >90 (>60 ml/min/1.73 sqM); Albumin 4.2 g/dL (3.5-5.0); Alkaline Phosphatase 90 U/L (38-126); Anion Gap 4 mmol/L; Blood Urea Nitrogen 6 mg/dL (7-17); Calcium 8.8 mg/dL (8.4-10.2); Carbon Dioxide 26 mmol/L (22-30); Chloride 94 mmol/L (98-107); Glucose 95 mg/dL (74-99); Magnesium 1.7 mg/dL (1.6-2.3); Non-African American GFR(CKD) >90 (>60 ml/min/1.73 sqM); Potassium 4.4 mmol/L (3.5-5.1); Sodium 124 mmol/L (137-145); Total Bilirubin 0.5 mg/dL (0.2-1.3); Total Protein 6.8 g/dL (6.3-8.2)
--- NOTE | 2024-07-20 17:52 | CT ---
EXAMINATION TYPE: CT brain wo con DATE OF EXAM: 07/20/2024 5:17 PM COMPARISON: 02/28/2024. CLINICAL INDICATION: Female, 48 years old with history of headaches, head injury, worsening seizures, seizure TECHNIQUE: Brain: Axial CT images of the brain were obtained with coronal and sagittal reformats created and rev iewed. Contrast used: None. Oral contrast used: None. CT DLP: 1080.4 mGycm, Automated exposure control for dose reduction was used. FINDINGS: Brain: Extra-axial spaces: No abnormal extra-axial fluid collections. Ventricular system: Within normal limits Cerebral parenchyma: No acute intraparenchymal hemorrhage or mass effect. The manuel-white junction is well differentiated. Cerebellum: Unremarkable. Mass effect: No evidence of midline shift. Intracranial vasculature: unremarkable Soft tissues: Normal. Calvarium/osseous structures: No depressed skull fracture. Paranasal sinuses and mastoid air cells: Mild scattered paranasal sinus disease. Visualized orbits: Orbital contents are intact. IMPRESSION: No acute intracranial process. [facility], , 07/20/2024 5:50 PM
[2024-07-20] MEDS ORDERED: NALOXONE 0.4 MG/ML 1 ML VIAL IV PRN (18:48)
--- NOTE | 2024-07-20 18:48 | ED ---
Seizure HPI - General Chief Complaint: Seizure Stated Complaint: Seizure Time Seen by Provider: 07/20/24 16:00 Source: family, EMS Mode of arrival: EMS Limitations: no limitations - History of Present Illness Initial Comments: 48-year-old female with past medical history of seizure disorder presents to the emergency department reporting breakthrough seizure. is at bedside and helps provide the history. Patient has a longstanding history of seizure disorder for which she takes Trileptal, clonazepam and Vimpat. She follows with Dr. Barksdale. She takes her medications every day as they are directed without any missed doses. states she would have 1 seizure a year. Over the past couple of months that she has had more frequent seizures. She had 1 last week where she fell and hit her head. She was not seen after this episode. Today the patient had 2 seizures at home. She had 1 at 7 AM this morning for which EMS was called to the house however patient ended up not getting seen. She then had a second seizure just prior to arriving to the hospital. states that she stiffened up and had full tonic-clonic shaking. No incontinence. No tongue biting. Patient is alert and oriented x 3 upon my evaluation. Patient admits to chronically low salt levels. Denies concern for or urinary tract infection. No neck pain. No fevers. Denies any chest pain, abdominal pain, shortness of breath, nausea or vomiting. No visual deficits. No lateralizing weakness. No other alleviating, precipitating modifying factors - Related Data Home Medications Medication Instructions Recorded Confirmed Lacosamide [Vimpat] 200 mg PO BID@0700,1900 09/11/17 07/20/24 cloBAZam [Clobazam] 10 mg PO BID@0700,1900 06/19/21 07/20/24 OXcarbazepine [Trileptal] 600 mg PO BID@0700,1900 11/05/21 07/20/24 HYDROcodone/APAP 7.5-325MG [[place] 1 tab PO DAILY PRN 02/26/24 07/20/24 7.5-325] Allergies Allergy/AdvReac Type Severity Reaction Status Date / Time ibuprofen Allergy see comment Verified 07/20/24 18:46 Review of Systems ROS Statement: Those systems with pertinent positive or pertinent negative responses have been documented in the HPI. ROS Other: All systems not noted in ROS Statement are negative. Past Medical History Past Medical History: Asthma, Seizure Disorder Additional Past Medical History / Comment(s): Constipation History of Any Multi-Drug Resistant Organisms: MRSA Date of last positivie culture/infection: 11/03/08 MDRO Source:: POST Past Surgical History: Back Surgery, Hysterectomy, Orthopedic Surgery, Tubal Ligation Additional Past Surgical History / Comment(s): foot surgery Past Anesthesia/Blood Transfusion Reactions: No Reported Reaction Past Psychological History: No Psychological Hx Reported Smoking Status: Current every day smoker Past Alcohol Use History: None Reported Past Drug Use History: None Reported - Past Family History Mother Family Medical History: Cancer Sister(s) Family Medical History: Cancer Father Family Medical History: Cancer General Exam Limitations: no limitations General appearance: alert, in no apparent distress Head exam: Present: atraumatic, normocephalic, normal inspection Eye exam: Present: normal appearance, PERRL, EOMI. Absent: scleral icterus, conjunctival injection, periorbital swelling ENT exam: Present: normal exam, mucous membranes moist Neck exam: Present: normal inspection. Absent: tenderness, meningismus, lymphadenopathy Respiratory exam: Present: normal lung sounds bilaterally. Absent: respiratory distress, wheezes, rales, rhonchi, stridor Cardiovascular Exam: Present: regular rate, normal rhythm, normal heart sounds. Absent: systolic murmur, diastolic murmur, rubs, gallop, clicks GI/Abdominal exam: Present: soft, normal bowel sounds. Absent: distended, tenderness, guarding, rebound, rigid Extremities exam: Present: normal inspection, full ROM, normal capillary refill. Absent: tenderness, pedal edema, joint swelling, calf tenderness Back exam: Present: normal inspection Neurological exam: Present: alert, oriented X3, CN II-XII intact Psychiatric exam: Present: normal affect, normal mood Skin exam: Present: warm, dry, intact, normal color. Absent: rash Course Vital Signs 07/20/24 07/20/24 07/20/24 15:58 19:45 21:15 Temperature 98.4 F Pulse Rate 65 75 64 Pulse Rate [ Supine] Respiratory 18 16 13 Rate Blood Pressure 136/67 139/68 119/52 Blood Pressure [Right Arm] O2 Sat by Pulse 98 95 95 Oximetry 07/20/24 21:40 Temperature 98.7 F Pulse Rate Pulse Rate [ 62 Supine] Respiratory 15 Rate Blood Pressure Blood Pressure 142/56 [Right Arm] O2 Sat by Pulse 97 Oximetry Medical Decision Making - Medical Decision Making Was pt. sent in by a medical professional or institution (JACINTO Wesley, MANAGER OF DRILLING, urgent care, hospital, or retirement...) When possible be specific @ -No Did you speak to anyone other than the patient for history (EMS, parent, family, police, friend...)? What history was obtained from this source @ -Spoke with EMS and the roommate for history Did you review nursing and triage notes (agree or disagree)? Why? @ -I reviewed and agree with nursing and triage notes Were old charts reviewed (outside hosp., previous admission, EMS record, old EKG, old radiological studies, urgent care reports/EKG's, retirement records)? Report findings @ -No old charts were reviewed Differential Diagnosis (chest pain, altered mental status, abdominal pain women, abdominal pain men, vaginal bleeding, weakness, fever, dyspnea, syncope, headache, dizziness, GI bleed, back pain, seizure, CVA, palpatations, mental health, musculoskeletal)? @ -Differential Seizure: Recurrent seizure disorder, febrile seizure, alcohol withdrawal, stimulants, meningitis, encephalitis, intercranial hemorrhage, intracranial tumor, stroke, eclampsia, thyrotoxicosis, hypocalcemia, hyponatremia, hypernatremia, hypomagnesemia, psychogenic, this is not meant to be an all-inclusive list. EKG interpreted by me (3pts min.). @ -Yes and demonstrates sinus rhythm with a rate of 67. NJ interval 207. QRS 118. QTc of 430. No acute ST segment elevations or depressions. PVC present X-rays interpreted by me (1pt min.). @ -None done CT interpreted by me (1pt min.). @ -Yes and demonstrates no acute process U/S interpreted by me (1pt. min.). @ -None done What testing was considered but not performed or refused? (CT, X-rays, U/S, labs)? Why? @ -None What meds were considered but not given or refused? Why? @ -None Did you discuss the management of the patient with other professionals (professionals i.e. JACINTO Wesley, MANAGER OF DRILLING, lab, RT, psych nurse, social media developer, wiping rag washer, teacher, dental officer, caser shoe parts)? Give summary @ -Spoke with Felipa from [facility] for admission Was smoking cessation discussed for >3mins.? @ -No Was critical care preformed (if so, how long)? @ -No Were there social determinants of health that impacted care today? How? (Homelessness, low income, unemployed, alcoholism, drug addiction, transportation, low edu. Level, literacy, decrease access to med. care, [facility], rehab)? @ -No Was there de-escalation of care discussed even if they declined (Discuss DNR or withdrawal of care, Hospice)? DNR status @ -No What co-morbidities impacted this encounter? (DM, HTN, Smoking, COPD, CAD, Cancer, CVA, ARF, Chemo, Hep., AIDS, mental health diagnosis, sleep apnea, m orbid obesity)? @ -Seizure disorder Was patient admitted / discharged? Hospital course, mention meds given and route, prescriptions, significant lab abnormalities, going to OR and other pertinent info. @ -Upon arrival patient seen and evaluated in hallway 11. Thorough history and physical exam was performed. Patient is able to provide a full history. IV was established. Laboratory studies are conducted and the patient does go for CT. Patient does end up having a seizure in the emergency department was given 2 mg of Ativan. Laboratory studies and CT were reviewed. I did discuss the results with the patient. Due to multiple seizures I did recommend admission for neurology consultation. Patient was agreeable to this. She was admitted to [facility] in stable condition Undiagnosed new problem with uncertain prognosis? @ -No Drug Therapy requiring intensive monitoring for toxicity (Heparin, Nitro, Insulin, Cardizem)? @ -No Were any procedures done? @ -No Diagnosis/symptom? @ -Status epilepticus, history of seizure disorder Acute, or Chronic, or Acute on Chronic? @Acute Uncomplicated (without systemic symptoms) or Complicated (systemic symptoms)? @ -Complicated Side effects of treatment? @ -No Exacerbation, Progression, or Severe Exacerbation? @ -No Poses a threat to life or bodily function? How? (Chest pain, [place], [place], pneumonia, PE, COPD, DKA, ARF, appy, cholecystitis, CVA, Diverticulitis, Homicidal, Suicidal, threat to staff... and all critical care pts) @ -No - Lab Data Result diagrams: 07/21/24 02:53 07/22/24 02:34 Lab Results 07/20/24 07/20/24 07/20/24 Range/Units 16:42 16:42 16:42 WBC 5.4 (3.8-10.6) k/uL RBC 4.36 (3.80-5.40) m/uL Hgb 13.4 (11.4-16.0) gm/dL Hct 40.3 (34.0-46.0) % MCV 92.3 (80.0-100.0) fL MCH 30.7 (25.0-35.0) pg MCHC 33.2 (31.0-37.0) g/dL RDW 12.7 (11.5-15.5) % Plt Count 304 (150-450) k/uL MPV 6.7 Neutrophils % 71 % Lymphocytes % 22 % Monocytes % 4 % Eosinophils % 1 % Basophils % 0 % Neutrophils # 3.8 (1.3-7.7) k/uL Lymphocytes # 1.2 (1.0-4.8) k/uL Monocytes # 0.2 (0-1.0) k/uL Eosinophils # 0.1 (0-0.7) k/uL Basophils # 0.0 (0-0.2) k/uL Sodium 124 L (137-145) mmol/L Potassium 4.4 (3.5-5.1) mmol/L Chloride 94 L (98-107) mmol/L Carbon Dioxide 26 (22-30) mmol/L Anion Gap 4 mmol/L BUN 6 L (7-17) mg/dL Creatinine 0.50 L (0.52-1.04) mg/dL Est GFR (CKD-EPI)AfAm >90 (>60 ml/min/1.73 sqM) Est GFR (CKD-EPI)NonAf >90 (>60 ml/min/1.73 sqM) Glucose 95 (74-99) mg/dL Plasma Lactic Acid Dwight (0.7-2.0) mmol/L Calcium 8.8 (8.4-10.2) mg/dL Magnesium 1.7 (1.6-2.3) mg/dL Total Bilirubin 0.5 (0.2-1.3) mg/dL AST 23 (14-36) U/L ALT 20 (4-34) U/L Alkaline Phosphatase 90 (38-126) U/L Total Protein 6.8 (6.3-8.2) g/dL Albumin 4.2 (3.5-5.0) g/dL Urine Color Colorless Urine Appearance Clear (Clear) Urine pH 6.5 (5.0-8.0) Ur Specific [place] 1.006 (1.001-1.035) Urine Protein Negative (Negative) Urine Glucose (UA) Negative (Negative) Urine Ketones Negative (Negative) Urine Blood Negative (Negative) Urine Nitrite Negative (Negative) Urine Bilirubin Negative (Negative) Urine Urobilinogen <2.0 (<2.0) mg/dL Ur Leukocyte Esterase Negative (Negative) Urine Osmolality (400-1100) mOsm/kg Ur Random Sodium (40-220) mmol/L Urine Opiates Screen Not Detected (NotDetected) Ur Oxycodone Screen Not Detected (NotDetected) Urine Methadone Screen Not Detected (NotDetected) Ur Barbiturates Screen Not Detected (NotDetected) Oxcarbazepine (10-35) ug/mL U Tricyclic Antidepress Not Detected (NotDetected) Ur Phencyclidine Scrn Not Detected (NotDetected) Ur Amphetamines Screen Not Detected (NotDetected) U Methamphetamines Scrn Not Detected (NotDetected) U Benzodiazepines Scrn Detected H (NotDetected) Urine Cocaine Screen Not Detected (NotDetected) U Marijuana (THC) Screen Not Detected (NotDetected) 07/20/24 07/20/24 07/20/24 Range/Units 16:42 16:42 18:46 WBC (3.8-10.6) k/uL RBC (3.80-5.40) m/uL Hgb (11.4-16.0) gm/dL Hct (34.0-46.0) % MCV (80.0-100.0) fL MCH (25.0-35.0) pg MCHC (31.0-37.0) g/dL RDW (11.5-15.5) % Plt Count (150-450) k/uL MPV Neutrophils % % Lymphocytes % % Monocytes % % Eosinophils % % Basophils % % Neutrophils # (1.3-7.7) k/uL Lymphocytes # (1.0-4.8) k/uL Monocytes # (0-1.0) k/uL Eosinophils # (0-0.7) k/uL Basophils # (0-0.2) k/uL Sodium (137-145) mmol/L Potassium (3.5-5.1) mmol/L Chloride (98-107) mmol/L Carbon Dioxide (22-30) mmol/L Anion Gap mmol/L BUN (7-17) mg/dL Creatinine (0.52-1.04) mg/dL Est GFR (CKD-EPI)AfAm (>60 ml/min/1.73 sqM) Est GFR (CKD-EPI)NonAf (>60 ml/min/1.73 sqM) Glucose (74-99) mg/dL Plasma Lactic Acid Dwight 0.7 (0.7-2.0) mmol/L Calcium (8.4-10.2) mg/dL Magnesium (1.6-2.3) mg/dL Total Bilirubin (0.2-1.3) mg/dL AST (14-36) U/L ALT (4-34) U/L Alkaline Phosphatase (38-126) U/L Total Protein (6.3-8.2) g/dL Albumin (3.5-5.0) g/dL Urine Color Urine Appearance (Clear) Urine pH (5.0-8.0) Ur Specific [place] (1.001-1.035) Urine Protein (Negative) Urine Glucose (UA) (Negative) Urine Ketones (Negative) Urine Blood (Negative) Urine Nitrite (Negative) Urine Bilirubin (Negative) Urine Urobilinogen (<2.0) mg/dL Ur Leukocyte Esterase (Negative) Urine Osmolality 261 L (400-1100) mOsm/kg Ur Random Sodium (40-220) mmol/L Urine Opiates Screen (NotDetected) Ur Oxycodone Screen (NotDetected) Urine Methadone Screen (NotDetected) Ur Barbiturates Screen (NotDetected) Oxcarbazepine 12.3 (10-35) ug/mL U Tricyclic Antidepress (NotDetected) Ur Phencyclidine Scrn (NotDetected) Ur Amphetamines Screen (NotDetected) U Methamphetamines Scrn (NotDetected) U Benzodiazepines Scrn (NotDetected) Urine Cocaine Screen (NotDetected) U Marijuana (THC) Screen (NotDetected) 07/20/24 Range/Units 18:46 WBC (3.8-10.6) k/uL RBC (3.80-5.40) m/uL Hgb (11.4-16.0) gm/dL Hct (34.0-46.0) % MCV (80.0-100.0) fL MCH (25.0-35.0) pg MCHC (31.0-37.0) g/dL RDW (11.5-15.5) % Plt Count (150-450) k/uL MPV Neutrophils % % Lymphocytes % % Monocytes % % Eosinophils % % Basophils % % Neutrophils # (1.3-7.7) k/uL Lymphocytes # (1.0-4.8) k/uL Monocytes # (0-1.0) k/uL Eosinophils # (0-0.7) k/uL Basophils # (0-0.2) k/uL Sodium (137-145) mmol/L Potassium (3.5-5.1) mmol/L Chloride (98-107) mmol/L Carbon Dioxide (22-30) mmol/L Anion Gap mmol/L BUN (7-17) mg/dL Creatinine (0.52-1.04) mg/dL Est GFR (CKD-EPI)AfAm (>60 ml/min/1.73 sqM) Est GFR (CKD-EPI)NonAf (>60 ml/min/1.73 sqM) Glucose (74-99) mg/dL Plasma Lactic Acid Dwight (0.7-2.0) mmol/L Calcium (8.4-10.2) mg/dL Magnesium (1.6-2.3) mg/dL Total Bilirubin (0.2-1.3) mg/dL AST (14-36) U/L ALT (4-34) U/L Alkaline Phosphatase (38-126) U/L Total Protein (6.3-8.2) g/dL Albumin (3.5-5.0) g/dL Urine Color Urine Appearance (Clear) Urine pH (5.0-8.0) Ur Specific [place] (1.001-1.035) Urine Protein (Negative) Urine Glucose (UA) (Negative) Urine Ketones (Negative) Urine Blood (Negative) Urine Nitrite (Negative) Urine Bilirubin (Negative) Urine Urobilinogen (<2.0) mg/dL Ur Leukocyte Esterase (Negative) Urine Osmolality (400-1100) mOsm/kg Ur Random Sodium 79 (40-220) mmol/L Urine Opiates Screen (NotDetected) Ur Oxycodone Screen (NotDetected) Urine Methadone Screen (NotDetected) Ur Barbiturates Screen (NotDetected) Oxcarbazepine (10-35) ug/mL U Tricyclic Antidepress (NotDetected) Ur Phencyclidine Scrn (NotDetected) Ur Amphetamines Screen (NotDetected) U Methamphetamines Scrn (NotDetected) U Benzodiazepines Scrn (NotDetected) Urine Cocaine Screen (NotDetected) U Marijuana (THC) Screen (NotDetected) Disposition Clinical Impression: Hyponatremia, Breakthrough seizure Disposition: ADMITTED IP TO THIS [facility] Condition: Stable Is patient prescribed a controlled substance at d/c from ED?: No Time of Disposition: 18:47 Decision to Admit Reason: Admit from EC Decision Date: 07/20/24 Decision Time: 18:48
[2024-07-20] MEDS ORDERED: HYDROcodone/APAP 7.5-325MG 1 EACH TAB PO PRN (18:50)
[2024-07-20] MEDS: LACOSAMIDE 50 MG TABLET PO SCH (19:51)
[2024-07-20] MEDS: OXcarbazepine 300 MG TAB PO SCH (19:51)
[2024-07-20] MEDS: SODIUM CHLORIDE 0.9% 500 ML 500 ML IV ONE (19:52)
[2024-07-20] MEDS: NON FORMULARY DRUG (Clobazam [Clobazam] 10 MG Tablet) PO SCH (19:54)
[2024-07-20] MEDS ORDERED: LORazepam 2 MG/ML INJ IV PRN (22:14)
[2024-07-21 08:46] LABS: Basophils # (A) 0.02 X 10*3/uL (0.00-0.10); Basophils % (A) 0.4 %; Eosinophils # (A) 0.12 X 10*3/uL (0.04-0.35); Eosinophils % (A) 2.1 %; HCT 38.6 % (37.2-46.3); HGB 13.1 g/dL (12.0-15.0); Lymphocytes # (A) 2.06 X 10*3/uL (0.90-5.00); Lymphocytes % (A) 36.4 %; MCH 30.8 pg (27.0-32.0); MCHC 33.9 g/dL (32.0-37.0); MCV 90.8 FL (80.0-97.0); Monocytes # (A) 0.38 X 10*3/uL (0.20-1.00); Monocytes % (A) 6.7 %; NRBC Per 100 WBC 0 X 10*3/uL (0.00-0.01); Neutrophils # (A) 3.07 X 10*3/uL (1.80-7.70); Neutrophils % (A) 54.2 %; Platelet Count 289 X 10*3/uL (140-440); RBC 4.25 X 10*6/uL (4.10-5.20); WBC 5.66 X 10*3/uL (4.50-10.00)
[2024-07-21 08:56] LABS: ALT 19 U/L (8-44); AST 20 U/L (13-35); Albumin/Globulin Ratio 1.74 Ratio (1.60-3.17); Alkaline Phosphatase 78 U/L (41-126); Blood Urea Nitrogen 6.8 mg/dL (9.0-27.0); Calcium 8.8 mg/dL (8.7-10.3); Carbon Dioxide 23.7 mmol/L (21.6-31.8); Chloride 92 mmol/L (96-109); Globulin 2.3 g/dL (1.6-3.3); Glucose 89 mg/dL (70-110); Potassium 4.4 mmol/L (3.5-5.5); Sodium 128 mmol/L (135-145); Total Bilirubin 0.4 mg/dL (0.3-1.2); Total Protein 6.3 g/dL (6.2-8.2)
[2024-07-21] MEDS: CLOBAZAM 10 MG PO SCH ×2 (12:07→18:33)
[2024-07-21] MEDS: ENOXAPARIN 40 MG/0.4 ML SYRINGE SQ SCH (12:08)
--- NOTE | 2024-07-21 19:01 | P.HPIM ---
History of Present Illness H&P Date: 07/21/24 Chief Complaint: Breakthrough seizures Chief Complaint: Seizure History of presenting complaint: 48 Y-year-old patient follows with Dr. Reyes. Her neurologist is Dr. Breaux has known generalized tonic-clonic seizure. Patient is admitted here in February of this year. Discharged on antiepileptics following presentation with seizure episode. Patient yet again presents to ER with seizure episodes. She generally does not typically remember the episodes. As per the ER and patient has been taking Trileptal, clonazepam, Vimpat. She has been taking her medication regularly without missing any dose. Patient presented with 2 seizures at home. Patient was reported to getting stiffening up and had a full tonic-clonic shaking. No incontinence no tongue biting. In the ER patient was AO x 3. Per the nurse on the floor patient had another episode of seizure in the ER. This morning patient is feeling well. No further episodes this morning. Review of systems: GEN.: Tired EYES: None HEENT: None NECK: None RESPIRATORY: Some shortness of breath CARDIOVASCULAR: As above GASTROINTESTINAL: [As above GENITOURINARY: None MUSCULOSKELETAL: Back pain LYMPHATICS: None HEMATOLOGICAL: None PSYCHIATRY: None NEUROLOGICAL: As above Past medical history to include COPD, tonic-clonic seizure, anxiety depression Social history: Patient lives with friend-Ronny. Smokes anywhere from 1-2 packs a day. No alcohol. No recreational drugs. Physical examination: VITAL SIGNS: 97.5, 70, 17, 128 x 75, 98% room air GENERAL: BMI 46.5, reclining in bed awake comfortable EYES: Pupils equal. Conjunctiva normal. HEENT: External appearance of nose and ears normal, oral cavity grossly normal. NECK: JVD not raised; masses not palpable. HEART: First and second heart sounds are normal; no edema. LUNGS: Respiratory rate normal; slightly decreased breath sounds. ABDOMEN: Soft, nontender, liver spleen not palpable, no masses palpable. PSYCH: Alert and oriented x3; mood and affect normal. MUSCULOSKELETAL: Tenderness along the lumbar vertebra. Some adjoining bruising. NEUROLOGICAL: Cranial nerves grossly intact; no facial asymmetry, power and sensation grossly intact. LYMPHATICS: No lymph nodes palpable in the axilla and neck INVESTIGATIONS, reviewed in the clinical context: July 21: White count 5.6 hemoglobin 13.1 platelets 29 sodium 128 potassium 4.4 BUN 6.8 creatinine 0.5 July 20: Sodium 124. Serum osmolality 266. Urine osmolality 261 urine random sodium 79 UA: Negative Urine drug screen positive for benzodiazepine CT brain: Unremarkable Previous investigations: February 2024 X-ray lumbar spine: No acute fracture moderate multilevel disc DJD. CT scan lumbar spine: Colonic diverticula. Acute/subacute fractures through the transverse process of L1-L4. Assessment and plan: -Severe hypoosmolar hyponatremia with normovolemia Fluid restriction 1500 cc a day. Avoid free water -Breakthrough seizures recurrent with known tonic-clonic seizures. Takes clobazam, Trileptal, Vimpat at home Patient does follow-up with Dr. Breaux. Seizure precaution. Neurology Dr. Oreilly consulted. -Morbid obesity BMI 46.5 Weight loss measures. Follow PCP -Chronic colonic diverticulosis: Asymptomatic -Chronic low back pain from fracture of transverse process L1 L4 Ros[place] as needed -Chronic nicotine dependence, cigarette smoker Nicotine patch. Counseled -COPD in a current smoker Albuterol as needed -Full code Discussed with patient. Follow-up with neurology. Past Medical History Past Medical History: Asthma, Seizure Disorder Additional Past Medical History / Comment(s): Constipation History of Any Multi-Drug Resistant Organisms: MRSA Date of last positivie culture/infection: 11/03/08 MDRO Source:: POST Past Surgical History: Back Surgery, Hysterectomy, Orthopedic Surgery, Tubal Ligation Additional Past Surgical History / Comment(s): foot surgery Past Anesthesia/Blood Transfusion Reactions: No Reported Reaction Past Psychological History: No Psychological Hx Reported Smoking Status: Current every day smoker Past Alcohol Use History: None Reported Additional Past Alcohol Use History / Comment(s): SMOKES 1 PPD, STARTED SMOKING AGE 14. Past Drug Use History: None Reported Additional Drug Use History / Comment(s): . - Past Family History Mother Family Medical History: Cancer Sister(s) Family Medical History: Cancer Father Family Medical History: Cancer Medications and Allergies Home Medications Medication Instructions Recorded Confirmed Type Lacosamide [Vimpat] 200 mg PO BID@0700,1900 09/11/17 07/20/24 History cloBAZam [Clobazam] 10 mg PO BID@0700,1900 06/19/21 07/20/24 History OXcarbazepine [Trileptal] 600 mg PO BID@0700,1900 11/05/21 07/20/24 History HYDROcodone/APAP 7.5-325MG [[place] 1 tab PO DAILY PRN 02/26/24 07/20/24 History 7.5-325] Allergies Allergy/AdvReac Type Severity Reaction Status Date / Time ibuprofen Allergy see comment Verified 07/20/24 18:46 Physical Exam Vitals: Vital Signs Temp Pulse Pulse Resp BP BP Pulse Ox 07/21/24 07:05 97.5 F L 70 17 128/75 98 07/21/24 01:20 98.3 F 59 L 15 119/81 98 07/20/24 21:40 98.7 F 62 15 142/56 97 07/20/24 21:15 64 13 119/52 95 07/20/24 19:45 75 16 139/68 95 07/20/24 15:58 98.4 F 65 18 136/67 98 Intake and Output 07/20/24 07/21/24 07/21/24 22:59 06:59 14:59 Other: # Voids 2 Weight 138.799 kg Results CBC & Chem 7: 07/21/24 02:53 07/21/24 02:53 Labs: Abnormal Lab Results - Last 24 Hours (Table) 07/20/24 07/20/24 07/20/24 Range/Units 16:42 16:42 22:59 MPV (9.5-12.2) FL Sodium 124 L 125 L (137-145) mmol/L Chloride 94 L (98-107) mmol/L Anion Gap (4.00-12.00) mmol/L BUN 6 L (7-17) mg/dL Creatinine 0.50 L (0.52-1.04) mg/dL U Benzodiazepines Scrn Detected H (NotDetected) 07/21/24 07/21/24 Range/Units 02:53 02:53 MPV 9.0 L (9.5-12.2) FL Sodium 128 L (137-145) mmol/L Chloride 92 L (98-107) mmol/L Anion Gap 12.30 H (4.00-12.00) mmol/L BUN 6.8 L (7-17) mg/dL Creatinine 0.5 L (0.52-1.04) mg/dL U Benzodiazepines Scrn (NotDetected) Thrombosis Risk Factor Assmnt - Choose All That Apply Each Factor Represents 1 point: Age 41-60 years, Obesity (BMI >25) Other Risk Factors: No Other congenital or acquired thrombophilia - If yes, enter type in comment: No Thrombosis Risk Factor Assessment Total Risk Factor Score: 2 Thrombosis Risk Factor Assessment Level: Low Risk
[2024-07-21 19:21] LABS: Glucose,Whole Blood 128 mg/dL (70-110)
[2024-07-21] MEDS: NICOTINE 21MG/24HR PATCH TRANSDERM SCH (22:14)
--- NOTE | 2024-07-21 22:26 | CT ---
EXAMINATION TYPE: CT brain wo con DATE OF EXAM: 07/21/2024 COMPARISON: 07/10/2024 INDICATION: Fall, history of worsening seizures, head injury, headaches DLP: 1160.8 mGycm, Automated exposure control for dose reduction was used. CONTRAST: None CT of the brain is performed utilizing 3 mm thick sections through the posterior fossa and 3 mm thick sections through the remaining calvarium. Study is performed within 24 hours of arrival to the hosp [place]. No abnormal hyperdensity is present to suggest an acute intracranial hemorrhage. No mass lesion is evident. No acute infarcts are evident. Ventricles and sulci are appropriate for the patient age. Paranasal sinuses and mastoid air cells within the [id number] are clear. IMPRESSION: 1. No acute intracranial process. Follow up MRI can be performed as clinically indicated. [facility], Workstation: [facility], 07/21/2024 10:24 PM
[2024-07-22 04:35] LABS: African American GFR (CKD) >90 (>60 ml/min/1.73 sqM); Anion Gap 6 mmol/L; Blood Urea Nitrogen 6 mg/dL (7-17); Calcium 8.7 mg/dL (8.4-10.2); Carbon Dioxide 25 mmol/L (22-30); Chloride 93 mmol/L (98-107); Glucose 86 mg/dL (74-99); Non-African American GFR(CKD) >90 (>60 ml/min/1.73 sqM); Potassium 4.2 mmol/L (3.5-5.1); Sodium 124 mmol/L (137-145)
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
[2024-07-22] MEDS: OXcarbazepine 300 MG TAB PO SCH (18:49)
--- NOTE | 2024-07-22 18:56 | P.PN ---
Progress Note - Text Progress Note Date: 07/22/24 Chief Complaint: Breakthrough seizures Chief Complaint: Seizure History of presenting complaint: 48 Y-year-old patient follows with Dr. Reyes. Her neurologist is Dr. Breaux has known generalized tonic-clonic seizure. Patient is admitted here in February of this year. Discharged on antiepileptics following presentation with seizure episode. Patient yet again presents to ER with seizure episodes. She generally does not typically remember the episodes. As per the ER and patient has been taking Trileptal, clonazepam, Vimpat. She has been taking her medication regularly without missing any dose. Patient presented with 2 seizures at home. Patient was reported to getting stiffening up and had a full tonic-clonic shaking. No incontinence no tongue biting. In the ER patient was AO x 3. Per the nurse on the floor patient had another episode of seizure in the ER. This morning patient is feeling well. No further episodes this morning. July 22: Encounter to see patient this morning. Friend Ronny was present. Patient had gone for EEG. He did say that patient had a 1 minute tonic-clonic seizure this morning. Results of EEG were discussed with Dr. Strauss this evening. Patient does have temporal lobe spike for epilepsy. Dr. Strauss will be adding further antiepileptic. As patient had about 3 episodes of seizures yesterday. This evening I met with the patient and her friend Ronny at the bedside. Patient been drinking excessive water at home. Patient is on a fluid restriction here. To be reinforced. Sodium 124. Consult nephrology. Active Medications Hydrocodone Bitart/Acetaminophen (Hydrocodone/Apap 7.5-325mg 1 Each Tab) 1 each PO DAILY PRN PRN Reason: back pain Enoxaparin Sodium (Enoxaparin 40 Mg/0.4 Ml Syringe) 40 mg SQ DAILY [facility] Last Admin: 07/22/24 08:21 Dose: 40 mg Lacosamide (Lacosamide 50 Mg Tablet) 200 mg PO BID@0700,1900 [facility] Last Admin: 07/22/24 18:49 Dose: 200 mg Lorazepam (Lorazepam 2 Mg/Ml Inj) 2 mg IV ONCE PRN PRN Reason: Seizures Naloxone HCl (Naloxone 0.4 Mg/Ml 1 Ml Vial) 0.2 mg IV Q2M PRN PRN Reason: Opioid Reversal Nicotine (Nicotine 21mg/24hr Patch) 1 patch TRANSDERM DAILY [facility] Last Admin: 07/22/24 08:21 Dose: 1 patch Patient's Own ( Clobazam [Clobazam] 10 Mg Tablet) 10 mg PO DAILY@0700 [facility] Last Admin: 07/22/24 06:49 Dose: 10 mg Patient's Own ( Clobazam [Clobazam] 10 Mg Tablet) 5 mg PO DAILY@1900 [facility] Last Admin: 07/22/24 18:49 Dose: 5 mg Oxcarbazepine (Oxcarbazepine 300 Mg Tab) 300 mg PO BID@0700,1900 [facility] Last Admin: 07/22/24 18:49 Dose: 300 mg Past medical history to include COPD, tonic-clonic seizure, anxiety depression Social history: Patient lives with friend-Ronny. Smokes anywhere from 1-2 packs a day. No alcohol. No recreational drugs. Physical examination: VITAL SIGNS: 98.3, 80, 15, 149 x 85, 95% room air GENERAL: BMI 46.5, reclining in bed awake comfortable EYES: Pupils equal. Conjunctiva normal. HEENT: External appearance of nose and ears normal, oral cavity grossly normal. NECK: JVD not raised; masses not palpable. HEART: First and second heart sounds are normal; no edema. LUNGS: Respiratory rate normal; slightly decreased breath sounds. ABDOMEN: Soft, nontender, liver spleen not palpable, no masses palpable. PSYCH: Alert and oriented x3; mood and affect normal. MUSCULOSKELETAL: Tenderness along the lumbar vertebra. Some adjoining bruising. INVESTIGATIONS, reviewed in the clinical context: July 22: Sodium 124 potassium 4.2 BUN 6 creatinine 0.43 July 21: White count 5.6 hemoglobin 13.1 platelets 29 sodium 128 potassium 4.4 BUN 6.8 creatinine 0.5 July 20: Sodium 124. Serum osmolality 266. Urine osmolality 261 urine random sodium 79 UA: Negative Urine drug screen positive for benzodiazepine CT brain: Unremarkable Previous investigations: February 2024 X-ray lumbar spine: No acute fracture moderate multilevel disc DJD. CT scan lumbar spine: Colonic diverticula. Acute/subacute fractures through the transverse process of L1-L4. Assessment and plan: -Severe hypoosmolar hyponatremia with normovolemia: Slow to respond Increase fluid restriction 1200 cc a day. Avoid free water-reinforced with the patient Consult nephrology -Breakthrough seizures recurrent with known tonic-clonic seizures.: Had a seizure this morning Takes clobazam, Trileptal, Vimpat at home Patient does follow-up with Dr. Breaux. Seizure precaution. July 22: Discussed with Dr. Strauss. Positive EEG. He will be adding further medications -Morbid obesity BMI 46.5 Weight loss measures. Follow PCP -Chronic colonic diverticulosis: Asymptomatic -Chronic low back pain from fracture of transverse process L1 L4 [place] as needed -Chronic nicotine dependence, cigarette smoker Nicotine patch. Counseled -COPD in a current smoker Albuterol as needed -Full code Further AED will be added by Dr. Oreilly. Increase fluid restriction to 1200 cc a day. Avoid free water. Consult nephrology. Discussed with patient and the boyfriend. Past Medical History Past Medical History: Asthma, Seizure Disorder Additional Past Medical History / Comment(s): Constipation History of Any Multi-Drug Resistant Organisms: MRSA Date of last positivie culture/infection: 11/03/08 MDRO Source:: POST Past Surgical History: Back Surgery, Hysterectomy, Orthopedic Surgery, Tubal Ligation Additional Past Surgical History / Comment(s): foot surgery Past Anesthesia/Blood Transfusion Reactions: No Reported Reaction Past Psychological History: No Psychological Hx Reported Smoking Status: Current every day smoker Past Alcohol Use History: None Reported Additional Past Alcohol Use History / Comment(s): SMOKES 1 PPD, STARTED SMOKING AGE 14. Past Drug Use History: None Reported Additional Drug Use History / Comment(s): .
[2024-07-23] MEDS: ZONISAMIDE 100 MG CAP PO SCH (00:12)
[2024-07-23 04:36] LABS: African American GFR (CKD) >90 (>60 ml/min/1.73 sqM); Anion Gap 3 mmol/L; Blood Urea Nitrogen 8 mg/dL (7-17); Calcium 8.7 mg/dL (8.4-10.2); Carbon Dioxide 26 mmol/L (22-30); Chloride 94 mmol/L (98-107); Glucose 95 mg/dL (74-99); Non-African American GFR(CKD) >90 (>60 ml/min/1.73 sqM); Potassium 4.4 mmol/L (3.5-5.1); Sodium 123 mmol/L (137-145)
--- NOTE | 2024-07-23 05:37 | EEG ---
ELECTROENCEPHALOGRAM REPORT TECHNIQUE: This is a report from prolonged 2.5-hour inpatient digital EEG with video component, performed utilizing 10/20 international system with referential and bipolar montages. HISTORY: The patient has history of epilepsy, came with breakthrough seizures. Seizures consist of lip-smacking, blank stare, and bicycling type movements of the upper and lower extremities. Seizures last for about 20 to 30 seconds. CURRENT MEDICATIONS: 1. Vimpat 200 mg b.i.d. 2. Onfi 5 mg in the morning, 10 mg at night. 3. Trileptal 600 mg b.i.d. FINDINGS: Recording start time 10:20 a.m. on 07/22/2024 and recording end time 12:52 p.m. on 07/22/2024. During this 2.5-hour continuous video EEG, no clinical or electrographic seizures were recorded. BACKGROUND: The background consists of well developed, well regulated moderate voltage activity in 8 to 9 hertz alpha. Background is posterior dominant and reactive to eye opening and closing. ACTIVATION: Hyperventilation not performed. Photic stimulation, photic driving response was not seen. Sleep, drowsiness was seen, but deeper stages of sleep were not seen. ABNORMALITIES: 1. Frequent left temporal spike and sharp waves were seen periodically during this study. 2. Also evidence of bilateral dysrhythmic theta slowing intermittently in bitemporal region, left more than right. IMPRESSION: 1. This is an abnormal 2.5-hour video EEG due to the presence of bilateral temporal slowing, suggestive of focal cortical neuronal dysfunction. Also the presence of frequent focal spikes and sharp waves seen over the left temporal region, consistent with focal irritative lesion with tendency for focal onset seizure. 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 2. No electrographic seizure was recorded. MMODL / IJN: [id number] /
--- NOTE | 2024-07-23 11:01 | P.PN ---
Subjective Progress Note Date: 07/22/24 Patient was seen for a follow-up. Patient is sitting in the bed, wants to go home. Patient significant other was also present. They mentioned that patient has not had any more seizures since last 24 hours since I saw her. Objective - Vital Signs Vital signs: Vital Signs Temp 98.3 F 07/22/24 07:26 Pulse 80 07/22/24 07:26 Resp 15 07/22/24 07:26 BP 149/85 07/22/24 07:26 Pulse Ox 95 07/22/24 07:26 FiO2 Intake & Output 07/21/24 07/22/24 07/22/24 18:59 06:59 18:59 Intake Total 150 Balance 150 Intake: Oral 150 Other: # Voids 2 1 6 # Bowel Movements 1 - Exam Examination unchanged. 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 * Hyponatremia, likely related to side effect of Trileptal. Her breakthrough seizures could be partially contributed to hyponatremia. * Tobacco user. Plan: * Patient underwent prolonged, 2.5-hour EEG today. It was abnormal due to presence of bilateral temporal slowing, suggestive of focal cortical neuronal dysfunction. Also presence of frequent focal spikes and sharp wave seen over the left temporal region, consistent with an epileptic focus, with tendency for focal onset seizure. 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 * Continue same dose of seizure medications including Vimpat 200 mg twice daily, and Onfi 5 mg in the morning and 10 mg at night. Patient has persistent hyponatremia related to Trileptal. We will decrease Trileptal to 300 mg twice daily, and start zonisamide 100 mg twice daily. Patient does not remember having tried this medication in the past. Patient denies any history of renal stones. Possible side effects were discussed. * Patient's hyponatremia is likely from Trileptal. We will try to taper down the Trileptal. Her sodium 124 as of now. * Patient has previously failed Keppra. She was given Lamictal in 2019 in the hospital, but patient does not remember why she stopped it. She could be a candidate for Briviact or Zonegran. Topamax may have potential of worsening memory functions, therefore will avoid it. * Watch for balance because of adjusting seizure medications.
[2024-07-23] MEDS: SODIUM CHLORIDE TAB 1 GM TAB PO STA (11:09)
--- NOTE | 2024-07-23 12:21 | P.NPCON ---
History of Present Illness - Reason for Consult hyponatremia - History of Present Illness patient is a 48-year-old female with history of epilepsy. Patient is admitted to the hospital with grand mal seizure. Labs showed serum sodium of 124. Patient received 1 L saline bolus in the ER in sodium had improved to 128. Subsequently sodium dropped back to 124 and 123. Patient states that she has been drinking large amount of free water over the last few weeks. No history of nausea vomiting or diarrhea. No new medications started recently. Patient had another seizure in the hospital after admission. This was witnessed by neurology. Antiseizure medications have been adjusted Past Medical History Past Medical History: Asthma, Seizure Disorder Additional Past Medical History / Comment(s): Constipation History of Any Multi-Drug Resistant Organisms: MRSA Date of last positivie culture/infection: 11/03/08 MDRO Source:: POST Past Surgical History: Back Surgery, Hysterectomy, Orthopedic Surgery, Tubal Ligation Additional Past Surgical History / Comment(s): foot surgery Past Anesthesia/Blood Transfusion Reactions: No Reported Reaction Past Psychological History: No Psychological Hx Reported Smoking Status: Current every day smoker Past Alcohol Use History: None Reported Past Drug Use History: None Reported - Past Family History Mother Family Medical History: Cancer Sister(s) Family Medical History: Cancer Father Family Medical History: Cancer Medications and Allergies Home Medications Medication Instructions Recorded Confirmed Type Lacosamide [Vimpat] 200 mg PO BID@0700,1900 09/11/17 07/20/24 History cloBAZam [Clobazam] 10 mg PO BID@0700,1900 06/19/21 07/20/24 History OXcarbazepine [Trileptal] 600 mg PO BID@0700,1900 11/05/21 07/20/24 History HYDROcodone/APAP 7.5-325MG [[place] 1 tab PO DAILY PRN 02/26/24 07/20/24 History 7.5-325] Allergies Allergy/AdvReac Type Severity Reaction Status Date / Time ibuprofen Allergy see comment Verified 07/20/24 18:46 Physical Exam Vitals: Vital Signs Temp Pulse Resp BP Pulse Ox 07/23/24 10:17 68 17 07/23/24 07:00 98.1 F 68 17 131/85 98 07/23/24 01:05 97.4 F L 67 20 104/71 94 L 07/22/24 20:00 98.1 F 75 12 108/53 95 Intake and Output 07/22/24 07/23/24 07/23/24 22:59 06:59 14:59 Other: # Voids 6 1 # Bowel Movements 1 patient is awake, comfortable, no acute distress. Examination of the heart S1 and S2 Examination of the lungs bilateral breath sounds are heard Abdomen is soft nontender Examination of lower extremity shows no significant edema JAILER exam grossly intact Results - Lab Results Most recent lab results Calcium 8.7 mg/dL (8.4-10.2) 07/23/24 03:11 Magnesium 2.0 mg/dL (1.6-2.3) 07/21/24 21:03 07/21/24 02:53 07/23/24 10:21 Assessment and Plan Assessment: 1. Hyponatremia associated with excessive free water intake. Patient will be placed on fluid restriction. Urine osmolality is low. Patient appears euvolemic 2. Seizure disorder with breakthrough seizures being followed by neurology 3. chronic low back pain Plan: continue with fluid restriction Repeat sodium this afternoon Sodium chloride tabs 1 next Thank you for the consultation. We will continue to follow the patient with you during her hospitalization.
--- NOTE | 2024-07-23 12:50 | P.CRDCN ---
History of Present Illness Consult date: 07/23/24 History of present illness: This is a 48-year-old female patient of Dr. Stout with past medical history of seizure disorder, tobacco use, asthma, prior back surgery, GERD, reproducible chest pain. We have been asked to evaluate the patient for PVCs. Patient was not seen yesterday as she was gone for an extended 3-hour EEG. Today, patient states that she is feeling well. She denies any history of coronary artery disease. No lightheadedness or dizziness and no syncopal episodes. Blood pressure 131/85, heart rate 68, pulse ox 98% on room air. Patient has been ambulating in her room without any symptoms of lightheadedness or dizziness. Telemetry reviewed. EKG: Sinus rhythm with occasional PVC CT brain no acute intracranial process. Laboratory studies: Sodium 123, potassium 4.4, creatinine 0.48. Home cardiac medications: None Echocardiogram performed 06/19/2021 revealed EF 55 to 60%, mild concentric left ventricular hypertrophy. Mild MR, mild TR. Review Of Systems: At the time of my exam: CONSTITUTIONAL: Denies fever or chills. HEENT: Denies blurred vision, vision changes, or eye pain. Denies hemoptysis CARDIOVASCULAR: Denies chest pain. Denies orthopnea. Denies PND. Denies palpitations RESPIRATORY: Denies shortness of breath. GASTROINTESTINAL: Denies abdominal pain. Denies nausea or vomiting. HEMATOLOGIC: Denies bleeding disorders. GENITOURINARY: Denies any blood in urine. SKIN: Denies puritis. Denies rash. Physical examination: Gen: This is a 48-year-old female in no acute distress VS: reviewed HEENT: Head is atraumatic, normocephalic. Pupils equal, round. Sclerae is anicteric. NECK: Supple. No JVD. LUNGS: Clear to auscultation. No wheezes or rhonchi. No intercostal retractions. HEART: Regular rate and rhythm. No murmur. ABDOMEN: Soft No tenderness. EXTREMITIES: No pedal edema. No calf tenderness. NEUROLOGICAL: Patient is awake, alert and oriented x3. Assessment: Occasional PVC Hyponatremia Seizure disorder Chronic back pain Plan: Patient will not be started on a beta-jesse due to borderline hypotension. We will order a 4-week event monitor Obtain 2-D echocardiogram and Doppler study to assess cardiac structure and function If echocardiogram is unremarkable, patient is cleared for discharge from cardiology perspective and may follow-up with Dr. Stout in the office in 5 weeks. Thank you kindly for this consultation. Nurse practitioner note has been reviewed, I agree with documented findings and plan of care. Patient was seen and examined. Past Medical History Past Medical History: Asthma, Seizure Disorder Additional Past Medical History / Comment(s): Constipation History of Any Multi-Drug Resistant Organisms: MRSA Date of last positivie culture/infection: 11/03/08 MDRO Source:: POST Past Surgical History: Back Surgery, Hysterectomy, Orthopedic Surgery, Tubal Ligation Additional Past Surgical History / Comment(s): foot surgery Past Anesthesia/Blood Transfusion Reactions: No Reported Reaction Past Psychological History: No Psychological Hx Reported Smoking Status: Current every day smoker Past Alcohol Use History: None Reported Past Drug Use History: None Reported - Past Family History Mother Family Medical History: Cancer Sister(s) Family Medical History: Cancer Father Family Medical History: Cancer Medications and Allergies Home Medications Medication Instructions Recorded Confirmed Type Lacosamide [Vimpat] 200 mg PO BID@0700,1900 09/11/17 07/20/24 History cloBAZam [Clobazam] 10 mg PO BID@0700,1900 06/19/21 07/20/24 History OXcarbazepine [Trileptal] 600 mg PO BID@0700,1900 11/05/21 07/20/24 History HYDROcodone/APAP 7.5-325MG [[place] 1 tab PO DAILY PRN 02/26/24 07/20/24 History 7.5-325] Allergies Allergy/AdvReac Type Severity Reaction Status Date / Time ibuprofen Allergy see comment Verified 07/20/24 18:46 Physical Exam Vitals: Vital Signs Temp Pulse Resp BP Pulse Ox 07/23/24 07:00 98.1 F 68 17 131/85 98 07/23/24 01:05 97.4 F L 67 20 104/71 94 L 07/22/24 20:00 98.1 F 75 12 108/53 95 Intake and Output 07/22/24 07/23/24 07/23/24 22:59 06:59 14:59 Other: # Voids 6 1 # Bowel Movements 1 Results 07/21/24 02:53 07/23/24 10:21 Comprehensive Metabolic Panel 07/23/24 Range/Units 03:11 Sodium 123 L (137-145) mmol/L Potassium 4.4 (3.5-5.1) mmol/L Chloride 94 L (98-107) mmol/L Carbon Dioxide 26 (22-30) mmol/L BUN 8 (7-17) mg/dL Creatinine 0.48 L (0.52-1.04) mg/dL Glucose 95 (74-99) mg/dL Calcium 8.7 (8.4-10.2) mg/dL Current Medications Generic Name Dose Route Start Last Admin Trade Name Freq PRN Reason Stop Dose Admin Hydrocodone Bitart/Acetaminophen 1 each 07/20/24 18:50 Hydrocodone/Apap 7.5-325mg 1 Each Tab PO DAILY PRN back pain Enoxaparin Sodium 40 mg 07/21/24 09:15 07/23/24 08:11 Enoxaparin 40 Mg/0.4 Ml Syringe SQ 40 mg DAILY KELLEE Administration Lacosamide 200 mg 07/20/24 19:00 07/23/24 06:19 Lacosamide 50 Mg Tablet PO 200 mg BID@0700,1900 KELLEE Administration Lorazepam 2 mg 07/20/24 22:14 Lorazepam 2 Mg/Ml Inj IV ONCE PRN Seizures Naloxone HCl 0.2 mg 07/20/24 18:48 Naloxone 0.4 Mg/Ml 1 Ml Vial IV Q2M PRN Opioid Reversal Nicotine 1 patch 07/21/24 19:00 07/23/24 08:12 Nicotine 21mg/24hr Patch TRANSDERM 1 patch DAILY KELLEE Administration Patient's Own ( 10 mg 07/21/24 12:00 07/23/24 06:52 Clobazam [Clobazam] PO 10 mg 10 Mg Tablet) DAILY@0700 KELLEE Administration Patient's Own ( 5 mg 07/21/24 19:00 07/22/24 18:49 Clobazam [Clobazam] PO 5 mg 10 Mg Tablet) DAILY@1900 KELLEE Administration Oxcarbazepine 300 mg 07/22/24 19:00 07/23/24 06:20 Oxcarbazepine 300 Mg Tab PO 300 mg BID@0700,1900 KELLEE Administration Zonisamide 100 mg 07/22/24 23:45 07/23/24 08:12 Zonisamide 100 Mg Cap PO 100 mg Q12HR KELLEE Administration Intake and Output 07/22/24 07/23/24 07/23/24 22:59 06:59 14:59 Other: # Voids 6 1 # Bowel Movements 1 07/21/24 02:53 07/23/24 03:11
--- NOTE | 2024-07-23 15:38 | P.PN ---
Progress Note - Text Progress Note Date: 07/23/24 Chief Complaint: Breakthrough seizures Chief Complaint: Seizure History of presenting complaint: 48 Y-year-old patient follows with Dr. Reyes. Her neurologist is Dr. Breaux has known generalized tonic-clonic seizure. Patient is admitted here in February of this year. Discharged on antiepileptics following presentation with seizure episode. Patient yet again presents to ER with seizure episodes. She generally does not typically remember the episodes. As per the ER and patient has been taking Trileptal, clonazepam, Vimpat. She has been taking her medication regularly without missing any dose. Patient presented with 2 seizures at home. Patient was reported to getting stiffening up and had a full tonic-clonic shaking. No incontinence no tongue biting. In the ER patient was AO x 3. Per the nurse on the floor patient had another episode of seizure in the ER. This morning patient is feeling well. No further episodes this morning. July 22: Encounter to see patient this morning. Friend Ronny was present. Patient had gone for EEG. He did say that patient had a 1 minute tonic-clonic seizure this morning. Results of EEG were discussed with Dr. Strauss this evening. Patient does have temporal lobe spike for epilepsy. Dr. Strauss will be adding further antiepileptic. As patient had about 3 episodes of seizures yesterday. This evening I met with the patient and her friend Ronny at the bedside. Patient been drinking excessive water at home. Patient is on a fluid restriction here. To be reinforced. Sodium 124. Consult nephrology. July 23: Patient started on zonegram l by neurology. Seen by nephrology al so. Sodiums, up to 128. Also was given sodium tablet 1 g. Discussed with patient and boyfriend at the bedside. No more seizures reported Active Medications Hydrocodone Bitart/Acetaminophen (Hydrocodone/Apap 7.5-325mg 1 Each Tab) 1 each PO DAILY PRN PRN Reason: back pain Enoxaparin Sodium (Enoxaparin 40 Mg/0.4 Ml Syringe) 40 mg SQ DAILY [facility] Last Admin: 07/23/24 08:11 Dose: 40 mg Lacosamide (Lacosamide 50 Mg Tablet) 200 mg PO BID@0700,1900 [facility] Last Admin: 07/23/24 06:19 Dose: 200 mg Lorazepam (Lorazepam 2 Mg/Ml Inj) 2 mg IV ONCE PRN PRN Reason: Seizures Naloxone HCl (Naloxone 0.4 Mg/Ml 1 Ml Vial) 0.2 mg IV Q2M PRN PRN Reason: Opioid Reversal Nicotine (Nicotine 21mg/24hr Patch) 1 patch TRANSDERM DAILY [facility] Last Admin: 07/23/24 08:12 Dose: 1 patch Patient's Own ( Clobazam [Clobazam] 10 Mg Tablet) 10 mg PO DAILY@0700 [facility] Last Admin: 07/23/24 06:52 Dose: 10 mg Patient's Own ( Clobazam [Clobazam] 10 Mg Tablet) 5 mg PO DAILY@1900 [facility] Last Admin: 07/22/24 18:49 Dose: 5 mg Oxcarbazepine (Oxcarbazepine 300 Mg Tab) 300 mg PO BID@0700,1900 [facility] Last Admin: 07/23/24 06:20 Dose: 300 mg Zonisamide (Zonisamide 100 Mg Cap) 100 mg PO Q12HR [facility] Last Admin: 07/23/24 08:12 Dose: 100 mg Past medical history to include COPD, tonic-clonic seizure, anxiety depression Social history: Patient lives with friend-Ronny. Smokes anywhere from 1-2 packs a day. No alcohol. No recreational drugs. Physical examination: VITAL SIGNS: 98.5, 87, 16, 138 x 79, 97% room air GENERAL: BMI 46.5, propped up in bed EYES: Pupils equal. Conjunctiva normal. HEENT: External appearance of nose and ears normal, oral cavity grossly normal. NECK: JVD not raised; masses not palpable. HEART: First and second heart sounds are normal; no edema. LUNGS: Respiratory rate normal; slightly decreased breath sounds. ABDOMEN: Soft, nontender, liver spleen not palpable, no masses palpable. PSYCH: Alert and oriented x3; mood and affect normal. MUSCULOSKELETAL: Tenderness along the lumbar vertebra. Some adjoining bruising. INVESTIGATIONS, reviewed in the clinical context: July 23: Sodium 128 July 22: Sodium 124 potassium 4.2 BUN 6 creatinine 0.43 July 21: White count 5.6 hemoglobin 13.1 platelets sodium 128 potassium 4.4 BUN 6.8 creatinine 0.5 July 20: Sodium 124. Serum osmolality 266. Urine osmolality 261 urine rando m sodium 79 UA: Negative Urine drug screen positive for benzodiazepine CT brain: Unremarkable Previous investigations: February 2024 X-ray lumbar spine: No acute fracture moderate multilevel disc DJD. CT scan lumbar spine: Colonic diverticula. Acute/subacute fractures through the transverse process of L1-L4. Assessment and plan: -Severe hypoosmolar hyponatremia with normovolemia: Some improvement Increase fluid restriction 1200 cc a day. Avoid free water-reinforced with the patient Nephrology following. Sodium chloride 1 g given -Breakthrough seizures recurrent with known tonic-clonic seizures.: Had a seizure this morning Takes clobazam, Trileptal, Vimpat at home Patient does follow-up with Dr. Breaux. Seizure precaution. Zonegram-100 mg twice daily added by neurology today -Morbid obesity BMI 46.5 Weight loss measures. Follow PCP -Chronic colonic diverticulosis: Asymptomatic -Chronic low back pain from fracture of transverse process L1 L4 [place] as needed -Chronic nicotine dependence, cigarette smoker Nicotine patch. Counseled -COPD in a current smoker Albuterol as needed -Full code Zonegran added today. Salt tablet given. Discussed with patient and boyfriend at the bedside. Past Medical History Past Medical History: Asthma, Seizure Disorder Additional Past Medical History / Comment(s): Constipation History of Any Multi-Drug Resistant Organisms: MRSA Date of last positivie culture/infection: 11/03/08 MDRO Source:: POST Past Surgical History: Back Surgery, Hysterectomy, Orthopedic Surgery, Tubal Ligation Additional Past Surgical History / Comment(s): foot surgery Past Anesthesia/Blood Transfusion Reactions: No Reported Reaction Past Psychological History: No Psychological Hx Reported Smoking Status: Current every day smoker Past Alcohol Use History: None Reported Additional Past Alcohol Use History / Comment(s): SMOKES 1 PPD, STARTED SMOKING AGE 14. Past Drug Use History: None Reported Additional Drug Use History / Comment(s): .
[2024-07-24 07:25] VITALS: BP 135/80; PULSE 76; RESP 17; TEMP 98.6
--- NOTE | 2024-07-24 11:10 | P.PN ---
Subjective Progress Note Date: 07/23/24 Patient was seen for a follow-up. Patient is sitting in the bed, wants to go home. Patient significant other was also present. They mentioned that patient has not had any more seizures since last 24 hours since I saw her. No further seizures reported. Objective - Vital Signs Vital signs: Vital Signs Temp 98.5 F 07/23/24 13:38 Pulse 87 07/23/24 13:38 Resp 16 07/23/24 13:38 BP 138/79 07/23/24 13:38 Pulse Ox 97 07/23/24 13:38 FiO2 Intake & Output 07/22/24 07/23/24 07/23/24 18:59 06:59 18:59 Other: # Voids 6 1 # Bowel Movements 1 - Exam Examination unchanged. - Labs CBC & Chem 7: 07/21/24 02:53 07/24/24 09:52 Labs: Abnormal Lab Results - Last 24 Hours (Table) 07/23/24 07/23/24 Range/Units 03:11 10:21 Sodium 123 L 128 L (137-145) mmol/L Chloride 94 L (98-107) mmol/L Creatinine 0.48 L (0.52-1.04) mg/dL Assessment and Plan Assessment: * Localization-related epilepsy with temporal lobe seizure. EEG revealed left temporal epileptiform discharges. * Anxiety disorder. * Hyponatremia, likely related to side effect of Trileptal. Her breakthrough seizures could be partially contributed to hyponatremia. * Tobacco user. Plan: * Patient is doing well with current medication regimen. She is tolerating zonisamide well. * Prolonged, 2.5-hour 07/22/2024. It was abnormal due to presence of bilateral temporal slowing, suggestive of focal cortical neuronal dysfunction. Also presence of frequent focal spikes and sharp wave seen over the left temporal region, consistent with an epileptic focus, with tendency for focal onset seizure. 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 * Continue same dose of seizure medications including Vimpat 200 mg twice daily, and Onfi 5 mg in the morning and 10 mg at night. Patient has persistent hyponatremia related to Trileptal. We will decrease Trileptal to 300 mg twice daily, and start zonisamide 100 mg twice daily. Patient does not remember having tried this medication in the past. Patient denies any history of renal stones. Possible side effects were discussed. * Patient's hyponatremia is likely from Trileptal. We will try to taper down the Trileptal. Her sodium has improved 128 today. * Patient has previously failed Keppra. She was given Lamictal in 2019 in the hospital, but patient does not remember why she stopped it. She could be a candidate for Briviact or Zonegran. Topamax may have potential of worsening memory functions, therefore will avoid it. * Watch for balance because of adjusting seizure medications. * Recommend tobacco cessation. * Neurologically clear, when sodium level comes back to normal, and she remains seizure-free. * Patient recommended to follow-up with his neurologist within 1 week after d ischarge.
--- NOTE | 2024-07-24 11:18 | CA ---
Transthoracic Echo Report Name: Carmelina Venegas Age: 48 Gender: F : 1975 Exam Date: 07/23/2024 14:26 Exam Location: [facility] Ht (in): 68 Wt (lb): 306 Ordering Physician: Shirley Peñaloza Attending/Referring Phys: [id number], Anabela [employer] Nuris Rendon RDCS Procedure CPT: Indications: LVF Cardiac Hx: Technical Quality: Good Contrast 1: Total Dose (mL): Contrast 2: Total Dose (mL): MEASUREMENTS (Male / Female) Normal Values 2D ECHO LV Diastolic Diameter PLAX 5.8 cm 4.2 - 5.9 / 3.9 - 5.3 cm LV Systolic Diameter PLAX 4.2 cm IVS Diastolic Thickness 1.0 cm 0.6 - 1.0 / 0.6 - 0.9 cm LVPW Diastolic Thickness 1.0 cm 0.6 - 1.0 / 0.6 - 0.9 cm LV Relative Wall Thickness 0.3 LVOT Diameter 2.3 cm LA Volume 67.8 cm??? 18 - 58 / 22 - 52 cm??? LA Volume Index 25.5 cm???/m??? 16 - 28 cm???/m??? Ascending Aorta Diameter 3.4 cm M-MODE LV Diastolic Diameter MM 7.0 cm 4.2 - 5.9 / 3.9 - 5.3 cm LV Systolic Diameter MM 5.3 cm LV Cardiac Index MM Teich 3390.6 cm???/min???m??? IVS Diastolic Thickness MM 1.0 cm 0.6 - 1.0 / 0.6 - 0.9 cm LVPW Diastolic Thickness MM 1.0 cm 0.6 - 1.0 / 0.6 - 0.9 cm LV Relative Wall Thickness MM 0.3 0.24 - 0.42 / 0.22 - 0.42 LV Mass Index MM 127.1 g/m??? 49 - 115 / 43 - 95 g/m??? DOPPLER AV Peak Velocity 168.8 cm/s AV Peak Gradient 11.4 mmHg AV Mean Velocity 121.7 cm/s AV Mean Gradient 6.4 mmHg AV Velocity Time Integral 29.8 cm LVOT Peak Velocity 123.0 cm/s LVOT Peak Gradient 6.0 mmHg LVOT Velocity Time Integral 20.2 cm LVOT Stroke Volume 83.0 cm??? LVOT Stroke Volume Index 33.9 ml/m??? LVOT Cardiac Index 2345.9 cm???/min???m??? AV Area Cont Eq vti 2.8 cm??? AV Area Cont Eq pk 3.0 cm??? MV Area PHT 4.7 cm??? Mitral E Point Velocity 56.3 cm/s Mitral A Point Velocity 54.4 cm/s Mitral E to A Ratio 1.0 MV Deceleration Time 161.8 ms PV Peak Velocity 109.0 cm/s PV Peak Gradient 4.8 mmHg FINDINGS Left Ventricle Left ventricular ejection fraction is estimated at 45-50 %. S. Mildly increased posterior wall thickness. Mildly decreased fractional shortening. Mildly decreased midwall fractional shortening.Global hypokinesis. Right Ventricle Normal right ventricular size and function. Unable to estimate the right ventricular systolic pressure. Right Atrium Normal right atrial size. Left Atrium Moderately increased left atrial volume. Mildly increased left atrial area. Mitral Valve Structurally normal mitral valve. No mitral stenosis, regurgitation or prolapse. Aortic Valve Trileaflet aortic valve. No aortic valve stenosis or regurgitation. Tricuspid Valve Structurally normal tricuspid valve. No tricuspid stenosis, regurgitation or prolapse. Pulmonic Valve Pulmonic valve not well visualized. No pulmonic stenosis. Trace pulmonic regurgitation. Pericardium No pericardial effusion. Aorta Normal size aortic root and proximal ascending aorta. CONCLUSIONS Mild LV systolic dysfunction with an ejection fraction of 45 to 50% Previewed by: Dr. Franko Bell MD (Electronically Signed) Final Date: 24 July 2024 11:17
[2024-07-24] MEDS: METOPROLOL SUCCINATE (ER) 25 MG TAB.ER.24H PO SCH (12:12)
--- NOTE | 2024-07-24 12:42 | P.PN ---
Subjective Progress Note Date: 07/24/24 History of present illness: This is a 48-year-old female patient of Dr. Stout with past medical history of seizure disorder, tobacco use, asthma, prior back surgery, GERD, reproducible chest pain. We have been asked to evaluate the patient for PVCs. Patient was not seen yesterday as she was gone for an extended 3-hour EEG. Today, patient states that she is feeling well. She denies any history of coronary artery disease. No lightheadedness or dizziness and no syncopal episodes. Blood pressure 131/85, heart rate 68, pulse ox 98% on room air. Patient has been ambulating in her room without any symptoms of lightheadedness or dizziness. Telemetry reviewed. EKG: Sinus rhythm with occasional PVC CT brain no acute intracranial process. Laboratory studies: Sodium 123, potassium 4.4, creatinine 0.48. Home cardiac medications: None Echocardiogram performed 06/19/2021 revealed EF 55 to 60%, mild concentric left ventricular hypertrophy. Mild MR, mild TR. 07/24 Patient is seen and examined. Blood pressure 135/80, heart rate 76, pulse ox 96% on room air. Sodium is 133. Event monitor has been placed in anticipation of discharge soon. Echocardiogram reveals EF 45 to 50%. Results of the echocardiogram reviewed with the patient. Physical examination: Gen: This is a 48-year-old female in no acute distress VS: reviewed HEENT: Head is atraumatic, normocephalic. Pupils equal, round. Sclerae is anicteric. NECK: Supple. No JVD. LUNGS: Clear to auscultation. No wheezes or rhonchi. No intercostal retractions. HEART: Regular rate and rhythm. No murmur. ABDOMEN: Soft No tenderness. EXTREMITIES: No pedal edema. No calf tenderness. NEUROLOGICAL: Patient is awake, alert and oriented x3. Assessment: Occasional PVC Hyponatremia Seizure disorder Chronic back pain Mild cardiomyopathy of unclear etiology Plan: Patient will not be started on a beta-jesse due to borderline hypotension. Continue with a 4-week event monitor Patient is cleared for discharge from cardiology perspective and may follow-up with Dr. Stout in the office in 5 weeks. Nurse practitioner note has been reviewed, I agree with documented findings and plan of care. Patient was seen and examined. Objective - Vital Signs Vital signs: Vital Signs Temp 98.6 F 07/24/24 07:23 Pulse 76 07/24/24 07:23 Resp 17 07/24/24 07:23 BP 135/80 07/24/24 07:23 Pulse Ox 96 07/24/24 07:23 FiO2 Intake & Output 07/23/24 07/24/24 07/24/24 18:59 06:59 18:59 Other: Voiding Method Toilet # Voids 5 1 1 - Labs CBC & Chem 7: 07/21/24 02:53 07/24/24 09:52 Labs: Abnormal Lab Results - Last 24 Hours (Table) 07/23/24 Range/Units 10:21 Sodium 128 L (137-145) mmol/L
--- NOTE | 2024-07-24 15:46 | P.DS ---
Providers Date of admission: 07/20/24 18:50 Expected date of discharge: 07/24/24 Attending physician: Gonzalez Borges Consults: 07/20/24 18:48 Consult Physician Urgent Consulting Provider: Ema Strauss Consult Reason/Comments: breakthrough seizures Do you want consulting provider notified?: Yes 07/21/24 20:37 Consult Physician Stat Consulting Provider: Roland Shin Consult Reason/Comments: R on T PVC Do you want consulting provider notified?: Yes 07/22/24 18:53 Consult Physician Routine Consulting Provider: Jessica Nguyễn Consult Reason/Comments: Hyponatremia Do you want consulting provider notified?: Yes Primary care physician: Marcial Reyes [facility] Course: Chief Complaint: Breakthrough seizures History of presenting complaint: 48 Y-year-old patient follows with Dr. Reyes. Her neurologist is Dr. Breaux has known generalized tonic-clonic seizure. Patient is admitted here in February of this year. Discharged on antiepileptics f ollowing presentation with seizure episode. Patient yet again presents to ER with seizure episodes. She generally does not typically remember the episodes. As per the ER and patient has been taking Trileptal, clonazepam, Vimpat. She has been taking her medication regularly without missing any dose. Patient presented with 2 seizures at home. Patient was reported to getting stiffening up and had a full tonic-clonic shaking. No incontinence no tongue biting. In the ER patient was AO x 3. Per the nurse on the floor patient had another episode of seizure in the ER. This morning patient is feeling well. No further episodes this morning. July 22: Encounter to see patient this morning. Friend Ronny was present. Patient had gone for EEG. He did say that patient had a 1 minute tonic-clonic seizure this morning. Results of EEG were discussed with Dr. Strauss this evening. Patient does have temporal lobe spike for epilepsy. Dr. Strauss will be adding further antiepileptic. As patient had about 3 episodes of seizures yesterday. This evening I met with the patient and her friend Ronny at the bedside. Patient been drinking excessive water at home. Patient is on a fluid restriction here. To be reinforced. Sodium 124. Consult nephrology. July 23: Patient started on zonegram l by neurology. Seen by nephrology also. Sodiums, up to 128. Also was given sodium tablet 1 g. Discussed with patient and boyfriend at the bedside. No more seizures reported July 24: Has had no further seizures. Sodium up to 133. Antiepileptic medication discussed with Dr. Strauss. To be discharged on current same. Fluid restriction discussed. Patient and friend Ronny. Past medical history to include COPD, tonic-clonic seizure, anxiety depression Social history: Patient lives with friend-Ronny. Smokes anywhere from 1-2 packs a day. No alcohol. No recreational drugs. Physical examination: VITAL SIGNS: 98.6, 76, 17, 1 3580, 96% room air GENERAL: Cough Oleksandr EYES: Pupils equal. Conjunctiva normal. HEENT: External appearance of nose and ears normal, oral cavity grossly normal. NECK: JVD not raised; masses not palpable. HEART: First and second heart sounds are normal; no edema. LUNGS: Respiratory rate normal; slightly decreased breath sounds. ABDOMEN: Soft, nontender, liver spleen not palpable, no masses palpable. PSYCH: Alert and oriented x3; mood and affect normal. MUSCULOSKELETAL: Tenderness along the lumbar vertebra. Some adjoining bruising. INVESTIGATIONS, reviewed in the clinical context: July 24: Sodium 133 July 23: Sodium 128 July 22: Sodium 124 potassium 4.2 BUN 6 creatinine 0.43 July 21: White count 5.6 hemoglobin 13.1 platelets 29 sodium 128 potassium 4.4 BUN 6.8 creatinine 0.5 July 20: Sodium 124. Serum osmolality 266. Urine osmolality 261 urine random sodium 79 UA: Negative Urine drug screen positive for benzodiazepine CT brain: Unremarkable Previous investigations: February 2024 X-ray lumbar spine: No acute fracture moderate multilevel disc DJD. CT scan lumbar spine: Colonic diverticula. Acute/subacute fractures through the transverse process of L1-L4. Assessment and plan: -Severe hypoosmolar hyponatremia with normovolemia: Improved Fluid restriction. Seen by nephrology -Breakthrough seizures recurrent with known tonic-clonic seizures.: No further episodes Takes clobazam, Trileptal, Vimpat at home Patient does follow-up with Dr. Breaux. Seizure precaution. Zonegram-100 mg twice daily added by Dr. Oreilly -Morbid obesity BMI 46.5 Weight loss measures. Follow PCP -Chronic colonic diverticulosis: Asymptomatic -Chronic low back pain from fracture of transverse process L1 L4 Twilight as needed -Chronic nicotine dependence, cigarette smoker Nicotine patch. Counseled -COPD in a current smoker Albuterol as needed -Full code Disposition: Home Past Medical History Past Medical History: Asthma, Seizure Disorder Additional Past Medical History / Comment(s): Constipation History of Any Multi-Drug Resistant Organisms: MRSA Date of last positivie culture/infection: 11/03/08 MDRO Source:: POST Past Surgical History: Back Surgery, Hysterectomy, Orthopedic Surgery, Tubal Ligation Additional Past Surgical History / Comment(s): foot surgery Past Anesthesia/Blood Transfusion Reactions: No Reported Reaction Past Psychological History: No Psychological Hx Reported Smoking Status: Current every day smoker Past Alcohol Use History: None Reported Additional Past Alcohol Use History / Comment(s): SMOKES 1 PPD, STARTED SMOKING AGE 14. Past Drug Use History: None Reported Additional Drug Use History / Comment(s): . Plan - Discharge Summary Discharge Rx Participant: No New Discharge Prescriptions: New Clobazam [Clobazam] 5 mg PO DAILY@1900 Zonisamide [Zonegran] 100 mg PO Q12HR #60 cap Clobazam [Clobazam] 10 mg PO DAILY@0700 Nicotine 21Mg/24Hr Patch [Habitrol] 1 patch TRANSDERM DAILY #30 patch OXcarbazepine [Trileptal] 300 mg PO BID@0700,1900 #60 tab Continue Lacosamide [Vimpat] 200 mg PO BID@07,1899 HYDROcodone/APAP 7.5-325MG [Twilight 7.5-325] 1 tab PO DAILY PRN PRN Reason: back pain Discontinued OXcarbazepine [Trileptal] 600 mg PO BID@07,1900 cloBAZam [Clobazam] 10 mg PO BID@0700,1900 Discharge Medication List Lacosamide [Vimpat] 200 mg PO BID@0700,1900 09/11/17 [History] HYDROcodone/APAP 7.5-325MG [Twilight 7.5-325] 1 tab PO DAILY PRN 02/26/24 [History] Clobazam [Clobazam] 5 mg PO DAILY@1900 07/24/24 [Rx] Clobazam [Clobazam] 10 mg PO DAILY@0700 07/24/24 [Rx] Nicotine 21Mg/24Hr Patch [Habitrol] 1 patch TRANSDERM DAILY #30 patch 07/24/24 [Rx] OXcarbazepine [Trileptal] 300 mg PO BID@0700,1900 #60 tab 07/24/24 [Rx] Zonisamide [Zonegran] 100 mg PO Q12HR #60 cap 07/24/24 [Rx] Follow up Appointment(s)/Referral(s): Musa Stout DO [STAFF PHYSICIAN] - 6 Weeks (please call office to make ap pointment) Marcial Reyes MD [Primary Care Provider] - 1-2 days (please call office to make appointment. ) Jacqueline Breaux MD [Medical Doctor] - 1 Week (please call office to make appointment - office closed for lunch) Patient Instructions/Handouts: Seizure/Epilepsy Discharge Instructions & Follow-Up Activity/Diet/Wound Care/Special Instructions: Call [facility] for transport home at discharge: [phone] Pt has own medications in inpatient pharmacy- please return for patient d/c Discharge Disposition: HOME SELF-CARE
--- NOTE | 2024-07-24 16:13 | P.PN ---
Subjective Patient is seen for follow-up for hyponatremia associated with excessive free water intake. Maintained on fluid restriction and serum sodium has improved to 128 yesterday. No significant complaints. Objective - Vital Signs Vital signs: Vital Signs Temp 98.6 F 07/24/24 07:23 Pulse 76 07/24/24 10:35 Resp 17 07/24/24 07:23 BP 135/80 07/24/24 07:23 Pulse Ox 96 07/24/24 07:23 FiO2 Intake & Output 07/23/24 07/24/24 07/24/24 18:59 06:59 18:59 Other: Voiding Method Toilet Toilet # Voids 5 1 1 - Exam Patient is awake, comfortable, alert oriented x 3 Euvolemic No evidence of edema noted in the lower extremities. - Labs CBC & Chem 7: 07/21/24 02:53 07/24/24 09:52 Labs: Abnormal Lab Results - Last 24 Hours (Table) 07/24/24 Range/Units 09:52 Sodium 133 L (137-145) mmol/L Assessment and Plan Assessment: 1. Hyponatremia associated with excessive free water intake. Serum sodium has improved with fluid restriction. Urine osmolality is low. Patient appears euvolemic 2. Seizure disorder with breakthrough seizures being followed by neurology 3. Chronic low back pain Plan: Check sodium today continue with fluid restriction Okay to discharge if serum sodium continues to improve
== END 2024-07-24 12:58 | disposition home or self-care (01) | DRG 426 ==
LOC: EC 15:57 → 4SSUR 18:50
PROVIDERS: ADMIT Hospitalist; ATTEND Hospitalist
PROC: 4A10X4Z Monitoring of Central Nervous Electrical Activity, External Approach (ICD-10-PCS; principal; 2024-07-20)
DX: E87.1 Hypo-osmolality and hyponatremia (principal); G40.909 Epilepsy, unspecified, not intractable, without status epilepticus; Z68.42 Body mass index [BMI] 45.0-49.9, adult; E66.01 Morbid (severe) obesity due to excess calories; K57.30 Diverticulosis of large intestine without perforation or abscess without bleeding; G89.29 Other chronic pain; M54.50 Low back pain, unspecified; J44.9 Chronic obstructive pulmonary disease, unspecified; F17.210 Nicotine dependence, cigarettes, uncomplicated; K59.00 Constipation, unspecified; I49.3 Ventricular premature depolarization; F32.A Depression, unspecified; F41.9 Anxiety disorder, unspecified; I42.9 Cardiomyopathy, unspecified; T42.1X5A Adverse effect of iminostilbenes, initial encounter; W19.XXXA Unspecified fall, initial encounter; Z79.899 Other long term (current) drug therapy; Z90.710 Acquired absence of both cervix and uterus; I08.1 Rheumatic disorders of both mitral and tricuspid valves; Z98.51 Tubal ligation status; Z88.6 Allergy status to analgesic agent; Z86.14 Personal history of Methicillin resistant Staphylococcus aureus infection; Z71.6 Tobacco abuse counseling
CPT/HCPCS: 36415; 70450; 80048; 80053; 80183; 80306; 81003; 83605; 83735; 83930; 83935; 84295; 84300; 85025; 93005; 93270; 93306; 95700; 95713; 96361; 96374; 99285

== ENCOUNTER 2024-09-28 14:58 | Observation (INO) | payer OTHER ==
--- NOTE | 2024-09-28 15:23 | ED ---
General Adult HPI - General Source: patient, RN notes reviewed Mode of arrival: ambulatory Limitations: no limitations <Hannah Brooke - Last Filed: 09/28/24 15:22> <Jacob Coello - Last Filed: 09/28/24 20:02> <Myron Mcdaniel - Last Filed: 09/28/24 22:30> - General Stated complaint: Abd pain Time Seen by Provider: 09/28/24 15:22 - History of Present Illness Initial comments: Quick note: 48-year-old female presents to the emergency department for evaluation of constipation x 4 days. Patient reports she had a bowel movement but states that she is unable to go. Admits to 1 episode of vomiting. Denies fever. (Hannah Brooke) - Related Data Home Medications Medication Instructions Recorded Confirmed Lacosamide [Vimpat] 200 mg PO BID@0700,1900 09/11/17 07/20/24 HYDROcodone/APAP 7.5-325MG [[place] 1 tab PO DAILY PRN 02/26/24 07/20/24 7.5-325] Previous Rx's Medication Instructions Recorded Clobazam [Clobazam] 5 mg PO DAILY@1900 07/24/24 Clobazam [Clobazam] 10 mg PO DAILY@0700 07/24/24 Nicotine 21Mg/24Hr Patch [Habitrol] 1 patch TRANSDERM DAILY #30 patch 07/24/24 OXcarbazepine [Trileptal] 300 mg PO BID@0700,1900 #60 tab 07/24/24 Zonisamide [Zonegran] 100 mg PO Q12HR #60 cap 07/24/24 Allergies Allergy/AdvReac Type Severity Reaction Status Date / Time ibuprofen Allergy see comment Verified 09/28/24 15:40 Review of Systems ROS Other: All systems not noted in ROS Statement are negative. <Hannah Brooke - Last Filed: 09/28/24 15:22> ROS Other: All systems not noted in ROS Statement are negative. <Jacob Coello - Last Filed: 09/28/24 20:02> ROS Other: All systems not noted in ROS Statement are negative. <Myron Mcdaniel - Last Filed: 09/28/24 22:30> ROS Statement: Those systems with pertinent positive or pertinent negative responses have been documented in the HPI. Past Medical History Past Medical History: Asthma, Seizure Disorder Additional Past Medical History / Comment(s): Constipation History of Any Multi-Drug Resistant Organisms: MRSA Date of last positivie culture/infection: 11/03/08 MDRO Source:: POST Past Surgical History: Back Surgery, Hysterectomy, Orthopedic Surgery, Tubal Ligation Additional Past Surgical History / Comment(s): foot surgery Past Anesthesia/Blood Transfusion Reactions: No Reported Reaction Past Psychological History: No Psychological Hx Reported Smoking Status: Current every day smoker Past Alcohol Use History: None Reported Additional Past Alcohol Use History / Comment(s): SMOKES 1 PPD, STARTED SMOKING AGE 14. Past Drug Use History: None Reported Additional Drug Use History / Comment(s): . - Past Family History Mother Family Medical History: Cancer Sister(s) Family Medical History: Cancer Father Family Medical History: Cancer <Hannah Brooke - Last Filed: 09/28/24 15:22> General Exam <Hannah Brooke - Last Filed: 09/28/24 15:22> General appearance: alert, in no apparent distress Head exam: Present: atraumatic, normocephalic Eye exam: Present: normal appearance, PERRL ENT exam: Present: normal exam Neck exam: Present: normal inspection. Absent: tenderness, meningismus Respiratory exam: Present: normal lung sounds bilaterally. Absent: respiratory distress, wheezes Cardiovascular Exam: Present: regular rate, normal rhythm GI/Abdominal exam: Present: soft, distended, tenderness Neurological exam: Present: alert, oriented X3 Psychiatric exam: Present: normal affect, normal mood Skin exam: Present: warm, dry, intact. Absent: cyanosis, diaphoretic <Jacob Coello - Last Filed: 09/28/24 20:02> - General Exam Comments Initial Comments: Visual Physical Exam Vital signs reviewed General: Well-appearing, nontoxic, no acute distress. Head: Normocephalic, atraumatic Eyes: PERRLA, EOMI ENT: Airway patent Chest: Nonlabored breathing Skin: No visual rash, normal skin tone Neuro: Alert and oriented 3 Musculoskeletal: No gross abnormalities (Hannah Brooke) Course Vital Signs 09/28/24 09/28/24 15:37 22:13 Temperature 98.2 F 97.7 F Pulse Rate 75 65 Respiratory 22 16 Rate Blood Pressure 102/49 99/53 O2 Sat by Pulse 98 95 Oximetry Medical Decision Making <Hannah Brooke - Last Filed: 09/28/24 15:22> <OumouJacob Charlette - Last Filed: 09/28/24 20:02> - Lab Data Result diagrams: 09/28/24 20:19 09/28/24 20:19 <Myron Mcdaniel - Last Filed: 09/28/24 22:30> - Medical Decision Making Quick note preformed and electronically signed by Hannah Brooke PA-C (Hannah Brooke) Was pt. sent in by a medical professional or institution (JACINTO Wesley, CLERK OPERATOR, urgent care, hospital, or detention...) When possible be specific @ -No Did you speak to anyone other than the patient for history (EMS, parent, family, police, friend...)? What history was obtained from this source @ -No Did you review nursing and triage notes (agree or disagree)? Why? @ -I reviewed and agree with nursing and triage notes Were old charts reviewed (outside hosp., previous admission, EMS record, old EKG, old radiological studies, urgent care reports/EKG's, detention records)? Report findings @ -No old charts were reviewed MDM differential abdominal pain woman. EKG interpreted by me (3pts min.). @ -As above X-rays interpreted by me (1pt min.). @ -KUB negative for obstruction, no significant stool burden CT interpreted by me (1pt min.). @CT has been ordered U/S interpreted by me (1pt. min.). @ -None done What testing was considered but not performed or refused? (CT, X-rays, U/S, labs)? Why? @ -None What meds were considered but not given or refused? Why? @ -None Did you discuss the management of the patient with other professionals (professionals i.e. JACINTO Wesley, CLERK OPERATOR, lab, RT, psych nurse, social service assistant, welder fitter apprentice, teacher, budget officer, case management rn)? Give summary @ -No Was smoking cessation discussed for >3mins.? @ -No Was critical care preformed (if so, how long)? @ -No Were there social determinants of health that impacted care today? How? (Homelessness, low income, unemployed, alcoholism, drug addiction, transportation, low edu. Level, literacy, decrease access to med. care, detention, rehab)? @ -No Was there de-escalation of care discussed even if they declined (Discuss DNR or withdrawal of care, Hospice)? DNR status @ -No What co-morbidities impacted this encounter? (DM, HTN, Smoking, COPD, CAD, Cancer, CVA, ARF, Chemo, Hep., AIDS, mental health diagnosis, sleep apnea, morbid obesity)? @ -None Was patient admitted / discharged? Hospital course, mention meds given and route, prescriptions, significant lab abnormalities, going to OR and other pertinent info. @ -[48-year-old female with abdominal pain, generalized, patient believes this was related to constipation. Initially given enema without improvement in pain. Laboratory testing, urinalysis, CT imaging has been ordered, these results are pending. Patient care signed out at shift change to Dr. Mcdaniel and awaiting these results. Undiagnosed new problem with uncertain prognosis? @ -No Drug Therapy requiring intensive monitoring for toxicity (Heparin, Nitro, Insulin, Cardizem)? @ -No Were any procedures done? @ -No Diagnosis/symptom? @ -Default Acute, or Chronic, or Acute on Chronic? @ -Default Uncomplicated (without systemic symptoms) or Complicated (systemic symptoms)? @ -Default Side effects of treatment? @ -No Exacerbation, Progression, or Severe Exacerbation? @ -No Poses a threat to life or bodily function? How? (Chest pain, [place], [place], pneumonia, PE, COPD, DKA, ARF, appy, cholecystitis, CVA, Diverticulitis, Homicidal, Suicidal, threat to staff... and all critical care pts) @ -No (Jacob Coello) Patient care signed out to me by previous shift physician, Dr. Coello. Brief ly, patient is a 48-year-old female presents with severe abdominal pain and lack of bowel movement. Vital signs upon arrival are within acceptable limits. Laboratory evaluation obtained. Labs unremarkable. Plan at signout was to follow-up with pending CT imaging. CT of the abdomen pelvis shows stercoral colitis. No other acute complicating processes noted. Patient evaluated at bedside 10:30 PM still in significant distress. Case discussed with general surgery, Dr. Price request that patient be admitted to medicine. She does recommend initiating lactulose therapy discussed with hospitalist, Dr. Borges for admission Diagnosis/symptom? @ -Stercoral colitis Acute, or Chronic, or Acute on Chronic? @ -Acute Uncomplicated (without systemic symptoms) or Complicated (systemic symptoms)? @ -Default Side effects of treatment? @ -None Exacerbation, Progression, or Severe Exacerbation] @ -No Poses a threat to life or bodily function? @ -yes (Myron Mcdaniel) - Lab Data Lab Results 09/28/24 09/28/24 09/28/24 Range/Units 20:19 20:19 21:17 WBC 7.0 (3.8-10.6) k/uL RBC 4.74 (3.80-5.40) m/uL Hgb 14.5 (11.4-16.0) gm/dL Hct 44.3 (34.0-46.0) % MCV 93.3 (80.0-100.0) fL MCH 30.6 (25.0-35.0) pg MCHC 32.7 (31.0-37.0) g/dL RDW 14.1 (11.5-15.5) % Plt Count 263 (150-450) k/uL MPV 7.7 Neutrophils % 60 % Lymphocytes % 31 % Monocytes % 4 % Eosinophils % 3 % Basophils % 0 % Neutrophils # 4.2 (1.3-7.7) k/uL Lymphocytes # 2.2 (1.0-4.8) k/uL Monocytes # 0.3 (0-1.0) k/uL Eosinophils # 0.2 (0-0.7) k/uL Basophils # 0.0 (0-0.2) k/uL Sodium 138 (137-145) mmol/L Potassium 4.6 (3.5-5.1) mmol/L Chloride 100 (98-107) mmol/L Carbon Dioxide 27 (22-30) mmol/L Anion Gap 11 mmol/L BUN 11 (7-17) mg/dL Creatinine 0.78 (0.52-1.04) mg/dL Est GFR (CKD-EPI)AfAm >90 (>60 ml/min/1.73 sqM) Est GFR (CKD-EPI)NonAf 90 (>60 ml/min/1.73 sqM) Glucose 113 H (74-99) mg/dL Calcium 9.5 (8.4-10.2) mg/dL Total Bilirubin 0.9 (0.2-1.3) mg/dL AST 23 (14-36) U/L ALT 26 (4-34) U/L Alkaline Phosphatase 95 (38-126) U/L Total Protein 7.6 (6.3-8.2) g/dL Albumin 4.7 (3.5-5.0) g/dL Amylase 35 (30-110) U/L Lipase 34 (23-300) U/L Urine Color Yellow Urine Appearance Cloudy H (Clear) Urine pH 5.5 (5.0-8.0) Ur Specific [place] 1.019 (1.001-1.035) Urine Protein Trace H (Negative) Urine Glucose (UA) Negative (Negative) Urine Ketones Negative (Negative) Urine Blood Negative (Negative) Urine Nitrite Negative (Negative) Urine Bilirubin Negative (Negative) Urine Urobilinogen <2.0 (<2.0) mg/dL Ur Leukocyte Esterase Small H (Negative) Urine RBC 1 (0-5) /hpf Urine WBC 5 (0-5) /hpf Ur Squamous Epith Cells 2 (0-4) /hpf Urine Mucus Moderate H (None) /hpf Disposition <Hannah Brooke - Last Filed: 09/28/24 15:22> <Jacob Coello - Last Filed: 09/28/24 20:02> Decision Time: 22:30 <Myron Mcdaniel - Last Filed: 09/28/24 22:30> Clinical Impression: Stercoral colitis Disposition: ADMITTED IP TO THIS HOSP Condition: Fair Referrals: Marcial Reyes MD [Primary Care Provider] - 1-2 days
--- NOTE | 2024-09-28 16:10 | XR ---
EXAMINATION TYPE: XR KUB DATE OF EXAM: 09/28/2024 COMPARISON: CT lumbar spine 02/26/2024, lumbar spine radiographs 02/26/2024 HISTORY: Pain, constipation TECHNIQUE: Single upright KUB image of the abdomen is obtained FINDINGS: Small bowel demonstrates no evidence for dilatation or air fluid levels. Gas and fecal material is seen in non-distended colon. No convincing evidence for pneumoperitoneum. No unusual calcifications. Cholecystectomy clips in right upper quadrant. The lung bases are clear. The visualized heart appears mildly enlarged. The osseous structures are intact. Dextro scoliotic curvature of the lumbar spine with apex at L3. IMPRESSION: Overall nonobstructive bowel gas pattern. No significant stool burden. [facility], , 09/28/2024 4:08 PM
[2024-09-28] MEDS: HYDROmorphone 0.5 MG/0.5 ML SYRINGE IVP STA (20:28)
[2024-09-28 20:32] LABS: Basophils % (A) 0 %; Eosinophils # (A) 0.2 k/uL (0-0.7); Eosinophils % (A) 3 %; HCT 44.3 % (34.0-46.0); HGB 14.5 gm/dL (11.4-16.0); Lymphocytes # (A) 2.2 k/uL (1.0-4.8); Lymphocytes % (A) 31 %; MCH 30.6 pg (25.0-35.0); MCHC 32.7 g/dL (31.0-37.0); MCV 93.3 fL (80.0-100.0); Mean Platelet Volume 7.7; Monocytes # (A) 0.3 k/uL (0-1.0); Monocytes % (A) 4 %; Neutrophils # (A) 4.2 k/uL (1.3-7.7); Neutrophils % (A) 60 %; Platelet Count 263 k/uL (150-450); RBC 4.74 m/uL (3.80-5.40); RDW 14.1 % (11.5-15.5)
[2024-09-28 20:58] LABS: ALT 26 U/L (4-34); AST 23 U/L (14-36); African American GFR (CKD) >90 (>60 ml/min/1.73 sqM); Albumin 4.7 g/dL (3.5-5.0); Alkaline Phosphatase 95 U/L (38-126); Amylase 35 U/L (30-110); Anion Gap 11 mmol/L; Blood Urea Nitrogen 11 mg/dL (7-17); Calcium 9.5 mg/dL (8.4-10.2); Carbon Dioxide 27 mmol/L (22-30); Chloride 100 mmol/L (98-107); Glucose 113 mg/dL (74-99); Lipase 34 U/L (23-300); Non-African American GFR(CKD) 90 (>60 ml/min/1.73 sqM); Potassium 4.6 mmol/L (3.5-5.1); Sodium 138 mmol/L (137-145); Total Bilirubin 0.9 mg/dL (0.2-1.3); Total Protein 7.6 g/dL (6.3-8.2)
--- NOTE | 2024-09-28 21:54 | CT ---
INDICATION: Patient age:Female; 48 years old; Reason for study: abdominal pain; PHH. COMPARISON: None. TECHNIQUE: Standard CT of the abdomen and pelvis following the administration of 100 cc of Isovue 3 00 IV contrast material. Coronal and sagittal reformats were performed. One or more CT dose reduction strategies were utilized during this examination. Total DLP administered was 2478.8 mGycm. FINDINGS: LOWER CHEST: Unremarkable ABDOMEN LIVER: Unremarkable. GALLBLADDER AND BILE DUCTS: The gallbladder is surgically absent. PANCREAS: Unremarkable. SPLEEN: Unremarkable. ADRENAL GLANDS: Indeterminate right adrenal gland nodule is seen measuring 10 mm. Left adrenal gland is unremarkable. KIDNEYS AND URETERS: No evidence of hydronephrosis or renal calculus. The ureters are unremarkable. PELVIS URINARY BLADDER: Incompletely distended but grossly unremarkable. REPRODUCTIVE: No pelvic masses. ABDOMEN & PELVIS STOMACH AND BOWEL: Stomach is grossly unremarkable. The small bowel is of normal caliber. There is st ool noted within the rectum with perirectal fat stranding. No evidence of bowel obstruction. PERITONEUM: No evidence of pneumoperitoneum or free fluid. VASCULATURE: No aneurysmal changes. MUSCULOSKELETAL: No acute osseous abnormality. LYMPH NODES: Unremarkable. SOFT TISSUE/ABDOMINAL WALL: Unremarkable IMPRESSION: 1. Small rectal fecaloma with associated findings of acute stercoral colitis. 2. Indeterminate right adrenal gland nodule. Recommend further characterization with [facility] abdomen adrenal mass protocol with and without IV contrast. [facility], , 09/28/2024 9:52 PM
[2024-09-28 22:05] LABS: Appearance,Urine Cloudy (Clear); Bilirubin,Urine Negative (Negative); Blood,Urine Negative (Negative); Color,Urine Yellow; Glucose,Urine (UA) Negative (Negative); Ketones,Urine Negative (Negative); Leukocyte Esterase,Urine Small (Negative); Mucus,Urine Moderate /hpf; Nitrite,Urine Negative (Negative); PH, Urine 5.5 (5.0-8.0); Protein,Urine Trace (Negative); RBC,Urine 1 /hpf (0-5); Specific Gravity,Urine 1.019 (1.001-1.035); Squamous Epithelial Cell,Urine 2 /hpf (0-4); Urobilinogen,Urine <2.0 mg/dL (<2.0); WBC,Urine 5 /hpf (0-5)
[2024-09-28] MEDS ORDERED: NALOXONE 0.4 MG/ML 1 ML VIAL IV PRN (22:27)
[2024-09-28] MEDS ORDERED: ACETAMINOPHEN TAB 325 MG TAB PO PRN (22:27)
[2024-09-28] MEDS ORDERED: HYDROmorphone 0.5 MG/0.5 ML SYRINGE IVP PRN (22:27)
[2024-09-28] MEDS: LACTULOSE 20 GM/30 ML CUP PO ONE (22:33)
[2024-09-28] MEDS: SODIUM CHLORIDE 0.9% 1,000 ML IV SCH (22:34)
[2024-09-28] MEDS: PIPERACILLIN-TAZOBACTAM 3.375 GM in SODIUM CHLORIDE 0.9% 100 ML IVPB SCH (23:20)
--- NOTE | 2024-09-29 10:58 | P.GSCN ---
History of Present Illness Consult date: 09/29/24 History of present illness: CHIEF COMPLAINT: Constipation HISTORY OF PRESENT ILLNESS: This is a 48-year-old female who presented to the hospital with complaints of constipation. She has not had a bowel movement in 4 days. She did have some lower abdominal pain. She had 1 episode of vomiting. Patient was given a enema in the ER with no results then took lactulose and had a good bowel movement. Patient reports she is feeling much better and is feeling hungry. Patient states that she does take [place] at home for back pain. Patient reports that she eats a lot of cheese at home. Patient denies any prior history of constipation. Past surgical history does include back surgery, hysterectomy and . PAST MEDICAL HISTORY: Asthma, seizure disorder, developmental delay PAST SURGICAL HISTORY: See list. MEDICATIONS: See list. ALLERGIES: See list. SOCIAL HISTORY: No illicit drug use. REVIEW OF SYSTEMS: CONSTITUTIONAL: Denies fever or chills. HEENT: Denies blurred vision, vision changes, or eye pain. Denies hemoptysis ENDOCRINE: Denies heat or cold intolerance. CARDIOVASCULAR: Denies chest pain or pressure. RESPIRATORY: No shortness of breath. GASTROINTESTINAL: Please refer to HPI. NEURO: Denies history of seizures. PSYCH: No depression or suicidal ideation HEMATOLOGIC: Denies bleeding disorders. LYMPHATIC: The patient denies any lumps and bumps around the neck. GENITOURINARY: Denies any blood in urine or increased urinary frequency. MUSCULOSKELETAL: Denies myalgias. Denies joint swelling. Denies decreased range of motion beyond patients baseline. SKIN: Denies pruitis. Denies rash. PHYSICAL EXAM: VITAL SIGNS: Reviewed GENERAL: Well-developed in no acute distress. HEENT: No sclera icterus. Extraocular movements grossly intact. Moist buccal mucosa. Head is atraumatic, normocephalic. Hears conversational speech. No nasal drainage. NECK: Supple without lymphadenopathy. CHEST: Non-labored respirations and equal bilateral excursions. CARDIOVASCULAR: Palpable 2+ radial pulses. ABDOMEN: Soft. Obese. Nondistended. Nontender MUSCULOSKELETAL: No clubbing or cyanosis. NEUROLOGIC: No focal or lateralizing signs. Cranial nerves II through XII grossly intact. PSYCH: Appropriate affect. Alert and oriented to person, place and time. SKIN: Well perfused. Good skin turgor. LABORATORY DATA: WBC 7.0 Hgb 14.5 platelets 263 Sodium 138 potassium 4.6 creatinine 0.78 IMAGING: CT scan abdomen pelvis reports small rectal fecaloma with associated findings of acute stercoral colitis. Indeterminate right adrenal gland nodule. ASSESSMENT: 1. Constipation with CAT scan findings of a small rectal fecaloma and acute stercoral colitis PLAN: -Advance diet to full liquids for lunch and regular diet for dinner -lactulose 30ml BID added for constipation -Continue antibiotics for possible stercoral colitis -Patient can be discharged from surgical standpoint -[place] and cheese consumption may be contributing to patient's constipation -Recommend that patient has lactulose to take as needed at home for constipation if no BM after 2 days Physician Computer Systems Manager note has been reviewed by physician. Signing provider agrees with the documented findings, assessment, and plan of care. Please see additional documentation below CHIEF COMPLAINT: Colitis HISTORY OF PRESENT ILLNESS: The patient is a 48-year-old female previously known to me from being seen at the bariatric center presents with over 1 week history of constipation. Patient had reported severe lower abdominal pain. She denies any previous episodes of the sort. Patient had been placed on lactulose and has now had multiple large bowel movements per discussion. She does report she is feeling better at the time of my assessment. She is passing flatus. No blood in stools. Family is at bedside. She also reports a poor appetite with mo derate amount of dairy products including cheese. She also takes multiple narcotics. PAST MEDICAL HISTORY: See list and reviewed PAST SURGICAL HISTORY: See list and reviewed MEDICATIONS: See list and reviewed ALLERGIES: See list and reviewed SOCIAL HISTORY: See list and reviewed FAMILY HISTORY: See list and reviewed REVIEW OF ORGAN SYSTEMS: CONSTITUTIONAL: No fevers or chills. Morbid obesity, BMI 42.9. EYES: Denies any trouble with vision. Wears glasses. HEENT: No difficulties with hearing. No nosebleeds. No difficulty swallowing. RESPIRATORY: Has asthma. Tobacco abuse disorder. CARDIOVASCULAR: Denies any chest pain, palpitations, or recent heart attacks. GASTROINTESTINAL: Personal history of constipation. GENITOURINARY: Denies any blood in urine or increased urinary frequency. NEUROLOGICAL: Has seizure disorder including chronic pain syndrome. MUSCULOSKELETAL: Denies any back pain, stiffness or joint arthritis. SKIN: No current skin cancer. No rash. PSYCHIATRIC: Denies current depression or suicidal thoughts. ENDOCRINE: Denies current thyroid disorders. Denies any blood sugar glucose intolerance. HEME/LYMPHATIC: Denies any lumps and bumps around the neck. No recent deep venous thrombosis. ALLERGY/IMMUNOLOGY: No immunoglobulin therapy. No immune deficiencies. BREAST: Denies current breast lumps, pain or nipple discharge. PHYSICAL EXAM: VITALS: Reviewed CONSTITUTIONAL: Well developed and in no acute distress. EYES: Conjuctivae without sclera icterus. Extraocular movements grossly intact. HEAD, EARS, NOSE, THROAT: Moist buccal mucosa. Head is atraumatic, normocephalic. Hears conversational speech. No nasal drainage. NECK: Supple. No JV distention. No thyroidomegaly. RESPIRATORY: Non-labored respirations and equal bilateral excursions. No gross wheezes. CARDIOVASCULAR: Palpable 2+ radial pulses. ABDOMEN: Obese. No peritonitis. LYMPH: No neck lymphadenopathy. MUSCULOSKELETAL: No clubbing cyanosis or edema SKIN: Warm and well perfused with good skin turgor. NEUROLOGIC: Cranial nerves II through XII grossly intact. No focal or lateralizing signs. PSYCH: Appropriate affect. Alert and oriented to person, place and time. Displays appropriate insight. CLINCAL LABS: Reviewed. WBC normal. IMAGING: Independently reviewed. CT of the abdomen pelvis independently reviewed demonstrates large stool bolus involving the sigmoid colon to the rectum. No free air. No perforation. This is my independent interpretation. RADIOLOGY: Report reviewed of CT abdomen pelvis demonstrates fecaloma with colitis. RECORDS: previous old records reviewed from bariatric center 2023. Prior colonoscopy 2021 demonstrates no acute finding. Biopsies were negative for colitis. ASSESSMENT: 1. Abdominal pain due to constipation 2. Fecaloma with fecal impaction, resolved 3. Morbid obesity to excess calories, BMI 42.9 PLAN: 1. IV fluid hydration. 2. May advance from liquid diet to regular diet 3. Continue bowel regimen with lactulose 30 cc twice daily 4. Recommend bowel regimen at home ADVANCE DIRECTIVE: CODE STATUS in chart Thank you for this kind consultation. Past Medical History Past Medical History: Asthma, Seizure Disorder Additional Past Medical History / Comment(s): Constipation History of Any Multi-Drug Resistant Organisms: MRSA Year Discovered:: 11/03/08 MDRO Source:: POST Past Surgical History: Back Surgery, Hysterectomy, Orthopedic Surgery, Tubal Ligation Additional Past Surgical History / Comment(s): foot surgery Past Anesthesia/Blood Transfusion Reactions: No Reported Reaction Past Psychological History: No Psychological Hx Reported Smoking Status: Current every day smoker Past Alcohol Use History: None Reported Additional Past Alcohol Use History / Comment(s): SMOKES 1 PPD, STARTED SMOKING AGE 14. Past Drug Use History: None Reported Additional Drug Use History / Comment(s): . - Past Family History Mother Family Medical History: Cancer Sister(s) Family Medical History: Cancer Father Family Medical History: Cancer Medications and Allergies Home Medications Medication Instructions Recorded Confirmed Type Lacosamide [Vimpat] 200 mg PO BID@0700,1900 09/11/17 09/29/24 History OXcarbazepine [Trileptal] 300 mg PO BID@0700,1900 #60 tab 07/24/24 09/29/24 Rx Zonisamide [Zonegran] 100 mg PO BID@0700,1900 09/29/24 09/29/24 History cloBAZam 10 mg PO BID@0700,1900 09/29/24 09/29/24 History Amoxic-Pot Clav 875-125Mg 1 tab PO BID #10 tab 09/30/24 Rx [Augmentin 875-125] Allergies Allergy/AdvReac Type Severity Reaction Status Date / Time ibuprofen Allergy see comment Verified 09/29/24 07:12 Surgical - Exam Vital Signs Temp Pulse Resp BP Pulse Ox 98.2 F 75 22 102/49 98 09/28/24 15:37 09/28/24 15:37 09/28/24 15:37 09/28/24 15:37 09/28/24 15:37 Results - Labs 09/28/24 20:19 09/28/24 20:19 Abnormal Lab Results - Last 24 Hours (Table) 09/28/24 09/28/24 Range/Units 20:19 21:17 Glucose 113 H (74-99) mg/dL Urine Appearance Cloudy H (Clear) Urine Protein Trace H (Negative) Ur Leukocyte Esterase Small H (Negative) Urine Mucus Moderate H (None) /hpf Diabetes panel 09/28/24 Range/Units 20:19 Sodium 138 (137-145) mmol/L Potassium 4.6 (3.5-5.1) mmol/L Chloride 100 (98-107) mmol/L Carbon Dioxide 27 (22-30) mmol/L BUN 11 (7-17) mg/dL Creatinine 0.78 (0.52-1.04) mg/dL Glucose 113 H (74-99) mg/dL Calcium 9.5 (8.4-10.2) mg/dL AST 23 (14-36) U/L ALT 26 (4-34) U/L Alkaline Phosphatase 95 (38-126) U/L Total Protein 7.6 (6.3-8.2) g/dL Albumin 4.7 (3.5-5.0) g/dL Calcium panel 09/28/24 Range/Units 20:19 Calcium 9.5 (8.4-10.2) mg/dL Albumin 4.7 (3.5-5.0) g/dL Pituitary panel 09/28/24 Range/Units 20:19 Sodium 138 (137-145) mmol/L Potassium 4.6 (3.5-5.1) mmol/L Chloride 100 (98-107) mmol/L Carbon Dioxide 27 (22-30) mmol/L BUN 11 (7-17) mg/dL Creatinine 0.78 (0.52-1.04) mg/dL Glucose 113 H (74-99) mg/dL Calcium 9.5 (8.4-10.2) mg/dL Adrenal panel 09/28/24 Range/Units 20:19 Sodium 138 (137-145) mmol/L Potassium 4.6 (3.5-5.1) mmol/L Chloride 100 (98-107) mmol/L Carbon Dioxide 27 (22-30) mmol/L BUN 11 (7-17) mg/dL Creatinine 0.78 (0.52-1.04) mg/dL Glucose 113 H (74-99) mg/dL Calcium 9.5 (8.4-10.2) mg/dL Total Bilirubin 0.9 (0.2-1.3) mg/dL AST 23 (14-36) U/L ALT 26 (4-34) U/L Alkaline Phosphatase 95 (38-126) U/L Total Protein 7.6 (6.3-8.2) g/dL Albumin 4.7 (3.5-5.0) g/dL
[2024-09-29] MEDS: Clobazam [Clobazam] 10 MG Tablet PO SCH ×2 (11:38→22:34)
[2024-09-29] MEDS: LACOSAMIDE 50 MG TABLET PO SCH (11:42)
[2024-09-29] MEDS: ENOXAPARIN 40 MG/0.4 ML SYRINGE SQ SCH (11:42)
[2024-09-29] MEDS: ZONISAMIDE 100 MG CAP PO SCH (11:43)
[2024-09-29] MEDS: OXcarbazepine 300 MG TAB PO SCH (11:43)
[2024-09-29] MEDS: LACTULOSE 20 GM/30 ML CUP PO SCH (12:10)
--- NOTE | 2024-09-29 17:35 | P.HPIM ---
History of Present Illness H&P Date: 09/29/24 Chief Complaint: Constipation 48 Y-year-old patient follows with Dr. Reyes. neurologist is Dr. Breaux has known generalized tonic-clonic seizure. Other medical conditions include recurrent tonic-clonic seizures, chronic colonic diverticulosis, chronic low back pain from fracture of transverse process of L1 L4, cigarette smoker, COPD Patient normal has a bowel movement every day. Last 4 days not had a bowel movement. Having increasing lower abdominal pain. Also did vomit x 1 in the ER. No fever no chills. Overnight patient's had at least 4-5 bowel movements totally a large amount. CT scan in the ER showed evidence of acute stercorall colitis. This morning, patient's pain is much better. Patient's friend Ronny at the bedside. Review of systems: GEN.: Tired EYES: None HEENT: None NECK: None RESPIRATORY: Occasional shortness of breath CARDIOVASCULAR: As above GASTROINTESTINAL: [As above GENITOURINARY: None MUSCULOSKELETAL: Back pain LYMPHATICS: None HEMATOLOGICAL: None PSYCHIATRY: None NEUROLOGICAL: As above Social history: Patient lives with friend-Ronny. Smokes about 1-2 packs a day. No alcohol. No recreational drugs. Physical examination: VITAL SIGNS: 98, 60, 16, 118 x 72, 97% room air GENERAL: BMI 42.9, reclining bed awake not in distress EYES: Pupils equal. Conjunctiva normal. HEENT: External appearance of nose and ears normal, oral cavity grossly normal. NECK: JVD not raised; masses not palpable. HEART: First and second heart sounds are normal; no edema. LUNGS: Respiratory rate normal; slightly decreased breath sounds. ABDOMEN: Soft, minimal left lower quadrant tenderness., liver spleen not palpable, no masses palpable. PSYCH: Alert and oriented x3; mood and affect normal. MUSCULOSKELETAL: Tenderness along the lumbar vertebra. Some adjoining bruising. NEUROLOGICAL: Cranial nerves grossly intact; no facial asymmetry, power and sensation grossly intact. LYMPHATICS: No lymph nodes palpable in the axilla and neck INVESTIGATIONS, reviewed in the clinical context: September 28: White count 7 hemoglobin 14.5 platelets 263 sodium 138 potassium 4.[address] scan abdomen pelvis: Small rectal fecaloma with associated findings of acute stercoral colitis. Indeterminate right internal gland nodule. Previous investigations: February 2024 X-ray lumbar spine: No acute fracture moderate multilevel disc DJD. CT scan lumbar spine: Colonic diverticula. Acute/subacute fractures through the transverse process of L1-L4. Assessment and plan: -Acute stercoral colitis, for acute obstipation. Patient did not have a bowel movement for 4 days. Normally has a bowel movement every day. Overnight patient's had at least 4-5 bowel movements amounting to a large amount. Symptoms are doing better. Placed on IV Zosyn. Will be tried on liquids. Surgery was consulted -Tonic-clonic, chronic seizures Follows outpatient Dr. Breaux Continue home antiepileptic medications include clobazam, Zonegran, Trileptal, Vimpat -Morbid obesity BMI 42.9 Weight loss measures. Follow PCP -Chronic colonic diverticulosis: Asymptomatic -Chronic low back pain from fracture of transverse process L1 L4 Medications as needed -Chronic nicotine dependence, cigarette smoker Nicotine patch. -COPD in a current smoker Albuterol as needed -Full code Care was discussed with patient and friend Ronny at the bedside. Liquid diet. Home medication resumed. Past Medical History Past Medical History: Asthma, Seizure Disorder Additional Past Medical History / Comment(s): Constipation History of Any Multi-Drug Resistant Organisms: MRSA Date of last positivie culture/infection: 11/03/08 MDRO Source:: POST Past Surgical History: Back Surgery, Hysterectomy, Orthopedic Surgery, Tubal Ligation Additional Past Surgical History / Comment(s): foot surgery Past Anesthesia/Blood Transfusion Reactions: No Reported Reaction Past Psychological History: No Psychological Hx Reported Smoking Status: Current every day smoker Past Alcohol Use History: None Reported Additional Past Alcohol Use History / Comment(s): SMOKES 1 PPD, STARTED SMOKING AGE 14. Past Drug Use History: None Reported Additional Drug Use History / Comment(s): . - Past Family History Mother Family Medical History: Cancer Sister(s) Family Medical History: Cancer Father Family Medical History: Cancer Medications and Allergies Home Medications Medication Instructions Recorded Confirmed Type Lacosamide [Vimpat] 200 mg PO BID@0700,1900 09/11/17 09/29/24 History OXcarbazepine [Trileptal] 300 mg PO BID@0700,1900 #60 tab 07/24/24 09/29/24 Rx Zonisamide [Zonegran] 100 mg PO BID@0700,1900 09/29/24 09/29/24 History cloBAZam 10 mg PO BID@0700,1900 09/29/24 09/29/24 History Allergies Allergy/AdvReac Type Severity Reaction Status Date / Time ibuprofen Allergy see comment Verified 09/29/24 07:12 Physical Exam Vitals: Vital Signs Temp Pulse Resp BP Pulse Ox 09/29/24 07:45 98.1 F 60 16 118/72 97 09/29/24 03:52 98.0 F 52 L 16 103/67 97 09/28/24 22:13 97.7 F 65 16 99/53 95 09/28/24 15:37 98.2 F 75 22 102/49 98 Intake and Output 09/28/24 09/29/24 09/29/24 22:59 06:59 14:59 Other: Voiding Method Toilet Weight 127.913 kg Results CBC & Chem 7: 09/28/24 20:19 09/28/24 20:19 Labs: Abnormal Lab Results - Last 24 Hours (Table) 09/28/24 09/28/24 Range/Units 20:19 21:17 Glucose 113 H (74-99) mg/dL Urine Appearance Cloudy H (Clear) Urine Protein Trace H (Negative) Ur Leukocyte Esterase Small H (Negative) Urine Mucus Moderate H (None) /hpf Thrombosis Risk Factor Assmnt - Choose All That Apply Any of the Below Risk Factors Present?: Yes Each Factor Represents 1 point: Age 41-60 years, Obesity (BMI >25) Other Risk Factors: No Other congenital or acquired thrombophilia - If yes, enter type in comment: No Thrombosis Risk Factor Assessment Total Risk Factor Score: 2 Thrombosis Risk Factor Assessment Level: Low Risk
[2024-09-30 03:48] VITALS: TEMP 97.8
[2024-09-30] MEDS: Clobazam [Clobazam] 10 MG Tablet PO SCH (08:05)
[2024-09-30 08:20] VITALS: BP 107/70; PULSE 66; RESP 18
--- NOTE | 2024-09-30 20:17 | P.DS ---
Providers Date of admission: 09/28/24 22:28 Expected date of discharge: 09/30/24 Attending physician: Gonzalez Borges Consults: 09/30/24 10:16 Consult Physician Routine Consulting Provider: Nora Price Consult Reason/Comments: constipation Do you want consulting provider notified?: Already Contacted Primary care physician: Marcial Reyes [facility] Course: Chief Complaint: Constipation 48 Y-year-old patient follows with Dr. Reyes. neurologist is Dr. Breaux has known generalized tonic-clonic seizure. Other medical conditions include r ecurrent tonic-clonic seizures, chronic colonic diverticulosis, chronic low back pain from fracture of transverse process of L1 L4, cigarette smoker, COPD Patient normal has a bowel movement every day. Last 4 days not had a bowel movement. Having increasing lower abdominal pain. Also did vomit x 1 in the ER. No fever no chills. Overnight patient's had at least 4-5 bowel movements totally a large amount. CT scan in the ER showed evidence of acute stercorall colitis. This morning, patient's pain is much better. Patient's friend Ronny at the bedside. September 30: Eating well. No abdominal pain. Keen to go home. Feeling well. Will complete 5 more days of Augmentin for stercoral colitis. Social history: Patient lives with friend-Ronny. Smokes about 1-2 packs a day. No alcohol. No recreational drugs. Physical examination: VITAL SIGNS: 97.8, 66, 18, 107 x 70, 94% room air GENERAL: BMI 42.9, comfortable EYES: Pupils equal. Conjunctiva normal. HEENT: External appearance of nose and ears normal, oral cavity grossly normal. NECK: JVD not raised; masses not palpable. HEART: First and second heart sounds are normal; no edema. LUNGS: Respiratory rate normal; slightly decreased breath sounds. ABDOMEN: Soft, no tenderness., liver spleen not palpable, no masses palpable. PSYCH: Alert and oriented x3; mood and affect normal. INVESTIGATIONS, reviewed in the clinical context: September 28: White count 7 hemoglobin 14.5 platelets 263 sodium 138 potassium 4.[address] scan abdomen pelvis: Small rectal fecaloma with associated findings of acute stercoral colitis. Indeterminate right internal gland nodule. Previous investigations: February 2024 X-ray lumbar spine: No acute fracture moderate multilevel disc DJD. CT scan lumbar spine: Colonic diverticula. Acute/subacute fractures through the transverse process of L1-L4. Assessment and plan: -Acute stercoral colitis, for acute obstipation. Patient did not have a bowel movement for 4 days. Normally has a bowel movement every day.: Improved Overnight patient's had at least 4-5 bowel movements amounting to a large amount. Symptoms are doing better. Received IV Zosyn. Tolerating diet. Complete 5 days of Augmentin -Tonic-clonic, chronic seizures Follows outpatient Dr. Breaux Continue home antiepileptic medications include clobazam, Zonegran, Trileptal, Vimpat -Morbid obesity BMI 42.9 Weight loss measures. Follow PCP -Chronic colonic diverticulosis: Asymptomatic -Chronic low back pain from fracture of transverse process L1 L4 Medications as needed -Chronic nicotine dependence, cigarette smoker Nicotine patch. -COPD in a current smoker Albuterol as needed -Full code Disposition: Home Past Medical History Past Medical History: Asthma, Seizure Disorder Additional Past Medical History / Comment(s): Constipation History of Any Multi-Drug Resistant Organisms: MRSA Date of last positivie culture/infection: 11/03/08 MDRO Source:: POST Past Surgical History: Back Surgery, Hysterectomy, Orthopedic Surgery, Tubal Ligation Additional Past Surgical History / Comment(s): foot surgery Past Anesthesia/Blood Transfusion Reactions: No Reported Reaction Past Psychological History: No Psychological Hx Reported Smoking Status: Current every day smoker Past Alcohol Use History: None Reported Additional Past Alcohol Use History / Comment(s): SMOKES 1 PPD, STARTED SMOKING AGE 14. Past Drug Use History: None Reported Additional Drug Use History / Comment(s): . Plan - Discharge Summary Discharge Rx Participant: No New Discharge Prescriptions: New Amoxic-Pot Clav 875-125Mg [Augmentin 875-125] 1 tab PO BID #10 tab Continue Lacosamide [Vimpat] 200 mg PO BID@0700,1900 OXcarbazepine [Trileptal] 300 mg PO BID@0700,1900 #60 tab cloBAZam 10 mg PO BID@0700,1900 Zonisamide [Zonegran] 100 mg PO BID@0700,1900 Discharge Medication List Lacosamide [Vimpat] 200 mg PO BID@0700,1900 09/11/17 [History] OXcarbazepine [Trileptal] 300 mg PO BID@0700,1900 #60 tab 07/24/24 [Rx] Zonisamide [Zonegran] 100 mg PO BID@0700,1900 09/29/24 [History] cloBAZam 10 mg PO BID@0700,1900 09/29/24 [History] Amoxic-Pot Clav 875-125Mg [Augmentin 875-125] 1 tab PO BID #10 tab 09/30/24 [Rx] Follow up Appointment(s)/Referral(s): Mike Gallardo MD [REFERRING] - 1 Week (Right adrenal gland nodule) Marcial Reyes MD [Primary Care Provider] - 1-2 days Discharge Disposition: HOME SELF-CARE
== END 2024-09-30 12:40 | disposition home or self-care (01) ==
LOC: EC 14:58 → INTOOBSV 22:28 → 4SSUR 22:28 → 1SOBS 09-29 09:34
PROVIDERS: ADMIT Hospitalist; ATTEND Hospitalist
DX: K56.41 Fecal impaction (principal); K52.89 Other specified noninfective gastroenteritis and colitis; K57.30 Diverticulosis of large intestine without perforation or abscess without bleeding; G40.409 Other generalized epilepsy and epileptic syndromes, not intractable, without status epilepticus; E66.01 Morbid (severe) obesity due to excess calories; G89.29 Other chronic pain; M54.50 Low back pain, unspecified; F17.210 Nicotine dependence, cigarettes, uncomplicated; J44.89 Other specified chronic obstructive pulmonary disease; Z68.41 Body mass index [BMI] 40.0-44.9, adult; Z79.899 Other long term (current) drug therapy; Z88.6 Allergy status to analgesic agent
CPT/HCPCS: 96365 ×2; 96366 ×3; 96372 ×2; 96375; 99284; 36415; 80053; 82150; 83690; 85025; 81001; 74018; 74177; G0378 ×3; J2543 ×3; J1650 ×2; J1171; Q9967

== ENCOUNTER 2024-11-23 10:41 | Emergency (ER) | payer OTHER ==
--- NOTE | 2024-11-23 11:10 | ED ---
Skin/Abscess/FB HPI - General Chief complaint: Skin/Abscess/Foreign Body Stated complaint: lump under lt arm w. pain Time Seen by Provider: 11/23/24 11:08 Source: patient, RN notes reviewed Mode of arrival: ambulatory Limitations: no limitations - History of Present Illness Initial comments: 48-year-old female presenting for multiple lumps underneath left armpit x 2 days. Reports burning and stinging pain. States this is the second time these bumps have occurred. She is an everyday smoker. Denies fever, chills, cough, nasal congestion. - Related Data Home Medications Medication Instructions Recorded Confirmed Lacosamide [Vimpat] 200 mg PO BID@0700,1900 09/11/17 09/29/24 Zonisamide [Zonegran] 100 mg PO BID@0700,1900 09/29/24 09/29/24 cloBAZam 10 mg PO BID@0700,1900 09/29/24 09/29/24 Previous Rx's Medication Instructions Recorded OXcarbazepine [Trileptal] 300 mg PO BID@0700,1900 #60 tab 07/24/24 Amoxic-Pot Clav 875-125Mg 1 tab PO BID #10 tab 09/30/24 [Augmentin 875-125] Clindamycin Phosphate [Clindagel 1 applic TOPICAL BID #75 ml 11/23/24 1%] Doxycycline [Vibramycin] 100 mg PO BID 7 Days #14 capsule 11/23/24 Allergies Allergy/AdvReac Type Severity Reaction Status Date / Time ibuprofen Allergy see comment Verified 11/23/24 10:49 Review of Systems ROS Statement: Those systems with pertinent positive or pertinent negative responses have been documented in the HPI. ROS Other: All systems not noted in ROS Statement are negative. Past Medical History Past Medical History: Asthma, Seizure Disorder Additional Past Medical History / Comment(s): Constipation History of Any Multi-Drug Resistant Organisms: MRSA Date of last positivie culture/infection: 11/03/08 MDRO Source:: POST Past Surgical History: Back Surgery, Hysterectomy, Orthopedic Surgery, Tubal Ligation Additional Past Surgical History / Comment(s): foot surgery Past Anesthesia/Blood Transfusion Reactions: No Reported Reaction Past Psychological History: No Psychological Hx Reported Smoking Status: Current every day smoker Past Alcohol Use History: None Reported Past Drug Use History: None Reported - Past Family History Mother Family Medical History: Cancer Sister(s) Family Medical History: Cancer Father Family Medical History: Cancer General Exam - General Exam Comments Initial Comments: Visual Physical Exam Vital signs reviewed General: Well-appearing, nontoxic, no acute distress. Head: Normocephalic, atraumatic Eyes: PERRLA, EOMI ENT: Airway patent Chest: Nonlabored breathing Skin: No visual rash, normal skin tone Neuro: Alert and oriented 3 Musculoskeletal: No gross abnormalities Limitations: no limitations General appearance: alert, in no apparent distress Head exam: Present: atraumatic, normocephalic, normal inspection Eye exam: Present: normal appearance, PERRL, EOMI. Absent: scleral icterus, conjunctival injection, periorbital swelling Respiratory exam: Present: normal lung sounds bilaterally. Absent: respiratory distress, wheezes, rales, rhonchi, stridor Cardiovascular Exam: Present: regular rate, normal rhythm, normal heart sounds. Absent: systolic murmur, diastolic murmur, rubs, gallop, clicks Neurological exam: Present: alert, oriented X3 Psychiatric exam: Present: normal affect, normal mood Skin exam: Present: warm, dry, intact, normal color, rash (Multiple erythematous, tender masses in left axilla no active drainage) Course Vital Signs 11/23/24 10:47 Temperature 98.1 F Pulse Rate 64 Respiratory 20 Rate Blood Pressure 116/67 O2 Sat by Pulse 97 Oximetry Medical Decision Making - Medical Decision Making I completed the quick note portion of this chart signed Nettie Coulter PA-C Was pt. sent in by a medical professional or institution ([facility], RELATIONSHIP CONSULTANT, urgent care, hospital, or prison...) When possible be specific @ -No Did you speak to anyone other than the patient for history (EMS, parent, family, police, friend...)? What history was obtained from this source @ -No Did you review nursing and triage notes (agree or disagree)? Why? @ -I reviewed and agree with nursing and triage notes Were old charts reviewed (outside hosp., previous admission, EMS record, old EKG, old radiological studies, urgent care reports/EKG's, prison records)? Report findings @ -No old charts were reviewed Differential Diagnosis (chest pain, altered mental status, abdominal pain women, abdominal pain men, vaginal bleeding, weakness, fever, dyspnea, syncope, headache, dizziness, GI bleed, back pain, seizure, CVA, palpatations, mental health, musculoskeletal)? @ -Differential Musculoskeletal Hidradenitis suppurativa, muscular strain, contusion, ligament sprain, fracture, arthritis, septic arthritis, bursitis, cellulitis, muscle spasm, nerve compression, DVT, arterial occlusion, herpes zoster, electrolyte abnormality, tumor.... This is not meant to be in all inclusive list EKG interpreted by me (3pts min.). @ -None X-rays interpreted by me (1pt min.). @ -None done CT interpreted by me (1pt min.). @ -None done U/S interpreted by me (1pt. min.). @ -None done What testing was considered but not performed or refused? (CT, X-rays, U/S, labs)? Why? @ -None What meds were considered but not given or refused? Why? @ -None Did you discuss the management of the patient with other professionals (professionals i.e. , PA, RELATIONSHIP CONSULTANT, lab, RT, psych nurse, sr. social media & mobile manager, sheet metal work furnace installer, teacher, light armored vehicle officer, rifle case repairer)? Give summary @ -No Was smoking cessation discussed for >3mins.? @ -No Was critical care preformed (if so, how long)? @ -No Were there social determinants of health that impacted care today? How? (Homelessness, low income, unemployed, alcoholism, drug addiction, transportation, low edu. Level, literacy, decrease access to med. care, chcf, rehab)? @ -No Was there de-escalation of care discussed even if they declined (Discuss DNR or withdrawal of care, Hospice)? DNR status @ -No What co-morbidities impacted this encounter? (DM, HTN, Smoking, COPD, CAD, Cancer, CVA, ARF, Chemo, Hep., AIDS, mental health diagnosis, sleep apnea, morbid obesity)? @ -None Was patient admitted / discharged? Hospital course, mention meds given and route, prescriptions, significant lab abnormalities, going to OR and other pertinent info. @ -Discharge. History and physical examination consistent with hidradenitis suppurativa. No red flag symptoms or drainable abscesses. Advised patient to stop smoking. Patient was provided with outpatient prescription for topical clindamycin and oral doxycycline. Advised to follow-up with PCP. Appropriate return precautions and supportive care discussed. Case was discussed with my ED attending Dr. Cosby. Undiagnosed new problem with uncertain prognosis? @ -No Drug Therapy requiring intensive monitoring for toxicity (Heparin, Nitro, Insulin, Cardizem)? @ -No Were any procedures done? @ -No Diagnosis/symptom? @ -Hidradenitis suppurativa Acute, or Chronic, or Acute on Chronic? @ -Acute Uncomplicated (without systemic symptoms) or Complicated (systemic symptoms)? @ -Uncomplicated Side effects of treatment? @ -No Exacerbation, Progression, or Severe Exacerbation? @ -No Poses a threat to life or bodily function? How? (Chest pain, [place], [place], pneumonia, PE, COPD, DKA, ARF, appy, cholecystitis, CVA, Diverticulitis, Homicidal, Suicidal, threat to staff... and all critical care pts) @ -No Disposition Clinical Impression: Hidradenitis suppurativa Disposition: HOME SELF-CARE Condition: Stable Instructions (If sedation given, give patient instructions): Hidradenitis Suppurativa (ED) Additional Instructions: Use topical clindamycin twice daily. Take doxycycline as prescribed. Please return to the Emergency Department if symptoms worsen or any other concerns. Prescriptions: Clindamycin Phosphate [Clindagel 1%] 1 applic TOPICAL BID #75 ml Doxycycline [Vibramycin] 100 mg PO BID 7 Days #14 capsule Is patient prescribed a controlled substance at d/c from ED?: No Referrals: Marcial Reyes MD [Primary Care Provider] - 1-2 days Time of Disposition: 12:45
[2024-11-23 13:19] VITALS: BP 132/84; PULSE 67; RESP 18; TEMP 98.4
== END 2024-11-23 13:18 | disposition home or self-care (01) ==
LOC: EC 10:41
DX: L73.2 Hidradenitis suppurativa (principal); F17.200 Nicotine dependence, unspecified, uncomplicated
CPT/HCPCS: 99282

== ENCOUNTER 2025-03-12 17:11 | Emergency (ER) | payer OTHER ==
[2025-03-12 17:23] VITALS: TEMP 97.4
--- NOTE | 2025-03-12 17:43 | ED ---
General Adult HPI - General Chief complaint: Syncope Stated complaint: Syncope Time Seen by Provider: 03/12/25 17:31 Source: patient, RN notes reviewed Mode of arrival: EMS Limitations: no limitations - History of Present Illness Initial comments: Patient is a 49-year-old female present to the emergency department with concern for syncopal versus seizure episode. Episode occurred prior to arrival. Patient ate fish that did not seem to agree with her. Patient vomited 4 times. Following this patient became unresponsive. There was was some generalized shaking. Patient was unresponsive for up to 5 minutes. Patient improved with sternal rub by EMS. Friend is present who states unresponsiveness did appear somewhat like a seizure as he has witnessed several previously. Patient has been taking her seizure medications. No chest pain. No dyspnea. No weakness. - Related Data Home Medications Medication Instructions Recorded Confirmed Lacosamide [Vimpat] 200 mg PO BID@0700,1900 09/11/17 09/29/24 Zonisamide [Zonegran] 100 mg PO BID@0700,1900 09/29/24 09/29/24 cloBAZam 10 mg PO BID@0700,1900 09/29/24 09/29/24 Previous Rx's Medication Instructions Recorded OXcarbazepine [Trileptal] 300 mg PO BID@0700,1900 #60 tab 07/24/24 Amoxic-Pot Clav 875-125Mg 1 tab PO BID #10 tab 09/30/24 [Augmentin 875-125] Clindamycin Phosphate [Clindagel 1 applic TOPICAL BID #75 ml 11/23/24 1%] Doxycycline [Vibramycin] 100 mg PO BID 7 Days #14 capsule 11/23/24 Allergies Allergy/AdvReac Type Severity Reaction Status Date / Time ibuprofen Allergy see comment Verified 03/12/25 17:23 Review of Systems ROS Statement: Those systems with pertinent positive or pertinent negative responses have been documented in the HPI. ROS Other: All systems not noted in ROS Statement are negative. Constitutional: Denies: fever Eyes: Denies: eye pain ENT: Denies: ear pain Respiratory: Denies: cough Cardiovascular: Denies: chest pain Gastrointestinal: Reports: as per HPI, nausea, vomiting Skin: Denies: rash Neurological: Denies: weakness Past Medical History Past Medical History: Asthma, Hyperlipidemia, Seizure Disorder Additional Past Medical History / Comment(s): Constipation History of Any Multi-Drug Resistant Organisms: MRSA Date of last positivie culture/infection: 11/03/08 MDRO Source:: POST Past Surgical History: Back Surgery, Hysterectomy, Orthopedic Surgery, Tubal Ligation Additional Past Surgical History / Comment(s): foot surgery Past Anesthesia/Blood Transfusion Reactions: No Reported Reaction Past Psychological History: No Psychological Hx Reported Smoking Status: Current every day smoker Past Alcohol Use History: None Reported Past Drug Use History: None Reported - Past Family History Mother Family Medical History: Cancer Sister(s) Family Medical History: Cancer Father Family Medical History: Cancer General Exam Limitations: no limitations General appearance: alert, in no apparent distress Head exam: Present: normocephalic Eye exam: Present: normal appearance, PERRL, EOMI ENT exam: Present: normal oropharynx Neck exam: Present: normal inspection Respiratory exam: Present: normal lung sounds bilaterally Cardiovascular Exam: Present: regular rate, normal rhythm GI/Abdominal exam: Present: soft. Absent: tenderness Extremities exam: Present: normal inspection. Absent: pedal edema, calf tenderness Neurological exam: Present: alert, oriented X3, CN II-XII intact. Absent: motor sensory deficit Expanded Neurological exam: Present: protecting the airway Speech: Present: fluid speech Cranial nerves: EOM's Intact: Normal Motor strength exam: RUE: 5, LUE: 5, RLE: 5, LLE: 5 Eye Response: (4) open spontaneously Motor Response: (6) obeys commands Verbal Response: (5) oriented Psychiatric exam: Present: normal affect, normal mood Skin exam: Present: normal color Course Vital Signs 03/12/25 17:17 Temperature 97.4 F L Pulse Rate 61 Respiratory 14 Rate Blood Pressure 88/50 O2 Sat by Pulse 94 L Oximetry EKG Findings - EKG Results: EKG: interpreted by ERMD, sinus rhythm, normal axis, normal QRS, normal ST/T EKG shows: bradycardia Medical Decision Making - Medical Decision Making Was pt. sent in by a medical professional or institution (, PA, STATE SUPERINTENDENT OF SCHOOLS, urgent care, hospital, or group home...) When possible be specific @ -No Did you speak to anyone other than the patient for history (EMS, parent, family, police, friend...)? What history was obtained from this source @ -Patient's friend is present and provides history as he did witness the event Did you review nursing and triage notes (agree or disagree)? Why? @ -I reviewed and agree with nursing and triage notes Were old charts reviewed (outside hosp., previous admission, EMS record, old EKG, old radiological studies, urgent care reports/EKG's, group home records)? Report findings @ -No old charts were reviewed Differential Diagnosis (chest pain, altered mental status, abdominal pain women, abdominal pain men, vaginal bleeding, weakness, fever, dyspnea, syncope, headache, dizziness, GI bleed, back pain, seizure, CVA, palpatations, mental health, musculoskeletal)? @ -Differential Seizure: Recurrent seizure disorder, febrile seizure, alcohol withdrawal, stimulants, meningitis, encephalitis, intercranial hemorrhage, intracranial tumor, stroke, eclampsia, thyrotoxicosis, hypocalcemia, hyponatremia, hypernatremia, hypomagnesemia, psychogenic, this is not meant to be an all-inclusive list. EKG interpreted by me (3pts min.). @ -As above X-rays interpreted by me (1pt min.). @ -Chest x-ray does not reveal acute abnormality. Borderline heart size. CT interpreted by me (1pt min.). @ -None done U/S interpreted by me (1pt. min.). @ -None done What testing was considered but not performed or refused? (CT, X-rays, U/S, labs)? Why? @ -None What meds were considered but not given or refused? Why? @ -None Did you discuss the management of the patient with other professionals (nicole lira i.e. , PA, STATE [employer], lab, RT, psych nurse, clinical social worker, sharepoint net developer, teacher, chief operations officer, spring encaser)? Give summary @ -No Was smoking cessation discussed for >3mins.? @ -No Was critical care preformed (if so, how long)? @ -No Were there social determinants of health that impacted care today? How? (Homelessness, low income, unemployed, alcoholism, drug addiction, transportation, low edu. Level, literacy, decrease access to med. care, chcf, rehab)? @ -No Was there de-escalation of care discussed even if they declined (Discuss DNR or withdrawal of care, Hospice)? DNR status @ -No What co-morbidities impacted this encounter? (DM, HTN, Smoking, COPD, CAD, Cancer, CVA, ARF, Chemo, Hep., AIDS, mental health diagnosis, sleep apnea, morbid obesity)? @ -History of seizure disorder Was patient admitted / discharged? Hospital course, mention meds given and route, prescriptions, significant lab abnormalities, going to OR and other pertinent info. @ -Patient presents with unresponsive episode, somewhat similar to previous seizures. On evaluation as well as reevaluation patient remains symptom-free. Patient and friend are updated on results. Patient does feel comfortable discharge home Undiagnosed new problem with uncertain prognosis? @ -No Drug Therapy requiring intensive monitoring for toxicity (Heparin, Nitro, Insulin, Cardizem)? @ -No Were any procedures done? @ -No Diagnosis/symptom? @ -Unresponsive episode Acute, or Chronic, or Acute on Chronic? @ -Acute Uncomplicated (without systemic symptoms) or Complicated (systemic symptoms)? @ -Default Side effects of treatment? @ -No Exacerbation, Progression, or Severe Exacerbation? @ -No Poses a threat to life or bodily function? How? (Chest pain, [place], [place], pneumonia, PE, COPD, DKA, ARF, appy, cholecystitis, CVA, Diverticulitis, Homicidal, Suicidal, threat to staff... and all critical care pts) @ -No - Lab Data Result diagrams: 03/12/25 17:49 03/12/25 17:49 Lab Results 03/12/25 03/12/25 03/12/25 Range/Units 17:49 17:49 17:49 WBC 6.32 (4.50-10.00) 10*3/uL RBC 4.34 (4.10-5.20) 10*6/uL Hgb 13.6 (12.0-15.0) g/dL Hct 40.1 (37.2-46.3) % MCV 92.4 (80.0-97.0) fL MCH 31.3 (27.0-32.0) pg MCHC 33.9 (32.0-37.0) g/dL Plt Count 226 (140-440) 10*3/uL MPV 8.8 L (9.5-12.2) fL Immature Gran % (Auto) 0.2 % Neutrophils % 71.3 % Lymphocytes % 21.5 % Monocytes % 3.5 % Eosinophils % 3.2 % Basophils % 0.3 % Immature Gran # 0.01 (0.00-0.04) 10*3/uL Neutrophils # 4.51 (1.80-7.70) 10*3/uL Lymphocytes # 1.36 (0.90-5.00) 10*3/uL Monocytes # 0.22 (0.20-1.00) 10*3/uL Eosinophils # 0.20 (0.04-0.35) 10*3/uL Basophils # 0.02 (0.00-0.10) 10*3/uL PT 10.9 (10.0-12.5) sec INR 1.0 (<1.2) APTT 24.3 (22.0-30.0) sec Sodium 140 (137-145) mmol/L Potassium 4.0 (3.5-5.1) mmol/L Chloride 108 H (98-107) mmol/L Carbon Dioxide 25 (22-30) mmol/L Anion Gap 7 mmol/L BUN 16 (7-17) mg/dL Creatinine 0.68 (0.52-1.04) mg/dL Est GFR (CKD-EPI)AfAm >90 (>60 ml/min/1.73 sqM) Est GFR (CKD-EPI)NonAf >90 (>60 ml/min/1.73 sqM) Glucose 127 H (74-99) mg/dL Calcium 9.0 (8.4-10.2) mg/dL Magnesium 1.9 (1.6-2.3) mg/dL Total Bilirubin 0.5 (0.2-1.3) mg/dL AST 29 (14-36) U/L ALT 25 (4-34) U/L Alkaline Phosphatase 71 (38-126) U/L Troponin I (0.000-0.034) ng/mL Total Protein 6.8 (6.3-8.2) g/dL Albumin 4.2 (3.5-5.0) g/dL 03/12/25 Range/Units 17:49 WBC (4.50-10.00) 10*3/uL RBC (4.10-5.20) 10*6/uL Hgb (12.0-15.0) g/dL Hct (37.2-46.3) % MCV (80.0-97.0) fL MCH (27.0-32.0) pg MCHC (32.0-37.0) g/dL Plt Count (140-440) 10*3/uL MPV (9.5-12.2) fL Immature Gran % (Auto) % Neutrophils % % Lymphocytes % % Monocytes % % Eosinophils % % Basophils % % Immature Gran # (0.00-0.04) 10*3/uL Neutrophils # (1.80-7.70) 10*3/uL Lymphocytes # (0.90-5.00) 10*3/uL Monocytes # (0.20-1.00) 10*3/uL Eosinophils # (0.04-0.35) 10*3/uL Basophils # (0.00-0.10) 10*3/uL PT (10.0-12.5) sec INR (<1.2) APTT (22.0-30.0) sec Sodium (137-145) mmol/L Potassium (3.5-5.1) mmol/L Chloride (98-107) mmol/L Carbon Dioxide (22-30) mmol/L Anion Gap mmol/L BUN (7-17) mg/dL Creatinine (0.52-1.04) mg/dL Est GFR (CKD-EPI)AfAm (>60 ml/min/1.73 sqM) Est GFR (CKD-EPI)NonAf (>60 ml/min/1.73 sqM) Glucose (74-99) mg/dL Calcium (8.4-10.2) mg/dL Magnesium (1.6-2.3) mg/dL Total Bilirubin (0.2-1.3) mg/dL AST (14-36) U/L ALT (4-34) U/L Alkaline Phosphatase (38-126) U/L Troponin I <0.012 (0.000-0.034) ng/mL Total Protein (6.3-8.2) g/dL Albumin (3.5-5.0) g/dL Disposition Clinical Impression: Unresponsive episode Disposition: HOME SELF-CARE Condition: Stable Instructions (If sedation given, give patient instructions): Syncope (ED), Recurrent Seizures in Adults (ED) Additional Instructions: Please do follow-up with your primary care physician beginning of the week. Please also follow-up with your neurologist in the next couple of days for recheck. Return for unresponsive episode, confusion, worsening or change in symptoms or any other concerns or repetitive seizures. Is patient prescribed a controlled substance at d/c from ED?: No Referrals: Marcial Reyes MD [Primary Care Provider] - 1-2 days Time of Disposition: 19:17
[2025-03-12 17:57] LABS: HCT 40.1 % (37.2-46.3); HGB 13.6 g/dL (12.0-15.0); RBC 4.34 10*6/uL (4.10-5.20); WBC 6.32 10*3/uL (4.50-10.00)
[2025-03-12 17:58] LABS: Basophils # (A) 0.02 10*3/uL (0.00-0.10); Basophils % (A) 0.3 %; Eosinophils % (A) 3.2 %; Lymphocytes # (A) 1.36 10*3/uL (0.90-5.00); Lymphocytes % (A) 21.5 %; MCH 31.3 pg (27.0-32.0); MCHC 33.9 g/dL (32.0-37.0); MCV 92.4 fL (80.0-97.0); Mean Platelet Volume 8.8 fL (9.5-12.2); Monocytes # (A) 0.22 10*3/uL (0.20-1.00); Monocytes % (A) 3.5 %; Neutrophils # (A) 4.51 10*3/uL (1.80-7.70); Neutrophils % (A) 71.3 %; Platelet Count 226 10*3/uL (140-440); RDW 13.3 % (11.5-14.5)
[2025-03-12 18:13] LABS: Partial Thromboplastin Time 24.3 sec (22.0-30.0); Prothrombin Time 10.9 sec (10.0-12.5)
--- NOTE | 2025-03-12 18:14 | XR ---
EXAMINATION TYPE: XR chest 2V DATE OF EXAM: 03/12/2025 5:58 PM COMPARISON: None. CLINICAL INDICATION: Female, 49 years old with history of syncope, TECHNIQUE: XR chest 2V view(s) obtained. There is some limitation due to body habitus. FINDINGS: The heart size is normal. The pulmonary vasculature is normal. The lungs are clear. IMPRESSION: 1. No acute pulmonary process. [facility], , 03/12/2025 6:11 PM
[2025-03-12 18:20] LABS: ALT 25 U/L (4-34); AST 29 U/L (14-36); African American GFR (CKD) >90 (>60 ml/min/1.73 sqM); Albumin 4.2 g/dL (3.5-5.0); Alkaline Phosphatase 71 U/L (38-126); Anion Gap 7 mmol/L; Blood Urea Nitrogen 16 mg/dL (7-17); Carbon Dioxide 25 mmol/L (22-30); Chloride 108 mmol/L (98-107); Glucose 127 mg/dL (74-99); Magnesium 1.9 mg/dL (1.6-2.3); Non-African American GFR(CKD) >90 (>60 ml/min/1.73 sqM); Sodium 140 mmol/L (137-145); Total Bilirubin 0.5 mg/dL (0.2-1.3); Total Protein 6.8 g/dL (6.3-8.2)
[2025-03-12 19:16] VITALS: BP 111/67; PULSE 60; RESP 18
== END 2025-03-12 19:36 | disposition home or self-care (01) ==
LOC: EC 17:11
DX: R40.20 Unspecified coma (principal); R00.1 Bradycardia, unspecified; G40.909 Epilepsy, unspecified, not intractable, without status epilepticus; F17.200 Nicotine dependence, unspecified, uncomplicated; Z88.8 Allergy status to other drugs, medicaments and biological substances
CPT/HCPCS: 36415; 71046; 80053; 83735; 84484; 85025; 85610; 85730; 93005; 99284

== ENCOUNTER 2025-03-17 10:22 | Emergency (ER) | payer OTHER ==
[2025-03-17 10:56] VITALS: RESP 18
--- NOTE | 2025-03-17 12:28 | ED ---
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 Patient had x-rays which were negative patient was sent here to rule out DVT. Patient denies a history of DVT no chest pain no shortness of breath no other complaints - Related Data Home Medications Medication Instructions Recorded Confirmed Lacosamide [Vimpat] 200 mg PO BID@0700,1900 09/11/17 09/29/24 Zonisamide [Zonegran] 100 mg PO BID@0700,1900 09/29/24 09/29/24 cloBAZam 10 mg PO BID@0700,1900 09/29/24 09/29/24 Previous Rx's Medication Instructions Recorded OXcarbazepine [Trileptal] 300 mg PO BID@0700,1900 #60 tab 07/24/24 Amoxic-Pot Clav 875-125Mg 1 tab PO BID #10 tab 09/30/24 [Augmentin 875-125] Clindamycin Phosphate [Clindagel 1 applic TOPICAL BID #75 ml 11/23/24 1%] Doxycycline [Vibramycin] 100 mg PO BID 7 Days #14 capsule 11/23/24 Allergies Allergy/AdvReac Type Severity Reaction Status Date / Time ibuprofen Allergy see comment Verified 03/17/25 10:56 Review of Systems ROS Statement: Those systems with pertinent positive or pertinent negative responses have been documented in the HPI. ROS Other: All systems not noted in ROS Statement are negative. Past Medical History Past Medical History: Asthma, Hyperlipidemia, Seizure Disorder Additional Past Medical History / Comment(s): Constipation History of Any Multi-Drug Resistant Organisms: MRSA Date of last positivie culture/infection: 11/03/08 MDRO Source:: POST Past Surgical History: Back Surgery, Hysterectomy, Orthopedic Surgery, Tubal Ligation Additional Past Surgical History / Comment(s): foot surgery Past Anesthesia/Blood Transfusion Reactions: No Reported Reaction Past Psychological History: No Psychological Hx Reported Smoking Status: Current every day smoker Past Alcohol Use History: None Reported Past Drug Use History: None Reported - Past Family History Mother Family Medical History: Cancer Sister(s) Family Medical History: Cancer Father Family Medical History: Cancer General Exam Limitations: no limitations General appearance: alert, in no apparent distress Head exam: Present: atraumatic, normocephalic, normal inspection Eye exam: Present: normal appearance, PERRL, EOMI. Absent: scleral icterus, conjunctival injection, periorbital swelling Respiratory exam: Present: normal lung sounds bilaterally. Absent: respiratory distress, wheezes, rales, rhonchi, stridor Cardiovascular Exam: Present: regular rate, normal rhythm, normal heart sounds. Absent: systolic murmur, diastolic murmur, rubs, gallop, clicks GI/Abdominal exam: Present: soft, normal bowel sounds. Absent: distended, tenderness, guarding, rebound, rigid Extremities exam: Present: other (No calf tenderness pedal pulses equal bilaterally mild right foot swelling and tenderness to palpation no erythema no open lesions or sores.) Course Vital Signs 03/17/25 10:52 Temperature 97.7 F Pulse Rate 65 Respiratory 18 Rate Blood Pressure 120/57 O2 Sat by Pulse 95 Oximetry Medical Decision Making - Medical Decision Making Was pt. sent in by a medical professional or institution (, PA, [employer], urgent care, hospital, or fdc...) When possible be specific @ -Machine Milker Did you speak to anyone other than the patient for history (EMS, parent, family, police, friend...)? What history was obtained from this source @ -No Did you review nursing and triage notes (agree or disagree)? Why? @ -I reviewed and agree with nursing and triage notes Were old charts reviewed (outside hosp., previous admission, EMS record, old EKG, old radiological studies, urgent care reports/EKG's, fdc records)? Report findings @ -No old charts were reviewed Differential Diagnosis (chest pain, altered mental status, abdominal pain women, abdominal pain men, vaginal bleeding, weakness, fever, dyspnea, syncope, headache, dizziness, GI bleed, back pain, seizure, CVA, palpatations, mental health, musculoskeletal)? @ -Foot sprain, DVT, leg swelling EKG interpreted by me (3pts min.). @ -None X-rays interpreted by me (1pt min.). @ -None done CT interpreted by me (1pt min.). @ -None done U/S interpreted by me (1pt. min.). @ - venous Doppler negative for acute DVT What testing was considered but not performed or refused? (CT, X-rays, U/S, labs)? Why? @ -None What meds were considered but not given or refused? Why? @ -None Did you discuss the management of the patient with other professionals (professionals i.e. DrTony, PA, [employer], lab, RT, psych nurse, social media editor, blender conveyor operator, teacher, correctional program officer, case loader operator)? Give summary @ -No Was smoking cessation discussed for >3mins.? @ -No Was critical care preformed (if so, how long)? @ -No Were there social determinants of health that impacted care today? How? (Homelessness, low income, unemployed, alcoholism, drug addiction, transportation, low edu. Level, literacy, decrease access to med. care, intermediate, rehab)? @ -No Was there de-escalation of care discussed even if they declined (Discuss DNR or withdrawal of care, Hospice)? DNR status @ -No What co-morbidities impacted this encounter? (DM, HTN, Smoking, COPD, CAD, Cancer, CVA, ARF, Chemo, Hep., AIDS, mental health diagnosis, sleep apnea, morbid obesity)? @ -None Was patient admitted / discharged? Hospital course, mention meds given and route, prescriptions, significant lab abnormalities, going to OR and other pertinent info. @ -Discharge patient sent in to rule out DVT patient's ultrasound negative she had outpatient x-rays refuse any further x-rays here in the emergency department. Further treatment. Undiagnosed new problem with uncertain prognosis? @ -No Drug Therapy requiring intensive monitoring for toxicity (Heparin, Nitro, Insulin, Cardizem)? @ -No Were any procedures done? @ -No Diagnosis/symptom? @ -[Foot swelling sprain Acute, or Chronic, or Acute on Chronic? @ -Acute Uncomplicated (without systemic symptoms) or Complicated (systemic symptoms)? @ -Uncomplicated Side effects of treatment? @ -[No Exacerbation, Progression, or Severe Exacerbation? @ -No Poses a threat to life or bodily function? How? (Chest pain, [place], [place], pneumonia, PE, COPD, DKA, ARF, appy, cholecystitis, CVA, Diverticulitis, Homicidal, Suicidal, threat to staff... and all critical care pts) @ -No Disposition Clinical Impression: Foot sprain, Foot swelling Disposition: HOME SELF-CARE Condition: Stable Instructions (If sedation given, give patient instructions): Swollen Joint (ED) Additional Instructions: Please return to the Emergency Department if symptoms worsen or any other concerns. Is patient prescribed a controlled substance at d/c from ED?: No Referrals: Marcial Reyes MD [Primary Care Provider] - 1-2 days Time of Disposition: 13:46
--- NOTE | 2025-03-17 13:26 | US ---
EXAMINATION TYPE: US venous doppler duplex LE RT DATE OF EXAM: 03/17/2025 1:06 PM COMPARISON: NONE CLINICAL INDICATION: Female, 49 years old with history of pain; Right lateral ankle swelling, no redn ess. Not on blood thinners, Pain TECHNIQUE: The lower extremity deep venous system is examined utilizing real time linear array sonog gomez with graded compression, color doppler sonography, and spectral doppler. SIDE PERFORMED: Right FINDINGS: VESSELS IMAGED: Common Femoral Vein Deep Femoral Vein Greater Saphenous Vein * Femoral Vein Popliteal Vein Small Saphenous Vein * Proximal Calf Veins Posterior tibial veins (* superficial vessels) Right Leg: Negative for DVT, Color Doppler imaging shows patency of the vessels. Spectral waveforms are within normal limits. IMPRESSION: No evidence for DVT within the right lower extremity. [facility], , 03/17/2025 1:23 PM
[2025-03-17 14:15] VITALS: BP 124/67; PULSE 66; TEMP 97.9
== END 2025-03-17 14:49 | disposition home or self-care (01) ==
LOC: EC 10:22
DX: S93.601A Unspecified sprain of right foot, initial encounter (principal); M79.89 Other specified soft tissue disorders; F17.200 Nicotine dependence, unspecified, uncomplicated; Z88.6 Allergy status to analgesic agent; X58.XXXA Exposure to other specified factors, initial encounter
CPT/HCPCS: 99283